=== PATIENT | male | born 1965 | race Caucasian/White ===

== ENCOUNTER 2018-02-02 17:13 | Inpatient (IN) ==
[2018-02-02] MEDS ORDERED: Morphine Inj 4 MG/ML Vial IV.PUSH ONE (18:28)
--- NOTE | 2018-02-02 18:30 | ED ---
HPI General Chief complaint: Recheck/Abnormal Lab/Rx Stated complaint: dr ayala Time Seen by Provider: 02/02/18 18:17 Source: patient Mode of arrival: ambulatory Limitations: no limitations History of Present Illness HPI narrative: 52-year-old male with history of hypertension and a chronic wound on the left plantar foot, presents emergency department today at the instruction of Dr. Nash, it compliance manager. Patient was hospitalized at [facility] January 10 - January 20 for a wound on his left foot. He tells me that he was discharged home on IV antibiotics with a PICC line. He does not recall what antibiotic this is. He tells me he does get it every day at 9 AM and he did get his dose today. He tells me that he was told somebody was going to come to his house and set up a wound VAC and monitor his wound, however nobody showed up and he did not hear anything. He decided on his own to contact the it compliance manager who saw him yesterday removed his sutures and then again today and advised to come to the emergency department. Patient reports pain in the left foot, moderate in severity, exacerbated with ambulation. He states he has had no fever but has felt chilled occasionally. He denies any weakness, nausea, vomiting. He has no other symptoms to report. Patient does tell me he was told that he was borderline diabetic, however he currently does not take any medication for diabetes. Related Data Home Medications Medication Instructions Recorded Confirmed No Known Home Medications 02/02/18 02/02/18 Allergies Allergy/AdvReac Type Severity Reaction Status Date / Time No Known Allergies Allergy Verified 02/02/18 17:27 Review of Systems ROS: all other systems reviewed are negative [facility] Medical History Medical History Asthma (Acute) Hypertension (Acute) Social History Social History Substance History: No History of Abuse Second Hand Smoke Exposure: Yes Smoking Status: Former smoker Tobacco Type: Cigarettes How Often Do You Have a Drink Containing Alcohol: 2 to 4 times a month Recent Travel in [facility] within the Last 8 Weeks: No Recent Out of Country Travel within the Last 8 Weeks: No Immunization History Tetanus Immunization: Unsure Hx Influenza Vaccine This Season: No Exam Narrative Exam Narrative: GENERAL: Well-nourished male patient, sitting up in bed, no acute distress. SKIN: Focused skin assessment warm/dry. 3 cm in diameter ulcerative lesions on the plantar surface of the left foot just proximal to the great toe. You can visualize the bone. There is erythema encompassing the foot extending to the midfoot with mild edema. Patient can slowly wiggle the toes. Cap refill within normal limits. HEAD: Atraumatic. Normocephalic. EYES: Pupils equal and round. No scleral icterus. No injection or drainage. ENT: No nasal bleeding or discharge. Mucous membranes pink and moist. NECK: Trachea midline. No JVD. CARDIOVASCULAR: Regular rate and rhythm. No murmur appreciated. RESPIRATORY: No accessory muscle use. Clear to auscultation. Breath sounds equal bilaterally. GASTROINTESTINAL: Abdomen soft, non-tender, nondistended. Hepatic and splenic margins not palpable. MUSCULOSKELETAL: No obvious deformities. No clubbing. No cyanosis. NEUROLOGICAL: Awake and alert. No obvious cranial nerve deficits. Motor grossly within normal limits. Normal speech. PSYCHIATRIC: Appropriate mood and affect; insight and judgment normal. Course Initial Documented Vital Signs Temperature 98.0 F 02/02/18 17:19 Pulse Rate 77 02/02/18 17:19 Respiratory Rate 18 02/02/18 17:19 Blood Pressure 180/81 H 02/02/18 17:19 Pulse Oximetry 98 02/02/18 17:19 Last Documented Vital Signs Temperature 98.3 F 02/03/18 04:00 Pulse Rate 58 L 02/03/18 04:00 Respiratory Rate 20 02/03/18 04:00 Blood Pressure 146/68 H 02/03/18 04:00 Pulse Oximetry 99 02/03/18 04:00 Medical Decision Making DALTON Attestation DALTON supervised visit: Yes Attestation: I, [-], have reviewed the advance practice practitioner's documentation and am in agreement, met with the patient face to face, made the diagnosis, and the medical decision making was done by me. *My assessment and Findings: Ulceration of the plantar aspect of the left foot with exposed bone. No purulent discharge. No tenderness to palpation. Patient does not appear septic. MDM Narrative Medical decision making narrative: 52-year-old male presents emergency department for evaluation of a wound on his left foot. Patient does have an ulcerative wound and bone is visible. Patient has been on outpatient antibiotics with no improvement of this. Wound culture and blood cultures are obtained as well as basic lab work. This is without acute concern. I have had the feeder worker power unit operator contact [facility] for [facility]'s [facility]. MRI of the left foot is pending. I have contacted the resident team for admission. A consult has been placed to podiatry. Medical Screen Exam Complete: Yes Emergency Medical Condition: Yes Differential Diagnosis Differential Diagnosis: Cellulitis versus wound infection versus medication noncompliance versus failed outpatient therapy versus septic versus osteomyelitis Medical Records Medical records reviewed: Yes I reviewed the patient's medical records. Lab Data Lab results reviewed: Yes I reviewed the patient's lab results. Result diagrams: 02/02/18 18:40 02/02/18 18:40 Lab Results 02/02/18 02/02/18 02/02/18 Range/Units 18:40 18:40 18:40 WBC 7.0 (4.0-11.0) th/mm3 RBC 4.79 (4.50-5.90) mil/mm3 Hgb 14.0 (13.0-17.0) gm/dL Hct 42.1 (39.0-51.0) % MCV 88.0 (80.0-100.0) fL MCH 29.2 (27.0-34.0) pg MCHC 33.2 (32.0-36.0) % RDW 13.4 (11.6-17.2) % Plt Count 201 (150-450) th/mm3 MPV 8.8 (7.0-11.0) fL Neut % (Auto) 72.9 H (16.0-70.0) % Lymph % (Auto) 17.1 (9.0-44.0) % [place] % (Auto) 7.5 (0.0-8.0) % Eos % (Auto) 1.7 (0.0-4.0) % Baso % (Auto) 0.8 (0.0-2.0) % Neut # (Auto) 5.1 (1.8-7.7) th/mm3 Lymph # (Auto) 1.2 (1.0-4.8) th/mm3 [place] # (Auto) 0.5 (0.0-0.9) th/mm3 Eos # (Auto) 0.1 (0.0-0.4) th/mm3 Baso # (Auto) 0.1 (0.0-0.2) th/mm3 WBC Differential . Differential Comment Auto diff final ESR (0-20) mm/hr PT (9.8-11.6) sec INR Ratio APTT (24.3-30.1) sec Sodium 140 (136-145) meq/L Potassium 4.1 (3.5-5.1) meq/L Chloride 104 (98-107) meq/L Carbon Dioxide 27.9 (21.0-32.0) meq/L Anion Gap 8 (5-15) meq/L BUN 12 (7-18) mg/dL Creatinine 0.91 (0.60-1.30) mg/dL Estimated GFR 88 L (>89) mL/min Random Glucose 96 (74-106) mg/dL Lactic Acid 1.5 (0.4-2.0) mmol/L Calcium 8.8 (8.5-10.1) mg/dL Total Bilirubin 0.3 (0.2-1.0) mg/dL AST 22 (15-37) U/L ALT 37 (12-78) U/L Alkaline Phosphatase 94 (45-117) U/L C-Reactive Protein 2.11 H (0.00-0.30) mg/dL Total Protein 7.9 (6.4-8.2) g/dL Albumin 3.1 L (3.4-5.0) g/dL 02/02/18 02/02/18 02/02/18 Range/Units 18:40 18:40 19:15 WBC (4.0-11.0) th/mm3 RBC (4.50-5.90) mil/mm3 Hgb (13.0-17.0) gm/dL Hct (39.0-51.0) % MCV (80.0-100.0) fL MCH (27.0-34.0) pg MCHC (32.0-36.0) % RDW (11.6-17.2) % Plt Count (150-450) th/mm3 MPV (7.0-11.0) fL Neut % (Auto) (16.0-70.0) % Lymph % (Auto) (9.0-44.0) % [place] % (Auto) (0.0-8.0) % Eos % (Auto) (0.0-4.0) % Baso % (Auto) (0.0-2.0) % Neut # (Auto) (1.8-7.7) th/mm3 Lymph # (Auto) (1.0-4.8) th/mm3 [place] # (Auto) (0.0-0.9) th/mm3 Eos # (Auto) (0.0-0.4) th/mm3 Baso # (Auto) (0.0-0.2) th/mm3 WBC Differential Differential Comment ESR 22 H (0-20) mm/hr PT 10.4 (9.8-11.6) sec INR 1.0 Ratio APTT 26.4 (24.3-30.1) sec Sodium (136-145) meq/L Potassium (3.5-5.1) meq/L Chloride (98-107) meq/L Carbon Dioxide (21.0-32.0) meq/L Anion Gap (5-15) meq/L BUN (7-18) mg/dL Creatinine (0.60-1.30) mg/dL Estimated GFR (>89) mL/min Random Glucose (74-106) mg/dL Lactic Acid (0.4-2.0) mmol/L Calcium (8.5-10.1) mg/dL Total Bilirubin (0.2-1.0) mg/dL AST (15-37) U/L ALT (12-78) U/L Alkaline Phosphatase (45-117) U/L C-Reactive Protein Cancelled (0.00-0.30) mg/dL Total Protein (6.4-8.2) g/dL Albumin (3.4-5.0) g/dL Imaging Data Radiologist's impression: Foot MRI 02/02/18 18:25 CONCLUSION: Deep plantar ulcer of the medial forefoot as described with associated osteomyelitis of the neck and head of the first metatarsal and osteomyelitis throughout most of the great toe proximal phalanx. The first metatarsophalangeal joint is dorsally dislocated due to plantar and flexor mechanism rupture. I don't clearly see either sesamoid. Discharge Plan Discharge Disposition Patient Disposition: 30 Still Patient Discharge Condition Condition: Stable Discharge Details Diagnosis: Open wnd foot-complicated, Failure of outpatient treatment Physicians Team ED Provider: Zoran Kee ED Midlevel Provider: Lita Ivy Primary Care Provider: Bharat Tejada Attending Provider: Nicole Garza Other Providers: Vicki Chavarria ED Status: Left Department Discharge Information Discharge Date/Time: 02/03/18 00:03
[2018-02-02 18:55] LABS: Baso # (Auto) 0.1 th/mm3 (0.0-0.2); Baso % (Auto) 0.8 % (0.0-2.0); Eos # (Auto) 0.1 th/mm3 (0.0-0.4); Eos % (Auto) 1.7 % (0.0-4.0); Hematocrit 42.1 % (39.0-51.0); Lymph # (Auto) 1.2 th/mm3 (1.0-4.8); Lymph % (Auto) 17.1 % (9.0-44.0); Mean Corpuscular HGB Conc 33.2 % (32.0-36.0); Mean Corpuscular Hemoglobin 29.2 pg (27.0-34.0); Mean Platelet Volume 8.8 fL (7.0-11.0); Mono # (Auto) 0.5 th/mm3 (0.0-0.9); Mono % (Auto) 7.5 % (0.0-8.0); Neut # (Auto) 5.1 th/mm3 (1.8-7.7); Neut % (Auto) 72.9 % (16.0-70.0); Platelet Count 201 th/mm3 (150-450); Red Blood Count 4.79 mil/mm3 (4.50-5.90); Red Cell Distribution Width 13.4 % (11.6-17.2)
[2018-02-02 19:14] LABS: Albumin 3.1 g/dL (3.4-5.0); Anion Gap 8 meq/L (5-15); Aspartate Aminotransferase 22 U/L (15-37); Blood Urea Nitrogen 12 mg/dL (7-18); Calcium 8.8 mg/dL (8.5-10.1); Carbon Dioxide 27.9 meq/L (21.0-32.0); Chloride 104 meq/L (98-107); Glomerular Filtration Rate 88 mL/min (>89); Glucose,Random 96 mg/dL (74-106); Potassium 4.1 meq/L (3.5-5.1); Sodium 140 meq/L (136-145)
[2018-02-02 19:18] LABS: Alanine Aminotransferase 37 U/L (12-78); Alkaline Phosphatase 94 U/L (45-117); Total Protein 7.9 g/dL (6.4-8.2)
[2018-02-02] MEDS ORDERED: Gadobutrol PF 10 MMOL/10 ML Vial (for RAD) IV.SIG ONE (20:09)
[2018-02-02 20:15] LABS: Activated Partial Thrombo Time 26.4 sec (24.3-30.1); Prothrombin Time 10.4 sec (9.8-11.6)
--- NOTE | 2018-02-02 20:39 | MR ---
EXAM DATE: 02/02/2018 7:33 PM EDT AGE/SEX: 52 years / Male INDICATIONS: Abscess. Proximal ball of foot under great toe ulcer and distal ball of foot by the fourth tarsal ulcer. CLINICAL DATA: This is the patient's initial encounter. Patient reports that signs and symptoms have been present for 1 day and indicates a pain score of 0/10. MEDICAL/SURGICAL HISTORY: Hypertension. Diabetes mellitus type II. . Fatty tumor removal. COMPARISON: No prior exams available for comparison. TECHNIQUE: Multiplanar, multisequence MRI examination was performed without contrast and after th e intravenous administration of 11.9 ml Gadavist (gadobutrol) single exam dose. FINDINGS: There is a plantar ulcer extending down to the bone at the first metatarsophalangeal joint. The joint is dorsally dislocated. The metatarsal head appears exposed. There is marrow edema of the entire fir st metatarsal and proximal phalanx. There is associated T1 signal abnormality typical of osteomyeliti s involving the head and neck of the first metatarsal and the base of the proximal phalanx. Some patc hy intramedullary signal abnormality is seen all the way to the head of the proximal phalanx as well and of concern for some distal migration of infection. Both lungs and hands. Other tendons are within normal limits. There is no drainable fluid collection. CONCLUSION: Deep plantar ulcer of the medial forefoot as described with associated osteomyelitis of the neck and head of the first metatarsal and osteomyelitis throughout most of the great toe proximal phalanx. The first metatarsophalangeal joint is dorsally dislocated due to plantar and flexor mechan ism rupture. I don't clearly see either sesamoid. Electronically signed by: Calin Bui MD 02/02/2018 8:38 PM EDT
[2018-02-02] MEDS ORDERED: Bisacodyl 10 MG Supp RECTAL PRN (21:20)
[2018-02-02] MEDS ORDERED: Acetaminophen 325 MG Tablet PO PRN (21:20)
[2018-02-02] MEDS ORDERED: Morphine Sulfate Inj 2 MG/ML Vial IV.PUSH PRN (21:28)
[2018-02-02] MEDS ORDERED: Vancomycin Consult Pharmacy OTHER PRN (21:30)
--- NOTE | 2018-02-02 21:39 | P.HPFP ---
History of Present Illness Primary Care Physician: Bharat Tejada <Nicole Garza R - 02/03/18 10:41> Bharat Tejada <Eric Hernandez - 02/02/18 21:39> History of Present Illness: The patient is a 52 year old man sent to the ED by his sales representative graphic art Dr. Chavarria due to a chronic wound on the plantar aspect of his left foot. Patient reports he has two wounds on the left foot and he first noticed these wounds in August of this year. Reports prior to this he had been having soreness in this area since the beginning of the year. He states he is unsure as to what may have caused this chronic wound. Denies any trauma. He states to me he is healthy apart from having mild asthma, although he does not follow with a PCP. The patient is somewhat of a difficult historian. He does report he has seen a few providers most recently in the [facility]. He was recently hospitalized at [facility] per report from 01/10- for this same wound on his left foot; the patient was reportedly discharged home with a PICC line and instructed to continue IV antibiotics. He states he has been driving himself to the hospital to receive an antibiotic daily at 09: 00. He is unsure which antibiotic this is. Per report, he was also to be set up to have a wound vac placed although this was not done at his house. The patient is currently living in a mobile home with his cousin. The patient endorses pain that is mild, and further improved with IV morphine earlier here in the ED. Denies recent fevers or chills. Denies chest pains, palpitations, dyspnea, wheezing. Denies headaches, changes in vision, abdominal pain, n/v/d. PMH: chronic left foot wounds noted above mild intermittent asthma hypertension per chart review patient does not report any other medical issues PSxH: denies FH: father: COPD, smoker mother: healthy SH: Lives in a mobile home with a cousin Tobacco: states he smokes a few cigarettes daily since his 20s Etoh: few beers per week Substance use: admits to using marijuana occasionally, otherwise denies substance use <Eric Hernandez - 02/02/18 23:28> - Diagnosis (1) Foot ulcer, left (2) Hypertension (3) Asthma (4) Nutrition, metabolism, and development symptoms <DerrickalessandroNicole - 02/03/18 10:41> (1) Foot ulcer, left (2) Hypertension (3) Asthma (4) Nutrition, metabolism, and development symptoms <KoryhillaryEric 02/02/18 22:48> Inpatient Certification: I certify that the inpatient services were ordered in accordance with Medicare regulations governing the order. This includes certification that hospital inpatient services are reasonable and necessary and in the case of services not specified as inpatient-only under 42 CFR 419.22(n), that they are appropriately provided as inpatient services in accordance to with the 2-midnight benchmark under 43 CFR 412.3(e) <GregNicole R 02/03/18 10:41> I certify that the inpatient services were ordered in accordance with Medicare regulations governing the order. This includes certification that hospital inpatient services are reasonable and necessary and in the case of services not specified as inpatient-only under 42 CFR 419.22(n), that they are appropriately provided as inpatient services in accordance to with the 2-midnight benchmark under 43 CFR 412.3(e) <KoryhillaryEric 02/02/18 21:39> Estimated Total Length of Stay (Days): 3 <RomulojacquelinEric 02/02/18 21:39> Plans for Post Hospital Care: Not yet determined <KoryhillaryEric 21:39> [facility] History History Provided By: Patient <MaryEric 02/02/18 21:39> - Medical History Medical History: Medical History (Last Reviewed 02/02/18 @ 20:11 by GISELLE Hansno) Asthma Hypertension <GregNicole R 02/03/18 10:41> Medical History (Last Reviewed 02/02/18 @ 20:11 by GISELLE Hanson) Asthma Hypertension <RomulojacquelinEric 02/02/18 21:39> - Tobacco History Second Hand Smoke Exposure: Yes <MaryReic 02/02/18 21:39> Tobacco Use In Past 30 Days: Yes <Eric Hernandez 02/02/18 21:39> Smoking Status: Current some day smoker <KoryfatoumatatatianaEric - 02/02/18 21:39> Tobacco Type: Cigarettes <KoryhillaryEric - 02/02/18 21:39> - Alcohol History How Often Do You Have a Drink Containing Alcohol: 2 to 3 times a week < RomuloEric roper 02/02/18 21:39> - Substance Use History Substance History: No History of Abuse <RomuloEric roper 02/02/18 21:39> - Travel History Recent Travel in the [facility] Within the Last 8 Weeks: No <RomuloEric roper 08/17 21:39> Recent Travel Out of the Country Within the Last 8 Weeks: No <Eric Hernandez 02/02/18 21:39> - Immunization History Tetanus Immunization: Unsure <RomulojacquelinEric - 02/02/18 21:39> Hx Influenza Vaccine This Season: No <Eric Hernandez 02/02/18 21:39> Medications and Allergies Allergies Allergy/AdvReac Type Severity Reaction Status Date / Time No Known Allergies Allergy Verified 02/02/18 17:27 <Nicole Garza 02/03/18 10:41> Home Medications Medication Instructions Recorded Confirmed Type No Known Home Medications 02/02/18 02/02/18 History <Nicole Garza 02/03/18 10:41> Active Medications: Active Medications Acetaminophen (Tylenol) 650 mg PO Q4H PRN PRN Reason: Pain 1-5 And/Or Fever >101f Hydrocodone Bitart/Acetaminophen ([place] 5/325) 1 tab PO Q4H PRN PRN Reason: PAIN SCALE 6 TO 10 Al Hydroxide/Mg Hydroxide (Milk Of Magnesia Liq) 30 ml PO Q12H PRN PRN Reason: Mild Constipation Albuterol (Duoneb Neb (Prn)) 1 ampul NEB Q4HR NEB PRN PRN Reason: SHORTNESS OF BREATH/WHEEZING Bisacodyl (Dulcolax Supp) 10 mg RECTAL DAILY PRN PRN Reason: SEVERE CONSITIPATION Clonidine HCl (Catapres) 0.1 mg PO Q6H PRN PRN Reason: SEE LABEL COMMENTS Sodium Chloride (Ns Inj) 1,000 mls @ 100 mls/hr IV.CONT .Q10H RAUL Last Admin: 02/02/18 22:13 Dose: 100 mls/hr Piperacillin/Tazobactam/Dextrose (Zosyn 4.5 Gm Premix) 4.5 gm in 100 mls @ 200 mls/hr IV.SIG Q6H RAUL Last Infusion: 02/03/18 05:40 Dose: Infused Vancomycin HCl 1,500 mg/ (Sodium Chloride) 515 mls @ 250 mls/hr IV.SIG Q12H RAUL Lactulose (Lactulose Liq) 30 ml PO DAILY PRN PRN Reason: SEVERE CONSITIPATION Miscellaneous Information ([facility] Ordered Lab Info) 0 each OTHER ONCE ONE Stop: 02/04/18 11:46 Morphine Sulfate (Morphine Inj) 2 mg IV.PUSH Q3H PRN PRN Reason: BREAKTHROUGH PAIN Ondansetron HCl (Zofran Inj) 4 mg IV.PUSH Q6H PRN PRN Reason: NAUSEA OR VOMITING Pharmacy Profile Note (Vancomycin Consult Pharmacy) 1 each OTHER UNSCH PRN PRN Reason: Pharmacy to dose Senna/Docusate Sodium (Celi-Colace) 1 tab PO BID [facility] Last Admin: 02/02/18 22:05 Dose: Not Given <Nicole Garza R - 02/03/18 10:41> Active Medications Acetaminophen (Tylenol) 650 mg PO Q4H PRN PRN Reason: Pain 1-5 And/Or Fever >101f Hydrocodone Bitart/Acetaminophen ([place] 5/325) 1 tab PO Q4H PRN PRN Reason: PAIN SCALE 6 TO 10 Al Hydroxide/Mg Hydroxide (Milk Of Magnesia Liq) 30 ml PO Q12H PRN PRN Reason: Mild Constipation Albuterol (Duoneb Neb (Prn)) 1 ampul NEB Q4HR NEB PRN PRN Reason: SHORTNESS OF BREATH/WHEEZING Bisacodyl (Dulcolax Supp) 10 mg RECTAL DAILY PRN PRN Reason: SEVERE CONSITIPATION Sodium Chloride (Ns Inj) 1,000 mls @ 100 mls/hr IV.CONT .Q10H RAUL Vancomycin HCl 1,750 mg/ (Sodium Chloride) 517.5 mls @ 250 mls/hr IV.SIG Q24H RAUL Piperacillin/Tazobactam/Dextrose (Zosyn 4.5 Gm Premix) 4.5 gm in 100 mls @ 200 mls/hr IV.SIG Q6H RAUL Lactulose (Lactulose Liq) 30 ml PO DAILY PRN PRN Reason: SEVERE CONSITIPATION Morphine Sulfate (Morphine Inj) 2 mg IV.PUSH Q3H PRN PRN Reason: BREAKTHROUGH PAIN Ondansetron HCl (Zofran Inj) 4 mg IV.PUSH Q6H PRN PRN Reason: NAUSEA OR VOMITING Pharmacy Profile Note (Vancomycin Consult Pharmacy) 1 each OTHER UNSCH PRN PRN Reason: Pharmacy to dose Senna/Docusate Sodium (Celi-Colace) 1 tab PO BID RAUL <Kevin Hernandezsh - 02/02/18 21:39> Exam Vital signs: Vital Signs 02/02/18 17:19 02/02/18 17:26 02/02/18 19:20 Temperature 98.0 F Pulse Rate 77 77 70 Respiratory Rate 18 18 17 Blood Pressure 180/81 H 119/74 136/70 Pulse Oximetry 98 99 98 02/02/18 20:24 02/03/18 00:35 02/03/18 03:35 Temperature 97.3 F L Pulse Rate 58 L Respiratory Rate 20 20 Blood Pressure 118/72 Pulse Oximetry 98 98 02/03/18 04:00 02/03/18 08:00 Temperature 98.3 F 97 F L Pulse Rate 58 L 59 L Respiratory Rate 20 17 Blood Pressure 146/68 H 175/90 H Pulse Oximetry 99 99 Intake & Output 02/02/18 02/03/18 02/03/18 18:59 06:59 18:59 Intake Total 740 / 740 Balance 740 / 740 Weight 119.295 kg 121.9 kg Intake: IV 740 / 740 Zosyn 4.5 GM Premix 4.5 gm In 200 / 200 100 ml @ 200 mls/hr IV.SIG Q6H RAUL Rx#:[id number] Vancomycin Inj 2,000 MG In NS 540 / 540 Inj 500 ML @ 270 mls/hr IV.SIG ONCE ONE Rx#:[id number] Oral 0 / 0 Other: Weight On Admission 121.9 kg <Nicole Garza - 02/03/18 10:41> Vital Signs 02/02/18 17:19 02/02/18 17:26 02/02/18 19:20 Temperature 98.0 F Pulse Rate 77 77 70 Respiratory Rate 18 18 17 Blood Pressure 180/81 H 119/74 136/70 Pulse Oximetry 98 99 98 02/02/18 20:24 Temperature Pulse Rate Respiratory Rate 20 Blood Pressure Pulse Oximetry Intake & Output 02/02/18 02/02/18 02/03/18 06:59 18:59 06:59 Weight 119.295 kg <Eric Hernandez - 02/02/18 21:39> Narrative: GENERAL: NAD, lying comfortably in bed NEURO: AOx3. Normal speech. administration physician grossly intact. SKIN: measured 2.5cm in diameter ulcerative lesion on plantar surface of the left foot proximal to the great toe, bone is able to be visualized, very poor sensation of this area and without pain to palpation unless probed in a specific area. + probe to bone. Surrounding erythema extending to the great toe and towards the midfoot. Another lesion measured 1.5cm x 2cm lesion without skin breakdown just lateral to this wound. DP and PT pulses are palpable and 2+ in both feet. Loss of sensation to light touch of both feet and up to the level of his ankles bilaterally. HEAD: Normocephalic. Atraumatic. EYES: PERRL. EOMI. No scleral icterus. No injection or drainage. ENT: No nasal drainage. Moist mucous membranes. No oral ulcers or lesions. NECK: Supple, trachea midline. No JVD. CARDIOVASCULAR: Regular rate and rhythm without murmurs, gallops, or rubs. Peripheral pulses 2+. Capillary refill < 2 seconds. RESPIRATORY: Breath sounds clear to auscultation and equal bilaterally, without wheezes, rales, or rhonchi. No accessory muscle use. GASTROINTESTINAL: Abdomen soft, non-tender, protuberant, normal BS BACK: Nontender without obvious deformity. <KoryfatoumataEric simpson - 02/02/18 23:28> Results - Labs Result diagrams: 02/03/18 07:13 02/03/18 07:13 <Nicole Garza - 02/03/18 10:41> Abnormal lab results 02/02/18 02/02/18 02/02/18 Range/Units 18:40 18:40 18:40 RBC (4.50-5.90) mil/mm3 Hct (39.0-51.0) % Neut % (Auto) 72.9 H (16.0-70.0) % Williams % (Auto) (0.0-8.0) % Lymph # (Auto) (1.0-4.8) th/mm3 ESR 22 H (0-20) mm/hr Estimated GFR 88 L (>89) mL/min C-Reactive Protein 2.11 H (0.00-0.30) mg/dL Albumin 3.1 L (3.4-5.0) g/dL 02/03/18 02/03/18 Range/Units 07:13 07:13 RBC 4.45 L (4.50-5.90) mil/mm3 Hct 38.7 L (39.0-51.0) % Neut % (Auto) (16.0-70.0) % Williams % (Auto) 9.0 H (0.0-8.0) % Lymph # (Auto) 0.9 L (1.0-4.8) th/mm3 ESR (0-20) mm/hr Estimated GFR 76 L (>89) mL/min C-Reactive Protein (0.00-0.30) mg/dL Albumin (3.4-5.0) g/dL Short CBC 02/02/18 02/03/18 Range/Units 18:40 07:13 WBC 7.0 5.0 (4.0-11.0) th/mm3 Hgb 14.0 13.1 (13.0-17.0) gm/dL Hct 42.1 38.7 L (39.0-51.0) % Plt Count 201 159 (150-450) th/mm3 BMP 02/02/18 02/03/18 18:40 07:13 Sodium 140 142 Potassium 4.1 4.3 Chloride 104 106 Carbon Dioxide 27.9 31.0 BUN 12 11 Creatinine 0.91 1.03 Calcium 8.8 8.5 Liver Function 02/02/18 Range/Units 18:40 Total Bilirubin 0.3 (0.2-1.0) mg/dL AST 22 (15-37) U/L ALT 37 (12-78) U/L Alkaline Phosphatase 94 (45-117) U/L Albumin 3.1 L (3.4-5.0) g/dL <Nicole Garza R - 02/03/18 10:41> Abnormal lab results 02/02/18 02/02/18 Range/Units 18:40 18:40 Neut % (Auto) 72.9 H (16.0-70.0) % Estimated GFR 88 L (>89) mL/min Albumin 3.1 L (3.4-5.0) g/dL Short CBC 02/02/18 Range/Units 18:40 WBC 7.0 (4.0-11.0) th/mm3 Hgb 14.0 (13.0-17.0) gm/dL Hct 42.1 (39.0-51.0) % Plt Count 201 (150-450) th/mm3 BMP 02/02/18 18:40 Sodium 140 Potassium 4.1 Chloride 104 Carbon Dioxide 27.9 BUN 12 Creatinine 0.91 Calcium 8.8 Liver Function 02/02/18 Range/Units 18:40 Total Bilirubin 0.3 (0.2-1.0) mg/dL AST 22 (15-37) U/L ALT 37 (12-78) U/L Alkaline Phosphatase 94 (45-117) U/L Albumin 3.1 L (3.4-5.0) g/dL <Eric Hernandez - 02/02/18 21:39> - Imaging Impressions Foot MRI 02/02/18 18:25 CONCLUSION: Deep plantar ulcer of the medial forefoot as described with associated osteomyelitis of the neck and head of the first metatarsal and osteomyelitis throughout most of the great toe proximal phalanx. The first metatarsophalangeal joint is dorsally dislocated due to plantar and flexor mechanism rupture. I don't clearly see either sesamoid. <Nicole Garza R - 02/03/18 10:41> Impressions Foot MRI 02/02/18 18:25 CONCLUSION: Deep plantar ulcer of the medial forefoot as described with associated osteomyelitis of the neck and head of the first metatarsal and osteomyelitis throughout most of the great toe proximal phalanx. The first metatarsophalangeal joint is dorsally dislocated due to plantar and flexor mechanism rupture. I don't clearly see either sesamoid. <Eric Hernandez - 02/02/18 23:28> Caprini VTE Risk Assessment Caprini VTE Risk Assessment: Moderate/High Risk (score >= 2) <Eric Hernandez 02/02/18 23:28> Justinei Risk Assessment Model: Point Value = 1 Point Value = 2 Point Value = 3 Point Value = 5 Age 41-60 Minor surgery BMI > 25 kg/m2 Swollen legs Varicose veins or History of unexplained or recurrent spontaneous Oral contraceptives or hormone replacement Sepsis (< 1 month) Serious lung disease, including pneumonia (< 1 month) Abnormal pulmonary function Acute myocardial infarction Congestive heart failure (< 1 month) History of inflammatory bowel disease Medical patient at bed rest Age 61-74 Arthroscopic surgery Major open surgery (> 45 min) Laparoscopic surgery (> 45 min) Malignancy Confined to bed (> 72 hours) Immobilizing plaster cast Central venous access Age >= 75 History of VTE Family history of VTE Factor V Leiden Prothrombin [id number] Lupus anticoagulant Anticardiolipin antibodies Elevated serum homocysteine Heparin-induced thrombocytopenia Other congenital or acquired thrombophilia Stroke (< 1 month) Elective arthroplasty Hip, pelvis, or leg fracture Acute spinal cord injury (< 1 month) <Nicole Garza - 02/03/18 10:41> Point Value = 1 Point Value = 2 Point Value = 3 Point Value = 5 Age 41-60 Minor surgery BMI > 25 kg/m2 Swollen legs Varicose veins or History of unexplained or recurrent spontaneous Oral contraceptives or hormone replacement Sepsis (< 1 month) Serious lung disease, including pneumonia (< 1 month) Abnormal pulmonary function Acute myocardial infarction Congestive heart failure (< 1 month) History of inflammatory bowel disease Medical patient at bed rest Age 61-74 Arthroscopic surgery Major open surgery (> 45 min) Laparoscopic surgery (> 45 min) Malignancy Confined to bed (> 72 hours) Immobilizing plaster cast Central venous access Age >= 75 History of VTE Family history of VTE Factor V Leiden Prothrombin [id number] Lupus anticoagulant Anticardiolipin antibodies Elevated serum homocysteine Heparin-induced thrombocytopenia Other congenital or acquired thrombophilia Stroke (< 1 month) Elective arthroplasty Hip, pelvis, or leg fracture Acute spinal cord injury (< 1 month) <Eric Hernandez 02/02/18 23:28> Prophylaxis Regimen: Total Risk Factor Score Risk Level Prophylaxis Regimen 0-1 Low Early ambulation 2 Moderate Order ONE of the following: *Sequential Compression Device (SCD) *Heparin 5000 units SQ BID 3-4 Higher Order ONE of the following medications: *Heparin 5000 units SQ TID *Enoxaparin/Lovenox 40 mg SQ daily (WT < 150 kg, CrCl > 30 mL/min) *Enoxaparin/Lovenox 30 mg SQ daily (WT < 150 kg, CrCl > 10-29 mL/min) *Enoxaparin/Lovenox 30 mg SQ BID (WT < 150 kg, CrCl > 30 mL/min) AND/OR *Sequential Compression Device (SCD) 5 or more Highest Order ONE of the following medications: *Heparin 5000 units SQ TID (Preferred with Epidurals) *Enoxaparin/Lovenox 40 mg SQ daily (WT < 150 kg, CrCl > 30 mL/min) *Enoxaparin/Lovenox 30 mg SQ daily (WT < 150 kg, CrCl > 10-29 mL/min) *Enoxaparin/Lovenox 30 mg SQ BID (WT < 150 kg, CrCl > 30 mL/min) AND *Sequential Compression Device (SCD) <Nicole Garza - 02/03/18 10:41> Total Risk Factor Score Risk Level Prophylaxis Regimen 0-1 Low Early ambulation 2 Moderate Order ONE of the following: *Sequential Compression Device (SCD) *Heparin 5000 units SQ BID 3-4 Higher Order ONE of the following medications: *Heparin 5000 units SQ TID *Enoxaparin/Lovenox 40 mg SQ daily (WT < 150 kg, CrCl > 30 mL/min) *Enoxaparin/Lovenox 30 mg SQ daily (WT < 150 kg, CrCl > 10-29 mL/min) *Enoxaparin/Lovenox 30 mg SQ BID (WT < 150 kg, CrCl > 30 mL/min) AND/OR *Sequential Compression Device (SCD) 5 or more Highest Order ONE of the following medications: *Heparin 5000 units SQ TID (Preferred with Epidurals) *Enoxaparin/Lovenox 40 mg SQ daily (WT < 150 kg, CrCl > 30 mL/min) *Enoxaparin/Lovenox 30 mg SQ daily (WT < 150 kg, CrCl > 10-29 mL/min) *Enoxaparin/Lovenox 30 mg SQ BID (WT < 150 kg, CrCl > 30 mL/min) AND *Sequential Compression Device (SCD) <Eric Hernandez - 02/02/18 21:39> Assessment and Plan - Assessment (1) Foot ulcer, left Code(s): L97.529 - Non-pressure chronic ulcer of other part of left foot with unspecified severity Status: Acute (2) Hypertension Code(s): I10 - Essential (primary) hypertension Status: Acute (3) Asthma Code(s): J45.909 - Unspecified asthma, uncomplicated Status: Acute (4) Nutrition, metabolism, and development symptoms Code(s): R63.8 - Other symptoms and signs concerning food and fluid intake Status: Acute <Nicole Garza - 02/03/18 10:41> (1) Foot ulcer, left Code(s): L97.529 - Non-pressure chronic ulcer of other part of left foot with unspecified severity Status: Acute (2) Hypertension Code(s): I10 - Essential (primary) hypertension Status: Acute (3) Asthma Code(s): J45.909 - Unspecified asthma, uncomplicated Status: Acute (4) Nutrition, metabolism, and development symptoms Code(s): R63.8 - Other symptoms and signs concerning food and fluid intake Status: Acute <Eric Hernandez - 02/02/18 22:48> - Assessment and Plan 52 year old male sent to the ED by his sales representative graphic art due to a non-healing ulcer on the plantar surface of his left foot. Left foot wound causing osteomyelitis - Unclear etiology, records pending from [facility] - Will check an A1c as patient denies history of DM although he has poor follow up with a PCP or other providers other than his sales representative graphic art recently. No known history of peripheral vascular disease or venous insufficiency - Patient appears well, vitals are stable, no leukocytosis - Foot MRI showing osteomyelitis as noted above - Consult placed to Dr. Chavarria, appreciate recommendations - Start Vancomycin with pharmacy consult for dosing, and Zosyn 4.5 gm IV q6h - [place] 5/325 prn pain 6-10, morphine for breakthrough - Consult wound care - Blood and wound cultures pending Hypertension - Monitor vitals q4h - Clonidine 0.1 mg po q6h prn BP > 180/100 FEN - NS at 100 cc/hr - Electrolytes: continue to monitor - Nutrition: regular diet, NPO after MN - GI ppx: not indicated - DVT ppx: bilateral SCDs, holding chemical anticoagulation pending podiatry evaluation <Eric Hernandez - 02/02/18 23:28> - Attending Attestation Patient discussed with resident team. Agree with assessment and plan as above and inpatient admission. Place call to consult ID as well for this patients care. <Nicole Garza - 02/03/18 10:41>
[2018-02-02] MEDS: Senna/Docusate Sodium 8.6/50 MG Tablet PO SCH (22:05)
[2018-02-02] MEDS: Piperacil/Tazo 4.5 GM Premix 4.5 GM/100 ML BAG IV.SIG SCH (22:13)
[2018-02-02] MEDS: Sod Chloride 0.9% Inj 1,000 ML IV.CONT SCH (22:13)
[2018-02-02] MEDS ORDERED: Vancomycin Inj 2,000 MG in Sodium Chlor 0.9% Inj 500 ML IV.SIG ONE (22:30)
[2018-02-02 23:00] LABS: C-Reactive Protein 2.11 mg/dL (0.00-0.30)
[2018-02-03] MEDS: Piperacil/Tazo 4.5 GM Premix 4.5 GM/100 ML BAG IV.SIG SCH ×4 (04:58→21:20)
[2018-02-03 08:08] LABS: Calcium 8.5 mg/dL (8.5-10.1); Potassium 4.3 meq/L (3.5-5.1)
[2018-02-03 08:24] LABS: Baso % (Auto) 0.6 % (0.0-2.0); Eos # (Auto) 0.2 th/mm3 (0.0-0.4); Eos % (Auto) 3.5 % (0.0-4.0); Hematocrit 38.7 % (39.0-51.0); Hemoglobin 13.1 gm/dL (13.0-17.0); Lymph # (Auto) 0.9 th/mm3 (1.0-4.8); Lymph % (Auto) 17.1 % (9.0-44.0); Mean Corpuscular HGB Conc 33.8 % (32.0-36.0); Mean Corpuscular Hemoglobin 29.4 pg (27.0-34.0); Mean Platelet Volume 9.1 fL (7.0-11.0); Mono # (Auto) 0.4 th/mm3 (0.0-0.9); Neut # (Auto) 3.5 th/mm3 (1.8-7.7); Neut % (Auto) 69.8 % (16.0-70.0); Platelet Count 159 th/mm3 (150-450); Red Blood Count 4.45 mil/mm3 (4.50-5.90); Red Cell Distribution Width 13.3 % (11.6-17.2)
--- NOTE | 2018-02-03 09:19 | P.PNWCN ---
Wound Care Nurse Consult Description: Consult for Wound Management of left foot per Dr Hernandez Recommendation: Please defer to Dr Chavarria/Network Support Specialist for left foot wound. Additional information: Patient not seen for left foot wound. Podiatry has been consulted. Please refer to podiatry for wound care.
[2018-02-03] MEDS: Senna/Docusate Sodium 8.6/50 MG Tablet PO SCH ×2 (09:30→21:16)
[2018-02-03] MEDS: Sod Chloride 0.9% Inj 1,000 ML IV.CONT SCH (11:00)
--- NOTE | 2018-02-03 11:43 | P.PNFP ---
Subjective Interval history: Patient was seen and evaluated this morning. Patient reports feeling well; he denies pain in his left foot. Patient denies chest pain, heart palpitations, shortness of breath, nausea/ vomiting, diarrhea and constipation. All questions were answered. <JennaAustinVeronica - 02/03/18 11:43> Results - Labs Result diagrams: 02/03/18 07:13 02/03/18 07:13 <Nicole Garza - 02/03/18 13:45> Abnormal lab results 02/02/18 02/02/18 02/02/18 Range/Units 18:40 18:40 18:40 RBC (4.50-5.90) mil/mm3 Hct (39.0-51.0) % Neut % (Auto) 72.9 H (16.0-70.0) % [place] % (Auto) (0.0-8.0) % Lymph # (Auto) (1.0-4.8) th/mm3 ESR 22 H (0-20) mm/hr Estimated GFR 88 L (>89) mL/min C-Reactive Protein 2.11 H (0.00-0.30) mg/dL Albumin 3.1 L (3.4-5.0) g/dL 02/03/18 02/03/18 Range/Units 07:13 07:13 RBC 4.45 L (4.50-5.90) mil/mm3 Hct 38.7 L (39.0-51.0) % Neut % (Auto) (16.0-70.0) % [place] % (Auto) 9.0 H (0.0-8.0) % Lymph # (Auto) 0.9 L (1.0-4.8) th/mm3 ESR (0-20) mm/hr Estimated GFR 76 L (>89) mL/min C-Reactive Protein (0.00-0.30) mg/dL Albumin (3.4-5.0) g/dL Short CBC 02/02/18 02/03/18 Range/Units 18:40 07:13 WBC 7.0 5.0 (4.0-11.0) th/mm3 Hgb 14.0 13.1 (13.0-17.0) gm/dL Hct 42.1 38.7 L (39.0-51.0) % Plt Count 201 159 (150-450) th/mm3 BMP 02/02/18 02/03/18 18:40 07:13 Sodium 140 142 Potassium 4.1 4.3 Chloride 104 106 Carbon Dioxide 27.9 31.0 BUN 12 11 Creatinine 0.91 1.03 Calcium 8.8 8.5 Liver Function 02/02/18 Range/Units 18:40 Total Bilirubin 0.3 (0.2-1.0) mg/dL AST 22 (15-37) U/L ALT 37 (12-78) U/L Alkaline Phosphatase 94 (45-117) U/L Albumin 3.1 L (3.4-5.0) g/dL <Nicole Garza - 02/03/18 13:45> Abnormal lab results 02/02/18 02/02/18 02/02/18 Range/Units 18:40 18:40 18:40 RBC (4.50-5.90) mil/mm3 Hct (39.0-51.0) % Neut % (Auto) 72.9 H (16.0-70.0) % [place] % (Auto) (0.0-8.0) % Lymph # (Auto) (1.0-4.8) th/mm3 ESR 22 H (0-20) mm/hr Estimated GFR 88 L (>89) mL/min C-Reactive Protein 2.11 H (0.00-0.30) mg/dL Albumin 3.1 L (3.4-5.0) g/dL 02/03/18 02/03/18 Range/Units 07:13 07:13 RBC 4.45 L (4.50-5.90) mil/mm3 Hct 38.7 L (39.0-51.0) % Neut % (Auto) (16.0-70.0) % [place] % (Auto) 9.0 H (0.0-8.0) % Lymph # (Auto) 0.9 L (1.0-4.8) th/mm3 ESR (0-20) mm/hr Estimated GFR 76 L (>89) mL/min C-Reactive Protein (0.00-0.30) mg/dL Albumin (3.4-5.0) g/dL Short CBC 02/02/18 02/03/18 Range/Units 18:40 07:13 WBC 7.0 5.0 (4.0-11.0) th/mm3 Hgb 14.0 13.1 (13.0-17.0) gm/dL Hct 42.1 38.7 L (39.0-51.0) % Plt Count 201 159 (150-450) th/mm3 BMP 02/02/18 02/03/18 18:40 07:13 Sodium 140 142 Potassium 4.1 4.3 Chloride 104 106 Carbon Dioxide 27.9 31.0 BUN 12 11 Creatinine 0.91 1.03 Calcium 8.8 8.5 Liver Function 02/02/18 Range/Units 18:40 Total Bilirubin 0.3 (0.2-1.0) mg/dL AST 22 (15-37) U/L ALT 37 (12-78) U/L Alkaline Phosphatase 94 (45-117) U/L Albumin 3.1 L (3.4-5.0) g/dL <Veronica West - 02/03/18 11:43> - Imaging Impressions Foot MRI 02/02/18 18:25 CONCLUSION: Deep plantar ulcer of the medial forefoot as described with associated osteomyelitis of the neck and head of the first metatarsal and osteomyelitis throughout most of the great toe proximal phalanx. The first metatarsophalangeal joint is dorsally dislocated due to plantar and flexor mechanism rupture. I don't clearly see either sesamoid. <Nicole Garza - 02/03/18 13:45> Impressions Foot MRI 02/02/18 18:25 CONCLUSION: Deep plantar ulcer of the medial forefoot as described with associated osteomyelitis of the neck and head of the first metatarsal and osteomyelitis throughout most of the great toe proximal phalanx. The first metatarsophalangeal joint is dorsally dislocated due to plantar and flexor mechanism rupture. I don't clearly see either sesamoid. <Veronica West - 02/03/18 11:43> Physical Exam Vital signs: Vital Signs 02/02/18 17:19 02/02/18 17:26 02/02/18 19:20 Temperature 98.0 F Pulse Rate 77 77 70 Respiratory Rate 18 18 17 Blood Pressure 180/81 H 119/74 136/70 Pulse Oximetry 98 99 98 02/02/18 20:24 02/03/18 00:35 02/03/18 03:35 Temperature 97.3 F L Pulse Rate 58 L Respiratory Rate 20 20 Blood Pressure 118/72 Pulse Oximetry 98 98 02/03/18 04:00 02/03/18 08:00 02/03/18 12:00 Temperature 98.3 F 97 F L 97.5 F L Pulse Rate 58 L 59 L 50 L Respiratory Rate 20 17 17 Blood Pressure 146/68 H 175/90 H 140/73 Pulse Oximetry 99 99 97 Intake & Output 02/02/18 02/03/18 02/03/18 18:59 06:59 18:59 Intake Total 740 / 740 1100 / 1100 Balance 740 / 740 1100 / 1100 Weight 119.295 kg 121.9 kg Intake: IV 740 / 740 1100 / 1100 NS Inj 1,000 ML @ 100 mls/hr IV 1000 / 1000 .CONT .Q10H [facility] Rx#:[id number] Zosyn 4.5 GM Premix 4.5 gm In 200 / 200 100 / 100 100 ml @ 200 mls/hr IV.SIG Q6H [facility] Rx#:[id number] Vancomycin Inj 2,000 MG In NS 540 / 540 Inj 500 ML @ 270 mls/hr IV.SIG ONCE ONE Rx#:[id number] Oral 0 / 0 Other: Date of Last Bowel Movement 02/03/18 Weight On Admission 121.9 kg <Nicole Garza - 02/03/18 13:45> Vital Signs 02/02/18 17:19 02/02/18 17:26 02/02/18 19:20 Temperature 98.0 F Pulse Rate 77 77 70 Respiratory Rate 18 18 17 Blood Pressure 180/81 H 119/74 136/70 Pulse Oximetry 98 99 98 02/02/18 20:24 02/03/18 00:35 02/03/18 03:35 Temperature 97.3 F L Pulse Rate 58 L Respiratory Rate 20 20 Blood Pressure 118/72 Pulse Oximetry 98 98 02/03/18 04:00 02/03/18 08:00 Temperature 98.3 F 97 F L Pulse Rate 58 L 59 L Respiratory Rate 20 17 Blood Pressure 146/68 H 175/90 H Pulse Oximetry 99 99 <Veronica West - 02/03/18 11:43> Narrative: GENERAL: Patient lying in bed comfortably. NEURO: AOx3. Normal speech. muskrat trapper grossly intact. SKIN: Ulcerative lesion, measuring 2.5cm in diameter, on plantar surface of the left foot proximal to the great toe, bone can be visualized, very poor sensation of this area and without pain to palpation. Surrounding erythema extending to the great toe and towards the midfoot. A second lesion, measuring 1.5cm x 2cm lesion, without skin breakdown just lateral to the first wound. DP and PT pulses are palpable and 2+ in both feet. Loss of sensation to light touch of both feet and up to the level of his ankles bilaterally. HEAD: Normocephalic. Atraumatic. EYES: EOMI. No scleral icterus. No injection or drainage. ENT: No nasal drainage. Moist mucous membranes. No oral ulcers or lesions. NECK: Supple, trachea midline. No JVD. CARDIOVASCULAR: Regular rate and rhythm without murmurs, gallops, or rubs. Peripheral pulses 2+. Capillary refill < 2 seconds. RESPIRATORY: Breath sounds clear to auscultation and equal bilaterally, without wheezes, rales, or rhonchi. No accessory muscle use. GASTROINTESTINAL: Abdomen soft, non-tender, protuberant, normal BS. BACK: Nontender without obvious deformity. <Veronica West - 02/03/18 11:43> Assessment and Plan - Assessment (1) Foot ulcer, left Code(s): L97.529 - Non-pressure chronic ulcer of other part of left foot with unspecified severity Status: Acute (2) Hypertension Code(s): I10 - Essential (primary) hypertension Status: Acute (3) Asthma Code(s): J45.909 - Unspecified asthma, uncomplicated Status: Acute (4) Nutrition, metabolism, and development symptoms Code(s): R63.8 - Other symptoms and signs concerning food and fluid intake Status: Acute <Nicole Garza - 02/03/18 13:45> (1) Foot ulcer, left Code(s): L97.529 - Non-pressure chronic ulcer of other part of left foot with unspecified severity Status: Acute (2) Hypertension Code(s): I10 - Essential (primary) hypertension Status: Acute (3) Asthma Code(s): J45.909 - Unspecified asthma, uncomplicated Status: Acute (4) Nutrition, metabolism, and development symptoms Code(s): R63.8 - Other symptoms and signs concerning food and fluid intake Status: Acute <Veronica West - 02/03/18 11:46> - Assessment and Plan Patient is a 52 year old male, sent to the ED by 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 Left foot wound complicated by osteomyelitis per MRI: * Unclear etiology, records pending from [facility]. * Patient denies history of DM; he has poor follow up with providers other than his rigging worker. HgbA1c pending. Also no known history of peripheral vascular disease or venous insufficiency. * Patient is overall well-appearing, vitals are stable, no leukocytosis. * Foot MRI with evidence of osteomyelitis. * Consult placed to Dr. Chavarria, appreciate recommendations. * Consult placed to ID, appreciate recommendations. * Patient has been on vancomycin for weeks; disease progression despite IV antibiotics. * Consult placed to Wound Care; deferred management to podiatry. * Vancomycin with pharmacy consult for dosing, and Zosyn 4.5 gm IV q6h. * [place] 5/325 prn pain 6-10, morphine for breakthrough. * Blood and wound cultures with no growth to date. Elevated BP: * Monitor vitals q4h. * Clonidine 0.1 mg po q6h prn BP > 180/100. FEN: Fluid: * NS at 100 ml/hr. Electrolytes: * Monitor and replete as necessary. Nutrition: * NPO until podiatry evaluation. DVT ppx: * Bilateral SCDs, holding chemical anticoagulation pending podiatry evaluation. <Veronica West - 02/03/18 11:58> - Attending Attestation Patient seen and examined with the resident team -- Please see the H&P from 02/02 for full details regarding the patients history and admission information. Patient overall had no events overnight and appears to be stable. He states he has never had a diagnosis of DM and has no idea why he has these ulcers on his feet. He seems to have very poor insight into his overall health. He denies pain, fevers, chills, cp, sob GENERAL: SKIN: Warm and dry. HEAD: Atraumatic. Normocephalic. EYES: Pupils equal and round. No scleral icterus. No injection or drainage. ENT: No nasal bleeding or discharge. Mucous membranes pink and moist. NECK: Trachea midline. No JVD. CARDIOVASCULAR: Regular rate and rhythm. RESPIRATORY: No accessory muscle use. Clear to auscultation. Breath sounds equal bilaterally. GASTROINTESTINAL: Abdomen soft, non-tender, nondistended. Hepatic and splenic margins not palpable. MUSCULOSKELETAL: Extremities without clubbing, cyanosis, or edema. Ulcerative lesion, measuring 2.5cm in diameter, on plantar surface of the left foot proximal to the great toe with visualization of bone and poor sensation of this area and without pain to palpation. Surrounding erythema extending to the great toe and towards the midfoot. A second lesion, measuring 1.5cm x 2cm lesion. DP and PT pulses are palpable and 2+ in both feet. Loss of sensation to light touch of both feet and up to the level of his ankles bilaterally. NEUROLOGICAL: Awake and alert. No obvious cranial nerve deficits. Motor grossly within normal limits. Five out of 5 muscle strength in the arms and legs. Normal speech. PSYCHIATRIC: Appropriate mood and affect; poor insight, slightly tangential AP 1. Ulcerated foot lesion with evidence for osteomyelitis appears clinically infected. Continue vanc and zosyn. Podiatry and ID consult pending. HgBA1c pending. If it ends up patient does not have DM will need to determine cause for this ulcer and his neuropathy. <Nicole Garza - 02/03/18 13:45>
--- NOTE | 2018-02-03 13:44 | P.CONID ---
History of Present Illness Service: Infectious Disease Consult date: 02/03/18 Requesting Physician: Vicki Chavarria Reason for Consult: Evaluation and mment of Osteomyelitis of left foot. Primary Care Provider: Bharat Tejada History of Present Illness: Mr. Du is a 52-year-old man who was sent to the emergency department by his wheel borer Dr. Chavarria. Patient reports that he was recently seen at [facility] by a few providers including Dr. Krause. He reports that he had a chronic wound on the plantar aspect of his left foot and the started in August of this year. He reports he has had soreness in that area since the beginning of the year but only got worse in August. He denies any trauma. Patient does report history of sleep apnea and being on CPAP at home. Patient is not a very reliable historian and does not follow through on his thoughts very well. Patient was admitted at [facility] from 01/10/2018 to for the left foot wounds suspected osteomyelitis. Patient was discharged home with PICC line and was instructed to continue IV antibiotics. He reports that he has been driving himself to the hospital to receive an antibiotic daily at 9:00 at the [facility]. He is unsure about what antibiotic this is surely does not appear to be vancomycin as that would be multiple times a day especially given his size. Another concern I have is a post surgery this patient has been weightbearing reportedly if he has been driving himself to the hospital. Patient was also set up to have a wound VAC placed but this was not done at his house. He also has concerns that the sutures were not removed on time. Patient currently lives in a mobile home with his cousin. Patient denies any fevers chills or night sweats. He denies any other systemic symptoms. Past medical history significant for sleep apnea Possible asthma He also is a smoker since age of 16 years possible COPD No other infections in the past Infectious diseases consulted for evaluation and management of left foot osteomyelitis. At the time of my evaluation I do not have any medical records available for my perusal. I discussed the case with family advocate who informs me that patient possibly was on vancomycin IV although this appears to be doubtful as given his size he would have been on multiple infusions a day and not once a day through the infusion center. Review of Systems All other systems reviewed negative except as stated in HPI PMFSH - History History Provided By: Patient - Medical History Medical History: Medical History (Last Reviewed 02/03/18 @ 18:41 by Vicki Chavarria DPM) Asthma Hypertension - Social History I have reviewed the patient's Social History: Yes - Tobacco History Second Hand Smoke Exposure: Yes Tobacco Use In Past 30 Days: Yes Smoking Status: Former smoker Tobacco Type: Cigarettes - Alcohol History How Often Do You Have a Drink Containing Alcohol: 2 to 4 times a month - Substance Use History Substance History: No History of Abuse - Travel History Recent Travel in the [facility] Within the Last 8 Weeks: No Recent Travel Out of the Country Within the Last 8 Weeks: No - Immunization History Tetanus Immunization: Unsure Hx Influenza Vaccine This Season: No Medications and Allergies Active Medications: Active Medications Acetaminophen (Tylenol) 650 mg PO Q4H PRN PRN Reason: Pain 1-5 And/Or Fever >101f Hydrocodone Bitart/Acetaminophen (Gabbs 5/325) 1 tab PO Q4H PRN PRN Reason: PAIN SCALE 6 TO 10 Al Hydroxide/Mg Hydroxide (Milk Of Magnesia Liq) 30 ml PO Q12H PRN PRN Reason: Mild Constipation Albuterol (Duoneb Neb (Prn)) 1 ampul NEB Q4HR NEB PRN PRN Reason: SHORTNESS OF BREATH/WHEEZING Bisacodyl (Dulcolax Supp) 10 mg RECTAL DAILY PRN PRN Reason: SEVERE CONSITIPATION Clonidine HCl (Catapres) 0.1 mg PO Q6H PRN PRN Reason: SEE LABEL COMMENTS Sodium Chloride (Ns Inj) 1,000 mls @ 100 mls/hr IV.CONT .Q10H RAUL Last Admin: 02/03/18 11:00 Dose: 100 mls/hr Piperacillin/Tazobactam/Dextrose (Zosyn 4.5 Gm Premix) 4.5 gm in 100 mls @ 200 mls/hr IV.SIG Q6H RAUL Last Infusion: 02/03/18 12:27 Dose: Infused Vancomycin HCl 1,500 mg/ (Sodium Chloride) 515 mls @ 250 mls/hr IV.SIG Q12H RAUL Lactulose (Lactulose Liq) 30 ml PO DAILY PRN PRN Reason: SEVERE CONSITIPATION Miscellaneous Information ([facility] Ordered Lab Info) 0 each OTHER ONCE ONE Stop: 02/04/18 11:46 Morphine Sulfate (Morphine Inj) 2 mg IV.PUSH Q3H PRN PRN Reason: BREAKTHROUGH PAIN Ondansetron HCl (Zofran Inj) 4 mg IV.PUSH Q6H PRN PRN Reason: NAUSEA OR VOMITING Pharmacy Profile Note (Vancomycin Consult Pharmacy) 1 each OTHER UNSCH PRN PRN Reason: Pharmacy to dose Senna/Docusate Sodium (Celi-Colace) 1 tab PO BID RAUL Last Admin: 02/03/18 09:30 Dose: 1 tab Allergies Allergy/AdvReac Type Severity Reaction Status Date / Time No Known Allergies Allergy Verified 02/02/18 17:27 Home Medications Medication Instructions Recorded Confirmed Type No Known Home Medications 02/02/18 02/02/18 History Exam Vital signs: Vital Signs 02/02/18 17:19 02/02/18 17:26 02/02/18 19:20 Temperature 98.0 F Pulse Rate 77 77 70 Respiratory Rate 18 18 17 Blood Pressure 180/81 H 119/74 136/70 Pulse Oximetry 98 99 98 02/02/18 20:24 02/03/18 00:35 02/03/18 03:35 Temperature 97.3 F L Pulse Rate 58 L Respiratory Rate 20 20 Blood Pressure 118/72 Pulse Oximetry 98 98 02/03/18 04:00 02/03/18 08:00 02/03/18 12:00 Temperature 98.3 F 97 F L 97.5 F L Pulse Rate 58 L 59 L 50 L Respiratory Rate 20 17 17 Blood Pressure 146/68 H 175/90 H 140/73 Pulse Oximetry 99 99 97 Intake & Output 02/02/18 02/03/18 02/03/18 18:59 06:59 18:59 Intake Total 740 / 740 1100 / 1100 Balance 740 / 740 1100 / 1100 Weight 119.295 kg 121.9 kg Intake: IV 740 / 740 1100 / 1100 NS Inj 1,000 ML @ 100 mls/hr IV 1000 / 1000 .CONT .Q10H [facility] Rx#:[id number] Zosyn 4.5 GM Premix 4.5 gm In 200 / 200 100 / 100 100 ml @ 200 mls/hr IV.SIG Q6H [facility] Rx#:[id number] Vancomycin Inj 2,000 MG In NS 540 / 540 Inj 500 ML @ 270 mls/hr IV.SIG ONCE ONE Rx#:[id number] Oral 0 / 0 Other: Date of Last Bowel Movement 02/03/18 Weight On Admission 121.9 kg Narrative: GENERAL: Morbidly obese, not in acute distress SKIN: Cool and dry, no generalized rash HEAD: Atraumatic. Normocephalic. No temporal or scalp tenderness. EYES: Pupils equal round and reactive. Scleral icterus. No injection or drainage. No petechia ENT: Nothing abnormal detected NECK: Trachea midline. Supple, nontender, no meningeal signs. CARDIOVASCULAR: HS audible. RESPIRATORY: Clear to auscultation bilaterally. GASTROINTESTINAL: Abdomen soft nontender. MUSCULOSKELETAL: Left foot with 2 dime-sized openings noted. 1 of them appears to be probing down to the bone. Particularly the one next to the left great toe. Both of these are up on the plantar aspect of the foot. No tenderness noted. But generalized swelling noted. NEUROLOGICAL: Alert oriented 3. Nonfocal. Psych cooperative IV line sites ok. Results - Labs CBC & Chem 7: 02/03/18 07:13 02/03/18 07:13 Labs: Laboratory Results - last 24 hr 02/02/18 02/02/18 02/02/18 18:40 18:40 18:40 WBC 7.0 RBC 4.79 Hgb 14.0 Hct 42.1 MCV 88.0 MCH 29.2 MCHC 33.2 RDW 13.4 Plt Count 201 MPV 8.8 Neut % (Auto) 72.9 H Lymph % (Auto) 17.1 [place] % (Auto) 7.5 Eos % (Auto) 1.7 Baso % (Auto) 0.8 Neut # (Auto) 5.1 Lymph # (Auto) 1.2 [place] # (Auto) 0.5 Eos # (Auto) 0.1 Baso # (Auto) 0.1 WBC Differential . Differential Comment Auto diff final ESR PT INR APTT Sodium 140 Potassium 4.1 Chloride 104 Carbon Dioxide 27.9 Anion Gap 8 BUN 12 Creatinine 0.91 Estimated GFR 88 L Random Glucose 96 Lactic Acid 1.5 Calcium 8.8 Total Bilirubin 0.3 AST 22 ALT 37 Alkaline Phosphatase 94 C-Reactive Protein 2.11 H Total Protein 7.9 Albumin 3.1 L 02/02/18 02/02/18 02/02/18 18:40 18:40 19:15 WBC RBC Hgb Hct MCV MCH MCHC RDW Plt Count MPV Neut % (Auto) Lymph % (Auto) [place] % (Auto) Eos % (Auto) Baso % (Auto) Neut # (Auto) Lymph # (Auto) [place] # (Auto) Eos # (Auto) Baso # (Auto) WBC Differential Differential Comment ESR 22 H PT 10.4 INR 1.0 APTT 26.4 Sodium Potassium Chloride Carbon Dioxide Anion Gap BUN Creatinine Estimated GFR Random Glucose Lactic Acid Calcium Total Bilirubin AST ALT Alkaline Phosphatase C-Reactive Protein Cancelled Total Protein Albumin 02/03/18 02/03/18 07:13 07:13 WBC 5.0 RBC 4.45 L Hgb 13.1 Hct 38.7 L MCV 87.0 MCH 29.4 MCHC 33.8 RDW 13.3 Plt Count 159 MPV 9.1 Neut % (Auto) 69.8 Lymph % (Auto) 17.1 [place] % (Auto) 9.0 H Eos % (Auto) 3.5 Baso % (Auto) 0.6 Neut # (Auto) 3.5 Lymph # (Auto) 0.9 L [place] # (Auto) 0.4 Eos # (Auto) 0.2 Baso # (Auto) 0.0 WBC Differential . Differential Comment Auto diff final ESR PT INR APTT Sodium 142 Potassium 4.3 Chloride 106 Carbon Dioxide 31.0 Anion Gap 5 BUN 11 Creatinine 1.03 Estimated GFR 76 L Random Glucose 82 Lactic Acid Calcium 8.5 Total Bilirubin AST ALT Alkaline Phosphatase C-Reactive Protein Total Protein Albumin - Imaging Impressions Foot MRI 02/02/18 18:25 CONCLUSION: Deep plantar ulcer of the medial forefoot as described with associated osteomyelitis of the neck and head of the first metatarsal and osteomyelitis throughout most of the great toe proximal phalanx. The first metatarsophalangeal joint is dorsally dislocated due to plantar and flexor mechanism rupture. I don't clearly see either sesamoid. Assessment and Plan - Plan Left foot chronic wounds possible underlying osteomyelitis On antibiotics prior to admission. Gram-negative wound infection. Patient is a PICC line in place that was placed at [facility] Morbid obesity Sleep apnea on CPAP Recommendations Continue Zosyn IV Continue vancomycin IV target trough 15-20 for osteomyelitis follow cultures Follow clinical course Please obtain medical records from [facility]. Patient was n.p.o. at the time of my visit and was requesting food this was discussed with the patient's nurse and she informs me that patient now is not scheduled for any surgery for the day and will shortly before that. Will discuss case with Dr. Deon Titus to cover for me this weekend and available as needed.
[2018-02-03] MEDS: Vancomycin Inj 1,500 MG in Sodium Chlor 0.9% Inj 500 ML IV.SIG SCH ×2 (15:00→23:51)
[2018-02-03 15:26] LABS: Hemoglobin A1c 5.7 % (4.3-6.0)
[2018-02-03 17:12] LABS: Thyroid Stimulating Hormone 3.09 uIU/mL (0.358-3.740)
--- NOTE | 2018-02-03 18:44 | P.CON ---
History of Present Illness Service: Podiatry/foot and ankle surgery Consult date: 02/03/18 Reason for Consult: Left foot osteomyelitis Primary Care Provider: Bharat Tejada Chief Complaint: osteomyelitis History of Present Illness: Podiatry consulted for this 52-year-old man who was sent secondary to to the emergency department by myself wound submetatarsal 1 left foot with exposed bone and continued sign of infection. Patient was seen at [facility] where he underwent sesamoidectomy. Wound VAC was placed and patient was supposed to be discharged to rehab however patient states he was sent home with dressings and was not place in rehab. States he has been doing dressing changes at home he has been weightbearing in surgical shoe. He has been receiving IV antibiotics through a PICC line at [facility]. Patient denies any nausea vomiting fevers or chills. Review of Systems All other systems reviewed negative except as stated in HPI Constitutional: Denies fatigue, Denies fever(s), Denies night sweats, Denies weakness Cardiovascular: Denies chest pain, Denies shortness of breath Gastrointestinal: Denies abdominal pain, Denies nausea, Denies vomiting PMFSH - History History Provided By: Patient - Medical History Medical History: Medical History (Last Reviewed 02/03/18 @ 18:41 by Vicki Chavarria DPM) Asthma Hypertension - Tobacco History Second Hand Smoke Exposure: Yes Tobacco Use In Past 30 Days: Yes Smoking Status: Former smoker Tobacco Type: Cigarettes - Alcohol History How Often Do You Have a Drink Containing Alcohol: 2 to 4 times a month - Substance Use History Substance History: No History of Abuse - Travel History Recent Travel in the [place] Within the Last 8 Weeks: No Recent Travel Out of the Country Within the Last 8 Weeks: No - Immunization History Tetanus Immunization: Unsure Hx Influenza Vaccine This Season: No Medications and Allergies Active Medications: Active Medications Acetaminophen (Tylenol) 650 mg PO Q4H PRN PRN Reason: Pain 1-5 And/Or Fever >101f Hydrocodone Bitart/Acetaminophen ([place] 5/325) 1 tab PO Q4H PRN PRN Reason: PAIN SCALE 6 TO 10 Al Hydroxide/Mg Hydroxide (Milk Of Magnesia Liq) 30 ml PO Q12H PRN PRN Reason: Mild Constipation Albuterol (Duoneb Neb (Prn)) 1 ampul NEB Q4HR NEB PRN PRN Reason: SHORTNESS OF BREATH/WHEEZING Bisacodyl (Dulcolax Supp) 10 mg RECTAL DAILY PRN PRN Reason: SEVERE CONSITIPATION Clonidine HCl (Catapres) 0.1 mg PO Q6H PRN PRN Reason: SEE LABEL COMMENTS Sodium Chloride (Ns Inj) 1,000 mls @ 100 mls/hr IV.CONT .[facility]10H [facility] Last Admin: 02/03/18 11:00 Dose: 100 mls/hr Piperacillin/Tazobactam/Dextrose (Zosyn 4.5 Gm Premix) 4.5 gm in 100 mls @ 200 mls/hr IV.SIG Q6H [facility] Last Infusion: 02/03/18 18:39 Dose: Infused Vancomycin HCl 1,500 mg/ (Sodium Chloride) 515 mls @ 250 mls/hr IV.SIG Q12H [facility] Last Infusion: 02/03/18 17:22 Dose: Infused Lactulose (Lactulose Liq) 30 ml PO DAILY PRN PRN Reason: SEVERE CONSITIPATION Miscellaneous Information ([facility] Ordered Lab Info) 0 each OTHER ONCE ONE Stop: 02/04/18 11:46 Morphine Sulfate (Morphine Inj) 2 mg IV.PUSH Q3H PRN PRN Reason: BREAKTHROUGH PAIN Ondansetron HCl (Zofran Inj) 4 mg IV.PUSH Q6H PRN PRN Reason: NAUSEA OR VOMITING Pharmacy Profile Note (Vancomycin Consult Pharmacy) 1 each OTHER UNSCH PRN PRN Reason: Pharmacy to dose Senna/Docusate Sodium (Celi-Colace) 1 tab PO BID [facility] Last Admin: 02/03/18 09:30 Dose: 1 tab Allergies Allergy/AdvReac Type Severity Reaction Status Date / Time No Known Allergies Allergy Verified 02/02/18 17:27 Home Medications Medication Instructions Recorded Confirmed Type No Known Home Medications 02/02/18 02/02/18 History Physical Exam Vital signs: Vital Signs 02/02/18 19:20 02/02/18 20:24 02/03/18 00:35 Temperature 97.3 F L Pulse Rate 70 58 L Respiratory Rate 17 20 20 Blood Pressure 136/70 118/72 Pulse Oximetry 98 98 02/03/18 03:35 02/03/18 04:00 02/03/18 08:00 Temperature 98.3 F 97 F L Pulse Rate 58 L 59 L Respiratory Rate 20 17 Blood Pressure 146/68 H 175/90 H Pulse Oximetry 98 99 99 02/03/18 12:00 02/03/18 16:00 Temperature 97.5 F L 97.8 F Pulse Rate 50 L 58 L Respiratory Rate 17 17 Blood Pressure 140/73 151/70 H Pulse Oximetry 97 96 Intake & Output 02/02/18 02/03/18 02/03/18 18:59 06:59 18:59 Intake Total 740 / 740 3195 / 3195 Balance 740 / 740 3195 / 3195 Weight 119.295 kg 121.9 kg Intake: IV 740 / 740 1715 / 1715 NS Inj 1,000 ML @ 100 mls/hr IV 1000 / 1000 .CONT .Q10H [facility] Rx#:[id number] Zosyn 4.5 GM Premix 4.5 gm In 200 / 200 200 / 200 100 ml @ 200 mls/hr IV.SIG Q6H [facility] Rx#:[id number] Vancomycin Inj 1,500 MG In NS 515 / 515 Inj 500 ML @ 250 mls/hr IV.SIG Q12H [facility] Rx#:[id number] Vancomycin Inj 2,000 MG In NS 540 / 540 Inj 500 ML @ 270 mls/hr IV.SIG ONCE ONE Rx#:[id number] Oral 0 / 0 480 / 480 Other 1000 / 1000 Other: Other Intake Source Saline Solution # Voids 3 Date of Last Bowel Movement 02/03/18 Weight On Admission 121.9 kg Narrative: GENERAL: This is a well-nourished, well-developed patient, in no apparent distress. SKIN: Left submetatarsal 1 ulceration with exposed bone HEAD: Atraumatic. EYES: Pupils equal round and reactive. ENT: Airway patent. NECK: Trachea midline. RESPIRATORY: Nonlabored breathing. MUSCULOSKELETAL:. Negative Homans sign bilaterally. NEUROLOGICAL: Awake and alert. Normal speech. Lower extremity physical exam: Vascular: Dorsalis pedis palpable, posterior tibial palpable. Capillary refill time within normal limits to digits x5 bilateral foot. Edema present to left foot and ankle Neuro: Gross sensation intact to bilateral lower extremity. Pinpoint sensation decrease. No hyperalgesia noted to bilateral lower extremity Dermatology: Full-thickness ulceration noted to submetatarsal 1 with exposed first metatarsal. Fragmentation noted to cortical bone of first metatarsal which is exposed. Serous drainage, no purulent drainage. No fluctuance or crepitus. Increased erythema and edema noted to left foot. Musculoskeletal: Tender to palpation to left foot sub-met one at site of ulceration. Assessment and Plan - Plan 52-year-old male with left first metatarsal osteomyelitis as well as proximal phalanx of hallux Patient examined and evaluated with all questions answered To OR tomorrow for first ray resection Patient understands all risks benefits alternatives and complications associated with surgical intervention Please obtain consent Consent to read left first ray resection N.p.o. after midnight IV antibiotics per infectious disease, appreciate ID consult
[2018-02-03] MEDS ORDERED: Vancomycin Inj 1,750 MG in Sodium Chlor 0.9% Inj 500 ML IV.SIG SCH (22:00)
[2018-02-04] MEDS ORDERED: Chlorhexidine Gluconate 2% 1 Pack (2 Cloths) TOPICAL ONE (03:21)
[2018-02-04] MEDS: Piperacil/Tazo 4.5 GM Premix 4.5 GM/100 ML BAG IV.SIG SCH ×4 (03:57→21:04)
[2018-02-04] MEDS ORDERED: Sodium Chlor 0.9% Inj 500 ML IV.SIG SCH (04:00)
[2018-02-04] MEDS: Sod Chloride 0.9% Inj 1,000 ML IV.CONT SCH ×3 (04:43→17:11)
[2018-02-04 06:10] LABS: Hematocrit 38.6 % (39.0-51.0); Hemoglobin 12.9 gm/dL (13.0-17.0); Mean Corpuscular HGB Conc 33.5 % (32.0-36.0); Mean Corpuscular Hemoglobin 29.3 pg (27.0-34.0); Mean Corpuscular Volume 87.5 fL (80.0-100.0); Mean Platelet Volume 8.9 fL (7.0-11.0); Platelet Count 143 th/mm3 (150-450); Red Blood Count 4.41 mil/mm3 (4.50-5.90); Red Cell Distribution Width 13.3 % (11.6-17.2); White Blood Count 4.3 th/mm3 (4.0-11.0)
[2018-02-04 06:25] LABS: Calcium 8.1 mg/dL (8.5-10.1); Potassium 4.1 meq/L (3.5-5.1)
--- NOTE | 2018-02-04 09:44 | P.PNPOD ---
Subjective Interval history: Patient seen bedside preoperatively. No concerns or complaints. Physical Exam Vital signs: Vital Signs 02/03/18 12:00 02/03/18 16:00 02/03/18 20:00 Temperature 97.5 F L 97.8 F 97.9 F Pulse Rate 50 L 58 L 62 Respiratory Rate 17 17 18 Blood Pressure 140/73 151/70 H 141/72 H Pulse Oximetry 97 96 100 02/04/18 00:00 02/04/18 04:00 Temperature 98.0 F 97.7 F Pulse Rate 69 58 L Respiratory Rate 18 18 Blood Pressure 117/56 L 124/63 Pulse Oximetry 97 96 Intake & Output 02/03/18 02/04/18 02/04/18 18:59 06:59 18:59 Intake Total 3195 / 3195 1715 / 1715 Output Total 1750 / 1750 Balance 3195 / 3195 -35 / -35 Weight 121 kg Intake: IV 1715 / 1715 1715 / 1715 NS Inj 1,000 ML @ 100 mls/hr IV 1000 / 1000 1000 / 1000 .CONT .Q10H [facility] Rx#:[id number] Zosyn 4.5 GM Premix 4.5 gm In 200 / 200 200 / 200 100 ml @ 200 mls/hr IV.SIG Q6H [facility] Rx#:[id number] Vancomycin Inj 1,500 MG In NS 515 / 515 515 / 515 Inj 500 ML @ 250 mls/hr IV.SIG Q12H [facility] Rx#:[id number] Oral 480 / 480 Other 1000 / 1000 Output: Urine 1750 / 1750 Other: Other Intake Source Saline Solution # Voids 3 Date of Last Bowel Movement 02/03/18 02/03/18 02/04/18 Narrative: Dressing to left LE intact. Medications and Allergies Active Medications: Active Medications Acetaminophen (Tylenol) 650 mg PO Q4H PRN PRN Reason: Pain 1-5 And/Or Fever >101f Hydrocodone Bitart/Acetaminophen ([place] 5/325) 1 tab PO Q4H PRN PRN Reason: PAIN SCALE 6 TO 10 Al Hydroxide/Mg Hydroxide (Milk Of Magnesia Liq) 30 ml PO Q12H PRN PRN Reason: Mild Constipation Albuterol (Duoneb Neb (Prn)) 1 ampul NEB Q4HR NEB PRN PRN Reason: SHORTNESS OF BREATH/WHEEZING Bisacodyl (Dulcolax Supp) 10 mg RECTAL DAILY PRN PRN Reason: SEVERE CONSITIPATION Clonidine HCl (Catapres) 0.1 mg PO Q6H PRN PRN Reason: SEE LABEL COMMENTS Sodium Chloride (Ns Inj) 1,000 mls @ 100 mls/hr IV.CONT .Q10H [facility] Last Admin: 02/04/18 05:31 Dose: Not Given Piperacillin/Tazobactam/Dextrose (Zosyn 4.5 Gm Premix) 4.5 gm in 100 mls @ 200 mls/hr IV.SIG Q6H [facility] Last Infusion: 02/04/18 04:55 Dose: Infused Vancomycin HCl 1,500 mg/ (Sodium Chloride) 515 mls @ 250 mls/hr IV.SIG Q12H [facility] Last Infusion: 02/04/18 04:55 Dose: Infused Lactated Ringer's (Lr 1000 Ml Inj) 1,000 mls @ 30 mls/hr IV.SIG .Q24H [facility] Stop: 02/05/18 03:29 Sodium Chloride (Ns Inj) 500 mls @ 30 mls/hr IV.SIG .Q10H [facility] Last Admin: 02/04/18 05:32 Dose: Not Given Lactulose (Lactulose Liq) 30 ml PO DAILY PRN PRN Reason: SEVERE CONSITIPATION Miscellaneous Information ([facility] Ordered Lab Info) 0 each OTHER ONCE ONE Stop: 02/04/18 11:46 Morphine Sulfate (Morphine Inj) 2 mg IV.PUSH Q3H PRN PRN Reason: BREAKTHROUGH PAIN Ondansetron HCl (Zofran Inj) 4 mg IV.PUSH Q6H PRN PRN Reason: NAUSEA OR VOMITING Pharmacy Profile Note (Vancomycin Consult Pharmacy) 1 each OTHER UNSCH PRN PRN Reason: Pharmacy to dose Senna/Docusate Sodium (Celi-Colace) 1 tab PO BID [facility] Last Admin: 02/03/18 21:16 Dose: Not Given Allergies Allergy/AdvReac Type Severity Reaction Status Date / Time No Known Allergies Allergy Verified 02/02/18 17:27 Home Medications Medication Instructions Recorded Confirmed Type No Known Home Medications 02/02/18 02/02/18 History Results - Labs CBC & Chem 7: 02/04/18 05:55 02/04/18 05:55 Laboratory Results - last 24 hr 02/03/18 02/03/1802/03/18 07:13 15:11 15:30 WBC RBC Hgb Hct MCV MCH MCHC RDW Plt Count MPV Sodium Potassium Chloride Carbon Dioxide Anion Gap BUN Creatinine Estimated GFR POC Glucose 124 H Random Glucose Hemoglobin A1c 5.7 Calcium Vitamin B12 543 TSH 3.090 02/04/18 02/04/18 02/04/18 05:55 05:55 08:51 WBC 4.3 RBC 4.41 L Hgb 12.9 L Hct 38.6 L MCV 87.5 MCH 29.3 MCHC 33.5 RDW 13.3 Plt Count 143 L MPV 8.9 Sodium 143 Potassium 4.1 Chloride 107 Carbon Dioxide 29.0 Anion Gap 7 BUN 10 Creatinine 0.94 Estimated GFR 85 L POC Glucose 80 Random Glucose 73 L Hemoglobin A1c Calcium 8.1 L Vitamin B12 TSH Microbiology 02/02/18 18:40 Wound - Foot Gram Stain - Final 02/02/18 18:40 Wound - Foot Wound Culture - Preliminary gram negative rods 02/02/18 18:40 Blood - Peripheral Aerobic Blood Culture - Preliminary No growth in 1 day 02/02/18 18:40 Blood - Peripheral Anaerobic Blood Culture - Preliminary No growth in 1 day 02/02/18 18:30 Blood - Peripheral Aerobic Blood Culture - Preliminary No growth in 1 day 02/02/18 18:30 Blood - Peripheral Anaerobic Blood Culture - Preliminary No growth in 1 day Assessment and Plan - Plan 52 year old male with left foot proximal phalanx of hallux and first metatarsal osteomyelitis To OR today for left first ray resection NPO Consent obtained and signed Patient understands all risks, complications, and benefits associated with procedure, he understands that his hallux will be amputated and first metatarsal resected IV abx per ID Will obtain OR cultures Non weight bearing to left LE
[2018-02-04] MEDS ORDERED: Bupivacaine PF 0.25% Inj 30 ML Vial ONE (09:53)
--- NOTE | 2018-02-04 10:08 | P.PNFP ---
Subjective Interval history: Patient was seen and evaluated this morning. Patient reports feeling well; he denies pain in his left foot. Patient denies chest pain, heart palpitations, shortness of breath, nausea/ vomiting, diarrhea and constipation. Patient to undergo left first ray resection; Dr. Chavarria to perform procedure. All questions were answered. <Veronica West - 02/04/18 10:08> Results - Labs Result diagrams: 02/04/18 05:55 02/04/18 05:55 <Nicole Garza - 02/04/18 11:31> Abnormal lab results 02/03/18 02/04/18 02/04/18 Range/Units 15:11 05:55 05:55 RBC 4.41 L (4.50-5.90) mil/mm3 Hgb 12.9 L (13.0-17.0) gm/dL Hct 38.6 L (39.0-51.0) % Plt Count 143 L (150-450) th/mm3 Estimated GFR 85 L (>89) mL/min POC Glucose 124 H (68-110) mg/dl Random Glucose 73 L (74-106) mg/dL Calcium 8.1 L (8.5-10.1) mg/dL Vancomycin Trough (5.0-10.0) mcg/mL 02/04/18 Range/Units 09:05 RBC (4.50-5.90) mil/mm3 Hgb (13.0-17.0) gm/dL Hct (39.0-51.0) % Plt Count (150-450) th/mm3 Estimated GFR (>89) mL/min POC Glucose (68-110) mg/dl Random Glucose (74-106) mg/dL Calcium (8.5-10.1) mg/dL Vancomycin Trough 21.8 H (5.0-10.0) mcg/mL Short CBC 02/04/18 Range/Units 05:55 WBC 4.3 (4.0-11.0) th/mm3 Hgb 12.9 L (13.0-17.0) gm/dL Hct 38.6 L (39.0-51.0) % Plt Count 143 L (150-450) th/mm3 BMP 02/04/18 05:55 Sodium 143 Potassium 4.1 Chloride 107 Carbon Dioxide 29.0 BUN 10 Creatinine 0.94 Calcium 8.1 L <Nicole Garza Fauzia - 02/04/18 11:31> Abnormal lab results 02/03/18 02/04/18 02/04/18 Range/Units 15:11 05:55 05:55 RBC 4.41 L (4.50-5.90) mil/mm3 Hgb 12.9 L (13.0-17.0) gm/dL Hct 38.6 L (39.0-51.0) % Plt Count 143 L (150-450) th/mm3 Estimated GFR 85 L (>89) mL/min POC Glucose 124 H (68-110) mg/dl Random Glucose 73 L (74-106) mg/dL Calcium 8.1 L (8.5-10.1) mg/dL Short CBC 02/04/18 Range/Units 05:55 WBC 4.3 (4.0-11.0) th/mm3 Hgb 12.9 L (13.0-17.0) gm/dL Hct 38.6 L (39.0-51.0) % Plt Count 143 L (150-450) th/mm3 BMP 02/04/18 05:55 Sodium 143 Potassium 4.1 Chloride 107 Carbon Dioxide 29.0 BUN 10 Creatinine 0.94 Calcium 8.1 L <JennaVeronica - 02/04/18 10:08> Physical Exam Vital signs: Vital Signs 02/03/18 12:00 02/03/18 16:00 02/03/18 20:00 Temperature 97.5 F L 97.8 F 97.9 F Pulse Rate 50 L 58 L 62 Respiratory Rate 17 17 18 Blood Pressure 140/73 151/70 H 141/72 H Pulse Oximetry 97 96 100 02/04/18 00:00 02/04/18 04:00 02/04/18 08:00 Temperature 98.0 F 97.7 F 97.2 F L Pulse Rate 69 58 L 50 L Respiratory Rate 18 18 20 Blood Pressure 117/56 L 124/63 130/62 Pulse Oximetry 97 96 98 Intake & Output 02/03/18 02/04/18 02/04/18 18:59 06:59 18:59 Intake Total 3195 / 3195 1715 / 1715 Output Total 1750 / 1750 Balance 3195 / 3195 -35 / -35 Weight 121 kg Intake: IV 1715 / 1715 1715 / 1715 NS Inj 1,000 ML @ 100 mls/hr IV 1000 / 1000 1000 / 1000 .CONT .Q10H [facility] Rx#:[id number] Zosyn 4.5 GM Premix 4.5 gm In 200 / 200 200 / 200 100 ml @ 200 mls/hr IV.SIG Q6H [facility] Rx#:[id number] Vancomycin Inj 1,500 MG In NS 515 / 515 515 / 515 Inj 500 ML @ 250 mls/hr IV.SIG Q12H [facility] Rx#:[id number] Oral 480 / 480 Other 1000 / 1000 Output: Urine 1750 / 1750 Other: Other Intake Source Saline Solution # Voids 3 Date of Last Bowel Movement 02/03/18 02/03/18 02/04/18 <Nicole Garza - 02/04/18 11:31> Vital Signs 02/03/18 12:00 02/03/18 16:00 02/03/18 20:00 Temperature 97.5 F L 97.8 F 97.9 F Pulse Rate 50 L 58 L 62 Respiratory Rate 17 17 18 Blood Pressure 140/73 151/70 H 141/72 H Pulse Oximetry 97 96 100 02/04/18 00:00 02/04/18 04:00 Temperature 98.0 F 97.7 F Pulse Rate 69 58 L Respiratory Rate 18 18 Blood Pressure 117/56 L 124/63 Pulse Oximetry 97 96 <Veronica West - 02/04/18 10:08> Narrative: GENERAL: Patient lying in bed comfortably. SKIN: Ulcerative lesion, measuring 2.5cm in diameter, on plantar surface of the left foot proximal to the great toe, bone can be visualized, very poor sensation of this area and without pain to palpation. Surrounding erythema extending to the great toe and towards the midfoot. A second lesion, measuring 1.5cm x 2cm lesion, without skin breakdown just lateral to the first wound. DP and PT pulses are palpable and 2+ in both feet. Loss of sensation to light touch of both feet and up to the level of his ankles bilaterally. HEAD: Normocephalic. Atraumatic. EYES: EOMI. No scleral icterus. No injection or drainage. ENT: No nasal drainage. Moist mucous membranes. No oral ulcers or lesions. NECK: Supple, trachea midline. No JVD. CARDIOVASCULAR: Regular rate and rhythm without murmurs, gallops, or rubs. RESPIRATORY: Breath sounds clear to auscultation and equal bilaterally, without wheezes, rales, or rhonchi. No accessory muscle use. GASTROINTESTINAL: Positive bowel sounds. Abdomen soft, non-tender. <Veronica West - 02/04/18 10:08> Assessment and Plan - Assessment (1) Foot ulcer, left Code(s): L97.529 - Non-pressure chronic ulcer of other part of left foot with unspecified severity Status: Chronic (2) Hypertension Code(s): I10 - Essential (primary) hypertension Status: Chronic (3) Asthma Code(s): J45.909 - Unspecified asthma, uncomplicated Status: Chronic (4) Nutrition, metabolism, and development symptoms Code(s): R63.8 - Other symptoms and signs concerning food and fluid intake Status: Acute <Nicole Garza - 02/04/18 11:31> (1) Foot ulcer, left Code(s): L97.529 - Non-pressure chronic ulcer of other part of left foot with unspecified severity Status: Chronic (2) Hypertension Code(s): I10 - Essential (primary) hypertension Status: Chronic (3) Asthma Code(s): J45.909 - Unspecified asthma, uncomplicated Status: Chronic (4) Nutrition, metabolism, and development symptoms Code(s): R63.8 - Other symptoms and signs concerning food and fluid intake Status: Acute <Veronica West - 02/04/18 09:50> - Assessment and Plan Patient is a 52 year old male, 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 Patient was recently hospitalized at [facility] for evaluation and treatment of the same non-healing ulcer. He underwent I&D with wound vac placement during that hospitalization in early December. Patient was placed on ertapenem at that time ; IV antibiotic was continued as outpatient. Patient reports to [place] due to disease progression despite IV antibiotic treatment. Patient scheduled for left first ray resection on 02/04. Left foot wound complicated by osteomyelitis: * Unclear etiology. * Patient denies history of DM. Per records from [facility], HgbA1c 6.2. At this admission, HgbA1c 5.7 and bedside glucose wnl. * TSH and B12 wnl. * Also no known history of peripheral vascular disease or venous insufficiency. * Will consider EMG during this admission due to poor outpatient follow-up. * Patient is overall well-appearing, vitals are stable, no leukocytosis. * Wound cultures growing gram negative rods. * Blood cultures with no growth to date. * Foot MRI with evidence of osteomyelitis. * Consult placed to Dr. Chavarria; plan for left first ray resection. * Consult placed to ID; currently on Vanc and Zosyn. * Per records from [facility], cultures grew Morganella, rare bacteroides pyogenes, strep agalactiae and acinetobacter. Patient underwent I&D with wound vac placement. Patient treated with ertapenem. Patient discharged without wound vac but IV antibiotics continued. * Vancomycin with pharmacy consult for dosing, and Zosyn 4.5 gm IV q6h. * [place] 5/325 prn pain 6-10, morphine for breakthrough. Elevated BP: * Monitor vitals q4h. * Clonidine 0.1 mg po q6h prn BP > 180/100. FEN: Fluid: * NS at 100 ml/hr. Electrolytes: * Monitor and replete as necessary. Nutrition: * NPO after midnight. DVT ppx: * Bilateral SCDs, holding chemical anticoagulation pending surgical intervention. <Veronica West - 02/04/18 10:08> - Attending Attestation Patient seen and examined and dw the resident. Agree with assessment and plan as above <Nicole Garza - 02/04/18 11:31>
[2018-02-04] MEDS: Senna/Docusate Sodium 8.6/50 MG Tablet PO SCH ×2 (10:20→21:04)
[2018-02-04] MEDS ORDERED: fentaNYL Citrate Inj 100 MCG/2 ML Ampul ONE (11:30)
[2018-02-04] MEDS ORDERED: Misc Info for Pharmacy OTHER STA (11:38)
--- NOTE | 2018-02-04 11:43 | P.PCN ---
Date of procedure: 02/04/18 Pre-op diagnosis: Left foot osteomyelitis Post-op diagnosis: same Procedure: Left foot first ray resection Anesthesia: GETA Surgeon: Vicki Chavarria Estimated blood loss (mL): 20 Pathology: other (First metatarsal/Halux for path. Clearing margin first metatarsal for path and micro. Soft tissue for micro.) Condition: stable Disposition: PACU
[2018-02-04] MEDS ORDERED: Pharmacy Ordered Lab Info OTHER ONE ×2 (11:45→13:00)
--- NOTE | 2018-02-04 12:12 | XR ---
EXAM DATE: 02/04/2018 12:00 AM EDT AGE/SEX: 52 years / Male INDICATIONS: Post operative left foot. First digit amputation. CLINICAL DATA: This is the patient's initial encounter. Patient reports that signs and symptoms have been present for 1 day and indicates a pain score of 0/10. MEDICAL/SURGICAL HISTORY: . Hypertension. Diabetes mellitus type II. . Fatty tumor removal. COMPARISON: . FINDINGS: The patient is status post amputation of the first digit at the level of the proximal to mid first me tatarsal. There appears to be a drainage tube seen over the medial aspect of the forefoot. There is s oft tissue swelling at the forefoot. There is hypertrophic change at the dorsal mid foot at the Lisfr anc region. There is some hypertrophic change at the posterior calcaneus at the Achilles attachment s ite. CONCLUSION: Postoperative first digit amputation. Electronically signed by: Calin Keyes MD 02/04/2018 12:10 PM EDT
--- NOTE | 2018-02-04 12:47 | MR ---
cc: Vicki Chavarria DPM DATE: 02/04/2018 SURGEON: Vicki Chavarria DPM. DOG SITTER: None. PREOPERATIVE DIAGNOSIS: Left proximal phalanx, first metatarsal osteomyelitis. POSTOPERATIVE DIAGNOSIS: Left proximal phalanx, first metatarsal osteomyelitis. PROCEDURE: Left first ray resection. ANESTHESIA: General. HEMOSTASIS: None. ESTIMATED BLOOD LOSS: 20 mL. MATERIALS: 2-0 and 3-0 Prolene, 3-0 Monocryl. INJECTABLES: 0.25% Marcaine plain infiltrated about the left foot. COMPLICATIONS: None. INDICATIONS: The patient is a 52-year-old male who underwent previous sesamoidectomy and was discharged from outside facility following sesamoidectomy without wound VAC and to home instead of rehabilitation. The patient has been walking on the left foot in surgical shoe, presented to the office with increased erythema and edema and exposed first metatarsal head with noted cortical changes to bone. The patient understands all risks, benefits, alternatives, complications associated with the procedure and would like to move forward with surgical intervention of left first ray resection. DESCRIPTION OF PROCEDURE: The patient was brought to the operating room, placed on the operative table in supine position. General anesthesia was then induced. Left foot was prepped and draped in usual sterile manner. Prior to prep, a pneumatic ankle tourniquet was placed to the left ankle, left foot was then exsanguinated, tourniquet was inflated to 250 mmHg. A racquet incision was made about the left hallux. This incision was deepened through skin and subcutaneous tissue with care to retract all vital neurovascular structures. This continued down medially to expose the first metatarsal. The incision was deepened through skin and subcutaneous tissue. The hallux was disarticulated, passed off the field. Sagittal saw was utilized to resect the first metatarsal which was passed off the field. Proximal clean margin was taken and passed off the field for pathology and micro. Site was copiously irrigated. Submetatarsal 1 ulceration was excised and 3-0 Monocryl was used to reapproximate subcutaneous tissue, 2-0 and 3-0 Prolene were used to reapproximate the skin. Prior to closure, vancomycin powder was applied. ATUL wound VAC was applied to site, noted to be functioning well. Cast padding and an Harsh applied to foot. The patient tolerated the procedure and anesthesia well and was transferred from the OR to PACU with vital signs stable and neurovascular status intact. We will await cultures. The patient is to remain nonweightbearing to left foot. ANGEL Cortez , 11:56 AM , 12:04 PM MARCO ANTONIO
[2018-02-04] MEDS: Vancomycin Inj 1,500 MG in Sodium Chlor 0.9% Inj 500 ML IV.SIG SCH (12:56)
--- NOTE | 2018-02-04 13:07 | ECG ---
Date Performed: 02/04/2018 Time Performed: 05:14:02 PTAGE: 52 years EKG: Sinus bradycardia with sinus arrhythmia. Possible inferior infarct - age undetermined Low Q RS voltages in precordial leads Abnormal ECG NO PREVIOUS TRACING DOCTOR: Liz Lange Interpretating Date/Time 02/04/2018 13:04:05
[2018-02-05] MEDS: Sod Chloride 0.9% Inj 1,000 ML IV.CONT SCH ×3 (00:30→20:58)
[2018-02-05] MEDS: Piperacil/Tazo 4.5 GM Premix 4.5 GM/100 ML BAG IV.SIG SCH ×4 (04:31→22:51)
[2018-02-05 05:34] LABS: Hematocrit 36.8 % (39.0-51.0); Hemoglobin 12.4 gm/dL (13.0-17.0); Mean Corpuscular HGB Conc 33.6 % (32.0-36.0); Mean Corpuscular Hemoglobin 29.1 pg (27.0-34.0); Mean Corpuscular Volume 86.7 fL (80.0-100.0); Mean Platelet Volume 8.8 fL (7.0-11.0); Platelet Count 139 th/mm3 (150-450); Red Blood Count 4.24 mil/mm3 (4.50-5.90); Red Cell Distribution Width 13.3 % (11.6-17.2); White Blood Count 5.7 th/mm3 (4.0-11.0)
[2018-02-05 05:55] LABS: Calcium 8.7 mg/dL (8.5-10.1); Potassium 4.1 meq/L (3.5-5.1)
[2018-02-05 05:57] LABS: Vancomycin,Random 14.5 Comment
[2018-02-05] MEDS: Senna/Docusate Sodium 8.6/50 MG Tablet PO SCH ×2 (09:57→20:55)
--- NOTE | 2018-02-05 11:57 | P.PNPOD ---
Subjective Interval history: Patient seen bedside resting comfortably. Denies any nausea vomiting fevers or chills. States he has been trying to stay off his left foot as much as possible. Physical Exam Vital signs: Vital Signs 02/04/18 12:00 02/04/18 16:00 02/04/18 20:00 Temperature 97.2 F L 97.7 F 98.1 F Pulse Rate 56 L 56 L 59 L Respiratory Rate 20 20 18 Blood Pressure 126/61 131/62 125/66 Pulse Oximetry 96 98 97 02/04/18 22:25 02/05/18 00:00 02/05/18 04:00 Temperature 98.3 F 98 F Pulse Rate 52 L 68 Respiratory Rate 18 18 Blood Pressure 127/68 124/64 Pulse Oximetry 98 97 97 02/05/18 08:00 Temperature 98.1 F Pulse Rate 53 L Respiratory Rate 21 Blood Pressure 136/65 Pulse Oximetry 98 Intake & Output 02/04/18 02/05/18 02/05/18 18:59 06:59 18:59 Intake Total 2385 / 2385 700 / 700 1340 / 1340 Output Total 810 / 810 1552 / 1552 400 / 400 Balance 1575 / 1575 -852 / -852 940 / 940 Weight 121 kg Intake: IV 1215 / 1215 700 / 700 1100 / 1100 NS Inj 1,000 ML @ 100 mls/hr IV 500 / 500 500 / 500 1000 / 1000 .CONT .Q10H [facility] Rx#:[id number] Zosyn 4.5 GM Premix 4.5 gm In 200 / 200 200 / 200 100 / 100 100 ml @ 200 mls/hr IV.SIG Q6H [facility]UL Rx#:[id number] Oral 1070 / 1070 240 / 240 Anesthesia Amount 100 / 100 Output: Urine 800 / 800 1550 / 1550 400 / 400 Urine/Stool Mix 2 / 2 Estimated Blood Loss Other: # Voids 1 1 Date of Last Bowel Movement 02/04/18 # Bowel Movements 1 Narrative: Sutures intact with skin well coapted to left medial foot. Hallux amputation noted. DP PT palpable. Capillary refill time intact to digits x4 left foot. Negative pain on calf compression. Medications and Allergies Active Medications: Active Medications Acetaminophen (Tylenol) 650 mg PO Q4H PRN PRN Reason: Pain 1-5 And/Or Fever >101f Hydrocodone Bitart/Acetaminophen ([place] 5/325) 1 tab PO Q4H PRN PRN Reason: PAIN SCALE 6 TO 10 Last Admin: 02/04/18 21:03 Dose: 1 tab Al Hydroxide/Mg Hydroxide (Milk Of Magnesia Liq) 30 ml PO Q12H PRN PRN Reason: Mild Constipation Albuterol (Duoneb Neb (Prn)) 1 ampul NEB Q4HR NEB PRN PRN Reason: SHORTNESS OF BREATH/WHEEZING Bisacodyl (Dulcolax Supp) 10 mg RECTAL DAILY PRN PRN Reason: SEVERE CONSITIPATION Clonidine HCl (Catapres) 0.1 mg PO Q6H PRN PRN Reason: SEE LABEL COMMENTS Sodium Chloride (Ns Inj) 1,000 mls @ 100 mls/hr IV.CONT .Q10H [facility] Last Admin: 02/05/18 09:59 Dose: 100 mls/hr Piperacillin/Tazobactam/Dextrose (Zosyn 4.5 Gm Premix) 4.5 gm in 100 mls @ 200 mls/hr IV.SIG Q6H [facility] Last Infusion: 02/05/18 10:42 Dose: Infused Vancomycin HCl 1,500 mg/ (Sodium Chloride) 515 mls @ 250 mls/hr IV.SIG Q12H [facility] Last Infusion: 02/04/18 16:30 Dose: Infused Sodium Chloride (Ns Inj) 500 mls @ 30 mls/hr IV.SIG .Q10H [facility] Last Admin: 02/04/18 05:32 Dose: Not Given Levofloxacin/Dextrose (Levaquin 750 Mg Premix Inj) 150 mls @ 100 mls/hr IV.SIG Q24H [facility] Last Admin: 02/05/18 10:59 Dose: 100 mls/hr Lactulose (Lactulose Liq) 30 ml PO DAILY PRN PRN Reason: SEVERE CONSITIPATION Miscellaneous Information ([facility] Nursing Information) 1 each OTHER UNSCH PRN PRN Reason: SEE LABEL COMMENTS Stop: 02/05/18 14:05 Miscellaneous Information ([facility] Pharm[facility] Ordered Lab Info) 0 each OTHER ONCE ONE Stop: 02/06/18 23:46 Morphine Sulfate (Morphine Inj) 2 mg IV.PUSH Q3H PRN PRN Reason: BREAKTHROUGH PAIN Ondansetron HCl (Zofran Inj) 4 mg IV.PUSH Q6H PRN PRN Reason: NAUSEA OR VOMITING Pharmacy Profile Note (Vancomycin Consult Pharmacy) 1 each OTHER UNSCH PRN PRN Reason: Pharmacy to dose Senna/Docusate Sodium (Celi-Colace) 1 tab PO BID [facility]UL Last Admin: 02/05/18 09:57 Dose: Not Given Allergies Allergy/AdvReac Type Severity Reaction Status Date / Time No Known Allergies Allergy Verified 02/02/18 17:27 Home Medications Medication Instructions Recorded Confirmed Type No Known Home Medications 02/02/18 02/02/18 History Results - Labs CBC & Chem 7: 02/05/18 05:30 02/05/18 05:30 Laboratory Results - last 24 hr 02/05/18 02/05/18 05:30 05:30 WBC 5.7 RBC 4.24 L Hgb 12.4 L Hct 36.8 L MCV 86.7 MCH 29.1 MCHC 33.6 RDW 13.3 Plt Count 139 L MPV 8.8 Sodium 141 Potassium 4.1 Chloride 107 Carbon Dioxide 27.0 Anion Gap 7 BUN 9 Creatinine 1.04 Estimated GFR 75 L Random Glucose 74 Calcium 8.7 Random Vancomycin 14.5 Microbiology 02/02/18 18:40 Blood - Peripheral Aerobic Blood Culture - Preliminary No growth in 3 days 02/02/18 18:40 Blood - Peripheral Anaerobic Blood Culture - Preliminary No growth in 3 days 02/02/18 18:30 Blood - Peripheral Aerobic Blood Culture - Preliminary No growth in 3 days 02/02/18 18:30 Blood - Peripheral Anaerobic Blood Culture - Preliminary No growth in 3 days 02/04/18 10:39 Tissue - Toe Fungal Smear - Final No fungal elements seen 02/04/18 10:39 Tissue - Toe Fungal Smear - Final No fungal elements seen 02/04/18 10:39 Tissue - Toe Gram Stain - Final 02/04/18 10:39 Tissue - Toe Gram Stain - Final 02/02/18 18:40 Wound - Foot Gram Stain - Final 02/02/18 18:40 Wound - Foot Wound Culture - Final Stenotrophomonas maltophilia Pseudomonas aeruginosa - Imaging Impressions Foot X-Ray 02/04/18 00:00 CONCLUSION: Postoperative first digit amputation. 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
--- NOTE | 2018-02-05 12:29 | P.PNFP ---
Subjective Interval history: Pt doing well this morning, eating breakfast. Has no complaints, denies N/V/D, no fevers/chills, no chest pain, no SOB. States his foot hurt last night but was ok after receiving pain medication. <Giovany BocanegraFlores - 02/05/18 12:28> Results - Labs Result diagrams: 02/05/18 05:30 02/05/18 05:30 <Nicole Garza R - 02/05/18 19:10> Abnormal lab results 02/05/18 02/05/18 Range/Units 05:30 05:30 RBC 4.24 L (4.50-5.90) mil/mm3 Hgb 12.4 L (13.0-17.0) gm/dL Hct 36.8 L (39.0-51.0) % Plt Count 139 L (150-450) th/mm3 Estimated GFR 75 L (>89) mL/min Short CBC 02/05/18 Range/Units 05:30 WBC 5.7 (4.0-11.0) th/mm3 Hgb 12.4 L (13.0-17.0) gm/dL Hct 36.8 L (39.0-51.0) % Plt Count 139 L (150-450) th/mm3 [facility] 02/05/18 05:30 Sodium 141 Potassium 4.1 Chloride 107 Carbon Dioxide 27.0 BUN 9 Creatinine 1.04 Calcium 8.7 <Nicole Garza R - 02/05/18 19:10> Abnormal lab results 02/05/18 02/05/18 Range/Units 05:30 05:30 RBC 4.24 L (4.50-5.90) mil/mm3 Hgb 12.4 L (13.0-17.0) gm/dL Hct 36.8 L (39.0-51.0) % Plt Count 139 L (150-450) th/mm3 Estimated GFR 75 L (>89) mL/min Short CBC 02/05/18 Range/Units 05:30 WBC 5.7 (4.0-11.0) th/mm3 Hgb 12.4 L (13.0-17.0) gm/dL Hct 36.8 L (39.0-51.0) % Plt Count 139 L (150-450) th/mm3 [facility] 02/05/18 05:30 Sodium 141 Potassium 4.1 Chloride 107 Carbon Dioxide 27.0 BUN 9 Creatinine 1.04 Calcium 8.7 <Tracy Green V - 02/05/18 12:28> - Imaging Impressions Foot X-Ray 02/04/18 00:00 CONCLUSION: Postoperative first digit amputation. <Tracy Green V - 02/05/18 12:28> Physical Exam Vital signs: Vital Signs 02/04/18 20:00 02/04/18 22:25 02/05/18 00:00 Temperature 98.1 F 98.3 F Pulse Rate 59 L 52 L Respiratory Rate 18 18 Blood Pressure 125/66 127/68 Pulse Oximetry 97 98 97 02/05/18 04:00 02/05/18 08:00 02/05/18 12:00 Temperature 98 F 98.1 F 98.7 F Pulse Rate 68 53 L 56 L Respiratory Rate 18 21 21 Blood Pressure 124/64 136/65 137/69 Pulse Oximetry 97 98 96 02/05/18 16:00 Temperature 97.7 F Pulse Rate 67 Respiratory Rate 20 Blood Pressure 144/66 H Pulse Oximetry 96 Intake & Output 02/05/18 02/05/18 02/06/18 06:59 18:59 06:59 Intake Total 700 / 700 2485 / 2485 Output Total 1552 / 1552 2825 / 2825 Balance -852 / -852 -340 / -340 Weight 121 kg Intake: IV 700 / 700 1765 / 1765 NS Inj 1,000 ML @ 100 mls/hr IV 500 / 500 1000 / 1000 .CONT .Q10H [facility] Rx#:[id number] Levaquin 750 mg Premix Inj 150 150 / 150 ML @ 100 mls/hr IV.SIG Q24H [facility] Rx#:[id number] Zosyn 4.5 GM Premix 4.5 gm In 200 / 200 100 / 100 100 ml @ 200 mls/hr IV.SIG Q6H [facility] Rx#:[id number] Vancomycin Inj 1,500 MG In NS 515 / 515 Inj 500 ML @ 250 mls/hr IV.SIG Q12H [facility] Rx#:[id number] Oral 720 / 720 Output: Urine 1550 / 1550 2825 / 2825 Urine/Stool Mix 2 / 2 Other: # Voids 1 # Bowel Movements 1 <Nicole Garza R - 02/05/18 19:10> Vital Signs 02/04/18 16:00 02/04/18 20:00 02/04/18 22:25 Temperature 97.7 F 98.1 F Pulse Rate 56 L 59 L Respiratory Rate 20 18 Blood Pressure 131/62 125/66 Pulse Oximetry 98 97 98 02/05/18 00:00 02/05/18 04:00 02/05/18 08:00 Temperature 98.3 F 98 F 98.1 F Pulse Rate 52 L 68 53 L Respiratory Rate 18 18 21 Blood Pressure 127/68 124/64 136/65 Pulse Oximetry 97 97 98 Intake & Output 02/04/18 02/05/18 02/05/18 18:59 06:59 18:59 Intake Total 2385 / 2385 700 / 700 1340 / 1340 Output Total 810 / 810 1552 / 1552 400 / 400 Balance 1575 / 1575 -852 / -852 940 / 940 Weight 121 kg Intake: IV 1215 / 1215 700 / 700 1100 / 1100 NS Inj 1,000 ML @ 100 mls/hr IV 500 / 500 500 / 500 1000 / 1000 .CONT .Q10H [facility] Rx#:[id number] Zosyn 4.5 GM Premix 4.5 gm In 200 / 200 200 / 200 100 / 100 100 ml @ 200 mls/hr IV.SIG Q6H [facility] Rx#:[id number] Oral 1070 / 1070 240 / 240 Anesthesia Amount 100 / 100 Output: Urine 800 / 800 1550 / 1550 400 / 400 Urine/Stool Mix 2 / 2 Estimated Blood Loss Other: # Voids 1 1 Date of Last Bowel Movement 02/04/18 # Bowel Movements 1 <Tracy Green V - 02/05/18 12:28> Narrative: GENERAL: Patient eating breakfast. In NAD SKIN: L foot w/ dressing in place and erin wrap. No visible drainage from bandages. HEAD: Normocephalic. Atraumatic. CARDIOVASCULAR: Regular rate and rhythm without murmurs, gallops, or rubs. RESPIRATORY: Breath sounds clear to auscultation and equal bilaterally, without wheezes, rales, or rhonchi. No accessory muscle use. GASTROINTESTINAL: Positive bowel sounds. Abdomen soft, non-tender. <Tracy Green V - 02/05/18 12:28> Assessment and Plan - Assessment (1) Foot ulcer, left Code(s): L97.529 - Non-pressure chronic ulcer of other part of left foot with unspecified severity Status: Chronic (2) Hypertension Code(s): I10 - Essential (primary) hypertension Status: Chronic (3) Asthma Code(s): J45.909 - Unspecified asthma, uncomplicated Status: Chronic (4) Nutrition, metabolism, and development symptoms Code(s): R63.8 - Other symptoms and signs concerning food and fluid intake Status: Acute <Nicole Garza R - 02/05/18 19:10> (1) Foot ulcer, left Code(s): L97.529 - Non-pressure chronic ulcer of other part of left foot with unspecified severity Status: Chronic (2) Hypertension Code(s): I10 - Essential (primary) hypertension Status: Chronic (3) Asthma Code(s): J45.909 - Unspecified asthma, uncomplicated Status: Chronic (4) Nutrition, metabolism, and development symptoms Code(s): R63.8 - Other symptoms and signs concerning food and fluid intake Status: Acute <Tracy Green V - 02/05/18 12:02> - Assessment and Plan Patient is a 52 year old male, 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 Patient was recently hospitalized at [facility] for evaluation and treatment of the same non-healing ulcer. He underwent I&D without wound vac placement during that hospitalization in early December. Patient was placed on ertapenem at that time; IV antibiotic was continued as outpatient. Patient reports to [facility] due to disease progression despite IV antibiotic treatment. POD#1 from left first ray resection on 02/04. Anticipate discharge when pathology returns to have appropriate antibiotic coverage. Pt will either be DC home vs rehab facility depending on PT evaluation. Left foot wound complicated by osteomyelitis: * Unclear etiology. * HgbA1c 5.7 and bedside glucose wnl. * TSH and B12 wnl. * Also no known history of peripheral vascular disease or venous insufficiency. * Consulted Dr. Camilo for EMG studies during this admission due to poor outpatient follow-up. * Patient is overall well-appearing, vitals are stable, no leukocytosis. * Wound cultures growing Stenotrophomonas maltophilia and Pseudomonas. * Blood cultures with no growth to date. * Foot MRI with evidence of osteomyelitis. * Left first ray resection performed 02/04 * Consult placed to ID; currently on Vanc and Zosyn. * Per records from [facility], cultures grew Morganella, rare bacteroides pyogenes, strep agalactiae and acinetobacter. Patient underwent I&D. Patient treated with ertapenem. Patient discharged without wound vac but IV antibiotics continued. * Vancomycin with pharmacy consult for dosing, and Zosyn 4.5 gm IV q6h. Added Levaquin 750mg IV q25 hr for Stenotrophomonas maltophilia coverage. * [place] 5/325 prn pain 6-10, morphine for breakthrough. Elevated BP: * Monitor vitals q4h. * Clonidine 0.1 mg po q6h prn BP > 180/100. FEN: Fluid: * NS at 100 ml/hr. Electrolytes: * Monitor and replete as necessary. Nutrition: * Regular diet DVT ppx: * Bilateral SCDs, holding chemical anticoagulation pending surgical intervention. <Tracy Green V - 02/05/18 12:28> - Attending Attestation The exam, history, and the medical decision-making described in the above note were completed with the assistance of the resident physician. I reviewed and agree with the findings presented. I attest that I had a [id number] encounter with the patient on the same day, and personally performed and documented my assessment and findings in the medical record. <Nicole Garza R - 02/05/18 19:10>
[2018-02-05] MEDS: Vancomycin Inj 1,500 MG in Sodium Chlor 0.9% Inj 500 ML IV.SIG SCH (12:43)
[2018-02-06] MEDS: Vancomycin Inj 1,500 MG in Sodium Chlor 0.9% Inj 500 ML IV.SIG SCH (00:08)
[2018-02-06] MEDS: Piperacil/Tazo 4.5 GM Premix 4.5 GM/100 ML BAG IV.SIG SCH ×2 (04:09→10:18)
[2018-02-06] MEDS: Sod Chloride 0.9% Inj 1,000 ML IV.CONT SCH (06:42)
[2018-02-06 06:56] LABS: Hematocrit 36.2 % (39.0-51.0); Hemoglobin 12.4 gm/dL (13.0-17.0); Mean Corpuscular HGB Conc 34.1 % (32.0-36.0); Mean Corpuscular Hemoglobin 29.9 pg (27.0-34.0); Mean Corpuscular Volume 87.6 fL (80.0-100.0); Mean Platelet Volume 9.2 fL (7.0-11.0); Platelet Count 131 th/mm3 (150-450); Red Blood Count 4.14 mil/mm3 (4.50-5.90); Red Cell Distribution Width 12.8 % (11.6-17.2); White Blood Count 4.5 th/mm3 (4.0-11.0)
[2018-02-06 07:25] LABS: Calcium 8.3 mg/dL (8.5-10.1); Carbon Dioxide 27.6 meq/L (21.0-32.0); Potassium 3.7 meq/L (3.5-5.1)
--- NOTE | 2018-02-06 07:50 | P.DCO ---
- Physical Therapy Order: Evaluate and treat - Occupational Therapy Order: Evaluate and treat - Home Health Nursing Order: Medical education, Signs/symptoms of disease process, Nursing assessment with vital signs, IV medication administration (likely ) - Case Management Consult Yes - Certification I have seen patient Ed Du on 02/06/18. My clinical findings support the need for the requested home health care services because: Limited mobility due to disease progression, Deconditioned with increased weakness I certify that my clinical findings support that this patient is homebound because: Post-op weakness, Unsteady gait/balance
--- NOTE | 2018-02-06 09:11 | P.PNFP ---
Subjective Interval history: Patient was seen and evaluated this morning. He reports feeling well. He reports some phantom pain following left first ray resection on 02/04. Patient denies chest pain, heart palpitations, shortness of breath, nausea/ vomiting, diarrhea and constipation. All questions were answered. <JennaDionteVeronica - 02/06/18 09:11> Results - Labs Result diagrams: 02/06/18 06:00 02/06/18 06:00 <Nicole Garza - 02/06/18 13:36> Abnormal lab results 02/06/18 02/06/18 Range/Units 06:00 06:00 RBC 4.14 L (4.50-5.90) mil/mm3 Hgb 12.4 L (13.0-17.0) gm/dL Hct 36.2 L (39.0-51.0) % Plt Count 131 L (150-450) th/mm3 Estimated GFR 82 L (>89) mL/min Calcium 8.3 L (8.5-10.1) mg/dL Short CBC 02/06/18 Range/Units 06:00 WBC 4.5 (4.0-11.0) th/mm3 Hgb 12.4 L (13.0-17.0) gm/dL Hct 36.2 L (39.0-51.0) % Plt Count 131 L (150-450) th/mm3 BMP 02/06/18 06:00 Sodium 141 Potassium 3.7 Chloride 105 Carbon Dioxide 27.6 BUN 8 Creatinine 0.97 Calcium 8.3 L <Nicole Garza - 02/06/18 13:36> Abnormal lab results 02/06/18 02/06/18 Range/Units 06:00 06:00 RBC 4.14 L (4.50-5.90) mil/mm3 Hgb 12.4 L (13.0-17.0) gm/dL Hct 36.2 L (39.0-51.0) % Plt Count 131 L (150-450) th/mm3 Estimated GFR 82 L (>89) mL/min Calcium 8.3 L (8.5-10.1) mg/dL Short CBC 02/06/18 Range/Units 06:00 WBC 4.5 (4.0-11.0) th/mm3 Hgb 12.4 L (13.0-17.0) gm/dL Hct 36.2 L (39.0-51.0) % Plt Count 131 L (150-450) th/mm3 BMP 02/06/18 06:00 Sodium 141 Potassium 3.7 Chloride 105 Carbon Dioxide 27.6 BUN 8 Creatinine 0.97 Calcium 8.3 L <Veronica West - 02/06/18 09:11> Physical Exam Vital signs: Vital Signs 02/05/18 16:00 02/05/18 20:00 02/06/18 00:00 Temperature 97.7 F 97.9 F 98.1 F Pulse Rate 67 61 60 Respiratory Rate 20 20 20 Blood Pressure 144/66 H 156/68 H 138/69 Pulse Oximetry 96 97 98 02/06/18 04:00 02/06/18 08:00 02/06/18 12:00 Temperature 97.5 F L 97.6 F 98.2 F Pulse Rate 51 L 52 L 55 L Respiratory Rate 20 22 22 Blood Pressure 117/72 133/81 128/69 Pulse Oximetry 94 L 95 97 Intake & Output 02/05/18 02/06/18 02/06/18 18:59 06:59 18:59 Intake Total 2485 / 2485 815 / 815 Output Total 2825 / 2825 Balance -340 / -340 815 / 815 Intake: IV 1765 / 1765 815 / 815 NS Inj 1,000 ML @ 100 mls/hr IV 1000 / 1000 .CONT .Q10H [facility] Rx#:[id number] Levaquin 750 mg Premix Inj 150 150 / 150 ML @ 100 mls/hr IV.SIG Q24H [facility] Rx#:[id number] Zosyn 4.5 GM Premix 4.5 gm In 100 / 100 300 / 300 100 ml @ 200 mls/hr IV.SIG Q6H [facility] Rx#:[id number] Vancomycin Inj 1,500 MG In NS 515 / 515 515 / 515 Inj 500 ML @ 250 mls/hr IV.SIG Q12H [facility] Rx#:[id number] Oral 720 / 720 Output: Urine 2825 / 2825 Other: Date of Last Bowel Movement 02/05/18 02/06/18 # Bowel Movements 1 <Nicole Garza - 02/06/18 13:36> Vital Signs 02/05/18 12:00 02/05/18 16:00 02/05/18 20:00 Temperature 98.7 F 97.7 F 97.9 F Pulse Rate 56 L 67 61 Respiratory Rate 21 20 20 Blood Pressure 137/69 144/66 H 156/68 H Pulse Oximetry 96 96 97 02/06/18 00:00 02/06/18 04:00 02/06/18 08:00 Temperature 98.1 F 97.5 F L 97.6 F Pulse Rate 60 51 L 52 L Respiratory Rate 20 20 22 Blood Pressure 138/69 117/72 133/81 Pulse Oximetry 98 94 L 95 <Veronica West - 02/06/18 09:11> Narrative: GENERAL: Patient lying in bed comfortably. SKIN: Left foot - dressing and erin wrap in place. No visible drainage from bandage. HEAD: Normocephalic. Atraumatic. EYES: EOMI. No scleral icterus. No injection or drainage. ENT: No nasal drainage. Moist mucous membranes. No oral ulcers or lesions. NECK: Supple, trachea midline. No JVD. CARDIOVASCULAR: Regular rate and rhythm without murmurs, gallops, or rubs. RESPIRATORY: Breath sounds clear to auscultation and equal bilaterally, without wheezes, rales, or rhonchi. No accessory muscle use. GASTROINTESTINAL: Positive bowel sounds. Abdomen soft, non-tender. <Veronica West - 02/06/18 09:11> Assessment and Plan - Assessment (1) Foot ulcer, left Code(s): L97.529 - Non-pressure chronic ulcer of other part of left foot with unspecified severity Status: Chronic (2) Hypertension Code(s): I10 - Essential (primary) hypertension Status: Chronic (3) Asthma Code(s): J45.909 - Unspecified asthma, uncomplicated Status: Chronic (4) Nutrition, metabolism, and development symptoms Code(s): R63.8 - Other symptoms and signs concerning food and fluid intake Status: Acute <Nicole Garza - 02/06/18 13:36> (1) Foot ulcer, left Code(s): L97.529 - Non-pressure chronic ulcer of other part of left foot with unspecified severity Status: Chronic (2) Hypertension Code(s): I10 - Essential (primary) hypertension Status: Chronic (3) Asthma Code(s): J45.909 - Unspecified asthma, uncomplicated Status: Chronic (4) Nutrition, metabolism, and development symptoms Code(s): R63.8 - Other symptoms and signs concerning food and fluid intake Status: Acute <Veronica West - 02/06/18 09:24> - Assessment and Plan Patient is a 52 year old male, 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 Patient was recently hospitalized at [facility] for evaluation and treatment of the same non-healing ulcer. He underwent I&D with wound vac placement during that hospitalization in early December; he was however discharged without wound vac. Patient was placed on ertapenem; IV antibiotic was continued as outpatient. Patient reports to [place] due to disease progression despite IV antibiotic treatment. Left first ray resection on 02/04. Discharge pending sensitivities of surgical cultures for appropriate antibiotic coverage. PT recommends discharge home with home health. Left foot wound complicated by osteomyelitis: * Unclear etiology. * HgbA1c 5.7 and bedside glucose wnl. * TSH and B12 wnl. * Also no known history of peripheral vascular disease or venous insufficiency. * Consulted Dr. Camilo for EMG studies during this admission due to poor outpatient follow-up. * Patient is overall well-appearing, vitals are stable, no leukocytosis. * Wound cultures growing Stenotrophomonas maltophilia and Pseudomonas aeruginosa. * Surgical cultures with no growth to date. * Blood cultures with no growth to date. * Foot MRI with evidence of osteomyelitis. * Left first ray resection performed 02/04. * Consult placed to ID; currently on Vanc, Zosyn and Levaquin. * Per records from [facility], cultures grew Morganella, rare bacteroides pyogenes, strep agalactiae and acinetobacter. Patient underwent I&D. Patient treated with ertapenem. Patient discharged without wound vac but IV antibiotics continued. * [place] 5/325 prn pain 6-10, morphine for breakthrough. Elevated BP: * Monitor vitals q4h. * Clonidine 0.1 mg po q6h prn BP > 180/100. FEN: Fluid: * Tolerating PO. Electrolytes: * Monitor and replete as necessary. Nutrition: * Regular diet. DVT ppx: * Bilateral SCDs. * Heparin 5,000 units q8hr. <Veronica West - 02/06/18 09:26> - Attending Attestation The exam, history, and the medical decision-making described in the above note were completed with the assistance of the resident physician. I reviewed and agree with the findings presented. I attest that I had a [id number] encounter with the patient on the same day. Patient was discharged previously with and outpatient follow up and he failed this miserably which is in part why he needed this hospitalization. Will dw PT and case management as patient may be more appropriate for rehab. <Nicole Garza - 02/06/18 13:36>
[2018-02-06] MEDS: Senna/Docusate Sodium 8.6/50 MG Tablet PO SCH ×2 (10:17→21:42)
[2018-02-06] MEDS ORDERED: ASP: Path resistant to other antimicrobials, culture proven OTHER PRN (10:23)
[2018-02-06] MEDS: Heparin - SQ 10,000 UNITS/ML Vial SQ SCH ×3 (10:53→21:42)
[2018-02-06 16:07] LABS: Anti-Nuclear Antibody Screen Pos (Neg)
--- NOTE | 2018-02-06 16:08 | P.PNPOD ---
Subjective Interval history: s/p left partial first ray amputation with . Pt denies any pain or concerns at this time. Physical Exam Vital signs: Vital Signs 02/05/18 20:00 02/06/18 00:00 02/06/18 04:00 Temperature 97.9 F 98.1 F 97.5 F L Pulse Rate 61 60 51 L Respiratory Rate 20 20 20 Blood Pressure 156/68 H 138/69 117/72 Pulse Oximetry 97 98 94 L 02/06/18 08:00 02/06/18 12:00 Temperature 97.6 F 98.2 F Pulse Rate 52 L 55 L Respiratory Rate 22 22 Blood Pressure 133/81 128/69 Pulse Oximetry 95 97 Intake & Output 02/05/18 02/06/18 02/06/18 18:59 06:59 18:59 Intake Total 2485 / 2485 815 / 815 250 / 250 Output Total 2825 / 2825 Balance -340 / -340 815 / 815 250 / 250 Intake: IV 1765 / 1765 815 / 815 250 / 250 NS Inj 1,000 ML @ 100 mls/hr IV 1000 / 1000 .CONT .Q10H [facility] Rx#:[id number] Levaquin 750 mg Premix Inj 150 150 / 150 150 / 150 ML @ 100 mls/hr IV.SIG Q24H [facility] Rx#:[id number] Zosyn 4.5 GM Premix 4.5 gm In 100 / 100 300 / 300 100 / 100 100 ml @ 200 mls/hr IV.SIG Q6H [facility]UL Rx#:[id number] Vancomycin Inj 1,500 MG In NS 515 / 515 515 / 515 Inj 500 ML @ 250 mls/hr IV.SIG Q12H [facility]UL Rx#:[id number] Oral 720 / 720 Output: Urine 2825 / 2825 Other: Date of Last Bowel Movement 02/05/18 02/06/18 # Bowel Movements 1 Narrative: Left foot partial first ray amputation with all sutures intact, slight sanginous drainage, minimal erythema, mild edema. Submet 4 ulceration 0.5cc x 0.5cm x0, granular wound bed no signs of infection. Medications and Allergies Active Medications: Active Medications Acetaminophen (Tylenol) 650 mg PO Q4H PRN PRN Reason: Pain 1-5 And/Or Fever >101f Hydrocodone Bitart/Acetaminophen (Brisbin 5/325) 1 tab PO Q4H PRN PRN Reason: PAIN SCALE 6 TO 10 Last Admin: 02/05/18 22:50 Dose: 1 tab Al Hydroxide/Mg Hydroxide (Milk Of Magnesia Liq) 30 ml PO Q12H PRN PRN Reason: Mild Constipation Albuterol (Duoneb Neb (Prn)) 1 ampul NEB Q4HR NEB PRN PRN Reason: SHORTNESS OF BREATH/WHEEZING Bisacodyl (Dulcolax Supp) 10 mg RECTAL DAILY PRN PRN Reason: SEVERE CONSITIPATION Clonidine HCl (Catapres) 0.1 mg PO Q6H PRN PRN Reason: SEE LABEL COMMENTS Heparin Sodium (Porcine) (Heparin Inj) 5,000 units SQ Q8HR [facility] Last Admin: 02/06/18 14:17 Dose: Not Given Sodium Chloride (Ns Inj) 500 mls @ 30 mls/hr IV.SIG .Q10H [facility] Last Admin: 02/04/18 05:32 Dose: Not Given Levofloxacin/Dextrose (Levaquin 750 Mg Premix Inj) 150 mls @ 100 mls/hr IV.SIG Q24H [facility] Last Infusion: 02/06/18 14:18 Dose: Infused Lactulose (Lactulose Liq) 30 ml PO DAILY PRN PRN Reason: SEVERE CONSITIPATION Miscellaneous Medication (Asp Crit: Path Resist To Other, Cult Proven) 1 each OTHER UNSCH PRN PRN Reason: PHARMACY DOCUMENTATION Stop: 02/07/18 10:22 Morphine Sulfate (Morphine Inj) 2 mg IV.PUSH Q3H PRN PRN Reason: BREAKTHROUGH PAIN Ondansetron HCl (Zofran Inj) 4 mg IV.PUSH Q6H PRN PRN Reason: NAUSEA OR VOMITING Senna/Docusate Sodium (Celi-Colace) 1 tab PO BID [facility] Last Admin: 02/06/18 10:17 Dose: Not Given Allergies Allergy/AdvReac Type Severity Reaction Status Date / Time No Known Allergies Allergy Verified 02/02/18 17:27 Home Medications Medication Instructions Recorded Confirmed Type No Known Home Medications 02/02/18 02/02/18 History Results - Labs CBC & Chem 7: 02/06/18 06:00 02/06/18 06:00 Laboratory Results - last 24 hr 02/06/18 02/06/18 06:00 06:00 WBC 4.5 RBC 4.14 L Hgb 12.4 L Hct 36.2 L MCV 87.6 MCH 29.9 MCHC 34.1 RDW 12.8 Plt Count 131 L MPV 9.2 Sodium 141 Potassium 3.7 Chloride 105 Carbon Dioxide 27.6 Anion Gap 8 BUN 8 Creatinine 0.97 Estimated GFR 82 L Random Glucose 81 Calcium 8.3 L Microbiology 02/04/18 10:39 Tissue - Toe Acid Fast Bacilli Smear - Final No acid fast bacilli seen 02/04/18 10:39 Tissue - Toe Acid Fast Bacilli Smear - Final No acid fast bacilli seen 02/04/18 10:39 Tissue - Toe Gram Stain - Final 02/04/18 10:39 Tissue - Toe Wound Culture - Preliminary gram negative rods 02/04/18 10:39 Tissue - Toe Gram Stain - Final 02/04/18 10:39 Tissue - Toe Wound Culture - Preliminary No growth in 48 hours 02/02/18 18:40 Blood - Peripheral Aerobic Blood Culture - Preliminary No growth in 4 days 02/02/18 18:40 Blood - Peripheral Anaerobic Blood Culture - Preliminary No growth in 4 days 02/02/18 18:30 Blood - Peripheral Aerobic Blood Culture - Preliminary No growth in 4 days 02/02/18 18:30 Blood - Peripheral Anaerobic Blood Culture - Preliminary No growth in 4 days Assessment and Plan - Assessment (1) Open wnd foot-complicated Code(s): S91.309A - Unspecified open wound, unspecified foot, initial encounter Status: Acute (2) Foot ulcer, left Code(s): L97.529 - Non-pressure chronic ulcer of other part of left foot with unspecified severity Status: Chronic - Plan 1) s/p partial left first ray amp -NWBing LLE -cont iv abx until surgical cx are finalized and proper abx can be selected -ok for d/c to SNF pending abx selection, likely 2-3 days, strongly recommend d/ c to SNF opposed to home given patients history -f/u with in office 5-7 days after discharge (1) Open wnd foot-complicated Qualifiers: Encounter type: initial encounter Laterality: left Qualified Code(s): S91.302A - Unspecified open wound, left foot, initial encounter
--- NOTE | 2018-02-06 17:08 | P.PNID ---
Subjective Remarks: Mr. Du is a 52-year-old man who was sent to the emergency department by his case investigator Dr. Chavarria. Patient reports that he was recently seen at [facility] by a few providers including Dr. Krause. He reports that he had a chronic wound on the plantar aspect of his left foot and the started in August of this year. He reports he has had soreness in that area since the beginning of the year but only got worse in August. He denies any trauma. Patient does report history of sleep apnea and being on CPAP at home. Patient is not a very reliable historian and does not follow through on his thoughts very well. Patient was admitted at [facility] from 01/10/2018 to for the left foot wounds suspected osteomyelitis. Patient was discharged home with PICC line and was instructed to continue IV antibiotics. He reports that he has been driving himself to the hospital to receive an antibiotic daily at 9:00 at the [facility]. He is unsure about what antibiotic this is surely does not appear to be vancomycin as that would be multiple times a day especially given his size. Another concern I have is a post surgery this patient has been weightbearing reportedly if he has been driving himself to the hospital. Patient was also set up to have a wound VAC placed but this was not done at his house. He also has concerns that the sutures were not removed on time. Patient currently lives in a mobile home with his cousin. Patient denies any fevers chills or night sweats. He denies any other systemic symptoms. Overnight events No fever No rash No diarrhea Antibiotics: Zosyn IV Vanco IV Levaquin Lines: Lines ok Past Medical History: reviewed Allergies/Adverse Reactions: Allergies No Known Allergies Allergy (Verified 02/02/18 17:27) Objective Vital Signs 02/05/18 20:00 02/06/18 00:00 02/06/18 04:00 Temperature 97.9 F 98.1 F 97.5 F L Pulse Rate 61 60 51 L Respiratory Rate 20 20 20 Blood Pressure 156/68 H 138/69 117/72 Pulse Oximetry 97 98 94 L 02/06/18 08:00 02/06/18 12:00 Temperature 97.6 F 98.2 F Pulse Rate 52 L 55 L Respiratory Rate 22 22 Blood Pressure 133/81 128/69 Pulse Oximetry 95 97 Intake & Output 02/05/18 02/06/18 02/06/18 18:59 06:59 18:59 Intake Total 2485 / 2485 815 / 815 250 / 250 Output Total 2825 / 2825 Balance -340 / -340 815 / 815 250 / 250 Intake: IV 1765 / 1765 815 / 815 250 / 250 NS Inj 1,000 ML @ 100 mls/hr IV 1000 / 1000 .CONT .Q10H [facility]UL Rx#:[id number] Levaquin 750 mg Premix Inj 150 150 / 150 150 / 150 ML @ 100 mls/hr IV.SIG Q24H [facility] Rx#:[id number] Zosyn 4.5 GM Premix 4.5 gm In 100 / 100 300 / 300 100 / 100 100 ml @ 200 mls/hr IV.SIG Q6H [facility]UL Rx#:[id number] Vancomycin Inj 1,500 MG In NS 515 / 515 515 / 515 Inj 500 ML @ 250 mls/hr IV.SIG Q12H [facility]UL Rx#:[id number] Oral 720 / 720 Output: Urine 2825 / 2825 Other: Date of Last Bowel Movement 02/05/18 02/06/18 # Bowel Movements 1 02/04/18 10:39 Tissue - Toe Acid Fast Bacilli Smear - Final No acid fast bacilli seen 02/04/18 10:39 Tissue - Toe Mycobacterial Culture - Pending 02/04/18 10:39 Tissue - Toe Acid Fast Bacilli Smear - Final No acid fast bacilli seen 02/04/18 10:39 Tissue - Toe Mycobacterial Culture - Pending 02/04/18 10:39 Tissue - Toe Gram Stain - Final 02/04/18 10:39 Tissue - Toe Wound Culture - Preliminary gram negative rods 02/04/18 10:39 Tissue - Toe Gram Stain - Final 02/04/18 10:39 Tissue - Toe Wound Culture - Preliminary No growth in 48 hours 02/02/18 18:40 Blood - Peripheral Aerobic Blood Culture - Preliminary No growth in 4 days 02/02/18 18:40 Blood - Peripheral Anaerobic Blood Culture - Preliminary No growth in 4 days 02/02/18 18:30 Blood - Peripheral Aerobic Blood Culture - Preliminary No growth in 4 days 02/02/18 18:30 Blood - Peripheral Anaerobic Blood Culture - Preliminary No growth in 4 days 02/04/18 10:39 Tissue - Toe Fungal Smear - Final No fungal elements seen 02/04/18 10:39 Tissue - Toe Fungal Culture - Pending 02/04/18 10:39 Tissue - Toe Fungal Smear - Final No fungal elements seen 02/04/18 10:39 Tissue - Toe Fungal Culture - Pending 02/02/18 18:40 Wound - Foot Gram Stain - Final 02/02/18 18:40 Wound - Foot Wound Culture - Final Stenotrophomonas maltophilia Pseudomonas aeruginosa Lab - Hematology Results 02/05/18 02/06/18 05:30 06:00 WBC 5.7 4.5 RBC 4.24 L 4.14 L Hgb 12.4 L 12.4 L Hct 36.8 L 36.2 L MCV 86.7 87.6 MCH 29.1 29.9 MCHC 33.6 34.1 RDW 13.3 12.8 Plt Count 139 L 131 L MPV 8.8 9.2 Lab - Chemistry Results 02/05/18 02/06/18 05:30 06:00 Sodium 141 141 Potassium 4.1 3.7 Chloride 107 105 Carbon Dioxide 27.0 27.6 Anion Gap 7 8 BUN 9 8 Creatinine 1.04 0.97 Estimated GFR 75 L 82 L Random Glucose 74 81 Calcium 8.7 8.3 L Imaging: ITS Impressions Foot MRI 02/02/18 18:25 CONCLUSION: Deep plantar ulcer of the medial forefoot as described with associated osteomyelitis of the neck and head of the first metatarsal and osteomyelitis throughout most of the great toe proximal phalanx. The first metatarsophalangeal joint is dorsally dislocated due to plantar and flexor mechanism rupture. I don't clearly see either sesamoid. Foot X-Ray 02/04/18 00:00 CONCLUSION: Postoperative first digit amputation. Physical Exam: GENERAL: Morbidly obese, not in acute distress SKIN: Cool and dry, no generalized rash HEAD: Atraumatic. Normocephalic. No temporal or scalp tenderness. EYES: Pupils equal round and reactive. Scleral icterus. No injection or drainage. No petechia ENT: Nothing abnormal detected NECK: Trachea midline. Supple, nontender, no meningeal signs. CARDIOVASCULAR: HS audible. RESPIRATORY: Clear to auscultation bilaterally. GASTROINTESTINAL: Abdomen soft nontender. MUSCULOSKELETAL: Left foot with 2 dime-sized openings noted. 1 of them appears to be probing down to the bone. Particularly the one next to the left great toe. Both of these are up on the plantar aspect of the foot. No tenderness noted. But generalized swelling noted. NEUROLOGICAL: Alert oriented 3. Nonfocal. Psych cooperative IV line sites ok. Assessment and Plan - Plan Left foot chronic wounds possible underlying osteomyelitis On antibiotics prior to admission. Gram-negative wound infection. Patient is a PICC line in place that was placed at [facility] Morbid obesity Sleep apnea on CPAP Recommendations DC Zosyn IV DC Vacno IV Start meropenem IV (Neri Snyder from outside hospital, etc) Start Levaquin (steno malto) Await path intra op Dw : recommends not weight bearing. Anticipate need for IV antibiotics for 6 weeks. follow cultures
[2018-02-06] MEDS ORDERED: Pharmacy Ordered Lab Info OTHER ONE (23:45)
[2018-02-07] MEDS: Heparin - SQ 10,000 UNITS/ML Vial SQ SCH ×3 (06:02→21:35)
[2018-02-07] MEDS: Senna/Docusate Sodium 8.6/50 MG Tablet PO SCH ×2 (09:50→21:36)
--- NOTE | 2018-02-07 11:01 | P.PNFP ---
Subjective Interval history: Patient was seen and evaluated this morning. He reports feeling well. He reports some phantom pain following left first ray resection on 02/04. Patient denies chest pain, heart palpitations, shortness of breath, nausea/ vomiting, diarrhea and constipation. All questions were answered. <Dionte Westin - 02/07/18 12:11> Results - Labs Result diagrams: 02/08/18 05:21 02/08/18 05:21 <Nicole Garza - 02/08/18 08:43> Abnormal lab results 02/08/18 02/08/18 Range/Units 05:21 05:21 WBC 3.8 L (4.0-11.0) th/mm3 RBC 4.44 L (4.50-5.90) mil/mm3 Plt Count 135 L (150-450) th/mm3 Estimated GFR 88 L (>89) mL/min Short CBC 02/08/18 Range/Units 05:21 WBC 3.8 L (4.0-11.0) th/mm3 Hgb 13.2 (13.0-17.0) gm/dL Hct 39.1 (39.0-51.0) % Plt Count 135 L (150-450) th/mm3 BMP 02/08/18 05:21 Sodium 143 Potassium 4.0 Chloride 106 Carbon Dioxide 28.2 BUN 11 Creatinine 0.91 Calcium 8.6 <Nicole Garza R - 02/08/18 08:43> Abnormal lab results 02/03/18 Range/Units 15:30 SURY Screen Pos H (Neg) <Dionte Westin - 02/07/18 11:01> Physical Exam Vital signs: Vital Signs 02/07/18 12:00 02/07/18 16:00 02/07/18 18:59 Temperature 97.4 F L 97.6 F Pulse Rate 57 L 52 L Respiratory Rate 15 20 Blood Pressure 145/69 H 168/71 H 110/75 Pulse Oximetry 92 L 95 02/07/18 20:00 02/07/18 22:30 02/08/18 00:00 Temperature 97.8 F 97.6 F Pulse Rate 61 66 Respiratory Rate 18 18 Blood Pressure 143/85 H 140/80 Pulse Oximetry 97 97 96 02/08/18 04:00 Temperature 97.7 F Pulse Rate 56 L Respiratory Rate 18 Blood Pressure 128/59 L Pulse Oximetry 98 Intake & Output 02/07/18 02/08/18 02/08/18 18:59 06:59 18:59 Intake Total 1690 / 1690 100 / 100 Output Total 1999 1150 / 1150 Balance -310 / -310 -1050 / -1050 Weight 118.8 kg Intake: IV 250 / 250 100 / 100 Levaquin 750 mg Premix Inj 150 150 / 150 ML @ 100 mls/hr IV.SIG Q24H RAUL Rx#:[id number] Merrem Inj 500 MG In NS Inj 100 100 / 100 100 / 100 ML @ 200 mls/hr IV.SIG Q8H RAUL Rx#:[id number] Oral 1440 / 1440 Output: Urine 1999 1150 / 1150 Other: # Voids 1 Date of Last Bowel Movement 02/07/18 # Bowel Movements 0 <Nicole Garza - 02/08/18 08:43> Vital Signs 02/06/18 12:00 02/06/18 16:00 02/06/18 20:00 Temperature 98.2 F 98.0 F 97.6 F Pulse Rate 55 L 57 L 59 L Respiratory Rate 22 22 18 Blood Pressure 128/69 137/79 149/71 H Pulse Oximetry 97 97 96 02/07/18 00:00 02/07/18 00:18 02/07/18 04:00 Temperature 98.1 F 98.5 F Pulse Rate 58 L 58 L Respiratory Rate 18 18 Blood Pressure 122/65 149/96 H Pulse Oximetry 97 97 96 02/07/18 04:03 02/07/18 08:00 Temperature 97.6 F Pulse Rate 70 Respiratory Rate 15 Blood Pressure 163/78 H Pulse Oximetry 95 97 <Veronica West - 02/07/18 12:11> Narrative: GENERAL: Patient sitting up in chair with feet elevated. SKIN: Left foot - dressing and erin wrap in place. No visible drainage from bandage. HEAD: Normocephalic. Atraumatic. EYES: EOMI. No scleral icterus. No injection or drainage. ENT: No nasal drainage. Moist mucous membranes. No oral ulcers or lesions. NECK: Supple, trachea midline. No JVD. CARDIOVASCULAR: Regular rate and rhythm without murmurs, gallops, or rubs. RESPIRATORY: Breath sounds clear to auscultation and equal bilaterally, without wheezes, rales, or rhonchi. No accessory muscle use. GASTROINTESTINAL: Positive bowel sounds. Abdomen soft, non-tender. <Veronica West - 02/07/18 12:11> Assessment and Plan - Assessment (1) Foot ulcer, left Code(s): L97.529 - Non-pressure chronic ulcer of other part of left foot with unspecified severity Status: Chronic (2) Hypertension Code(s): I10 - Essential (primary) hypertension Status: Chronic (3) Asthma Code(s): J45.909 - Unspecified asthma, uncomplicated Status: Chronic (4) Nutrition, metabolism, and development symptoms Code(s): R63.8 - Other symptoms and signs concerning food and fluid intake Status: Acute <Nicole Garza Fauzia - 02/08/18 08:43> (1) Foot ulcer, left Code(s): L97.529 - Non-pressure chronic ulcer of other part of left foot with unspecified severity Status: Chronic (2) Hypertension Code(s): I10 - Essential (primary) hypertension Status: Chronic (3) Asthma Code(s): J45.909 - Unspecified asthma, uncomplicated Status: Chronic (4) Nutrition, metabolism, and development symptoms Code(s): R63.8 - Other symptoms and signs concerning food and fluid intake Status: Acute <Veronica West - 02/07/18 11:58> - Assessment and Plan Patient is a 52 year old male, sent to the ED by his academic intern due to a non- healing ulcer on the plantar surface of his left foot. Patient was recently hospitalized at [facility] for evaluation and treatment of the same non-healing ulcer. He underwent I&D with wound vac placement during that hospitalization in early December; he was however discharged without wound vac. Patient was placed on ertapenem; IV antibiotic was continued as outpatient. Patient reports to [place] due to disease progression despite IV antibiotic treatment. Left first ray resection on 02/04. Discharge pending sensitivities of surgical cultures for appropriate antibiotic coverage. PT recommends discharge home with home health. Podiatry recommends SNF placement. Case management working on chastity bed for patient. Discharge pending placement. Left foot wound complicated by osteomyelitis: * Unclear etiology. * HgbA1c 5.7 and bedside glucose wnl. * TSH and B12 wnl. * Also no known history of peripheral vascular disease or venous insufficiency. * Consulted Dr. Sanches for EMG studies during this admission due to poor outpatient follow-up. * Patient is overall well-appearing, vitals are stable, no leukocytosis. * Wound cultures growing Stenotrophomonas maltophilia and Pseudomonas aeruginosa. * Tissue cultures growing Stenotrophomonas maltophilia. * Blood cultures with no growth to date. * Foot MRI with evidence of osteomyelitis. * Left first ray resection performed 02/04. * Consult placed to ID; patient on Levaquin. * Per records from [facility], cultures grew Morganella, rare bacteroides pyogenes, strep agalactiae and acinetobacter. Patient underwent I&D. Patient treated with ertapenem. Patient discharged without wound vac but IV antibiotics continued. * Talmage 5/325 prn pain 6-10, morphine for breakthrough. Elevated BP: * Monitor vitals q4h. * Clonidine 0.1 mg po q6h prn BP > 180/100. FEN: Fluid: * Tolerating PO. Electrolytes: * Monitor and replete as necessary. Nutrition: * Regular diet. DVT ppx: * Bilateral SCDs. * Heparin 5,000 units q8hr. <Veronica West - 02/07/18 12:11> - Attending Attestation The exam, history, and the medical decision-making described in the above note were completed with the assistance of the resident physician. I reviewed and agree with the findings presented. I attest that I had a [id number] encounter with the patient on the same day, and personally performed and documented my assessment and findings in the medical record. <Nicole Garza - 02/08/18 08:43>
--- NOTE | 2018-02-07 14:01 | P.PNID ---
Subjective Remarks: Mr. Du is a 52-year-old man who was sent to the emergency department by his sales and service consultant Dr. Chavarria. Patient reports that he was recently seen at [facility] by a few providers including Dr. Krause. He reports that he had a chronic wound on the plantar aspect of his left foot and the started in August of this year. He reports he has had soreness in that area since the beginning of the year but only got worse in August. He denies any trauma. Patient does report history of sleep apnea and being on CPAP at home. Patient is not a very reliable historian and does not follow through on his thoughts very well. Patient was admitted at [facility] from 01/10/2018 to for the left foot wounds suspected osteomyelitis. Patient was discharged home with PICC line and was instructed to continue IV antibiotics. He reports that he has been driving himself to the hospital to receive an antibiotic daily at 9:00 at the [facility]. He is unsure about what antibiotic this is surely does not appear to be vancomycin as that would be multiple times a day especially given his size. Another concern I have is a post surgery this patient has been weightbearing reportedly if he has been driving himself to the hospital. Patient was also set up to have a wound VAC placed but this was not done at his house. He also has concerns that the sutures were not removed on time. Patient currently lives in a mobile home with his cousin. Patient denies any fevers chills or night sweats. He denies any other systemic symptoms. Overnight events No fever No rash No diarrhea Antibiotics: Meropenem IV Levaquin Lines: Lines ok Past Medical History: reviewed Allergies/Adverse Reactions: Allergies No Known Allergies Allergy (Verified 02/02/18 17:27) Objective Vital Signs 02/06/18 16:00 02/06/18 20:00 02/07/18 00:00 Temperature 98.0 F 97.6 F 98.1 F Pulse Rate 57 L 59 L 58 L Respiratory Rate 22 18 18 Blood Pressure 137/79 149/71 H 122/65 Pulse Oximetry 97 96 97 02/07/18 00:18 02/07/18 04:00 02/07/18 04:03 Temperature 98.5 F Pulse Rate 58 L Respiratory Rate 18 Blood Pressure 149/96 H Pulse Oximetry 97 96 95 02/07/18 08:00 02/07/18 12:00 Temperature 97.6 F 97.4 F L Pulse Rate 70 57 L Respiratory Rate 15 15 Blood Pressure 163/78 H 145/69 H Pulse Oximetry 97 92 L Intake & Output 02/06/18 02/07/18 02/07/18 18:59 06:59 18:59 Intake Total 250 / 250 150 / 150 Output Total 1200 / 1200 700 / 700 Balance -950 / -950 -700 / -700 150 / 150 Weight 120 kg Intake: IV 250 / 250 150 / 150 Levaquin 750 mg Premix Inj 150 150 / 150 150 / 150 ML @ 100 mls/hr IV.SIG Q24H RAUL Rx#:[id number] Zosyn 4.5 GM Premix 4.5 gm In 100 / 100 100 ml @ 200 mls/hr IV.SIG Q6H RAUL Rx#:[id number] Output: Urine 1200 / 1200 700 / 700 Other: Date of Last Bowel Movement 02/06/18 02/06/18 02/07/18 02/02/18 18:40 Blood - Peripheral Aerobic Blood Culture - Final No growth in 5 days 02/02/18 18:40 Blood - Peripheral Anaerobic Blood Culture - Final No growth in 5 days 02/02/18 18:30 Blood - Peripheral Aerobic Blood Culture - Final No growth in 5 days 02/02/18 18:30 Blood - Peripheral Anaerobic Blood Culture - Final No growth in 5 days 02/04/18 10:39 Tissue - Toe Gram Stain - Final 02/04/18 10:39 Tissue - Toe Wound Culture - Final No growth in 72 hours (aerobically and anaerobically ) 02/04/18 10:39 Tissue - Toe Gram Stain - Final 02/04/18 10:39 Tissue - Toe Wound Culture - Final Stenotrophomonas maltophilia 02/04/18 10:39 Tissue - Toe Acid Fast Bacilli Smear - Final No acid fast bacilli seen 02/04/18 10:39 Tissue - Toe Mycobacterial Culture - Pending 02/04/18 10:39 Tissue - Toe Acid Fast Bacilli Smear - Final No acid fast bacilli seen 02/04/18 10:39 Tissue - Toe Mycobacterial Culture - Pending 02/04/18 10:39 Tissue - Toe Fungal Smear - Final No fungal elements seen 02/04/18 10:39 Tissue - Toe Fungal Culture - Pending 02/04/18 10:39 Tissue - Toe Fungal Smear - Final No fungal elements seen 02/04/18 10:39 Tissue - Toe Fungal Culture - Pending 02/02/18 18:40 Wound - Foot Gram Stain - Final 02/02/18 18:40 Wound - Foot Wound Culture - Final Stenotrophomonas maltophilia Pseudomonas aeruginosa Lab - Hematology Results 02/06/18 06:00 WBC 4.5 RBC 4.14 L Hgb 12.4 L Hct 36.2 L MCV 87.6 MCH 29.9 MCHC 34.1 RDW 12.8 Plt Count 131 L MPV 9.2 Lab - Chemistry Results 02/06/18 06:00 Sodium 141 Potassium 3.7 Chloride 105 Carbon Dioxide 27.6 Anion Gap 8 BUN 8 Creatinine 0.97 Estimated GFR 82 L Random Glucose 81 Calcium 8.3 L Imaging: ITS Impressions Foot MRI 02/02/18 18:25 CONCLUSION: Deep plantar ulcer of the medial forefoot as described with associated osteomyelitis of the neck and head of the first metatarsal and osteomyelitis throughout most of the great toe proximal phalanx. The first metatarsophalangeal joint is dorsally dislocated due to plantar and flexor mechanism rupture. I don't clearly see either sesamoid. Foot X-Ray 02/04/18 00:00 CONCLUSION: Postoperative first digit amputation. Physical Exam: GENERAL: Morbidly obese, not in acute distress SKIN: Cool and dry, no generalized rash HEAD: Atraumatic. Normocephalic. No temporal or scalp tenderness. EYES: Pupils equal round and reactive. Scleral icterus. No injection or drainage. No petechia ENT: Nothing abnormal detected NECK: Trachea midline. Supple, nontender, no meningeal signs. CARDIOVASCULAR: HS audible. RESPIRATORY: Clear to auscultation bilaterally. GASTROINTESTINAL: Abdomen soft nontender. MUSCULOSKELETAL: Left foot post op dressing NEUROLOGICAL: Alert oriented 3. Nonfocal. Psych cooperative IV line sites ok. Assessment and Plan - Plan Left foot chronic wounds possible underlying osteomyelitis On antibiotics prior to admission. Gram-negative wound infection. Patient is a PICC line in place that was placed at [facility] Morbid obesity Sleep apnea on CPAP Recommendations Continue meropenem IV (Chase springer, Neri from outside hospital, etc) Continue Levaquin (steno malto) Await path intra op and final cultures to decide DC regimen. Pam Iglesias: recommends not weight bearing will likely need rehab. Anticipate need for IV antibiotics for 6 weeks. Pls call me with results of path when available. pam GREEN yday
[2018-02-07] MEDS ORDERED: ASP: Other exception documentation: ( ) OTHER PRN (15:00)
[2018-02-07] MEDS ORDERED: Meropenem Inj 500 MG in Sodium Chlor 0.9% Inj 100 ML IV.SIG SCH (16:00)
[2018-02-08 05:45] LABS: Hematocrit 39.1 % (39.0-51.0); Hemoglobin 13.2 gm/dL (13.0-17.0); Mean Corpuscular HGB Conc 33.7 % (32.0-36.0); Mean Corpuscular Hemoglobin 29.7 pg (27.0-34.0); Mean Corpuscular Volume 88.1 fL (80.0-100.0); Mean Platelet Volume 8.8 fL (7.0-11.0); Platelet Count 135 th/mm3 (150-450); Red Blood Count 4.44 mil/mm3 (4.50-5.90); Red Cell Distribution Width 13.4 % (11.6-17.2); White Blood Count 3.8 th/mm3 (4.0-11.0)
[2018-02-08 06:07] LABS: Calcium 8.6 mg/dL (8.5-10.1); Carbon Dioxide 28.2 meq/L (21.0-32.0)
[2018-02-08] MEDS: Heparin - SQ 10,000 UNITS/ML Vial SQ SCH ×3 (06:11→22:56)
[2018-02-08] MEDS: Senna/Docusate Sodium 8.6/50 MG Tablet PO SCH ×2 (08:06→22:57)
--- NOTE | 2018-02-08 10:42 | P.PNFP ---
Subjective Interval history: Patient was seen and evaluated this morning. He reports feeling well. He denies pain in his foot. Patient denies chest pain, heart palpitations, shortness of breath, nausea/ vomiting, diarrhea and constipation. Podiatry, ID and primary team strongly recommend patient to be discharged to SNF. Due to patient's self-pay status, SNF placement is only possible if chastity bed can be secured by CM. Patient has been denied for chastity bed at [facility]. CM to work with patient on alternative options. Discussed situation with patient. All questions were answered. <Veronica West - 02/08/18 10:41> Results - Labs Result diagrams: 02/08/18 05:21 02/08/18 05:21 <Nicole Garza - 02/08/18 15:30> Abnormal lab results 02/08/18 02/08/18 Range/Units 05:21 05:21 WBC 3.8 L (4.0-11.0) th/mm3 RBC 4.44 L (4.50-5.90) mil/mm3 Plt Count 135 L (150-450) th/mm3 Estimated GFR 88 L (>89) mL/min Short CBC 02/08/18 Range/Units 05:21 WBC 3.8 L (4.0-11.0) th/mm3 Hgb 13.2 (13.0-17.0) gm/dL Hct 39.1 (39.0-51.0) % Plt Count 135 L (150-450) th/mm3 BMP 02/08/18 05:21 Sodium 143 Potassium 4.0 Chloride 106 Carbon Dioxide 28.2 BUN 11 Creatinine 0.91 Calcium 8.6 <Nicole Garza R - 02/08/18 15:30> Abnormal lab results 02/08/18 02/08/18 Range/Units 05:21 05:21 WBC 3.8 L (4.0-11.0) th/mm3 RBC 4.44 L (4.50-5.90) mil/mm3 Plt Count 135 L (150-450) th/mm3 Estimated GFR 88 L (>89) mL/min Short CBC 02/08/18 Range/Units 05:21 WBC 3.8 L (4.0-11.0) th/mm3 Hgb 13.2 (13.0-17.0) gm/dL Hct 39.1 (39.0-51.0) % Plt Count 135 L (150-450) th/mm3 BMP 02/08/18 05:21 Sodium 143 Potassium 4.0 Chloride 106 Carbon Dioxide 28.2 BUN 11 Creatinine 0.91 Calcium 8.6 <Veronica West - 02/08/18 10:41> Physical Exam Vital signs: Vital Signs 02/07/18 16:00 02/07/18 18:59 02/07/18 20:00 Temperature 97.6 F 97.8 F Pulse Rate 52 L 61 Respiratory Rate 20 18 Blood Pressure 168/71 H 110/75 143/85 H Pulse Oximetry 95 97 02/07/18 22:30 02/08/18 00:00 02/08/18 04:00 Temperature 97.6 F 97.7 F Pulse Rate 66 56 L Respiratory Rate 18 18 Blood Pressure 140/80 128/59 L Pulse Oximetry 97 96 98 02/08/18 08:00 Temperature 97.5 F L Pulse Rate 56 L Respiratory Rate 18 Blood Pressure 151/84 H Pulse Oximetry 95 Intake & Output 02/07/18 02/08/18 02/08/18 18:59 06:59 18:59 Intake Total 1690 / 1690 100 / 100 250 / 250 Output Total 1999 1150 / 1150 425 / 425 Balance -310 / -310 -1050 / -1050 -175 / -175 Weight 118.8 kg Intake: IV 250 / 250 100 / 100 250 / 250 Levaquin 750 mg Premix Inj 150 150 / 150 150 / 150 ML @ 100 mls/hr IV.SIG Q24H RAUL Rx#:[id number] Merrem Inj 500 MG In NS Inj 100 100 / 100 100 / 100 100 / 100 ML @ 200 mls/hr IV.SIG Q8H RAUL Rx#:[id number] Oral 1440 / 1440 Output: Urine 1999 1150 / 1150 425 / 425 Other: # Voids 1 Date of Last Bowel Movement 02/07/18 # Bowel Movements 0 <Nicole Garza - 02/08/18 15:30> Vital Signs 02/07/18 12:00 02/07/18 16:00 02/07/18 18:59 Temperature 97.4 F L 97.6 F Pulse Rate 57 L 52 L Respiratory Rate 15 20 Blood Pressure 145/69 H 168/71 H 110/75 Pulse Oximetry 92 L 95 02/07/18 20:00 02/07/18 22:30 02/08/18 00:00 Temperature 97.8 F 97.6 F Pulse Rate 61 66 Respiratory Rate 18 18 Blood Pressure 143/85 H 140/80 Pulse Oximetry 97 97 96 02/08/18 04:00 02/08/18 08:00 Temperature 97.7 F 97.5 F L Pulse Rate 56 L 56 L Respiratory Rate 18 18 Blood Pressure 128/59 L 151/84 H Pulse Oximetry 98 95 <Veronica West - 02/08/18 10:41> Narrative: GENERAL: Patient laying in bed, resting comfortably. SKIN: Left foot - dressing and erin wrap in place. Quarter-sized area of red blood visible on erin bandage, covering surgical site (medial/distal). HEAD: Normocephalic. Atraumatic. EYES: EOMI. No scleral icterus. No injection or drainage. ENT: No nasal drainage. Moist mucous membranes. No oral ulcers or lesions. NECK: Supple, trachea midline. No JVD. CARDIOVASCULAR: Regular rate and rhythm without murmurs, gallops, or rubs. RESPIRATORY: Breath sounds clear to auscultation and equal bilaterally, without wheezes, rales, or rhonchi. No accessory muscle use. GASTROINTESTINAL: Positive bowel sounds. Abdomen soft, non-tender. <Veronica West - 02/08/18 10:41> Assessment and Plan - Assessment (1) Foot ulcer, left Code(s): L97.529 - Non-pressure chronic ulcer of other part of left foot with unspecified severity Status: Chronic (2) Hypertension Code(s): I10 - Essential (primary) hypertension Status: Chronic (3) Asthma Code(s): J45.909 - Unspecified asthma, uncomplicated Status: Chronic (4) Nutrition, metabolism, and development symptoms Code(s): R63.8 - Other symptoms and signs concerning food and fluid intake Status: Acute <Nicole Garza - 02/08/18 15:30> (1) Foot ulcer, left Code(s): L97.529 - Non-pressure chronic ulcer of other part of left foot with unspecified severity Status: Chronic (2) Hypertension Code(s): I10 - Essential (primary) hypertension Status: Chronic (3) Asthma Code(s): J45.909 - Unspecified asthma, uncomplicated Status: Chronic (4) Nutrition, metabolism, and development symptoms Code(s): R63.8 - Other symptoms and signs concerning food and fluid intake Status: Acute <Veronica West - 02/08/18 10:12> - Assessment and Plan Patient is a 52 year old male, sent to the ED by his library media technician due to a non- healing ulcer on the plantar surface of his left foot. Patient was recently hospitalized at [facility] for evaluation and treatment of the same non-healing ulcer. He underwent I&D with wound vac placement during that hospitalization in early December; he was however discharged without wound vac. Patient was placed on ertapenem; IV antibiotic was continued as outpatient. Patient reports to [place] due to disease progression despite IV antibiotic treatment. Left first ray resection on 02/04. Discharge pending sensitivities of surgical cultures for appropriate antibiotic coverage. PT recommends discharge home with home health. Podiatry recommends SNF placement. Case management involved. Discharge pending placement. Left foot wound complicated by osteomyelitis: * Unclear etiology. * HgbA1c 5.7 and bedside glucose wnl. * TSH and B12 wnl. * Also no known history of peripheral vascular disease or venous insufficiency. * Consulted Dr. Sanches for EMG studies during this admission due to poor outpatient follow-up. * Patient is overall well-appearing, vitals are stable, no leukocytosis. * Wound cultures growing Stenotrophomonas maltophilia and Pseudomonas aeruginosa. * Tissue cultures growing Stenotrophomonas maltophilia. * Blood cultures with no growth to date. * Foot MRI with evidence of osteomyelitis. * Left first ray resection performed 02/04. * Consult placed to ID; patient on meropenem and Levaquin. * Per records from [facility], cultures grew Morganella, rare bacteroides pyogenes, strep agalactiae and acinetobacter. Patient underwent I&D. Patient treated with ertapenem. Patient discharged without wound vac but IV antibiotics continued. * [place] 5/325 prn pain 6-10, morphine for breakthrough. Elevated BP: * Monitor vitals q4h. * Clonidine 0.1 mg po q6h prn BP > 180/100. FEN: Fluid: * Tolerating PO. Electrolytes: * Monitor and replete as necessary. Nutrition: * Regular diet. DVT ppx: * Bilateral SCDs. * Heparin 5,000 units q8hr. <Veronica West - 02/08/18 10:41> - Attending Attestation The exam, history, and the medical decision-making described in the above note were completed with the assistance of the resident physician. I reviewed and agree with the findings presented. I attest that I had a [id number] encounter with the patient on the same day, and personally performed and documented my assessment and findings in the medical record. <Nicole Garza - 02/08/18 15:30>
[2018-02-09] MEDS: Heparin - SQ 10,000 UNITS/ML Vial SQ SCH ×3 (05:50→22:08)
[2018-02-09 08:31] LABS: Hematocrit 41.2 % (39.0-51.0); Hemoglobin 14.3 gm/dL (13.0-17.0); Mean Corpuscular HGB Conc 34.9 % (32.0-36.0); Mean Corpuscular Hemoglobin 30.1 pg (27.0-34.0); Mean Corpuscular Volume 86.5 fL (80.0-100.0); Mean Platelet Volume 8.6 fL (7.0-11.0); Platelet Count 170 th/mm3 (150-450); Red Blood Count 4.76 mil/mm3 (4.50-5.90); Red Cell Distribution Width 13.6 % (11.6-17.2); White Blood Count 4.5 th/mm3 (4.0-11.0)
[2018-02-09] MEDS: Senna/Docusate Sodium 8.6/50 MG Tablet PO SCH ×2 (08:37→22:08)
--- NOTE | 2018-02-09 12:13 | P.PNFP ---
Subjective Interval history: pt seen and examined this morning. No new complaints. Eating well, having regular BM. Denies fevers, chills, N/V, chest pain or shortness of breath. Has minimal generalized aches "everywhere" at night. <Tracy Grene V - 02/09/18 12:24> Results - Labs Result diagrams: 02/09/18 08:11 02/08/18 05:21 <Nicole Garza R - 02/09/18 15:33> Abnormal lab results 02/03/18 Range/Units 15:30 SURY Titer 1:80 H (Neg) SURY Pattern Diffuse H (None) Short CBC 02/09/18 Range/Units 08:11 WBC 4.5 (4.0-11.0) th/mm3 Hgb 14.3 (13.0-17.0) gm/dL Hct 41.2 (39.0-51.0) % Plt Count 170 (150-450) th/mm3 <OliviamistyNicole R - 02/09/18 15:33> Abnormal lab results 02/03/18 Range/Units 15:30 SURY Titer 1:80 H (Neg) SURY Pattern Diffuse H (None) Short CBC 02/09/18 Range/Units 08:11 WBC 4.5 (4.0-11.0) th/mm3 Hgb 14.3 (13.0-17.0) gm/dL Hct 41.2 (39.0-51.0) % Plt Count 170 (150-450) th/mm3 <Tracy Green V - 02/09/18 12:13> Physical Exam Vital signs: Vital Signs 02/08/18 16:00 02/08/18 20:00 02/09/18 00:00 Temperature 97.8 F 97.8 F 97.6 F Pulse Rate 55 L 63 57 L Respiratory Rate 18 21 20 Blood Pressure 132/60 128/66 129/60 Pulse Oximetry 99 98 98 02/09/18 00:56 02/09/18 03:42 02/09/18 08:00 Temperature 97.6 F Pulse Rate 53 L Respiratory Rate 23 Blood Pressure 123/58 L Pulse Oximetry 100 98 98 02/09/18 12:00 Temperature 97.8 F Pulse Rate 67 Respiratory Rate 22 Blood Pressure 145/80 H Pulse Oximetry 96 Intake & Output 02/08/18 02/09/18 02/09/18 18:59 06:59 18:59 Intake Total 350 / 350 1300 / 1300 100 / 100 Output Total 425 / 425 1050 / 1050 600 / 600 Balance -75 / -75 250 / 250 -500 / -500 Weight 118.9 kg Intake: IV 350 / 350 100 / 100 100 / 100 Levaquin 750 mg Premix Inj 150 150 / 150 ML @ 100 mls/hr IV.SIG Q24H RAUL Rx#:[id number] Merrem Inj 500 MG In NS Inj 100 200 / 200 100 / 100 100 / 100 ML @ 200 mls/hr IV.SIG Q8H RAUL Rx#:[id number] Oral 1200 / 1200 Output: Urine 425 / 425 1050 / 1050 600 / 600 Other: Date of Last Bowel Movement 02/09/18 # Bowel Movements 1 <Nicole Garza R - 02/09/18 15:33> Vital Signs 02/08/18 16:00 02/08/18 20:00 02/09/18 00:00 Temperature 97.8 F 97.8 F 97.6 F Pulse Rate 55 L 63 57 L Respiratory Rate 18 21 20 Blood Pressure 132/60 128/66 129/60 Pulse Oximetry 99 98 98 02/09/18 00:56 02/09/18 03:42 02/09/18 08:00 Temperature 97.6 F Pulse Rate 53 L Respiratory Rate 23 Blood Pressure 123/58 L Pulse Oximetry 100 98 98 Intake & Output 02/08/18 02/09/18 02/09/18 18:59 06:59 18:59 Intake Total 350 / 350 1300 / 1300 Output Total 425 / 425 1050 / 1050 100 / 100 Balance -75 / -75 250 / 250 -100 / -100 Weight 118.9 kg Intake: IV 350 / 350 100 / 100 Levaquin 750 mg Premix Inj 150 150 / 150 ML @ 100 mls/hr IV.SIG Q24H RAUL Rx#:[id number] Merrem Inj 500 MG In NS Inj 100 200 / 200 100 / 100 ML @ 200 mls/hr IV.SIG Q8H RAUL Rx#:[id number] Oral 1200 / 1200 Output: Urine 425 / 425 1050 / 1050 100 / 100 Other: Date of Last Bowel Movement 02/09/18 # Bowel Movements 1 <Tracy Green 02/09/18 12:13> Narrative: GENERAL: Patient laying in bed, resting comfortably. SKIN: Left foot - dressing and erin wrap in place. Quarter-sized area of red blood visible on erin bandage, covering surgical site (medial/distal). HEAD: Normocephalic. Atraumatic. CARDIOVASCULAR: Regular rate and rhythm without murmurs, gallops, or rubs. RESPIRATORY: Breath sounds clear to auscultation and equal bilaterally, without wheezes, rales, or rhonchi. No accessory muscle use. GASTROINTESTINAL: Positive bowel sounds. Abdomen soft, non-tender. <Tracy Green V - 02/09/18 12:24> Assessment and Plan - Assessment (1) Foot ulcer, left Code(s): L97.529 - Non-pressure chronic ulcer of other part of left foot with unspecified severity Status: Chronic (2) Hypertension Code(s): I10 - Essential (primary) hypertension Status: Chronic (3) Asthma Code(s): J45.909 - Unspecified asthma, uncomplicated Status: Chronic (4) Nutrition, metabolism, and development symptoms Code(s): R63.8 - Other symptoms and signs concerning food and fluid intake Status: Acute <DerrickmaggiediontedawsonNicole R - 02/09/18 15:33> (1) Foot ulcer, left Code(s): L97.529 - Non-pressure chronic ulcer of other part of left foot with unspecified severity Status: Chronic (2) Hypertension Code(s): I10 - Essential (primary) hypertension Status: Chronic (3) Asthma Code(s): J45.909 - Unspecified asthma, uncomplicated Status: Chronic (4) Nutrition, metabolism, and development symptoms Code(s): R63.8 - Other symptoms and signs concerning food and fluid intake Status: Acute <Tracy Green V - 02/09/18 14:12> - Assessment and Plan Patient is a 52 year old male, sent to the ED by his forestry hunter due to a non- healing ulcer on the plantar surface of his left foot. Patient was recently hospitalized at [facility] for evaluation and treatment of the same non-healing ulcer. He underwent I&D with wound vac placement during that hospitalization in early December; he was however discharged without wound vac. Patient was placed on ertapenem; IV antibiotic was continued as outpatient. Patient reports to [place] due to disease progression despite IV antibiotic treatment. Left first ray resection on 02/04. Discharge pending sensitivities of surgical cultures for appropriate antibiotic coverage. PT recommends discharge home with home health. Podiatry recommends SNF placement. Case management involved. Discharge pending difficult placement. Left foot wound complicated by osteomyelitis: * Unclear etiology. * HgbA1c 5.7 and bedside glucose wnl. * TSH and B12 wnl. * Also no known history of peripheral vascular disease or venous insufficiency. * Consulted Dr. Sanches for EMG studies during this admission due to poor outpatient follow-up. * Patient is overall well-appearing, vitals are stable, no leukocytosis. * Wound cultures growing Stenotrophomonas maltophilia and Pseudomonas aeruginosa. * Tissue cultures growing Stenotrophomonas maltophilia. * Blood cultures with no growth to date. * Foot MRI with evidence of osteomyelitis. * Left first ray resection performed 02/04. * Consult placed to ID; patient on meropenem and Levaquin. * Per records from [place], cultures grew Morganella, rare bacteroides pyogenes, strep agalactiae and acinetobacter. Patient underwent I&D. Patient treated with ertapenem. Patient discharged without wound vac but IV antibiotics continued. * [place] 5/325 prn pain 6-10, morphine for breakthrough. * Pathology with acute and chronic osteomyelitis and negative margins Elevated BP: * Monitor vitals q4h. * Clonidine 0.1 mg po q6h prn BP > 180/100. FEN: Fluid: * Tolerating PO. Electrolytes: * Monitor and replete as necessary. Nutrition: * Regular diet. DVT ppx: * Bilateral SCDs. * Heparin 5,000 units q8hr. Discharge pending medicare/ insurance status and SNIF placement. Discussed with CM who is working on his case. PT recommends discharge home with home health but Podiatry recommends SNF placement. Attempted to contact Dr. Cortez today but she is in surgery. Advised to call me back at [phone], will discuss non weight bearing status. <Tracy Green V - 02/09/18 14:18> - Attending Attestation The exam, history, and the medical decision-making described in the above note were completed with the assistance of the resident physician. I reviewed and agree with the findings presented. I attest that I had a [id number] encounter with the patient on the same day, and personally performed and documented my assessment and findings in the medical record. <Nicole Garza - 02/09/18 15:33>
--- NOTE | 2018-02-09 12:26 | P.PNADD ---
Addendum to Inpatient Note Reason for Addendum: Additional Documentation Additional information: Pathology report reviewed with she would like patient to be treated with 6 weeks of IV antibiotics in house as he is non weight bearing and failed outpatient IV antibiotic therapy. Also current regimen complicated(based on cultures from outside hospital and at [place]) and expensive regimen not feasible as outpatient. Dr. West yjared about [facility] bed which is not available. Difficult discharge due to above circumstances. Continue Meropenem IV and Levaquin. Weekly CBC with diff, CMP, CRP every week to be followed by primary team. Will follow prn. I will follow atleast every 10 days and prn. I will follow additionally in the last week of treatment to assess if ok to discontinue antibiotics.
[2018-02-10] MEDS: Heparin - SQ 10,000 UNITS/ML Vial SQ SCH ×3 (05:33→22:04)
[2018-02-10] MEDS: Senna/Docusate Sodium 8.6/50 MG Tablet PO SCH ×2 (10:38→22:04)
--- NOTE | 2018-02-10 10:53 | P.PNFP ---
Subjective Interval history: Patient was seen and evaluated this morning. He reports feeling well. He denies pain in his foot. Patient denies chest pain, heart palpitations, shortness of breath, nausea/ vomiting, diarrhea and constipation. All questions were answered. <JennaDionteVeronica - 02/10/18 10:52> Results - Labs Result diagrams: 02/09/18 08:11 02/08/18 05:21 <Rudy Curiel - 02/10/18 11:21> Physical Exam Vital signs: Vital Signs 02/09/18 12:00 02/09/18 20:00 02/09/18 23:30 Temperature 97.8 F 99.1 F Pulse Rate 67 63 Respiratory Rate 22 20 Blood Pressure 145/80 H Pulse Oximetry 96 97 95 02/10/18 00:00 02/10/18 04:00 02/10/18 04:18 Temperature 98.2 F 98 F Pulse Rate 60 49 L Respiratory Rate 20 20 Blood Pressure 141/74 H 102/54 L Pulse Oximetry 95 98 96 02/10/18 08:00 Temperature 97.7 F Pulse Rate 62 Respiratory Rate 18 Blood Pressure 135/81 Pulse Oximetry 94 L Intake & Output 02/09/18 02/10/18 02/10/18 18:59 06:59 18:59 Intake Total 1310 / 1310 100 / 100 Output Total 1800 / 1800 1700 / 1700 Balance -490 / -490 -1600 / -1600 Weight 119.6 kg Intake: IV 350 / 350 100 / 100 Levaquin 750 mg Premix Inj 150 150 / 150 ML @ 100 mls/hr IV.SIG Q24H [facility] Rx#:[id number] Merrem Inj 500 MG In NS Inj 100 200 / 200 100 / 100 ML @ 200 mls/hr IV.SIG Q8H [facility] Rx#:[id number] Oral 960 / 960 Output: Urine 1800 / 1800 1700 / 1700 Other: Date of Last Bowel Movement 02/09/18 # Bowel Movements 1 <Rudy Curiel - 02/10/18 11:21> Vital Signs 02/09/18 12:00 02/09/18 20:00 02/09/18 23:30 Temperature 97.8 F 99.1 F Pulse Rate 67 63 Respiratory Rate 22 20 Blood Pressure 145/80 H Pulse Oximetry 96 97 95 02/10/18 00:00 02/10/18 04:00 02/10/18 04:18 Temperature 98.2 F 98 F Pulse Rate 60 49 L Respiratory Rate 20 20 Blood Pressure 141/74 H 102/54 L Pulse Oximetry 95 98 96 02/10/18 08:00 Temperature 97.7 F Pulse Rate 62 Respiratory Rate 18 Blood Pressure 135/81 Pulse Oximetry 94 L <Veronica West - 02/10/18 10:52> Narrative: GENERAL: Patient laying in bed, resting comfortably. SKIN: Left foot - dressing and erin wrap in place. Quarter-sized area of dried blood visible on erin bandage, covering surgical site (medial/distal). CARDIOVASCULAR: Regular rate and rhythm without murmurs, gallops, or rubs. RESPIRATORY: Breath sounds clear to auscultation and equal bilaterally, without wheezes, rales, or rhonchi. No accessory muscle use. GASTROINTESTINAL: Positive bowel sounds. Abdomen soft, non-tender. 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 ID to follow patient q10 days. Vital signs qshift. CBC with differential, CMP, and CRP weekly unless patient exhibits status change warranting lab work-up. Primary team to follow daily. 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 Patient was recently hospitalized at [facility] for evaluation and treatment of the same non-healing ulcer. He underwent I&D with wound vac placement during that hospitalization in early December; he was however discharged without wound vac. Patient was placed on ertapenem; IV antibiotic was continued as outpatient. Patient reports to [place] due to disease progression despite IV antibiotic treatment. Left first ray resection on 02/04. Left foot wound complicated by osteomyelitis: * Unclear etiology. * HgbA1c 5.7 and bedside glucose wnl. * TSH and B12 wnl. * Also no known history of peripheral vascular disease or venous insufficiency. * Wound cultures grew Stenotrophomonas maltophilia and Pseudomonas aeruginosa. * Tissue cultures grew Stenotrophomonas maltophilia. * Pathology with evidence of acute and chronic osteomyelitis and negative margins. * Blood cultures with no growth. * Foot MRI with evidence of osteomyelitis. * Left first ray resection performed 02/04. * Consult placed to ID; patient on meropenem and Levaquin. * Per records from [facility], cultures grew Morganella, rare bacteroides pyogenes, strep agalactiae and acinetobacter. Patient underwent I&D. Patient treated with ertapenem. Patient discharged without wound vac but IV antibiotics continued. * Tylenol and [place] 5/325 for pain, morphine for breakthrough pain. FEN: Fluid: * Tolerating PO. Electrolytes: * Monitor and replete as necessary. Nutrition: * Regular diet. DVT ppx: * Bilateral SCDs. * Heparin 5,000 units q8hr. <Veronica West - 02/10/18 10:52> - Attending Attestation Patient examined independently from resident physicians and medical student I have read the above documentation and agree with the assessment/plan as discussed with me I was involved in all medical decision making for this patient Rudy Curiel MD <Rudy Curiel - 02/10/18 11:21>
--- NOTE | 2018-02-11 03:08 | P.PNADD ---
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 Patient was recently hospitalized at [facility] for evaluation and treatment of the same non-healing ulcer. He underwent I&D with wound vac placement during that hospitalization in early December; he was however discharged without wound vac. Per records from [facility], cultures grew Morganella, rare bacteroides pyogenes, strep agalactiae and acinetobacter. Patient was placed on ertapenem; IV antibiotic was continued as outpatient. Patient reported to [place] due to disease progression despite IV antibiotic treatment. Dr. Dexter performed a left first ray resection on 02/04. Wound cultures growing Stenotrophomonas maltophilia and Pseudomonas aeruginosa. Tissue cultures growing Stenotrophomonas maltophilia. Blood cultures with no growth to date. Bone biopsy returned with acute on chronic osteomyelitis and negative margins. Infectious disease is involved and recommend to continue IV antibiotics for 6 weeks including ertapenen and levaquin IV. Pts neuropathy etiology is unknown, HbA1C, TSH, and B12 are within normal limits. Discharge pending medicare/ insurance status and SNIF placement. Discussed with CM who is working on his case. PT recommends discharge home with home health but Podiatry recommends SNF placement.
[2018-02-11] MEDS: Heparin - SQ 10,000 UNITS/ML Vial SQ SCH ×3 (05:18→22:27)
[2018-02-11] MEDS: Senna/Docusate Sodium 8.6/50 MG Tablet PO SCH ×2 (10:19→22:26)
--- NOTE | 2018-02-11 11:44 | P.PNFP ---
Subjective Interval history: No acute events overnight. Remains afebrile, vitals within normal limits. Patient seen and examined this AM. Patient denies pain of left foot. Denies bleeding. Specifically denies fevers, CP, dyspnea, cough. Tolerating diet. Moving bowels without issues, denies diarrhea. Continuing to work with physical therapy. <KoryEric thornton - 02/11/18 11:49> Results - Labs Result diagrams: 02/09/18 08:11 02/08/18 05:21 <Rudy Curiel - 02/11/18 13:20> Physical Exam Vital signs: Vital Signs 02/10/18 17:13 02/10/18 20:00 02/10/18 22:26 Temperature 98.6 F 98.0 F Pulse Rate 64 59 L Respiratory Rate 20 18 Blood Pressure 133/83 118/72 Pulse Oximetry 98 95 95 02/10/18 22:54 02/11/18 00:00 02/11/18 00:15 Temperature 98.3 F Pulse Rate 63 Respiratory Rate 18 Blood Pressure 119/71 Pulse Oximetry 95 96 97 02/11/18 03:17 02/11/18 04:00 02/11/18 08:00 Temperature 98.4 F 98.7 F Pulse Rate 60 64 Respiratory Rate 18 20 Blood Pressure 118/74 130/62 Pulse Oximetry 97 96 98 02/11/18 12:00 Temperature 97.4 F L Pulse Rate 62 Respiratory Rate 22 Blood Pressure 119/69 Pulse Oximetry 97 Intake & Output 02/10/18 02/11/18 02/11/18 18:59 06:59 18:59 Intake Total 950 / 950 321 / 321 100 / 100 Output Total 800 / 800 600 / 600 Balance 150 / 150 -279 / -279 100 / 100 Weight 119.8 kg Intake: IV 350 / 350 100 / 100 100 / 100 Levaquin 750 mg Premix Inj 150 150 / 150 ML @ 100 mls/hr IV.SIG Q24H [facility] Rx#:[id number] Merrem Inj 500 MG In NS Inj 100 200 / 200 100 / 100 100 / 100 ML @ 200 mls/hr IV.SIG Q8H [facility] Rx#:[id number] Oral 600 / 600 221 / 221 Output: Urine 800 / 800 600 / 600 Other: Date of Last Bowel Movement 02/09/18 <Rudy Curiel - 02/11/18 13:20> Vital Signs 02/10/18 12:38 02/10/18 17:13 02/10/18 20:00 Temperature 98.2 F 98.6 F 98.0 F Pulse Rate 73 64 59 L Respiratory Rate 18 20 18 Blood Pressure 132/79 133/83 118/72 Pulse Oximetry 96 98 95 02/10/18 22:26 02/10/18 22:54 02/11/18 00:00 Temperature 98.3 F Pulse Rate 63 Respiratory Rate 18 Blood Pressure 119/71 Pulse Oximetry 95 95 96 02/11/18 00:15 02/11/18 03:17 02/11/18 04:00 Temperature 98.4 F Pulse Rate 60 Respiratory Rate 18 Blood Pressure 118/74 Pulse Oximetry 97 97 96 02/11/18 08:00 Temperature 98.7 F Pulse Rate 64 Respiratory Rate 20 Blood Pressure 130/62 Pulse Oximetry 98 Intake & Output 02/10/18 02/11/18 02/11/18 18:59 06:59 18:59 Intake Total 950 / 950 321 / 321 100 / 100 Output Total 800 / 800 600 / 600 Balance 150 / 150 -279 / -279 100 / 100 Weight 119.8 kg Intake: IV 350 / 350 100 / 100 100 / 100 Levaquin 750 mg Premix Inj 150 150 / 150 ML @ 100 mls/hr IV.SIG Q24H [facility] Rx#:[id number] Merrem Inj 500 MG In NS Inj 100 200 / 200 100 / 100 100 / 100 ML @ 200 mls/hr IV.SIG Q8H [facility] Rx#:[id number] Oral 600 / 600 221 / 221 Output: Urine 800 / 800 600 / 600 Other: Date of Last Bowel Movement 02/09/18 <Eric Hernandez - 02/11/18 11:44> Narrative: GENERAL: Patient sitting comfortably in chair SKIN: Left foot - dressing and erin wrap in place. Appears dry. CARDIOVASCULAR: Regular rate and rhythm without murmurs, gallops, or rubs. RESPIRATORY: Breath sounds clear to auscultation and equal bilaterally, without wheezes, rales, or rhonchi. No accessory muscle use. GASTROINTESTINAL: Positive bowel sounds. Abdomen soft, non-tender. 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 Code(s): Z89.412 - Acquired absence of left great toe Status: Acute (2) Hypertension Code(s): I10 - Essential (primary) hypertension Status: Chronic (3) Asthma Code(s): J45.909 - Unspecified asthma, uncomplicated Status: Chronic (4) Nutrition, metabolism, and development symptoms Code(s): R63.8 - Other symptoms and signs concerning food and fluid intake Status: Acute (5) Osteomyelitis of foot Code(s): M86.9 - Osteomyelitis, unspecified Status: Acute <Rudy Curiel - 02/11/18 13:20> (1) 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 ID to follow patient q10 days. Vital signs qshift. CBC with differential, CMP, and CRP weekly unless patient exhibits status change warranting lab work-up. Primary team to follow daily. 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 Patient was recently hospitalized at [facility] for evaluation and treatment of the same non-healing ulcer. He underwent I&D with wound vac placement during that hospitalization in early December; he was however discharged without wound vac. Patient was placed on ertapenem; IV antibiotic was continued as outpatient. Patient reported to [place] due to disease progression despite IV antibiotic treatment. Left first ray resection on 02/04. Left foot wound complicated by osteomyelitis: * Unclear etiology. * HgbA1c 5.7 and bedside glucose wnl. * TSH and B12 wnl. * Also no known history of peripheral vascular disease or venous insufficiency. * Wound cultures grew Stenotrophomonas maltophilia and Pseudomonas aeruginosa. * Tissue cultures grew Stenotrophomonas maltophilia. * Pathology with evidence of acute and chronic osteomyelitis and negative margins. * Blood cultures with no growth. * Foot MRI with evidence of osteomyelitis. * Left first ray resection performed 02/04. * Consult placed to ID; patient on meropenem and Levaquin. * Per records from [facility], cultures grew Morganella, rare bacteroides pyogenes, strep agalactiae and acinetobacter. Patient underwent I&D. Patient treated with ertapenem. Patient discharged without wound vac but IV antibiotics continued. * Tylenol and [place] 5/325 for pain, morphine for breakthrough pain. FEN: Fluid: * Tolerating PO. Electrolytes: * Monitor and replete as necessary. Nutrition: * Regular diet. DVT ppx: * Bilateral SCDs. * Heparin 5,000 units q8hr. <Eric Hernandez - 02/11/18 12:38> - Attending Attestation Patient case discussed with resident physicians and patient seen independently from resident team I have read the above note and agree with the assessment/plan as discussed with me I was involved in all medical decision making for this patient Rudy Curiel MD <Rudy Curiel - 02/11/18 13:20>
--- NOTE | 2018-02-11 13:07 | P.PNPOD ---
Subjective Interval history: Patient seen bedside resting comfortably no concerns or complaints at this time. Physical Exam Vital signs: Vital Signs 02/10/18 17:13 02/10/18 20:00 02/10/18 22:26 Temperature 98.6 F 98.0 F Pulse Rate 64 59 L Respiratory Rate 20 18 Blood Pressure 133/83 118/72 Pulse Oximetry 98 95 95 02/10/18 22:54 02/11/18 00:00 02/11/18 00:15 Temperature 98.3 F Pulse Rate 63 Respiratory Rate 18 Blood Pressure 119/71 Pulse Oximetry 95 96 97 02/11/18 03:17 02/11/18 04:00 02/11/18 08:00 Temperature 98.4 F 98.7 F Pulse Rate 60 64 Respiratory Rate 18 20 Blood Pressure 118/74 130/62 Pulse Oximetry 97 96 98 02/11/18 12:00 Temperature 97.4 F L Pulse Rate 62 Respiratory Rate 22 Blood Pressure 119/69 Pulse Oximetry 97 Intake & Output 02/10/18 02/11/18 02/11/18 18:59 06:59 18:59 Intake Total 950 / 950 321 / 321 100 / 100 Output Total 800 / 800 600 / 600 Balance 150 / 150 -279 / -279 100 / 100 Weight 119.8 kg Intake: IV 350 / 350 100 / 100 100 / 100 Levaquin 750 mg Premix Inj 150 150 / 150 ML @ 100 mls/hr IV.SIG Q24H [facility] Rx#:[id number] Merrem Inj 500 MG In NS Inj 100 200 / 200 100 / 100 100 / 100 ML @ 200 mls/hr IV.SIG Q8H [facility] Rx#:[id number] Oral 600 / 600 221 / 221 Output: Urine 800 / 800 600 / 600 Other: Date of Last Bowel Movement 02/09/18 Narrative: Sutures intact with skin well coapted to left medial foot. Decreased erythema and edema noted. Sub-met 4 wound noted with granular base no hyperkeratotic skin edges noted no drainage noted to incision or sub-met 4 ulceration. Palpable pulses noted to left foot. Capillary refill time under 3 seconds to digits x4 of left foot. Medications and Allergies Active Medications: Active Medications Acetaminophen (Tylenol) 650 mg PO Q4H PRN PRN Reason: Pain 1-5 And/Or Fever >101f Last Admin: 02/07/18 12:08 Dose: 650 mg Hydrocodone Bitart/Acetaminophen ([place] 5/325) 1 tab PO Q4H PRN PRN Reason: PAIN SCALE 6 TO 10 Last Admin: 02/10/18 22:04 Dose: 1 tab Al Hydroxide/Mg Hydroxide (Milk Of Magnesia Liq) 30 ml PO Q12H PRN PRN Reason: Mild Constipation Albuterol (Duoneb Neb (Prn)) 1 ampul NEB Q4HR NEB PRN PRN Reason: SHORTNESS OF BREATH/WHEEZING Bisacodyl (Dulcolax Supp) 10 mg RECTAL DAILY PRN PRN Reason: SEVERE CONSITIPATION Clonidine HCl (Catapres) 0.1 mg PO Q6H PRN PRN Reason: SEE LABEL COMMENTS Heparin Sodium (Porcine) (Heparin Inj) 5,000 units SQ Q8HR [facility] Last Admin: 02/11/18 05:18 Dose: 5,000 units Sodium Chloride (Ns Inj) 500 mls @ 30 mls/hr IV.SIG .Q10H [facility] Last Admin: 02/04/18 05:32 Dose: Not Given Levofloxacin/Dextrose (Levaquin 750 Mg Premix Inj) 150 mls @ 100 mls/hr IV.SIG Q24H [facility] Last Infusion: 02/10/18 13:18 Dose: Infused Meropenem 500 mg/ Sodium (Chloride) 100 mls @ 200 mls/hr IV.SIG Q8H [facility] Last Infusion: 02/11/18 10:19 Dose: Infused Lactulose (Lactulose Liq) 30 ml PO DAILY PRN PRN Reason: SEVERE CONSITIPATION Miscellaneous Medication (Asp Crit: Other Exception Documentation) 1 each OTHER UNSCH PRN PRN Reason: PHARMACY DOCUMENTATION Stop: 02/14/18 14:59 Morphine Sulfate (Morphine Inj) 2 mg IV.PUSH Q3H PRN PRN Reason: BREAKTHROUGH PAIN Ondansetron HCl (Zofran Inj) 4 mg IV.PUSH Q6H PRN PRN Reason: NAUSEA OR VOMITING Senna/Docusate Sodium (Celi-Colace) 1 tab PO BID [facility] Last Admin: 02/11/18 10:19 Dose: Not Given Allergies Allergy/AdvReac Type Severity Reaction Status Date / Time No Known Allergies Allergy Verified 02/02/18 17:27 Home Medications Medication Instructions Recorded Confirmed Type No Known Home Medications 02/02/18 02/02/18 History Results - Labs CBC & Chem 7: 02/09/18 08:11 02/08/18 05:21 Assessment and Plan - Assessment (1) Open wnd foot-complicated Code(s): S91.309A - Unspecified open wound, unspecified foot, initial encounter Status: Acute (2) Foot ulcer, left Code(s): L97.529 - Non-pressure chronic ulcer of other part of left foot with unspecified severity Status: Resolved - Plan 52 year old male with left foot proximal phalanx of hallux and first metatarsal osteomyelitis IV abx per ID, discussed with ID Non weight bearing to left LE Dressing to left lower extremity changed Continued improvement noted to erythema and edema Will reevaluate wound in 1 week for suture removal Patient to stay in house or receiving IV antibiotics for further improvement of left foot (1) Open wnd foot-complicated Qualifiers: Encounter type: initial encounter Laterality: left Qualified Code(s): S91.302A - Unspecified open wound, left foot, initial encounter
[2018-02-12] MEDS: Heparin - SQ 10,000 UNITS/ML Vial SQ SCH ×3 (06:02→21:35)
[2018-02-12] MEDS: Senna/Docusate Sodium 8.6/50 MG Tablet PO SCH ×2 (08:02→21:34)
--- NOTE | 2018-02-12 13:04 | P.PNFP ---
Subjective Interval history: Patient was seen and evaluated this morning. He reports feeling well. He denies pain in his foot. Patient denies chest pain, heart palpitations, shortness of breath, nausea/ vomiting, diarrhea and constipation. All questions were answered. <Veronica West - 02/12/18 13:03> Results - Labs Result diagrams: 02/09/18 08:11 02/08/18 05:21 <Rudy Curiel - 02/12/18 14:28> Physical Exam Vital signs: Vital Signs 02/11/18 16:03 02/11/18 20:00 02/11/18 22:45 Temperature 98.0 F 98.4 F Pulse Rate 64 65 Respiratory Rate 18 17 Blood Pressure 135/82 126/74 Pulse Oximetry 97 98 99 02/12/18 02:51 02/12/18 08:00 Temperature 97.7 F Pulse Rate 51 L Respiratory Rate 20 Blood Pressure 117/64 Pulse Oximetry 98 95 Intake & Output 02/11/18 02/12/18 02/12/18 18:59 06:59 18:59 Intake Total 350 / 350 100 / 100 250 / 250 Output Total 1080 / 1080 950 / 950 Balance -730 / -730 -850 / -850 250 / 250 Weight 119.9 kg Intake: IV 350 / 350 100 / 100 250 / 250 Levaquin 750 mg Premix Inj 150 150 / 150 150 / 150 ML @ 100 mls/hr IV.SIG Q24H [facility] Rx#:[id number] Merrem Inj 500 MG In NS Inj 100 200 / 200 100 / 100 100 / 100 ML @ 200 mls/hr IV.SIG Q8H [facility] Rx#:[id number] Output: Urine 1080 / 1080 950 / 950 Other: Date of Last Bowel Movement 02/10/18 02/12/18 <Rudy Curiel - 02/12/18 14:28> Vital Signs 02/11/18 16:03 02/11/18 20:00 02/11/18 22:45 Temperature 98.0 F 98.4 F Pulse Rate 64 65 Respiratory Rate 18 17 Blood Pressure 135/82 126/74 Pulse Oximetry 97 98 99 02/12/18 02:51 02/12/18 08:00 Temperature 97.7 F Pulse Rate 51 L Respiratory Rate 20 Blood Pressure 117/64 Pulse Oximetry 98 95 <Veronica West - 02/12/18 13:03> Narrative: GENERAL: Patient laying in bed, resting comfortably. SKIN: Left foot - clean dressing and erin wrap in place. CARDIOVASCULAR: Regular rate and rhythm without murmurs, gallops, or rubs. RESPIRATORY: Breath sounds clear to auscultation and equal bilaterally, without wheezes, rales, or rhonchi. No accessory muscle use. GASTROINTESTINAL: Positive bowel sounds. Abdomen soft, non-tender. 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 On meropenem and Levaquin. Tylenol and [place] 5/325 for pain, morphine for breakthrough pain. Podiatry recommending 6-week inpatient course of IV antibiotics since patient cannot be discharged to SNF. ID to follow patient q10 days. Vital signs qshift. CBC with diff, CMP and CRP weekly. (2) Osteomyelitis of foot Code(s): M86.9 - Osteomyelitis, unspecified Status: Acute Plan: See plan above. (3) Asthma Code(s): J45.909 - Unspecified asthma, uncomplicated Status: Chronic Plan: Patient with history of asthma. No acute concerns. (4) Nutrition, metabolism, and development symptoms Code(s): R63.8 - Other symptoms and signs concerning food and fluid intake Status: Acute Plan: FEN: Fluid: * Tolerating PO. Electrolytes: * Monitor and replete as necessary. Nutrition: * Regular diet. (5) DVT prophylaxis Status: Acute Plan: Bilateral SCDs. Heparin 5,000 units q8hr. 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 Patient was recently hospitalized at [facility] for evaluation and treatment of the same non-healing ulcer. He underwent I&D with wound vac placement during that hospitalization in early December; he was however discharged without wound vac. Patient was placed on ertapenem; IV antibiotic was continued as outpatient. Patient reported to [place] due to disease progression despite IV antibiotic treatment. Left first ray resection on 02/04. Left foot wound complicated by osteomyelitis: * Unclear etiology. * HgbA1c 5.7 and bedside glucose wnl. * TSH and B12 wnl. * Also no known history of peripheral vascular disease or venous insufficiency. * Wound cultures grew Stenotrophomonas maltophilia and Pseudomonas aeruginosa. * Tissue cultures grew Stenotrophomonas maltophilia. * Pathology with evidence of acute and chronic osteomyelitis and negative margins. * Blood cultures with no growth. * Foot MRI with evidence of osteomyelitis. * Left first ray resection performed 02/04. * Consult placed to ID; patient on meropenem and Levaquin. * Per records from [facility], cultures grew Morganella, rare bacteroides pyogenes, strep agalactiae and acinetobacter. Patient underwent I&D. Patient treated with ertapenem. Patient discharged without wound vac but IV antibiotics continued. * Tylenol and [place] 5/325 for pain, morphine for breakthrough pain. <Veronica West - 02/12/18 13:03> - Attending Attestation Pt. examined and case discussed with resident physicians. I have read the above note and agree with the assessment and plan as discussed with me. I was involved in all medical decision making for this patient. Rudy Curiel MD <Rudy Curiel - 02/12/18 14:28>
[2018-02-13] MEDS: Heparin - SQ 10,000 UNITS/ML Vial SQ SCH ×3 (05:51→21:54)
[2018-02-13] MEDS: Senna/Docusate Sodium 8.6/50 MG Tablet PO SCH ×2 (08:12→21:54)
--- NOTE | 2018-02-13 09:11 | P.PNFP ---
Subjective Interval history: Patient doing well today. Has not complaints. Denies chest pain, SOB, or problems w/appetite/nausea. No fevers or chills. Pain controlled. <Parul Young N - 02/13/18 10:55> Results - Labs Result diagrams: 02/09/18 08:11 02/08/18 05:21 <Rudy Curiel - 02/13/18 20:59> Physical Exam Vital signs: Vital Signs 02/12/18 22:00 02/13/18 03:13 02/13/18 08:10 Temperature 97.4 F L Pulse Rate 52 L Respiratory Rate 18 Blood Pressure 111/60 Pulse Oximetry 99 96 98 Intake & Output 02/13/18 02/13/18 02/14/18 06:59 18:59 06:59 Intake Total 100 / 100 350 / 350 Output Total 400 / 400 1600 / 1600 Balance -300 / -300 -1250 / -1250 Weight 120 kg Intake: IV 100 / 100 350 / 350 Levaquin 750 mg Premix Inj 150 150 / 150 ML @ 100 mls/hr IV.SIG Q24H [facility] Rx#:[id number] Merrem Inj 500 MG In NS Inj 100 100 / 100 200 / 200 ML @ 200 mls/hr IV.SIG Q8H [facility] Rx#:[id number] Output: Urine 400 / 400 1600 / 1600 Other: Date of Last Bowel Movement 02/13/18 # Bowel Movements 1 <Rudy Curiel - 02/13/18 20:59> Vital Signs 02/12/18 20:00 02/12/18 22:00 02/13/18 03:13 Temperature 98 F Pulse Rate 59 L Respiratory Rate 17 Blood Pressure 118/71 Pulse Oximetry 97 99 96 02/13/18 08:10 Temperature 97.4 F L Pulse Rate 52 L Respiratory Rate 18 Blood Pressure 111/60 Pulse Oximetry 98 Intake & Output 02/12/18 02/13/18 02/13/18 18:59 06:59 18:59 Intake Total 350 / 350 100 / 100 Output Total 400 / 400 250 / 250 Balance 350 / 350 -300 / -300 -250 / -250 Weight 120 kg Intake: IV 350 / 350 100 / 100 Levaquin 750 mg Premix Inj 150 150 / 150 ML @ 100 mls/hr IV.SIG Q24H [facility] Rx#:[id number] Merrem Inj 500 MG In NS Inj 100 200 / 200 100 / 100 ML @ 200 mls/hr IV.SIG Q8H [facility] Rx#:[id number] Output: Urine 400 / 400 250 / 250 Other: Date of Last Bowel Movement 02/12/18 02/13/18 # Bowel Movements 1 <Parul Young - 02/13/18 10:55> Narrative: GENERAL: This is a well-nourished, well-developed patient, in no apparent distress. CARDIOVASCULAR: Regular rate and rhythm without murmurs, gallops, or rubs. RESPIRATORY: Clear to auscultation. Breath sounds equal bilaterally. No wheezes , rales, or rhonchi. GASTROINTESTINAL: Abdomen soft, non-tender, nondistended. Normal active bowel sounds MUSCULOSKELETAL: Extremities without clubbing, cyanosis, or edema. Right foot bandaged and wrapped in MARYA. No drainage or bleeding. Bandage dry. Able to move toes bilaterally and dorsalis pedis pulses intact. Sensation wnl bilaterally. NEURO: Alert & Oriented x4 to person, place, time, situation. 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 On IV meropenem Day #7 and Levaquin Day #9 Tylenol and [place] 5/325 for pain, morphine for breakthrough pain. Podiatry recommending total 6-week inpatient course of IV antibiotics since patient cannot be discharged to SNF. ID to follow patient q10 days. Vital signs qshift. CBC with diff, CMP and CRP weekly. (2) Osteomyelitis of foot Code(s): M86.9 - Osteomyelitis, unspecified Status: Acute Plan: See plan above. (3) Asthma Code(s): J45.909 - Unspecified asthma, uncomplicated Status: Chronic Plan: Patient with history of asthma. Stable, no treatment at this time. (4) Nutrition, metabolism, and development symptoms Code(s): R63.8 - Other symptoms and signs concerning food and fluid intake Status: Acute Plan: FEN: Fluid: * Tolerating PO. Electrolytes: * Monitor and replete as necessary. Nutrition: * Regular diet. (5) DVT prophylaxis Status: Acute Plan: Bilateral SCDs. Heparin 5,000 units q8hr. 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 Patient was recently hospitalized at [facility] for evaluation and treatment of the same non-healing ulcer. He underwent I&D with wound vac placement during that hospitalization in early December; he was however discharged without wound vac. Patient was placed on ertapenem; IV antibiotic was continued as outpatient. Patient reported to [place] due to disease progression despite IV antibiotic treatment. Left first ray resection on 02/04. Left foot wound complicated by osteomyelitis: * Unclear etiology. * HgbA1c 5.7 and bedside glucose wnl. * TSH and B12 wnl. * Also no known history of peripheral vascular disease or venous insufficiency. * Wound cultures grew Stenotrophomonas maltophilia and Pseudomonas aeruginosa. * Tissue cultures grew Stenotrophomonas maltophilia. * Pathology with evidence of acute and chronic osteomyelitis and negative margins. * Blood cultures with no growth. * Foot MRI with evidence of osteomyelitis. * Left first ray resection performed 02/04. * Consult placed to ID; patient on meropenem and Levaquin. * Per records from [facility], cultures grew Morganella, rare bacteroides pyogenes, strep agalactiae and acinetobacter. Patient underwent I&D. Patient treated with ertapenem. Patient discharged without wound vac but IV antibiotics continued. * Tylenol and [place] 5/325 for pain, morphine for breakthrough pain. * Coordinating w/CM to decide best possible options for continued treatment. <Parul Young - 02/13/18 10:55> - Attending Attestation Pt. examined and case discussed with resident physicians. I have read the above note and agree with the assessment and plan as discussed with me. I was involved in all medical decision making for this patient. Rudy Curiel MD <Rudy Curiel - 02/13/18 20:59>
--- NOTE | 2018-02-13 12:51 | P.CONREH ---
History of Present Illness Service: Physical medicine and rehabilitation Consult date: 02/13/18 Reason for Consult: Comprehensive rehabilitation evaluation Primary Care Provider: Bharat Tejada Chief Complaint: osteomyelitis History of Present Illness: Ed Du is a 52-year-old [id number] male admitted to [facility] 02/02/18 with history of chronic left foot wound. He was seen by podiatry and had been receiving outpatient IV antibiotics. MRI of the left foot showed deep plantar ulcer of the forefoot medial forefoot with osteomyelitis. He is currently nonweightbearing through the left lower extremity. Podiatry is following for suture removal. Is currently receiving a 6-week course of meropenem and Levaquin IV per ID recommendations. He has been participating with physical therapy and is now standby assist for transfers and ambulate with crutches 35 feet. Review of Systems Constitutional: Denies headache(s) Eyes: Denies double vision Ears, Nose, Mouth, and Throat: Denies abnormal hearing, Denies difficulty swallowing, Denies dizziness Cardiovascular: Denies chest pain Respiratory: Denies cough Gastrointestinal: Denies constipation Genitourinary: Denies urinary incontinence Musculoskeletal: Reports abnormal walking, Denies muscle weakness, Denies tingling Skin/Breast: Denies rash Neurologic: Denies memory loss Psychiatric: Denies abnormal sleep pattern Hematologic/Lymphatic: Denies easy bruising PMFSH - History History Provided By: Patient - Medical History Medical History: Medical History (Last Reviewed 02/13/18 @ 09:14 by Chris Main) Asthma Hypertension - Family History Family History: Family History (Last Updated 02/15/18 @ 10:19 by Bisi Camilo MD) Other COPD (chronic obstructive pulmonary disease) - Social History I have reviewed the patient's Social History: Yes - Tobacco History Second Hand Smoke Exposure: Yes Tobacco Use In Past 30 Days: Yes Smoking Status: Former smoker Tobacco Type: Cigarettes - Alcohol History How Often Do You Have a Drink Containing Alcohol: 2 to 4 times a month - Substance Use History Substance History: No History of Abuse - Travel History Recent Travel in the [facility] Within the Last 8 Weeks: No Recent Travel Out of the Country Within the Last 8 Weeks: No - Immunization History Tetanus Immunization: Unsure Hx Influenza Vaccine This Season: No Medications and Allergies Active Medications: Active Medications Acetaminophen (Tylenol) 650 mg PO Q4H PRN PRN Reason: Pain 1-5 And/Or Fever >101f Last Admin: 02/07/18 12:08 Dose: 650 mg Hydrocodone Bitart/Acetaminophen ([place] 5/325) 1 tab PO Q4H PRN PRN Reason: PAIN SCALE 6 TO 10 Last Admin: 02/12/18 21:34 Dose: 1 tab Al Hydroxide/Mg Hydroxide (Milk Of Magnesia Liq) 30 ml PO Q12H PRN PRN Reason: Mild Constipation Albuterol (Duoneb Neb (Prn)) 1 ampul NEB Q4HR NEB PRN PRN Reason: SHORTNESS OF BREATH/WHEEZING Bisacodyl (Dulcolax Supp) 10 mg RECTAL DAILY PRN PRN Reason: SEVERE CONSITIPATION Clonidine HCl (Catapres) 0.1 mg PO Q6H PRN PRN Reason: SEE LABEL COMMENTS Heparin Sodium (Porcine) (Heparin Inj) 5,000 units SQ Q8HR [facility] Last Admin: 02/13/18 05:51 Dose: 5,000 units Sodium Chloride (Ns Inj) 500 mls @ 30 mls/hr IV.SIG .Q10H [facility] Last Admin: 02/04/18 05:32 Dose: Not Given Levofloxacin/Dextrose (Levaquin 750 Mg Premix Inj) 150 mls @ 100 mls/hr IV.SIG Q24H [facility] Last Admin: 02/13/18 12:10 Dose: 100 mls/hr Meropenem 500 mg/ Sodium (Chloride) 100 mls @ 200 mls/hr IV.SIG Q8H [facility] Last Infusion: 02/13/18 09:30 Dose: Infused Lactulose (Lactulose Liq) 30 ml PO DAILY PRN PRN Reason: SEVERE CONSITIPATION Miscellaneous Medication (Asp Crit: Other Exception Documentation) 1 each OTHER UNSCH PRN PRN Reason: PHARMACY DOCUMENTATION Stop: 02/14/18 14:59 Morphine Sulfate (Morphine Inj) 2 mg IV.PUSH Q3H PRN PRN Reason: BREAKTHROUGH PAIN Ondansetron HCl (Zofran Inj) 4 mg IV.PUSH Q6H PRN PRN Reason: NAUSEA OR VOMITING Senna/Docusate Sodium (Celi-Colace) 1 tab PO BID [facility] Last Admin: 02/13/18 08:12 Dose: Not Given Allergies Allergy/AdvReac Type Severity Reaction Status Date / Time No Known Allergies Allergy Verified 02/02/18 17:27 Home Medications Medication Instructions Recorded Confirmed Type No Known Home Medications 02/02/18 02/02/18 History Exam - Physical Examination Vital Signs / I&O: Vital Signs 02/12/18 20:00 02/12/18 22:00 02/13/18 03:13 Temperature 98 F Pulse Rate 59 L Respiratory Rate 17 Blood Pressure 118/71 Pulse Oximetry 97 99 96 02/13/18 08:10 Temperature 97.4 F L Pulse Rate 52 L Respiratory Rate 18 Blood Pressure 111/60 Pulse Oximetry 98 Intake & Output 02/12/18 02/13/18 02/13/18 18:59 06:59 18:59 Intake Total 350 / 350 100 / 100 100 / 100 Output Total 400 / 400 825 / 825 Balance 350 / 350 -300 / -300 -725 / -725 Weight 120 kg Intake: IV 350 / 350 100 / 100 100 / 100 Levaquin 750 mg Premix Inj 150 150 / 150 ML @ 100 mls/hr IV.SIG Q24H [facility] Rx#:[id number] Merrem Inj 500 MG In NS Inj 100 200 / 200 100 / 100 100 / 100 ML @ 200 mls/hr IV.SIG Q8H [facility] Rx#:[id number] Output: Urine 400 / 400 825 / 825 Other: Date of Last Bowel Movement 02/12/18 02/13/18 # Bowel Movements 1 Intake & Output 02/11/18 02/12/18 02/13/18 02/14/18 06:59 06:59 06:59 06:59 Intake Total 1271 / 1271 450 / 450 450 / 450 100 / 100 Output Total 1400 / 1400 2029 / 2030 400 / 400 825 / 825 Balance -129 / -129 -1580 / -1580 50 / 50 -725 / -725 Weight 119.8 kg 119.9 kg 120 kg General: No acute distress, Other (Awake and alert. Sitting up in bedside chair not in any apparent distress) Respiratory: Lungs CTA, Non-labored respirations, BS equal Gastrointestinal: Positive bowel sounds, Non-distended, Non-tender Date of Last Bowel Movement: 02/13/18 Cardiovascular: Normal rate, Regular rhythm Skin: Wound(s) (Left foot bandages in place with no drainage noted) Psychiatric: Cooperative, Appropriate mood & affect - Neurologic Orientation: oriented to: Self, Place, Time, Situation Neurologic: Cranial nerves (Grossly intact 2 through 12) Motor: Right Upper Extremity (5/5), Left Upper Extremity (5/5), Right Lower Extremity (5/5), Left Lower Extremity (5/5; limited testing distally at the ankle) Sensory: Intact to light touch Balance: Sitting (Sitting balance is good) Results - Labs CBC & Chem 7: 02/09/18 08:11 02/08/18 05:21 Assessment and Plan (1) Osteomyelitis of foot Status: Acute Code(s): M86.9 - Osteomyelitis, unspecified - Plan Assessment: 1. Osteomyelitis left foot chronic ulcer proximal hallux/first metatarsal 2. Impaired mobility 3. History of hypertension 4. History of mild asthma Recommendations: 1. Continue to mobilize with physical therapy. Patient now contact guard with walker for 25 feet. 2. Continue supervision for fall prevention 3. Upper extremity function appears to be intact and no occupational therapy needs are identified at this time 4. Case management is addressing ongoing care at discharge including payor source for ongoing care. Patient reports that he is obtaining supporting documents for application to [employer]. Patient will require 6 weeks of IV antibiotics per ID recommendations 5. Will follow while hospitalized and at discharge is appropriate
[2018-02-14] MEDS: Heparin - SQ 10,000 UNITS/ML Vial SQ SCH ×3 (06:35→22:25)
--- NOTE | 2018-02-14 09:07 | P.PNFP ---
Subjective Interval history: Patient seen and examined this morning. Patient has no complaints today. No changes in sensation of leg. Denies fevers, chills, nausea, vomiting, abdominal pain, diarrhea, chest pain, shortness of breath, or calf tenderness. Results - Labs Result diagrams: 02/09/18 08:11 02/08/18 05:21 Physical Exam Vital signs: Vital Signs 02/13/18 20:00 02/13/18 22:10 Temperature 97.7 F Pulse Rate 59 L Respiratory Rate 18 Blood Pressure 132/64 Pulse Oximetry 96 94 L Intake & Output 02/13/18 02/14/18 02/14/18 18:59 06:59 18:59 Intake Total 350 / 350 460 / 460 Output Total 1600 / 1600 550 / 550 Balance -1250 / -1250 -90 / -90 Weight 120 kg Intake: IV 350 / 350 100 / 100 Levaquin 750 mg Premix Inj 150 150 / 150 ML @ 100 mls/hr IV.SIG Q24H [facility] Rx#:[id number] Merrem Inj 500 MG In NS Inj 100 200 / 200 100 / 100 ML @ 200 mls/hr IV.SIG Q8H [facility] Rx#:[id number] Oral 360 / 360 Output: Urine 1600 / 1600 550 / 550 Other: Date of Last Bowel Movement 02/13/18 02/13/18 # Bowel Movements 1 Narrative: GENERAL: 52 year old well-nourished, well-developed patient, in no acute distress. CARDIOVASCULAR: Regular rate and rhythm, no murmurs. RESPIRATORY: Clear to auscultation. Breath sounds equal bilaterally. No wheezes , rales, or rhonchi. GASTROINTESTINAL: Abdomen soft, non-tender, nondistended. Normal active bowel sounds MUSCULOSKELETAL: Extremities without clubbing, cyanosis, or edema. Right foot bandaged and wrapped in MARYA. No drainage or bleeding. Bandage dry. Able to move toes bilaterally and posterior tibialis pulses intact. Capillary refill less than 2 seconds. Sensation wnl bilaterally. NEURO: Alert & Oriented x4 to person, place, time, situation. 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 On IV meropenem Day #8 and Levaquin Day #10 Tylenol and [place] 5/325 for pain, morphine for breakthrough pain. Podiatry recommending total 6-week inpatient course of IV antibiotics since patient cannot be discharged to SNF. ID to follow patient q10 days. Vital signs qshift. CBC with diff, CMP and CRP weekly. Last taken on 02/09. (2) Osteomyelitis of foot Code(s): M86.9 - Osteomyelitis, unspecified Status: Acute Plan: See plan above. (3) Asthma Code(s): J45.909 - Unspecified asthma, uncomplicated Status: Chronic Plan: Patient with history of asthma. Stable, no treatment at this time. (4) Nutrition, metabolism, and development symptoms Code(s): R63.8 - Other symptoms and signs concerning food and fluid intake Status: Acute Plan: FEN: Fluid: * Tolerating PO. Electrolytes: * Monitor and replete as necessary. Nutrition: * Regular diet. (5) DVT prophylaxis Status: Acute Plan: Bilateral SCDs. Heparin 5,000 units q8hr. - Assessment and Plan Hospital Course: Patient is a 52 year old male, sent to the ED by his personalized living manager nurse due to a non- healing ulcer on the plantar surface of his left foot. Patient was recently hospitalized at [facility] for evaluation and treatment of the same non-healing ulcer. He underwent I&D with wound vac placement during that hospitalization in early December; he was however discharged without wound vac. Patient was placed on ertapenem; IV antibiotic was continued as outpatient. Patient reported to [place] due to disease progression despite IV antibiotic treatment. Left first ray resection on 02/04. Left foot wound complicated by osteomyelitis: * Unclear etiology. * HgbA1c 5.7 and bedside glucose wnl. * TSH and B12 wnl. * Also no known history of peripheral vascular disease or venous insufficiency. * Wound cultures grew Stenotrophomonas maltophilia and Pseudomonas aeruginosa. * Tissue cultures grew Stenotrophomonas maltophilia. * Pathology with evidence of acute and chronic osteomyelitis and negative margins. * Blood cultures with no growth. * Foot MRI with evidence of osteomyelitis. * Left first ray resection performed 02/04. * Consult placed to ID; patient on meropenem and Levaquin. * Per records from [facility], cultures grew Morganella, rare bacteroides pyogenes, strep agalactiae and acinetobacter. Patient underwent I&D. Patient treated with ertapenem. Patient discharged without wound vac but IV antibiotics continued. * Tylenol and [place] 5/325 for pain, morphine for breakthrough pain. * Coordinating w/CM to decide best possible options for continued treatment.
[2018-02-14] MEDS: Senna/Docusate Sodium 8.6/50 MG Tablet PO SCH ×2 (09:52→22:25)
[2018-02-15] MEDS: Heparin - SQ 10,000 UNITS/ML Vial SQ SCH ×3 (06:34→21:12)
[2018-02-15] MEDS: Senna/Docusate Sodium 8.6/50 MG Tablet PO SCH ×3 (08:05→20:21)
--- NOTE | 2018-02-15 16:17 | P.PNFP ---
Subjective Interval history: No complaints. <Parul Young N - 02/15/18 16:17> Results - Labs Result diagrams: 02/09/18 08:11 02/08/18 05:21 <Rudy Curiel - 02/15/18 21:27> Physical Exam Vital signs: Vital Signs 02/14/18 23:05 02/15/18 08:00 02/15/18 20:00 Temperature 97.9 F 97.6 F Pulse Rate 57 L 57 L Respiratory Rate 18 18 Blood Pressure 136/67 134/76 Pulse Oximetry 95 97 Intake & Output 02/15/18 02/15/18 02/16/18 06:59 18:59 06:59 Intake Total 460 / 460 1350 / 1350 100 / 100 Output Total 500 / 500 500 / 500 Balance -40 / -40 850 / 850 100 / 100 Weight 120 kg Intake: IV 100 / 100 350 / 350 100 / 100 Levaquin 750 mg Premix Inj 150 150 / 150 ML @ 100 mls/hr IV.SIG Q24H RAUL Rx#:[id number] Merrem Inj 1,000 MG In NS Inj 100 / 100 100 / 100 100 ML @ 200 mls/hr IV.SIG Q8H RAUL Rx#:[id number] Merrem Inj 500 MG In NS Inj 100 100 / 100 100 / 100 ML @ 200 mls/hr IV.SIG Q8H RAUL Rx#:[id number] Oral 360 / 360 1000 / 1000 Output: Urine 500 / 500 500 / 500 Other: # Voids 2 Date of Last Bowel Movement 02/13/18 02/15/18 <Rudy Curiel - 02/15/18 21:27> Vital Signs 02/14/18 20:00 02/14/18 23:05 02/15/18 08:00 Temperature 97.8 F 97.9 F Pulse Rate 55 L 57 L Respiratory Rate 16 18 Blood Pressure 119/59 L 136/67 Pulse Oximetry 97 95 Intake & Output 02/14/18 02/15/18 02/15/18 18:59 06:59 18:59 Intake Total 350 / 350 460 / 460 350 / 350 Output Total 1025 / 1025 500 / 500 Balance -675 / -675 -40 / -40 350 / 350 Weight 120 kg Intake: IV 350 / 350 100 / 100 350 / 350 Levaquin 750 mg Premix Inj 150 150 / 150 150 / 150 ML @ 100 mls/hr IV.SIG Q24H RAUL Rx#:[id number] Merrem Inj 1,000 MG In NS Inj 100 / 100 100 ML @ 200 mls/hr IV.SIG Q8H RAUL Rx#:[id number] Merrem Inj 500 MG In NS Inj 100 200 / 200 100 / 100 100 / 100 ML @ 200 mls/hr IV.SIG Q8H RAUL Rx#:[id number] Oral 360 / 360 Output: Urine 1025 / 1025 500 / 500 Other: # Voids 2 Date of Last Bowel Movement 02/13/18 <HectorParul N - 02/15/18 16:17> Narrative: GENERAL: 52 year old obese M in no acute distress. CARDIOVASCULAR: Regular rate and rhythm, no murmurs. RESPIRATORY: Clear to auscultation. Breath sounds equal bilaterally. No wheezes , rales, or rhonchi. GASTROINTESTINAL: Abdomen soft, non-tender, nondistended. Normal active bowel sounds MUSCULOSKELETAL: Extremities without clubbing, cyanosis, or edema. Right foot bandaged and wrapped in MARYA. No drainage or bleeding. Bandage dry. Able to move toes bilaterally. 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 Code(s): Z89.412 - Acquired absence of left great toe Status: Acute (2) Osteomyelitis of foot Code(s): M86.9 - Osteomyelitis, unspecified Status: Acute (3) Asthma Code(s): J45.909 - Unspecified asthma, uncomplicated Status: Chronic (4) Nutrition, metabolism, and development symptoms Code(s): R63.8 - Other symptoms and signs concerning food and fluid intake Status: Acute (5) DVT prophylaxis Status: Acute <Rudy Curiel - 02/15/18 21:27> (1) 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 On IV meropenem Day #9 and Levaquin Day #11. Meropenem dose adjusted per pharmacy Tylenol and [place] 5/325 for pain, morphine for breakthrough pain. Podiatry recommending total 6-week inpatient course of IV antibiotics since patient cannot be discharged to SNF. ID to follow patient q10 days. Vital signs qshift. CBC with diff, CMP and CRP weekly. Last taken on 02/09. (2) Osteomyelitis of foot Code(s): M86.9 - Osteomyelitis, unspecified Status: Acute Plan: See plan above. (3) Asthma Code(s): J45.909 - Unspecified asthma, uncomplicated Status: Chronic Plan: Patient with history of asthma. Stable, no treatment at this time. (4) Nutrition, metabolism, and development symptoms Code(s): R63.8 - Other symptoms and signs concerning food and fluid intake Status: Acute Plan: FEN: Fluid: * Tolerating PO. Electrolytes: * Monitor and replete as necessary. Nutrition: * Regular diet. (5) DVT prophylaxis Status: Acute Plan: Bilateral SCDs. Heparin 5,000 units q8hr. 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 Patient was recently hospitalized at [facility] for evaluation and treatment of the same non-healing ulcer. He underwent I&D with wound vac placement during that hospitalization in early December; he was however discharged without wound vac. Patient was placed on ertapenem; IV antibiotic was continued as outpatient. Patient reported to [place] due to disease progression despite IV antibiotic treatment. Left first ray resection on 02/04. Left foot wound complicated by osteomyelitis: * Unclear etiology. * HgbA1c 5.7 and bedside glucose wnl. * TSH and B12 wnl. * Also no known history of peripheral vascular disease or venous insufficiency. * Wound cultures grew Stenotrophomonas maltophilia and Pseudomonas aeruginosa. * Tissue cultures grew Stenotrophomonas maltophilia. * Pathology with evidence of acute and chronic osteomyelitis and negative margins. * Blood cultures with no growth. * Foot MRI with evidence of osteomyelitis. * Left first ray resection performed 02/04. * Consult placed to ID; patient on meropenem and Levaquin. * Per records from [facility], cultures grew Morganella, rare bacteroides pyogenes, strep agalactiae and acinetobacter. Patient underwent I&D. Patient treated with ertapenem. Patient discharged without wound vac but IV antibiotics continued. * Tylenol and [place] 5/325 for pain, morphine for breakthrough pain. * Coordinating w/CM to decide best possible options for continued treatment. <Parul Young - 02/15/18 16:17> - Attending Attestation Pt. examined and case discussed with resident physicians. I have read the above note and agree with the assessment and plan as discussed with me. I was involved in all medical decision making for this patient. Rudy Curiel MD <Rudy Cuirel - 02/15/18 21:27>
[2018-02-15] MEDS: Sodium Chloride 0.9% 2 ML Flush BID IV.FLUSH SCH (20:19)
[2018-02-16] MEDS: Heparin - SQ 10,000 UNITS/ML Vial SQ SCH ×3 (05:50→21:13)
[2018-02-16 07:39] LABS: Baso % (Auto) 0.7 % (0.0-2.0); Eos # (Auto) 0.2 th/mm3 (0.0-0.4); Eos % (Auto) 3.1 % (0.0-4.0); Hematocrit 43.4 % (39.0-51.0); Hemoglobin 14.8 gm/dL (13.0-17.0); Lymph # (Auto) 1.6 th/mm3 (1.0-4.8); Lymph % (Auto) 33.7 % (9.0-44.0); Mean Corpuscular HGB Conc 34.1 % (32.0-36.0); Mean Corpuscular Hemoglobin 29.6 pg (27.0-34.0); Mean Corpuscular Volume 86.7 fL (80.0-100.0); Mono # (Auto) 0.5 th/mm3 (0.0-0.9); Mono % (Auto) 9.6 % (0.0-8.0); Neut # (Auto) 2.6 th/mm3 (1.8-7.7); Neut % (Auto) 52.9 % (16.0-70.0); Platelet Count 136 th/mm3 (150-450); Red Blood Count 5.01 mil/mm3 (4.50-5.90); Red Cell Distribution Width 13.5 % (11.6-17.2); White Blood Count 4.8 th/mm3 (4.0-11.0)
[2018-02-16 08:04] LABS: Alkaline Phosphatase 73 U/L (45-117)
[2018-02-16] MEDS: Sodium Chloride 0.9% 2 ML Flush BID IV.FLUSH SCH ×2 (08:07→21:12)
[2018-02-16] MEDS: Senna/Docusate Sodium 8.6/50 MG Tablet PO SCH ×2 (08:07→21:13)
[2018-02-16 08:17] LABS: Alanine Aminotransferase 50 U/L (12-78); Albumin 3.4 g/dL (3.4-5.0); Anion Gap 7 meq/L (5-15); Aspartate Aminotransferase 30 U/L (15-37); Blood Urea Nitrogen 15 mg/dL (7-18); Calcium 9.5 mg/dL (8.5-10.1); Carbon Dioxide 28.9 meq/L (21.0-32.0); Chloride 102 meq/L (98-107); Glomerular Filtration Rate Greater Than 89 mL/min (>89); Glucose,Random 86 mg/dL (74-106); Sodium 138 meq/L (136-145)
[2018-02-16 08:21] LABS: Potassium 4.3 meq/L (3.5-5.1)
--- NOTE | 2018-02-16 12:04 | P.PNFP ---
Subjective Interval history: No new complaints. <HilariakendraParul N - 02/16/18 12:04> Results - Labs Result diagrams: 02/16/18 07:07 02/16/18 07:07 <Rudy Curiel - 02/16/18 21:49> Abnormal lab results 02/16/18 Range/Units 07:07 Plt Count 136 L (150-450) th/mm3 [place] % (Auto) 9.6 H (0.0-8.0) % Short CBC 02/16/18 Range/Units 07:07 WBC 4.8 (4.0-11.0) th/mm3 Hgb 14.8 (13.0-17.0) gm/dL Hct 43.4 (39.0-51.0) % Plt Count 136 L (150-450) th/mm3 [facility] 02/16/18 07:07 Sodium 138 Potassium 4.3 Chloride 102 Carbon Dioxide 28.9 BUN 15 Creatinine 0.86 Calcium 9.5 Liver Function 02/16/18 Range/Units 07:07 Total Bilirubin 0.5 (0.2-1.0) mg/dL AST 30 (15-37) U/L ALT 50 (12-78) U/L Alkaline Phosphatase 73 (45-117) U/L Albumin 3.4 (3.4-5.0) g/dL <Rudy Curiel - 02/16/18 21:49> Abnormal lab results 02/16/18 Range/Units 07:07 Plt Count 136 L (150-450) th/mm3 [place] % (Auto) 9.6 H (0.0-8.0) % Short CBC 02/16/18 Range/Units 07:07 WBC 4.8 (4.0-11.0) th/mm3 Hgb 14.8 (13.0-17.0) gm/dL Hct 43.4 (39.0-51.0) % Plt Count 136 L (150-450) th/mm3 BMP 02/16/18 07:07 Sodium 138 Potassium 4.3 Chloride 102 Carbon Dioxide 28.9 BUN 15 Creatinine 0.86 Calcium 9.5 Liver Function 02/16/18 Range/Units 07:07 Total Bilirubin 0.5 (0.2-1.0) mg/dL AST 30 (15-37) U/L ALT 50 (12-78) U/L Alkaline Phosphatase 73 (45-117) U/L Albumin 3.4 (3.4-5.0) g/dL <Parul Young N - 02/16/18 12:04> Physical Exam Vital signs: Vital Signs 02/15/18 22:30 02/16/18 08:00 02/16/18 20:00 Temperature 98.1 F 98.6 F Pulse Rate 50 L 66 Respiratory Rate 20 18 Blood Pressure 105/69 138/64 Pulse Oximetry 97 99 98 Intake & Output 02/16/18 02/16/18 02/17/18 06:59 18:59 06:59 Intake Total 200 / 200 250 / 250 Output Total 1100 / 1100 550 / 550 Balance -900 / -900 -300 / -300 Weight 119.7 kg Intake: IV 200 / 200 250 / 250 Levaquin 750 mg Premix Inj 150 150 / 150 ML @ 100 mls/hr IV.SIG Q24H RAUL Rx#:[id number] Merrem Inj 1,000 MG In NS Inj 200 / 200 100 / 100 100 ML @ 200 mls/hr IV.SIG Q8H RAUL Rx#:[id number] Output: Urine 1100 / 1100 550 / 550 Other: Date of Last Bowel Movement 02/15/18 02/16/18 02/15/18 <Rudy Curiel - 02/16/18 21:49> Vital Signs 02/15/18 20:00 02/15/18 22:30 02/16/18 08:00 Temperature 97.6 F 98.1 F Pulse Rate 57 L 50 L Respiratory Rate 18 20 Blood Pressure 134/76 105/69 Pulse Oximetry 97 97 99 Intake & Output 02/15/18 02/16/18 02/16/18 18:59 06:59 18:59 Intake Total 1350 / 1350 200 / 200 100 / 100 Output Total 500 / 500 1100 / 1100 Balance 850 / 850 -900 / -900 100 / 100 Weight 119.7 kg Intake: IV 350 / 350 200 / 200 100 / 100 Levaquin 750 mg Premix Inj 150 150 / 150 ML @ 100 mls/hr IV.SIG Q24H RAUL Rx#:[id number] Merrem Inj 1,000 MG In NS Inj 100 / 100 200 / 200 100 / 100 100 ML @ 200 mls/hr IV.SIG Q8H RAUL Rx#:[id number] Merrem Inj 500 MG In NS Inj 100 100 / 100 ML @ 200 mls/hr IV.SIG Q8H RAUL Rx#:[id number] Oral 1000 / 1000 Output: Urine 500 / 500 1100 / 1100 Other: Date of Last Bowel Movement 02/13/18 02/15/18 02/15/18 <Parul Young N - 02/16/18 12:04> Narrative: GENERAL: 52 year old obese M in no acute distress. CARDIOVASCULAR: Regular rate and rhythm, no murmurs. RESPIRATORY: Clear to auscultation. Breath sounds equal bilaterally. No wheezes , rales, or rhonchi. GASTROINTESTINAL: Abdomen soft, non-tender, nondistended. Normal active bowel sounds MUSCULOSKELETAL: Extremities without clubbing, cyanosis, or edema. Right foot bandaged and wrapped in MARYA. No drainage or bleeding. Bandage dry. Able to move toes bilaterally. 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 Code(s): Z89.412 - Acquired absence of left great toe Status: Acute (2) Osteomyelitis of foot Code(s): M86.9 - Osteomyelitis, unspecified Status: Acute (3) Asthma Code(s): J45.909 - Unspecified asthma, uncomplicated Status: Chronic (4) Nutrition, metabolism, and development symptoms Code(s): R63.8 - Other symptoms and signs concerning food and fluid intake Status: Acute (5) DVT prophylaxis Status: Acute <Rudy Curiel - 02/16/18 21:49> (1) 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 On IV meropenem Day #10 and Levaquin Day #12. Tylenol and [place] 5/325 for pain, morphine for breakthrough pain. Podiatry recommending total 6-week inpatient course of IV antibiotics since patient cannot be discharged to SNF. ID to follow patient q10 days. Vital signs qshift. CBC with diff, CMP and CRP weekly. Last taken on 02/16. (2) Osteomyelitis of foot Code(s): M86.9 - Osteomyelitis, unspecified Status: Acute Plan: See plan above. (3) Asthma Code(s): J45.909 - Unspecified asthma, uncomplicated Status: Chronic Plan: Patient with history of asthma. Stable, no treatment at this time. (4) Nutrition, metabolism, and development symptoms Code(s): R63.8 - Other symptoms and signs concerning food and fluid intake Status: Acute Plan: FEN: Fluid: * Tolerating PO. Electrolytes: * Monitor and replete as necessary. Nutrition: * Regular diet. (5) DVT prophylaxis Status: Acute Plan: Bilateral SCDs. Heparin 5,000 units q8hr. 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 Patient was recently hospitalized at [facility] for evaluation and treatment of the same non-healing ulcer. He underwent I&D with wound vac placement during that hospitalization in early December; he was however discharged without wound vac. Patient was placed on ertapenem; IV antibiotic was continued as outpatient. Patient reported to [place] due to disease progression despite IV antibiotic treatment. Left first ray resection on 02/04. Left foot wound complicated by osteomyelitis: * Unclear etiology. * HgbA1c 5.7 and bedside glucose wnl. * TSH and B12 wnl. * Also no known history of peripheral vascular disease or venous insufficiency. * Wound cultures grew Stenotrophomonas maltophilia and Pseudomonas aeruginosa. * Tissue cultures grew Stenotrophomonas maltophilia. * Pathology with evidence of acute and chronic osteomyelitis and negative margins. * Blood cultures with no growth. * Foot MRI with evidence of osteomyelitis. * Left first ray resection performed 02/04. * Consult placed to ID; patient on meropenem and Levaquin. * Per records from [facility], cultures grew Morganella, rare bacteroides pyogenes, strep agalactiae and acinetobacter. Patient underwent I&D. Patient treated with ertapenem. Patient discharged without wound vac but IV antibiotics continued. * Tylenol and [place] 5/325 for pain, morphine for breakthrough pain. * Coordinating w/CM to decide best possible options for continued treatment. <Parul Young - 02/16/18 12:04> - Attending Attestation Pt. examined independently by me and case discussed with resident physicians. I have read the above note and agree with the assessment and plan as discussed with me. I was involved in all medical decision making for this patient. Rudy Curiel MD <Rudy Curiel - 02/16/18 21:49>
[2018-02-16] MEDS ORDERED: Naphazoline 0.012% Opth Drops 15 ML Bottle EACH EYE PRN (14:00)
[2018-02-16] MEDS ORDERED: Cathflo Activase Inj 2 MG Vial IV.PUSH ONE (14:15)
[2018-02-17] MEDS: Heparin - SQ 10,000 UNITS/ML Vial SQ SCH ×3 (05:07→21:07)
[2018-02-17] MEDS: Senna/Docusate Sodium 8.6/50 MG Tablet PO SCH ×2 (08:20→21:07)
[2018-02-17] MEDS: Sodium Chloride 0.9% 2 ML Flush BID IV.FLUSH SCH ×2 (08:23→21:06)
--- NOTE | 2018-02-17 10:21 | P.PNFP ---
Subjective Interval history: Patient seen and examined this morning. Feeling well. No complaints at present. Results - Labs Result diagrams: 02/16/18 07:07 02/16/18 07:07 Physical Exam Vital signs: Vital Signs 02/16/18 20:00 02/16/18 21:55 02/17/18 00:15 Temperature 98.6 F Pulse Rate 66 Respiratory Rate 18 Blood Pressure 138/64 Pulse Oximetry 98 98 97 02/17/18 05:11 02/17/18 08:00 Temperature 97.4 F L Pulse Rate 55 L Respiratory Rate 18 Blood Pressure 132/93 H Pulse Oximetry 97 99 Intake & Output 02/16/18 02/17/18 02/17/18 18:59 06:59 18:59 Intake Total 250 / 250 200 / 200 240 / 240 Output Total 550 / 550 1000 / 1000 300 / 300 Balance -300 / -300 -800 / -800 -60 / -60 Weight 119.4 kg Intake: IV 250 / 250 200 / 200 Levaquin 750 mg Premix Inj 150 150 / 150 ML @ 100 mls/hr IV.SIG Q24H RAUL Rx#:[id number] Merrem Inj 1,000 MG In NS Inj 100 / 100 200 / 200 100 ML @ 200 mls/hr IV.SIG Q8H RAUL Rx#:[id number] Oral 240 / 240 Output: Urine 550 / 550 1000 / 1000 300 / 300 Other: Date of Last Bowel Movement 02/16/18 02/15/18 Narrative: GENERAL: 52 year old obese M in no acute distress. CARDIOVASCULAR: Regular rate and rhythm, no murmurs. RESPIRATORY: Clear to auscultation. Breath sounds equal bilaterally. No wheezes , rales, or rhonchi. GASTROINTESTINAL: Abdomen soft, non-tender, nondistended. Normal active bowel sounds MUSCULOSKELETAL: Extremities without clubbing, cyanosis, or edema. Right foot bandaged and wrapped in MARYA. No drainage or bleeding. Bandage dry. Able to move toes bilaterally. 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 On IV meropenem Day #11 and Levaquin Day #13. Tylenol and [place] 5/325 for pain, morphine for breakthrough pain. Podiatry recommending total 6-week inpatient course of IV antibiotics since patient cannot be discharged to SNF. ID to follow patient q10 days. Vital signs qshift. CBC with diff, CMP and CRP weekly. Last taken on 02/16 which were WNL. (2) Osteomyelitis of foot Code(s): M86.9 - Osteomyelitis, unspecified Status: Acute Plan: See plan above. (3) Asthma Code(s): J45.909 - Unspecified asthma, uncomplicated Status: Chronic Plan: Patient with history of asthma. Stable, no treatment at this time. (4) Nutrition, metabolism, and development symptoms Code(s): R63.8 - Other symptoms and signs concerning food and fluid intake Status: Acute Plan: FEN: Fluid: * Tolerating PO. Electrolytes: * Monitor and replete as necessary. Nutrition: * Regular diet. (5) DVT prophylaxis Status: Acute Plan: Bilateral SCDs. Heparin 5,000 units q8hr. 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 Patient was recently hospitalized at [facility] for evaluation and treatment of the same non-healing ulcer. He underwent I&D with wound vac placement during that hospitalization in early December; he was however discharged without wound vac. Patient was placed on ertapenem; IV antibiotic was continued as outpatient. Patient reported to [place] due to disease progression despite IV antibiotic treatment. Left first ray resection on 02/04. Left foot wound complicated by osteomyelitis: * Unclear etiology. * HgbA1c 5.7 and bedside glucose wnl. * TSH and B12 wnl. * Also no known history of peripheral vascular disease or venous insufficiency. * Wound cultures grew Stenotrophomonas maltophilia and Pseudomonas aeruginosa. * Tissue cultures grew Stenotrophomonas maltophilia. * Pathology with evidence of acute and chronic osteomyelitis and negative margins. * Blood cultures with no growth. * Foot MRI with evidence of osteomyelitis. * Left first ray resection performed 02/04. * Consult placed to ID; patient on meropenem and Levaquin. * Per records from [facility], cultures grew Morganella, rare bacteroides pyogenes, strep agalactiae and acinetobacter. Patient underwent I&D. Patient treated with ertapenem. Patient discharged without wound vac but IV antibiotics continued. * Tylenol and [place] 5/325 for pain, morphine for breakthrough pain. * Coordinating w/CM to decide best possible options for continued treatment.
[2018-02-18] MEDS: Heparin - SQ 10,000 UNITS/ML Vial SQ SCH (05:20)
[2018-02-18] MEDS: Senna/Docusate Sodium 8.6/50 MG Tablet PO SCH ×2 (09:44→20:22)
--- NOTE | 2018-02-18 09:58 | P.PNFP ---
Subjective Interval history: No new symptoms or changes. <Parul Young N - 02/18/18 09:58> Results - Labs Result diagrams: 02/16/18 07:07 02/16/18 07:07 <Rudy Curiel - 02/18/18 13:53> Physical Exam Vital signs: Vital Signs 02/17/18 20:00 02/17/18 22:40 02/18/18 07:35 Temperature 98.0 F Pulse Rate 69 Respiratory Rate 15 18 Blood Pressure 117/69 Pulse Oximetry 98 98 02/18/18 08:00 Temperature 97.8 F Pulse Rate 60 Respiratory Rate 18 Blood Pressure 107/67 Pulse Oximetry 96 Intake & Output 02/17/18 02/18/18 02/18/18 18:59 06:59 18:59 Intake Total 1230 / 1230 200 / 200 250 / 250 Output Total 900 / 900 1200 / 1200 200 / 200 Balance 330 / 330 -1000 / -1000 50 / 50 Weight 119.4 kg Intake: IV 250 / 250 200 / 200 250 / 250 Levaquin 750 mg Premix Inj 150 150 / 150 150 / 150 ML @ 100 mls/hr IV.SIG Q24H RAUL Rx#:[id number] Merrem Inj 1,000 MG In NS Inj 100 / 100 200 / 200 100 / 100 100 ML @ 200 mls/hr IV.SIG Q8H RAUL Rx#:[id number] Oral 980 / 980 Output: Urine 900 / 900 1200 / 1200 200 / 200 Other: # Voids 3 Date of Last Bowel Movement 02/17/18 02/18/18 # Bowel Movements 0 1 <Rudy Curiel - 02/18/18 13:53> Vital Signs 02/17/18 12:06 02/17/18 20:00 02/17/18 22:40 Temperature 97.8 F 98.0 F Pulse Rate 63 69 Respiratory Rate 20 15 Blood Pressure 136/76 117/69 Pulse Oximetry 98 98 98 02/18/18 07:35 02/18/18 08:00 Temperature 97.8 F Pulse Rate 60 Respiratory Rate 18 18 Blood Pressure 107/67 Pulse Oximetry 96 Intake & Output 02/17/18 02/18/18 02/18/18 18:59 06:59 18:59 Intake Total 1230 / 1230 200 / 200 Output Total 900 / 900 1200 / 1200 Balance 330 / 330 -1000 / -1000 Weight 119.4 kg Intake: IV 250 / 250 200 / 200 Levaquin 750 mg Premix Inj 150 150 / 150 ML @ 100 mls/hr IV.SIG Q24H RAUL Rx#:[id number] Merrem Inj 1,000 MG In NS Inj 100 / 100 200 / 200 100 ML @ 200 mls/hr IV.SIG Q8H RAUL Rx#:[id number] Oral 980 / 980 Output: Urine 900 / 900 1200 / 1200 Other: # Voids 3 Date of Last Bowel Movement 02/17/18 02/18/18 # Bowel Movements 0 1 <Parul Young N - 02/18/18 09:58> Narrative: GENERAL: 52 year old obese M in no acute distress. CARDIOVASCULAR: Regular rate and rhythm, no murmurs. RESPIRATORY: Clear to auscultation. Breath sounds equal bilaterally. No wheezes , rales, or rhonchi. GASTROINTESTINAL: Abdomen soft, non-tender, nondistended. Normal active bowel sounds MUSCULOSKELETAL: Extremities without clubbing, cyanosis, or edema. Right foot bandaged and wrapped in MARYA. No drainage or bleeding. Bandage dry. Able to move toes bilaterally. 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 Code(s): Z89.412 - Acquired absence of left great toe Status: Acute (2) Osteomyelitis of foot Code(s): M86.9 - Osteomyelitis, unspecified Status: Acute (3) Asthma Code(s): J45.909 - Unspecified asthma, uncomplicated Status: Chronic (4) Nutrition, metabolism, and development symptoms Code(s): R63.8 - Other symptoms and signs concerning food and fluid intake Status: Acute (5) DVT prophylaxis Status: Acute <Rudy Curiel - 02/18/18 13:53> (1) 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 On IV meropenem and Levaquin.. Tylenol and [place] 5/325 for pain, morphine for breakthrough pain. Podiatry recommending total 6-week inpatient course of IV antibiotics since patient cannot be discharged to SNF. ID to follow patient q10 days. Vital signs qshift. CBC with diff, CMP and CRP weekly. Last taken on 02/16 which were WNL. (2) Osteomyelitis of foot Code(s): M86.9 - Osteomyelitis, unspecified Status: Acute Plan: See plan above. (3) Asthma Code(s): J45.909 - Unspecified asthma, uncomplicated Status: Chronic Plan: Patient with history of asthma. Stable, no treatment at this time. (4) Nutrition, metabolism, and development symptoms Code(s): R63.8 - Other symptoms and signs concerning food and fluid intake Status: Acute Plan: FEN: Fluid: * Tolerating PO. Electrolytes: * Monitor and replete as necessary. Nutrition: * Regular diet. (5) DVT prophylaxis Status: Acute Plan: Encourage ambulation and mobility as tolerated. 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 Patient was recently hospitalized at [facility] for evaluation and treatment of the same non-healing ulcer. He underwent I&D with wound vac placement during that hospitalization in early December; he was however discharged without wound vac. Patient was placed on ertapenem; IV antibiotic was continued as outpatient. Patient reported to [place] due to disease progression despite IV antibiotic treatment. Left first ray resection on 02/04. Left foot wound complicated by osteomyelitis: * Unclear etiology. * HgbA1c 5.7 and bedside glucose wnl. * TSH and B12 wnl. * Also no known history of peripheral vascular disease or venous insufficiency. * Wound cultures grew Stenotrophomonas maltophilia and Pseudomonas aeruginosa. * Tissue cultures grew Stenotrophomonas maltophilia. * Pathology with evidence of acute and chronic osteomyelitis and negative margins. * Blood cultures with no growth. * Foot MRI with evidence of osteomyelitis. * Left first ray resection performed 02/04. * Consult placed to ID; patient on meropenem and Levaquin. * Per records from [facility], cultures grew Morganella, rare bacteroides pyogenes, strep agalactiae and acinetobacter. Patient underwent I&D. Patient treated with ertapenem. Patient discharged without wound vac but IV antibiotics continued. * Tylenol and [place] 5/325 for pain, morphine for breakthrough pain. * Coordinating w/CM to decide best possible options for continued treatment. <Parul Young - 02/18/18 09:58>
[2018-02-18] MEDS: Sodium Chloride 0.9% 2 ML Flush BID IV.FLUSH SCH ×2 (10:18→20:21)
--- NOTE | 2018-02-18 22:32 | P.PNPOD ---
Physical Exam Vital signs: Vital Signs 02/17/18 22:40 02/18/18 07:35 02/18/18 08:00 Temperature 97.8 F Pulse Rate 60 Respiratory Rate 18 18 Blood Pressure 107/67 Pulse Oximetry 98 96 02/18/18 16:19 02/18/18 20:00 Temperature 98 F 97.7 F Pulse Rate 59 L 65 Respiratory Rate 20 20 Blood Pressure 105/72 136/63 Pulse Oximetry 97 98 Intake & Output 02/18/18 02/18/18 02/19/18 06:59 18:59 06:59 Intake Total 200 / 200 650 / 650 Output Total 1200 / 1200 1080 / 1080 Balance -1000 / -1000 -430 / -430 Weight 119.4 kg Intake: IV 200 / 200 250 / 250 Levaquin 750 mg Premix Inj 150 150 / 150 ML @ 100 mls/hr IV.SIG Q24H [facility] Rx#:[id number] Merrem Inj 1,000 MG In NS Inj 200 / 200 100 / 100 100 ML @ 200 mls/hr IV.SIG Q8H [facility] Rx#:[id number] Oral 400 / 400 Output: Urine 1200 / 1200 1080 / 1080 Other: # Voids 3 Date of Last Bowel Movement 02/17/18 02/18/18 # Bowel Movements 0 1 Narrative: Left foot with sutures intact to medial foot. Reduced edema and no erythema. No pain. Medications and Allergies Active Medications: Active Medications Acetaminophen (Tylenol) 650 mg PO Q4H PRN PRN Reason: Pain 1-5 And/Or Fever >101f Last Admin: 02/07/18 12:08 Dose: 650 mg Hydrocodone Bitart/Acetaminophen ([place] 5/325) 1 tab PO Q4H PRN PRN Reason: PAIN SCALE 6 TO 10 Last Admin: 02/18/18 22:04 Dose: 1 tab Al Hydroxide/Mg Hydroxide (Milk Of Magnesia Liq) 30 ml PO Q12H PRN PRN Reason: Mild Constipation Albuterol (Duoneb Neb (Prn)) 1 ampul NEB Q4HR NEB PRN PRN Reason: SHORTNESS OF BREATH/WHEEZING Bisacodyl (Dulcolax Supp) 10 mg RECTAL DAILY PRN PRN Reason: SEVERE CONSITIPATION Clonidine HCl (Catapres) 0.1 mg PO Q6H PRN PRN Reason: SEE LABEL COMMENTS Sodium Chloride (Ns Inj) 500 mls @ 30 mls/hr IV.SIG .Q10H [facility] Last Admin: 02/04/18 05:32 Dose: Not Given Levofloxacin/Dextrose (Levaquin 750 Mg Premix Inj) 150 mls @ 100 mls/hr IV.SIG Q24H [facility] Last Infusion: 02/18/18 12:48 Dose: Infused Meropenem 1,000 mg/ Sodium (Chloride) 100 mls @ 200 mls/hr IV.SIG Q8H [facility] Last Admin: 02/18/18 20:22 Dose: 200 mls/hr Lactulose (Lactulose Liq) 30 ml PO DAILY PRN PRN Reason: SEVERE CONSITIPATION Morphine Sulfate (Morphine Inj) 2 mg IV.PUSH Q3H PRN PRN Reason: BREAKTHROUGH PAIN Naphazoline HCl (Clear Eyes Redness Relief 0.012% Opth Drops) 1 drop EACH EYE Q4H PRN PRN Reason: DRY EYE(S) Last Admin: 02/16/18 15:31 Dose: 1 drop Ondansetron HCl (Zofran Inj) 4 mg IV.PUSH Q6H PRN PRN Reason: NAUSEA OR VOMITING Senna/Docusate Sodium (Celi-Colace) 1 tab PO BID [facility] Last Admin: 02/18/18 20:22 Dose: 1 tab Sodium Chloride (Ns Flush) 2 ml IV.FLUSH BID [facility] Last Admin: 02/18/18 20:21 Dose: 2 ml Sodium Chloride (Ns Flush) 2 ml IV.FLUSH PRN PRN PRN Reason: FLUSH AFTER USING IV ACCESS Allergies Allergy/AdvReac Type Severity Reaction Status Date / Time No Known Allergies Allergy Verified 02/02/18 17:27 Home Medications Medication Instructions Recorded Confirmed Type No Known Home Medications 02/02/18 02/02/18 History Results - Labs CBC & Chem 7: 02/16/18 07:07 02/16/18 07:07 Microbiology 02/04/18 10:39 Tissue - Toe Fungal Smear - Final No fungal elements seen 02/04/18 10:39 Tissue - Toe Fungal Culture - Preliminary No growth in 2 weeks 02/04/18 10:39 Tissue - Toe Acid Fast Bacilli Smear - Final No acid fast bacilli seen 02/04/18 10:39 Tissue - Toe Mycobacterial Culture - Preliminary No growth in 2 weeks 02/04/18 10:39 Tissue - Toe Acid Fast Bacilli Smear - Final No acid fast bacilli seen 02/04/18 10:39 Tissue - Toe Mycobacterial Culture - Preliminary No growth in 2 weeks 02/04/18 10:39 Tissue - Toe Fungal Smear - Final No fungal elements seen 02/04/18 10:39 Tissue - Toe Fungal Culture - Preliminary No growth in 2 weeks Assessment and Plan - Assessment (1) Open wnd foot-complicated Code(s): S91.309A - Unspecified open wound, unspecified foot, initial encounter Status: Acute (2) Foot ulcer, left Code(s): L97.529 - Non-pressure chronic ulcer of other part of left foot with unspecified severity Status: Resolved - Plan S/p partial first ray amputation left foot 02/04/18 Dr Chavarria Continue IV antibiotics Non weight bearing to left LE Dressing to left lower extremity changed and no further erythema and edema noted at this time. Sutures intact. Due to extent of incision, it is important that flap is healed well and sutures will be likely removed next weekend, 02/24 or 02/25 Will reevaluate wound in 1 week for suture removal Patient to stay in house or receiving IV antibiotics for further improvement of left foot (1) Open wnd foot-complicated Qualifiers: Encounter type: initial encounter Laterality: left Qualified Code(s): S91.302A - Unspecified open wound, left foot, initial encounter
[2018-02-19] MEDS: Senna/Docusate Sodium 8.6/50 MG Tablet PO SCH ×2 (09:51→21:10)
[2018-02-19] MEDS: Sodium Chloride 0.9% 2 ML Flush BID IV.FLUSH SCH ×2 (09:52→21:10)
--- NOTE | 2018-02-19 14:19 | P.PNFP ---
Subjective Interval history: 52 yo admitted with osteomyelitis of left great toe now s/p toe amputation being seen for f/u. Today he feels well. Notes slight numbness of the bilateral feet especially the left, no pain or redness. No fever/chills. No CP/SOB. Good appetite. Results - Labs Result diagrams: 02/16/18 07:07 02/16/18 07:07 Physical Exam Vital signs: Vital Signs 02/18/18 16:19 02/18/18 20:00 02/18/18 23:27 Temperature 98 F 97.7 F Pulse Rate 59 L 65 Respiratory Rate 20 18 Blood Pressure 105/72 136/63 Pulse Oximetry 97 98 97 02/19/18 03:58 02/19/18 08:00 Temperature 97.3 F L Pulse Rate 57 L Respiratory Rate 20 Blood Pressure 101/59 L Pulse Oximetry 97 96 Intake & Output 02/18/18 02/19/18 02/19/18 18:59 06:59 18:59 Intake Total 650 / 650 200 / 200 250 / 250 Output Total 1080 / 1080 1200 / 1200 725 / 725 Balance -430 / -430 -1000 / -1000 -475 / -475 Weight 119.4 kg Intake: IV 250 / 250 200 / 200 250 / 250 Levaquin 750 mg Premix Inj 150 150 / 150 150 / 150 ML @ 100 mls/hr IV.SIG Q24H [facility] Rx#:[id number] Merrem Inj 1,000 MG In NS Inj 100 / 100 200 / 200 100 / 100 100 ML @ 200 mls/hr IV.SIG Q8H [facility] Rx#:[id number] Oral 400 / 400 Output: Urine 1080 / 1080 1200 / 1200 725 / 725 Other: Date of Last Bowel Movement 02/18/18 02/18/18 02/19/18 # Bowel Movements 1 2 - Constitutional no acute distress, obese, cooperative - Routine HEENT Exam Head: Present: normocephalic, atraumatic - Routine Respiratory Exam Present: CTA bilaterally. Absent: wheezes, crackles - Routine Cardiovascular Exam Present: RRR, S1, S2. Absent: murmur - Routine Extremities Exam Absent: cyanosis, clubbing Comments: warm and well perfused BLE. LLE wrapped with MARYA bandaging and dressing. Visible toes without evidence of infection or ulceration. Callus formation noted. Normal movement of toes observed. 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 TSH and B12 wnl. Wound cultures grew Stenotrophomonas maltophilia and Pseudomonas aeruginosa. Tissue cultures grew Stenotrophomonas maltophilia. Pathology with evidence of acute and chronic osteomyelitis and negative margins. Blood cultures with no growth. * Per records from [facility], cultures grew Morganella, rare bacteroides pyogenes, strep agalactiae and acinetobacter. Patient underwent I&D. Patient treated with ertapenem. Patient discharged without wound vac but IV antibiotics continued. Foot MRI with evidence of osteomyelitis. Also no known history of peripheral vascular disease or venous insufficiency. s/p left first ray resection on 02/04. Tylenol and [place] 5/325 for pain, morphine for breakthrough pain. Podiatry consulted, appreciate recs * To remove suture 02/24 or 02/25 if healing well ID consulted, appreciate recs * continue IV meropenem and Levaquin Vital signs qshift CBC with diff, CMP and CRP weekly. Last taken on 02/16 which were WNL. Tylenol and [place] 5/325 for pain, morphine for breakthrough pain. (2) Osteomyelitis of foot Code(s): M86.9 - Osteomyelitis, unspecified Status: Acute Plan: S/p amputation of L great toe See plan above for antibiotic coverage. (3) Asthma Code(s): J45.909 - Unspecified asthma, uncomplicated Status: Chronic Plan: Patient with history of asthma. Stable, no treatment at this time. (4) Nutrition, metabolism, and development symptoms Code(s): R63.8 - Other symptoms and signs concerning food and fluid intake Status: Acute Plan: FEN: Fluid: * Tolerating PO. Electrolytes: * Monitor and replete as necessary. Nutrition: * Regular diet. (5) DVT prophylaxis Status: Acute Plan: Encourage ambulation and mobility as tolerated. - Assessment and Plan Discharge Planning: Disposition: Per podiatry will be in hospital until 02/24 or 02/25. Will need continued IV antibiotics per ID recommendation, final length of course TBD. Failed outpatient IV antibiotic infusion previously, will need continued inpatient treatment to prevent adverse outcome. 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 Patient was recently hospitalized at [facility] for evaluation and treatment of the same non-healing ulcer. He underwent I&D with wound vac placement during that hospitalization in early December; he was however discharged without wound vac. Patient was placed on ertapenem; IV antibiotic was continued as outpatient. Patient reported to [place] due to disease progression despite IV antibiotic treatment. Left first ray resection on 02/04.
[2018-02-20] MEDS: Senna/Docusate Sodium 8.6/50 MG Tablet PO SCH ×2 (08:27→22:11)
[2018-02-20] MEDS: Sodium Chloride 0.9% 2 ML Flush BID IV.FLUSH SCH ×2 (08:27→22:12)
--- NOTE | 2018-02-20 09:29 | P.PNFP ---
Subjective Interval history: 52 yo admitted with osteomyelitis of left great toe now s/p toe amputation being seen for f/u. Patient seen and examined this morning. He has no complaints at this time. He notes continued, minimal numbness of bilateral feet. Denies any pain, redness, or swelling. Denies fever, chills, chest pain, or shortness of breath. <Marely Quintero - 02/20/18 10:10> Results - Labs Result diagrams: 02/16/18 07:07 02/16/18 07:07 <Rudy Curiel - 02/20/18 15:28> Physical Exam Vital signs: Vital Signs 02/19/18 16:00 02/19/18 21:52 02/19/18 22:35 Temperature 97.2 F L 97.6 F Pulse Rate 61 60 Respiratory Rate 20 20 Blood Pressure 125/56 L 122/65 Pulse Oximetry 96 96 97 02/20/18 01:00 02/20/18 03:37 02/20/18 08:00 Temperature 97.4 F L Pulse Rate 63 Respiratory Rate 13 Blood Pressure 106/66 Pulse Oximetry 97 97 96 02/20/18 12:00 Temperature 97.5 F L Pulse Rate 63 Respiratory Rate 18 Blood Pressure 124/72 Pulse Oximetry 96 Intake & Output 02/19/18 02/20/18 02/20/18 18:59 06:59 18:59 Intake Total 730 / 730 200 / 200 250 / 250 Output Total 1425 / 1425 Balance -695 / -695 200 / 200 250 / 250 Intake: IV 250 / 250 200 / 200 250 / 250 Levaquin 750 mg Premix Inj 150 150 / 150 150 / 150 ML @ 100 mls/hr IV.SIG Q24H [facility] Rx#:[id number] Merrem Inj 1,000 MG In NS Inj 100 / 100 200 / 200 100 / 100 100 ML @ 200 mls/hr IV.SIG Q8H [facility] Rx#:[id number] Oral 480 / 480 Output: Urine 1425 / 1425 Other: # Voids 2 Date of Last Bowel Movement 02/19/18 02/19/18 02/19/18 # Bowel Movements 4 <Rudy Curiel - 02/20/18 15:28> Vital Signs 02/19/18 12:00 02/19/18 16:00 02/19/18 21:52 Temperature 97.5 F L 97.2 F L 97.6 F Pulse Rate 60 61 60 Respiratory Rate 20 20 20 Blood Pressure 111/80 125/56 L 122/65 Pulse Oximetry 98 96 96 02/19/18 22:35 02/20/18 01:00 02/20/18 03:37 Temperature Pulse Rate Respiratory Rate Blood Pressure Pulse Oximetry 97 97 97 Intake & Output 02/19/18 02/20/18 02/20/18 18:59 06:59 18:59 Intake Total 730 / 730 200 / 200 Output Total 1425 / 1425 Balance -695 / -695 200 / 200 Intake: IV 250 / 250 200 / 200 Levaquin 750 mg Premix Inj 150 150 / 150 ML @ 100 mls/hr IV.SIG Q24H [facility] Rx#:[id number] Merrem Inj 1,000 MG In NS Inj 100 / 100 200 / 200 100 ML @ 200 mls/hr IV.SIG Q8H [facility] Rx#:[id number] Oral 480 / 480 Output: Urine 1425 / 1425 Other: # Voids 2 Date of Last Bowel Movement 02/19/18 02/19/18 02/19/18 # Bowel Movements 4 <Marely Quintero - 02/20/18 09:29> Narrative: GENERAL: 52 year old obese M in no acute distress. CARDIOVASCULAR: Regular rate and rhythm, no murmurs. RESPIRATORY: Clear to auscultation. Breath sounds equal bilaterally. No wheezes , rales, or rhonchi. GASTROINTESTINAL: Abdomen soft, non-tender, nondistended. Normal active bowel sounds MUSCULOSKELETAL: Extremities without clubbing, cyanosis, or edema. Right foot bandaged and wrapped in MARYA last changed by podiatry on 02/18. No drainage or bleeding. Bandage dry. Able to move toes bilaterally. 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 Code(s): Z89.412 - Acquired absence of left great toe Status: Acute (2) Osteomyelitis of foot Code(s): M86.9 - Osteomyelitis, unspecified Status: Acute (3) Asthma Code(s): J45.909 - Unspecified asthma, uncomplicated Status: Chronic (4) Nutrition, metabolism, and development symptoms Code(s): R63.8 - Other symptoms and signs concerning food and fluid intake Status: Acute (5) DVT prophylaxis Status: Acute <Rudy Curiel - 02/20/18 15:28> (1) History of complete ray amputation of first toe of left foot Code(s): Z89.412 - Acquired absence of left great toe Status: Acute Plan: Unclear etiology for initial osteomyelitis HgbA1c 5.7 and bedside glucose wnl. TSH and B12 wnl. Wound cultures grew Stenotrophomonas maltophilia and Pseudomonas aeruginosa. Tissue cultures grew Stenotrophomonas maltophilia. Pathology with evidence of acute and chronic osteomyelitis and negative margins. Blood cultures with no growth. * Per records from [facility], cultures grew Morganella, rare bacteroides pyogenes, strep agalactiae and acinetobacter. Patient underwent I&D. Patient treated with ertapenem. Patient discharged without wound vac but IV antibiotics continued. Foot MRI with evidence of osteomyelitis. Also no known history of peripheral vascular disease or venous insufficiency. s/p left first ray resection on 02/04. Tylenol and [place] 5/325 for pain, morphine for breakthrough pain. Podiatry consulted, appreciate recs * To remove suture 02/24 or 02/25 if healing well ID consulted, appreciate recs, including planned stop date of antibiotic treatment. * continue IV meropenem and Levaquin Vital signs qshift CBC with diff, CMP and CRP weekly. Last taken on 02/16 which were WNL. Tylenol and [place] 5/325 for pain, morphine for breakthrough pain. (2) Osteomyelitis of foot Code(s): M86.9 - Osteomyelitis, unspecified Status: Acute Plan: S/p amputation of L great toe See plan above for antibiotic coverage. (3) Asthma Code(s): J45.909 - Unspecified asthma, uncomplicated Status: Chronic Plan: Patient with history of asthma. Stable, no treatment at this time. (4) Nutrition, metabolism, and development symptoms Code(s): R63.8 - Other symptoms and signs concerning food and fluid intake Status: Acute Plan: FEN: Fluid: * Tolerating PO. Electrolytes: * Monitor and replete as necessary. Nutrition: * Regular diet. (5) DVT prophylaxis Status: Acute Plan: Encourage ambulation and mobility as tolerated. 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 Patient was recently hospitalized at [facility] for evaluation and treatment of the same non-healing ulcer. He underwent I&D with wound vac placement during that hospitalization in early December; he was however discharged without wound vac. Patient was placed on ertapenem; IV antibiotic was continued as outpatient. Patient reported to [place] due to disease progression despite IV antibiotic treatment. Left first toe resection on 02/04. Left foot wound complicated by osteomyelitis: * Unclear etiology. * HgbA1c 5.7 and bedside glucose wnl. * TSH and B12 wnl. * Also no known history of peripheral vascular disease or venous insufficiency. * Wound cultures grew Stenotrophomonas maltophilia and Pseudomonas aeruginosa. * Tissue cultures grew Stenotrophomonas maltophilia. * Pathology with evidence of acute and chronic osteomyelitis and negative margins. * Blood cultures with no growth. * Foot MRI with evidence of osteomyelitis. * Left first ray resection performed 02/04. * Consult placed to ID; patient on meropenem and Levaquin. * Per records from [facility], cultures grew Morganella, rare bacteroides pyogenes, strep agalactiae and acinetobacter. Patient underwent I&D. Patient treated with ertapenem. Patient discharged without wound vac but IV antibiotics continued. * Tylenol and [place] 5/325 for pain, morphine for breakthrough pain. * Coordinating w/CM to decide best possible options for continued treatment. <Marely Quintero - 02/20/18 10:10> - Attending Attestation Patient case discussed with resident physicians I have independently examined the patient I have read the above note and agree with the assessment and plan as discussed with me I was involved in all medical decision making for this patient Rudy Curiel MD <Rudy Curiel - 02/20/18 15:28>
[2018-02-21] MEDS: Sodium Chloride 0.9% 2 ML Flush BID IV.FLUSH SCH ×2 (08:14→22:04)
[2018-02-21] MEDS: Senna/Docusate Sodium 8.6/50 MG Tablet PO SCH ×2 (08:15→22:04)
--- NOTE | 2018-02-21 08:53 | P.PNFP ---
Subjective Interval history: Patient seen and examined this morning. He is feeling well. Complains of mild neck pain and global headache, which he attributes to sleeping in an odd position. He says this occurs regularly at home and normally takes Ibuprofen for it, which ameliorates the pain. He states that he is starting to get feeling back in his lower legs. Denies fever, chills, chest pain, shortness of breath, nausea, vomiting, or calf pain. <Marely Quintero - 02/21/18 08:53> Results - Labs Result diagrams: 02/16/18 07:07 02/16/18 07:07 <Rudy Curiel - 02/21/18 19:52> Physical Exam Vital signs: Vital Signs 02/20/18 20:00 02/20/18 23:54 02/21/18 08:00 Temperature 97.7 F 97.3 F L Pulse Rate 66 55 L Respiratory Rate 18 20 Blood Pressure 130/76 126/70 Pulse Oximetry 97 94 L 95 02/21/18 12:10 Temperature Pulse Rate Respiratory Rate 16 Blood Pressure Pulse Oximetry Intake & Output 02/21/18 02/21/18 02/22/18 06:59 18:59 06:59 Intake Total 200 / 200 460 / 460 Output Total 900 / 900 450 / 450 Balance -700 / -700 10 Weight 119.3 kg Intake: IV 200 / 200 250 / 250 Levaquin 750 mg Premix Inj 150 150 / 150 ML @ 100 mls/hr IV.SIG Q24H [facility] Rx#:[id number] Merrem Inj 1,000 MG In NS Inj 200 / 200 100 / 100 100 ML @ 200 mls/hr IV.SIG Q8H [facility] Rx#:[id number] Oral 210 / 210 Output: Urine 900 / 900 450 / 450 Other: Date of Last Bowel Movement 02/18/18 02/19/18 <Rudy Curiel - 02/21/18 19:52> Vital Signs 02/20/18 12:00 02/20/18 16:00 02/20/18 20:00 Temperature 97.5 F L 97.7 F 97.7 F Pulse Rate 63 61 66 Respiratory Rate 18 16 18 Blood Pressure 124/72 115/66 130/76 Pulse Oximetry 96 98 97 02/20/18 23:54 Temperature Pulse Rate Respiratory Rate Blood Pressure Pulse Oximetry 94 L Intake & Output 02/20/18 02/21/18 02/21/18 18:59 06:59 18:59 Intake Total 250 / 250 200 / 200 Output Total 900 / 900 Balance 250 / 250 -700 / -700 Weight 119.3 kg Intake: IV 250 / 250 200 / 200 Levaquin 750 mg Premix Inj 150 150 / 150 ML @ 100 mls/hr IV.SIG Q24H [facility] Rx#:[id number] Merrem Inj 1,000 MG In NS Inj 100 / 100 200 / 200 100 ML @ 200 mls/hr IV.SIG Q8H [facility] Rx#:[id number] Output: Urine 900 / 900 Other: Date of Last Bowel Movement 02/20/18 02/18/18 02/19/18 <Marely Quintero - 02/21/18 08:53> Narrative: GENERAL: 52 year old obese M in no acute distress. CARDIOVASCULAR: Regular rate and rhythm, no murmurs. RESPIRATORY: Clear to auscultation. Breath sounds equal bilaterally. No wheezes , rales, or rhonchi. GASTROINTESTINAL: Abdomen soft, non-tender, nondistended. Normal active bowel sounds MUSCULOSKELETAL: Extremities without clubbing, cyanosis, or edema. Right foot bandaged and wrapped in MARYA last changed by podiatry on 02/18. No drainage or bleeding. Bandage dry. Able to move toes bilaterally. 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 Code(s): Z89.412 - Acquired absence of left great toe Status: Acute (2) Osteomyelitis of foot Code(s): M86.9 - Osteomyelitis, unspecified Status: Acute (3) Asthma Code(s): J45.909 - Unspecified asthma, uncomplicated Status: Chronic (4) Neck pain, chronic Code(s): M54.2 - Cervicalgia; G89.29 - Other chronic pain Status: Acute (5) Nutrition, metabolism, and development symptoms Code(s): R63.8 - Other symptoms and signs concerning food and fluid intake Status: Acute (6) DVT prophylaxis Status: Acute <Rudy Curiel - 02/21/18 19:52> (1) History of complete ray amputation of first toe of left foot Code(s): Z89.412 - Acquired absence of left great toe Status: Acute Plan: Unclear etiology for initial osteomyelitis HgbA1c 5.7 and bedside glucose wnl. TSH and B12 wnl. Wound cultures grew Stenotrophomonas maltophilia and Pseudomonas aeruginosa. Tissue cultures grew Stenotrophomonas maltophilia. Pathology with evidence of acute and chronic osteomyelitis and negative margins. Blood cultures with no growth. * Per records from [facility], cultures grew Morganella, rare bacteroides pyogenes, strep agalactiae and acinetobacter. Patient underwent I&D. Patient treated with ertapenem. Patient discharged without wound vac but IV antibiotics continued. Foot MRI with evidence of osteomyelitis. Also no known history of peripheral vascular disease or venous insufficiency. s/p left first ray resection on 02/04. Tylenol and [place] 5/325 for pain, morphine for breakthrough pain. Podiatry consulted, appreciate recs * To remove suture 02/24 or 02/25 if healing well ID consulted, appreciate recs, including planned stop date of antibiotic treatment. * continue IV meropenem and Levaquin Vital signs qshift CBC with diff, CMP and CRP weekly. Last taken on 02/16 which were WNL. Tylenol and [place] 5/325 for pain, morphine for breakthrough pain. (2) Osteomyelitis of foot Code(s): M86.9 - Osteomyelitis, unspecified Status: Acute Plan: S/p amputation of L great toe See plan above for antibiotic coverage. (3) Asthma Code(s): J45.909 - Unspecified asthma, uncomplicated Status: Chronic Plan: Patient with history of asthma. Stable, no treatment at this time. (4) Neck pain, chronic Code(s): M54.2 - Cervicalgia; G89.29 - Other chronic pain Status: Acute Plan: Ibuprofen 400mg q6hr PRN for neck pain. (5) Nutrition, metabolism, and development symptoms Code(s): R63.8 - Other symptoms and signs concerning food and fluid intake Status: Acute Plan: FEN: Fluid: * Tolerating PO. Electrolytes: * Monitor and replete as necessary. Nutrition: * Regular diet. (6) DVT prophylaxis Status: Acute Plan: Encourage ambulation and mobility as tolerated. <Marely Quintero - 02/21/18 15:21> - Assessment and Plan Hospital Course: Patient is a 52 year old male, sent to the ED by his senior policy associate due to a non- healing ulcer on the plantar surface of his left foot. Patient was recently hospitalized at [facility] for evaluation and treatment of the same non-healing ulcer. He underwent I&D with wound vac placement during that hospitalization in early December; he was however discharged without wound vac. Patient was placed on ertapenem; IV antibiotic was continued as outpatient. Patient reported to [place] due to disease progression despite IV antibiotic treatment. Left first toe resection on 02/04. Left foot wound complicated by osteomyelitis: * Unclear etiology. * HgbA1c 5.7 and bedside glucose wnl. * TSH and B12 wnl. * Also no known history of peripheral vascular disease or venous insufficiency. * Wound cultures grew Stenotrophomonas maltophilia and Pseudomonas aeruginosa. * Tissue cultures grew Stenotrophomonas maltophilia. * Pathology with evidence of acute and chronic osteomyelitis and negative margins. * Blood cultures with no growth. * Foot MRI with evidence of osteomyelitis. * Left first ray resection performed 02/04. * Consult placed to ID; patient on meropenem and Levaquin. * Per records from [facility], cultures grew Morganella, rare bacteroides pyogenes, strep agalactiae and acinetobacter. Patient underwent I&D. Patient treated with ertapenem. Patient discharged without wound vac but IV antibiotics continued. * Tylenol and [place] 5/325 for pain, morphine for breakthrough pain. * Coordinating w/CM to decide best possible options for continued treatment. <Marely Quintero - 02/21/18 08:53> - Attending Attestation Pt. examined and case discussed with resident physicians. I have read the above note and agree with the assessment and plan as discussed with me. I was involved in all medical decision making for this patient. Rudy Curiel MD <Rudy Curiel - 02/21/18 19:52>
[2018-02-21] MEDS ORDERED: Ibuprofen 400 MG Tablet PO PRN (09:07)
[2018-02-22] MEDS: Sodium Chloride 0.9% 2 ML Flush BID IV.FLUSH SCH ×2 (09:46→21:42)
[2018-02-22] MEDS: Senna/Docusate Sodium 8.6/50 MG Tablet PO SCH ×2 (09:48→21:42)
--- NOTE | 2018-02-22 11:00 | P.PNFP ---
Subjective Interval history: Patient seen and examined this morning. He has no complaints at this time. He notes mild increase in feeling in his ankle compared to one week ago. Denies fever, chills, nausea, vomiting, chest pain, shortness of breath or leg pain. Results - Labs Result diagrams: 02/16/18 07:07 02/16/18 07:07 Physical Exam Vital signs: Vital Signs 02/21/18 12:10 02/21/18 20:00 02/21/18 23:49 Temperature 98.6 F Pulse Rate 64 Respiratory Rate 16 18 Blood Pressure 137/85 Pulse Oximetry 97 98 02/22/18 08:00 Temperature 97.4 F L Pulse Rate 56 L Respiratory Rate 18 Blood Pressure 120/68 Pulse Oximetry 98 Intake & Output 02/21/18 02/22/18 02/22/18 18:59 06:59 18:59 Intake Total 460 / 460 200 / 200 Output Total 450 / 450 1100 / 1100 Balance -900 / -900 Intake: IV 250 / 250 200 / 200 Levaquin 750 mg Premix Inj 150 150 / 150 ML @ 100 mls/hr IV.SIG Q24H [facility] Rx#:[id number] Merrem Inj 1,000 MG In NS Inj 100 / 100 200 / 200 100 ML @ 200 mls/hr IV.SIG Q8H [facility] Rx#:[id number] Oral 210 / 210 Output: Urine 450 / 450 1100 / 1100 Other: Date of Last Bowel Movement 02/19/18 02/21/18 Narrative: GENERAL: 52 year old obese M in no acute distress. CARDIOVASCULAR: Regular rate and rhythm, no murmurs. RESPIRATORY: Clear to auscultation. Breath sounds equal bilaterally. No wheezes , rales, or rhonchi. GASTROINTESTINAL: Abdomen soft, non-tender, nondistended. Normal active bowel sounds MUSCULOSKELETAL: Extremities without clubbing, cyanosis, or edema. Right foot bandaged and wrapped in MARYA last changed by podiatry on 02/18. No drainage or bleeding. Bandage dry. Able to move toes bilaterally. NEURO: Alert & Oriented x4 to person, place, time, situation Assessment and Plan - Assessment (1) History of complete ray amputation of first toe of left foot Code(s): Z89.412 - Acquired absence of left great toe Status: Acute Plan: Unclear etiology for initial osteomyelitis HgbA1c 5.7 and bedside glucose wnl. TSH and B12 wnl. Wound cultures grew Stenotrophomonas maltophilia and Pseudomonas aeruginosa. Tissue cultures grew Stenotrophomonas maltophilia. Pathology with evidence of acute and chronic osteomyelitis and negative margins. Blood cultures with no growth. * Per records from [facility], cultures grew Morganella, rare bacteroides pyogenes, strep agalactiae and acinetobacter. Patient underwent I&D. Patient treated with ertapenem. Patient discharged without wound vac but IV antibiotics continued. Foot MRI with evidence of osteomyelitis. Also no known history of peripheral vascular disease or venous insufficiency. s/p left first ray resection on 02/04. Tylenol and [place] 5/325 for pain, morphine for breakthrough pain. Podiatry consulted, appreciate recs * To remove suture 02/24 or 02/25 if healing well ID consulted, appreciate recs, including planned stop date of antibiotic treatment. * continue IV meropenem and Levaquin Vital signs qshift CBC with diff, CMP and CRP weekly. Last taken on 02/16 which were WNL. Tylenol and [place] 5/325 for pain, morphine for breakthrough pain. (2) Osteomyelitis of foot Code(s): M86.9 - Osteomyelitis, unspecified Status: Acute Plan: S/p amputation of L great toe See plan above for antibiotic coverage. (3) Asthma Code(s): J45.909 - Unspecified asthma, uncomplicated Status: Chronic Plan: Patient with history of asthma. Stable, no treatment at this time. (4) Neck pain, chronic Code(s): M54.2 - Cervicalgia; G89.29 - Other chronic pain Status: Acute Plan: Ibuprofen 400mg q6hr PRN for neck pain. (5) Nutrition, metabolism, and development symptoms Code(s): R63.8 - Other symptoms and signs concerning food and fluid intake Status: Acute Plan: FEN: Fluid: * Tolerating PO. Electrolytes: * Monitor and replete as necessary. Nutrition: * Regular diet. (6) DVT prophylaxis Status: Acute Plan: Encourage ambulation and mobility as tolerated. - Assessment and Plan Hospital Course: Patient is a 52 year old male, sent to the ED by his microsoft solutions architect due to a non- healing ulcer on the plantar surface of his left foot. Patient was recently hospitalized at [facility] for evaluation and treatment of the same non-healing ulcer. He underwent I&D with wound vac placement during that hospitalization in early December; he was however discharged without wound vac. Patient was placed on ertapenem; IV antibiotic was continued as outpatient. Patient reported to [place] due to disease progression despite IV antibiotic treatment. Left first toe resection on 02/04. Left foot wound complicated by osteomyelitis: * Unclear etiology. * HgbA1c 5.7 and bedside glucose wnl. * TSH and B12 wnl. * Also no known history of peripheral vascular disease or venous insufficiency. * Wound cultures grew Stenotrophomonas maltophilia and Pseudomonas aeruginosa. * Tissue cultures grew Stenotrophomonas maltophilia. * Pathology with evidence of acute and chronic osteomyelitis and negative margins. * Blood cultures with no growth. * Foot MRI with evidence of osteomyelitis. * Left first ray resection performed 02/04. * Consult placed to ID; patient on meropenem and Levaquin. * Per records from [place], cultures grew Morganella, rare bacteroides pyogenes, strep agalactiae and acinetobacter. Patient underwent I&D. Patient treated with ertapenem. Patient discharged without wound vac but IV antibiotics continued. * Tylenol and [place] 5/325 for pain, morphine for breakthrough pain. * Coordinating w/CM to decide best possible options for continued treatment.
[2018-02-23 05:34] LABS: Baso % (Auto) 0.5 % (0.0-2.0); Eos # (Auto) 0.1 th/mm3 (0.0-0.4); Eos % (Auto) 2.4 % (0.0-4.0); Hematocrit 41.1 % (39.0-51.0); Hemoglobin 14.2 gm/dL (13.0-17.0); Lymph # (Auto) 1.7 th/mm3 (1.0-4.8); Mean Corpuscular HGB Conc 34.6 % (32.0-36.0); Mean Corpuscular Hemoglobin 29.5 pg (27.0-34.0); Mean Corpuscular Volume 85.4 fL (80.0-100.0); Mono # (Auto) 0.5 th/mm3 (0.0-0.9); Mono % (Auto) 8.9 % (0.0-8.0); Neut # (Auto) 3.2 th/mm3 (1.8-7.7); Neut % (Auto) 58.2 % (16.0-70.0); Platelet Count 124 th/mm3 (150-450); Red Blood Count 4.81 mil/mm3 (4.50-5.90); Red Cell Distribution Width 13.8 % (11.6-17.2); White Blood Count 5.6 th/mm3 (4.0-11.0)
[2018-02-23 06:01] LABS: Anion Gap 6 meq/L (5-15); Blood Urea Nitrogen 15 mg/dL (7-18); Calcium 8.3 mg/dL (8.5-10.1); Carbon Dioxide 30.5 meq/L (21.0-32.0); Chloride 104 meq/L (98-107); Glomerular Filtration Rate Greater Than 89 mL/min (>89); Glucose,Random 85 mg/dL (74-106); Potassium 4.2 meq/L (3.5-5.1); Sodium 140 meq/L (136-145)
[2018-02-23] MEDS: Senna/Docusate Sodium 8.6/50 MG Tablet PO SCH ×2 (07:59→21:20)
[2018-02-23] MEDS: Sodium Chloride 0.9% 2 ML Flush BID IV.FLUSH SCH ×2 (07:59→20:10)
--- NOTE | 2018-02-23 10:49 | P.PNFP ---
Subjective Interval history: Stable. No new events. Results - Labs Result diagrams: 02/23/18 05:09 02/23/18 05:09 Abnormal lab results 02/23/18 02/23/18 Range/Units 05:09 05:09 Plt Count 124 L (150-450) th/mm3 [place] % (Auto) 8.9 H (0.0-8.0) % Calcium 8.3 L (8.5-10.1) mg/dL Short CBC 02/23/18 Range/Units 05:09 WBC 5.6 (4.0-11.0) th/mm3 Hgb 14.2 (13.0-17.0) gm/dL Hct 41.1 (39.0-51.0) % Plt Count 124 L (150-450) th/mm3 BMP 02/23/18 05:09 Sodium 140 Potassium 4.2 Chloride 104 Carbon Dioxide 30.5 BUN 15 Creatinine 0.71 Calcium 8.3 L Physical Exam Vital signs: Vital Signs 02/22/18 12:00 02/22/18 16:00 02/22/18 20:00 Temperature 97.8 F 97.7 F 97.7 F Pulse Rate 59 L 76 67 Respiratory Rate 18 18 18 Blood Pressure 131/63 139/69 139/73 Pulse Oximetry 96 97 96 02/22/18 22:25 02/23/18 08:00 Temperature 97.7 F Pulse Rate 55 L Respiratory Rate 20 Blood Pressure 124/62 Pulse Oximetry 97 98 Intake & Output 02/22/18 02/23/18 02/23/18 18:59 06:59 18:59 Intake Total 3270 / 3270 200 / 200 Output Total 1712 / 1712 1300 / 1300 Balance 1558 / 1558 -1100 / -1100 Weight 121.9 kg Intake: IV 250 / 250 200 / 200 Levaquin 750 mg Premix Inj 150 150 / 150 ML @ 100 mls/hr IV.SIG Q24H [facility] Rx#:[id number] Merrem Inj 1,000 MG In NS Inj 100 / 100 200 / 200 100 ML @ 200 mls/hr IV.SIG Q8H [facility] Rx#:[id number] Oral 1920 / 1920 Anesthesia Amount 100 / 100 Other 1000 / 1000 Output: Urine 1700 / 1700 1300 / 1300 Urine/Stool Mix 2 / 2 Estimated Blood Loss Other: Other Intake Source Saline Solution # Voids 2 Date of Last Bowel Movement 02/21/18 02/21/18 # Bowel Movements 4 Narrative: GENERAL: 52 year old obese M in no acute distress. CARDIOVASCULAR: Regular rate. RESPIRATORY: No accessory muscle use. GASTROINTESTINAL: Abdomen non-distended. MUSCULOSKELETAL: Extremities without clubbing, cyanosis, or edema. Right foot bandaged and wrapped in MARYA last changed by podiatry on 02/18. No drainage or bleeding. Bandage dry. Able to move toes bilaterally. 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 * continue IV meropenem and Levaquin Vital signs qshift CBC with diff, CMP and CRP weekly. Last taken on 02/23 were WNL. Tylenol and [place] 5/325 for pain, morphine for breakthrough pain. (2) Osteomyelitis of foot Code(s): M86.9 - Osteomyelitis, unspecified Status: Acute Plan: S/p amputation of L great toe See plan above for antibiotic coverage. (3) Asthma Code(s): J45.909 - Unspecified asthma, uncomplicated Status: Chronic Plan: Patient with history of asthma. Stable, no treatment at this time. (4) Neck pain, chronic Code(s): M54.2 - Cervicalgia; G89.29 - Other chronic pain Status: Acute Plan: Ibuprofen 400mg q6hr PRN for neck pain. (5) Nutrition, metabolism, and development symptoms Code(s): R63.8 - Other symptoms and signs concerning food and fluid intake Status: Acute Plan: FEN: Fluid: * Tolerating PO. Electrolytes: * Monitor and replete as necessary. Nutrition: * Regular diet. (6) DVT prophylaxis Status: Acute Plan: Encourage ambulation and mobility as tolerated. - Assessment and Plan Hospital Course: Patient is a 52 year old male, sent to the ED by his graphics production specialist due to a non- healing ulcer on the plantar surface of his left foot. Patient was recently hospitalized at [facility] for evaluation and treatment of the same non-healing ulcer. He underwent I&D with wound vac placement during that hospitalization in early December; he was however discharged without wound vac. Patient was placed on ertapenem; IV antibiotic was continued as outpatient. Patient reported to [place] due to disease progression despite IV antibiotic treatment. Left first toe resection on 02/04. Left foot wound complicated by osteomyelitis: * Unclear etiology. * HgbA1c 5.7 and bedside glucose wnl. * TSH and B12 wnl. * Also no known history of peripheral vascular disease or venous insufficiency. * Wound cultures grew Stenotrophomonas maltophilia and Pseudomonas aeruginosa. * Tissue cultures grew Stenotrophomonas maltophilia. * Pathology with evidence of acute and chronic osteomyelitis and negative margins. * Blood cultures with no growth. * Foot MRI with evidence of osteomyelitis. * Left first ray resection performed 02/04. * Consult placed to ID; patient on meropenem and Levaquin. * Per records from [facility], cultures grew Morganella, rare bacteroides pyogenes, strep agalactiae and acinetobacter. Patient underwent I&D. Patient treated with ertapenem. Patient discharged without wound vac but IV antibiotics continued. * Tylenol and [place] 5/325 for pain, morphine for breakthrough pain. * Coordinating w/CM to decide best possible options for continued treatment.
--- NOTE | 2018-02-24 11:52 | P.PNFP ---
Subjective Interval history: No new events. Results - Labs Result diagrams: 02/23/18 05:09 02/23/18 05:09 Physical Exam Vital signs: Vital Signs 02/23/18 20:00 02/23/18 22:57 02/24/18 08:00 Temperature 97.5 F L 97.7 F Pulse Rate 60 66 Respiratory Rate 18 22 Blood Pressure 121/70 116/69 Pulse Oximetry 98 94 L 96 Intake & Output 02/23/18 02/24/18 02/24/18 18:59 06:59 18:59 Intake Total 250 / 250 200 / 200 Output Total 1999 Balance 250 / 250 -1800 / -1800 Weight 121.9 kg Intake: IV 250 / 250 200 / 200 Levaquin 750 mg Premix Inj 150 150 / 150 ML @ 100 mls/hr IV.SIG Q24H [facility] Rx#:[id number] Merrem Inj 1,000 MG In NS Inj 100 / 100 200 / 200 100 ML @ 200 mls/hr IV.SIG Q8H [facility] Rx#:[id number] Output: Urine 1999 Other: Date of Last Bowel Movement 02/21/18 Narrative: GENERAL: 52 year old obese M in no acute distress. CARDIOVASCULAR: Regular rate. RESPIRATORY: No accessory muscle use. GASTROINTESTINAL: Abdomen non-distended. MUSCULOSKELETAL: Right foot bandaged and wrapped in MARYA last changed by podiatry on 02/18. No drainage or bleeding. Bandage dry. Able to move toes bilaterally. NEURO: No new deficits Assessment and Plan - Assessment (1) History of complete ray amputation of first toe of left foot Code(s): Z89.412 - Acquired absence of left great toe Status: Acute Plan: Podiatry consulted, appreciate recs * To remove suture 02/24 or 02/25 if healing well ID consulted, appreciate recs, including planned stop date of antibiotic treatment. * continue IV meropenem and Levaquin Vital signs qshift CBC with diff, CMP and CRP weekly. Last taken on 02/23 were WNL. Tylenol and [place] 5/325 for pain, morphine for breakthrough pain. (2) Osteomyelitis of foot Code(s): M86.9 - Osteomyelitis, unspecified Status: Acute Plan: S/p amputation of L great toe See plan above for antibiotic coverage. (3) Asthma Code(s): J45.909 - Unspecified asthma, uncomplicated Status: Chronic Plan: Patient with history of asthma. Stable, no treatment at this time. (4) Neck pain, chronic Code(s): M54.2 - Cervicalgia; G89.29 - Other chronic pain Status: Acute Plan: Ibuprofen 400mg q6hr PRN for neck pain. (5) Nutrition, metabolism, and development symptoms Code(s): R63.8 - Other symptoms and signs concerning food and fluid intake Status: Acute Plan: FEN: Fluid: * Tolerating PO. Electrolytes: * Monitor and replete as necessary. Nutrition: * Regular diet. (6) DVT prophylaxis Status: Acute Plan: Encourage ambulation and mobility as tolerated. - Assessment and Plan Dispo: on completion of tx Hospital Course: Patient is a 52 year old male, sent to the ED by his boat joiner due to a non- healing ulcer on the plantar surface of his left foot. Patient was recently hospitalized at [facility] for evaluation and treatment of the same non-healing ulcer. He underwent I&D with wound vac placement during that hospitalization in early December; he was however discharged without wound vac. Patient was placed on ertapenem; IV antibiotic was continued as outpatient. Patient reported to [place] due to disease progression despite IV antibiotic treatment. Left first toe resection on 02/04. Left foot wound complicated by osteomyelitis: * Unclear etiology. * HgbA1c 5.7 and bedside glucose wnl. * TSH and B12 wnl. * Also no known history of peripheral vascular disease or venous insufficiency. * Wound cultures grew Stenotrophomonas maltophilia and Pseudomonas aeruginosa. * Tissue cultures grew Stenotrophomonas maltophilia. * Pathology with evidence of acute and chronic osteomyelitis and negative margins. * Blood cultures with no growth. * Foot MRI with evidence of osteomyelitis. * Left first ray resection performed 02/04. * Consult placed to ID; patient on meropenem and Levaquin. * Per records from [facility], cultures grew Morganella, rare bacteroides pyogenes, strep agalactiae and acinetobacter. Patient underwent I&D. Patient treated with ertapenem. Patient discharged without wound vac but IV antibiotics continued. * Tylenol and [place] 5/325 for pain, morphine for breakthrough pain. * Coordinating w/CM to decide best possible options for continued treatment.
[2018-02-24] MEDS: Sodium Chloride 0.9% 2 ML Flush BID IV.FLUSH SCH ×2 (12:22→21:25)
[2018-02-24] MEDS: Senna/Docusate Sodium 8.6/50 MG Tablet PO SCH ×2 (12:22→21:22)
[2018-02-25] MEDS: Senna/Docusate Sodium 8.6/50 MG Tablet PO SCH ×2 (09:44→22:15)
[2018-02-25] MEDS: Sodium Chloride 0.9% 2 ML Flush PRN IV.FLUSH (09:45)
[2018-02-25] MEDS: Sodium Chloride 0.9% 2 ML Flush BID IV.FLUSH SCH ×2 (09:45→22:15)
--- NOTE | 2018-02-25 10:32 | P.PNFP ---
Subjective Interval history: Patient seen and examined this morning. He complains of mild left shoulder pain , worse with moving. No erythema, induration, swelling, or bruising at the site of his PICC line. No notable trauma to the area, though patient states he may have slept in a position last night. He has never had pain like this before. Denies chest pain, shortness of breath, fever, and chills. He states that he is starting to gain sensation back in his lower leg and left foot. Denies pain, bleeding, discharge, change in temperature of the left foot. He is able to move his toes. He is to be seen by podiatry today or tomorrow, who plan to remove his sutures if the surgery site has remained well-healing. <Marely Quintero - 02/25/18 12:03> Results - Labs Result diagrams: 02/23/18 05:09 02/23/18 05:09 <Rudy Curiel 02/25/18 13:16> Physical Exam Vital signs: Vital Signs 02/24/18 20:00 02/25/18 00:40 02/25/18 08:00 Temperature 97.3 F L 97.5 F L Pulse Rate 56 L 63 Respiratory Rate 18 20 Blood Pressure 132/66 135/82 Pulse Oximetry 98 95 98 02/25/18 12:00 Temperature 97.5 F L Pulse Rate 63 Respiratory Rate 20 Blood Pressure 135/82 Pulse Oximetry 98 Intake & Output 02/24/18 02/25/18 02/25/18 18:59 06:59 18:59 Intake Total 580 / 580 690 / 690 Output Total 600 / 600 1800 / 1800 300 / 300 Balance -20 / -20 -1110 / -1110 -300 / -300 Intake: IV 100 / 100 350 / 350 Levaquin 750 mg Premix Inj 150 150 / 150 ML @ 100 mls/hr IV.SIG Q24H RAUL Rx#:[id number] Merrem Inj 1,000 MG In NS Inj 100 / 100 200 / 200 100 ML @ 200 mls/hr IV.SIG Q8H RAUL Rx#:[id number] Oral 480 / 480 340 / 340 Output: Urine 600 / 600 1800 / 1800 300 / 300 Other: Date of Last Bowel Movement 02/24/18 02/24/18 # Bowel Movements 1 <Rudy Curiel 02/25/18 13:16> Vital Signs 02/24/18 20:00 02/25/18 00:40 02/25/18 08:00 Temperature 97.3 F L 97.5 F L Pulse Rate 56 L 63 Respiratory Rate 18 20 Blood Pressure 132/66 135/82 Pulse Oximetry 98 95 98 Intake & Output 02/24/18 02/25/18 02/25/18 18:59 06:59 18:59 Intake Total 580 / 580 690 / 690 Output Total 600 / 600 1800 / 1800 Balance -20 / -20 -1110 / -1110 Intake: IV 100 / 100 350 / 350 Levaquin 750 mg Premix Inj 150 150 / 150 ML @ 100 mls/hr IV.SIG Q24H [facility]UL Rx#:[id number] Merrem Inj 1,000 MG In NS Inj 100 / 100 200 / 200 100 ML @ 200 mls/hr IV.SIG Q8H RAUL Rx#:[id number] Oral 480 / 480 340 / 340 Output: Urine 600 / 600 1800 / 1800 Other: Date of Last Bowel Movement 02/24/18 02/24/18 # Bowel Movements 1 <Marely Quintero - 02/25/18 10:31> Narrative: GENERAL: 52 year old obese M in no acute distress. CARDIOVASCULAR: Regular rate. RESPIRATORY: No accessory muscle use. GASTROINTESTINAL: Abdomen non-distended. MUSCULOSKELETAL: Right foot bandaged and wrapped in MARYA last changed by podiatry on 02/18. No drainage or bleeding. Bandage dry. Able to move toes bilaterally. Capillary refill less than 2 seconds. 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 Code(s): Z89.412 - Acquired absence of left great toe Status: Acute (2) Osteomyelitis of foot Code(s): M86.9 - Osteomyelitis, unspecified Status: Acute (3) Left shoulder pain Code(s): M25.512 - Pain in left shoulder Status: Acute (4) Asthma Code(s): J45.909 - Unspecified asthma, uncomplicated Status: Chronic (5) Neck pain, chronic Code(s): M54.2 - Cervicalgia; G89.29 - Other chronic pain Status: Acute (6) Nutrition, metabolism, and development symptoms Code(s): R63.8 - Other symptoms and signs concerning food and fluid intake Status: Acute (7) DVT prophylaxis Status: Acute <Veena,Rudy - 02/25/18 13:16> (1) 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 * continue IV meropenem and Levaquin Vital signs qshift CBC with diff, CMP and CRP weekly, next planned for 03/02. Last taken on 02/23 were WNL. Tylenol and [place] 5/325 for pain, morphine for breakthrough pain. (2) Osteomyelitis of foot Code(s): M86.9 - Osteomyelitis, unspecified Status: Acute Plan: S/p amputation of L great toe See plan above for antibiotic coverage. (3) Left shoulder pain Code(s): M25.512 - Pain in left shoulder Status: Acute Plan: Patient complaining of mild, new left shoulder pain that started this morning. Patient is a PICC line located on the left arm. Muscle strain versus thrombus. Ordered ultrasound of left upper extremity. (4) Asthma Code(s): J45.909 - Unspecified asthma, uncomplicated Status: Chronic Plan: Patient with history of asthma. Stable, no treatment at this time. (5) Neck pain, chronic Code(s): M54.2 - Cervicalgia; G89.29 - Other chronic pain Status: Acute Plan: Ibuprofen 400mg q6hr PRN for neck pain. (6) Nutrition, metabolism, and development symptoms Code(s): R63.8 - Other symptoms and signs concerning food and fluid intake Status: Acute Plan: FEN: Fluid: * Tolerating PO. Electrolytes: * Monitor and replete as necessary. Nutrition: * Regular diet. (7) DVT prophylaxis Status: Acute Plan: Encourage ambulation and mobility as tolerated. 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 Patient was recently hospitalized at [facility] for evaluation and treatment of the same non-healing ulcer. He underwent I&D with wound vac placement during that hospitalization in early December; he was however discharged without wound vac. Patient was placed on ertapenem; IV antibiotic was continued as outpatient. Patient reported to [place] due to disease progression despite IV antibiotic treatment. Left first toe resection on 02/04. Left foot wound complicated by osteomyelitis: * Unclear etiology. * HgbA1c 5.7 and bedside glucose wnl. * TSH and B12 wnl. * Also no known history of peripheral vascular disease or venous insufficiency. * Wound cultures grew Stenotrophomonas maltophilia and Pseudomonas aeruginosa. * Tissue cultures grew Stenotrophomonas maltophilia. * Pathology with evidence of acute and chronic osteomyelitis and negative margins. * Blood cultures with no growth. * Foot MRI with evidence of osteomyelitis. * Left first ray resection performed 02/04. * Consult placed to ID; patient on meropenem and Levaquin. * Per records from [facility], cultures grew Morganella, rare bacteroides pyogenes, strep agalactiae and acinetobacter. Patient underwent I&D. Patient treated with ertapenem. Patient discharged without wound vac but IV antibiotics continued. * Tylenol and [place] 5/325 for pain, morphine for breakthrough pain. * Coordinating w/CM to decide best possible options for continued treatment. <Marely Quintero - 02/25/18 12:07> - Attending Attestation Pt. examined and case discussed with resident physicians. I have read the above note and agree with the assessment and plan as discussed with me. I was involved in all medical decision making for this patient. Rudy Curiel MD <Rudy Curiel - 02/25/18 13:16>
--- NOTE | 2018-02-25 10:37 | P.PNPOD ---
Subjective Interval history: s/p left first ray amp on 02/04/18 with . Pt denies any n/v/f/h/c/sob/ pain. Physical Exam Vital signs: Vital Signs 02/24/18 20:00 02/25/18 00:40 02/25/18 08:00 Temperature 97.3 F L 97.5 F L Pulse Rate 56 L 63 Respiratory Rate 18 20 Blood Pressure 132/66 135/82 Pulse Oximetry 98 95 98 Intake & Output 02/24/18 02/25/18 02/25/18 18:59 06:59 18:59 Intake Total 580 / 580 690 / 690 Output Total 600 / 600 1800 / 1800 Balance -20 / -20 -1110 / -1110 Intake: IV 100 / 100 350 / 350 Levaquin 750 mg Premix Inj 150 150 / 150 ML @ 100 mls/hr IV.SIG Q24H RAUL Rx#:[id number] Merrem Inj 1,000 MG In NS Inj 100 / 100 200 / 200 100 ML @ 200 mls/hr IV.SIG Q8H RAUL Rx#:[id number] Oral 480 / 480 340 / 340 Output: Urine 600 / 600 1800 / 1800 Other: Date of Last Bowel Movement 02/24/18 02/24/18 # Bowel Movements 1 Narrative: Incision site is well coapted after suture removal. No erythema, no drainage, minimal edema. Medications and Allergies Active Medications: Active Medications Acetaminophen (Tylenol) 650 mg PO Q4H PRN PRN Reason: Pain 1-5 And/Or Fever >101f Last Admin: 02/07/18 12:08 Dose: 650 mg Hydrocodone Bitart/Acetaminophen ([place] 5/325) 1 tab PO Q4H PRN PRN Reason: PAIN SCALE 6 TO 10 Last Admin: 02/24/18 21:23 Dose: 1 tab Al Hydroxide/Mg Hydroxide (Milk Of Magnesia Liq) 30 ml PO Q12H PRN PRN Reason: Mild Constipation Albuterol (Duoneb Neb (Prn)) 1 ampul NEB Q4HR NEB PRN PRN Reason: SHORTNESS OF BREATH/WHEEZING Bisacodyl (Dulcolax Supp) 10 mg RECTAL DAILY PRN PRN Reason: SEVERE CONSITIPATION Clonidine HCl (Catapres) 0.1 mg PO Q6H PRN PRN Reason: SEE LABEL COMMENTS Sodium Chloride (Ns Inj) 500 mls @ 30 mls/hr IV.SIG .Q10H [facility] Last Admin: 02/04/18 05:32 Dose: Not Given Levofloxacin/Dextrose (Levaquin 750 Mg Premix Inj) 150 mls @ 100 mls/hr IV.SIG Q24H [facility] Last Infusion: 02/24/18 19:46 Dose: Infused Meropenem 1,000 mg/ Sodium (Chloride) 100 mls @ 200 mls/hr IV.SIG Q8H [facility] Last Infusion: 02/25/18 05:44 Dose: Infused Ibuprofen (Motrin) 400 mg PO Q6H PRN PRN Reason: headache, neck pain Last Admin: 02/21/18 11:20 Dose: 400 mg Lactulose (Lactulose Liq) 30 ml PO DAILY PRN PRN Reason: SEVERE CONSITIPATION Morphine Sulfate (Morphine Inj) 2 mg IV.PUSH Q3H PRN PRN Reason: BREAKTHROUGH PAIN Naphazoline HCl (Clear Eyes Redness Relief 0.012% Opth Drops) 1 drop EACH EYE Q4H PRN PRN Reason: DRY EYE(S) Last Admin: 02/16/18 15:31 Dose: 1 drop Ondansetron HCl (Zofran Inj) 4 mg IV.PUSH Q6H PRN PRN Reason: NAUSEA OR VOMITING Senna/Docusate Sodium (Celi-Colace) 1 tab PO BID [facility] Last Admin: 02/25/18 09:44 Dose: 1 tab Sodium Chloride (Ns Flush) 2 ml IV.FLUSH BID [facility] Last Admin: 02/25/18 09:45 Dose: 2 ml Sodium Chloride (Ns Flush) 2 ml IV.FLUSH PRN PRN PRN Reason: FLUSH AFTER USING IV ACCESS Last Admin: 02/25/18 09:45 Dose: 2 ml Allergies Allergy/AdvReac Type Severity Reaction Status Date / Time No Known Allergies Allergy Verified 02/02/18 17:27 Home Medications Medication Instructions Recorded Confirmed Type No Known Home Medications 02/02/18 02/02/18 History Results - Labs CBC & Chem 7: 02/23/18 05:09 02/23/18 05:09 Assessment and Plan - Assessment (1) Open wnd foot-complicated Code(s): S91.309A - Unspecified open wound, unspecified foot, initial encounter Status: Acute (2) Foot ulcer, left Code(s): L97.529 - Non-pressure chronic ulcer of other part of left foot with unspecified severity Status: Resolved - Plan 1) s/p partial left first ray amp -Heel WBing LLE -cont iv abx until 6 weeks completed -Sutures removed at bedside, keep bandage clean/dry/intact -f/u with in office 5-7 days after discharge (1) Open wnd foot-complicated Qualifiers: Encounter type: initial encounter Laterality: left Qualified Code(s): S91.302A - Unspecified open wound, left foot, initial encounter
[2018-02-26] MEDS: Senna/Docusate Sodium 8.6/50 MG Tablet PO SCH ×2 (09:40→21:32)
[2018-02-26] MEDS: Sodium Chloride 0.9% 2 ML Flush BID IV.FLUSH SCH ×2 (09:41→21:32)
--- NOTE | 2018-02-26 10:16 | US ---
EXAM DATE: 02/26/2018 10:13 AM EDT AGE/SEX: 53 years / Male INDICATIONS: Left arm pain. CLINICAL DATA: This is the patient's initial encounter. Patient reports that signs and symptoms have been present for 1 day and indicates a pain score of 6/10. MEDICAL/SURGICAL HISTORY: Hypertension. . Left foot first ray resection COMPARISON: No prior exams available for comparison. FINDINGS: The vessels are compressible and augmentation response is documented. No filling defects a re seen. The flow is phasic with respiration. Other: None. CONCLUSION: No venous thrombosis is identified in the left upper extremity. Electronically signed by: Calin Gomez MD 02/26/2018 10:15 AM EDT
--- NOTE | 2018-02-26 10:27 | P.PNFP ---
Subjective Interval history: No acute problems or issues. Left shoulder is still sore. Undergoing venous US in the room. States pain is localized to upper shoulder region that worsens w/ administration of meds through picc line. Denies drainage, swelling, erythema, or warmth. No other complains. Vitals stable overnight. Sutures were removed by podiatry yesterday. <HectorTashiParul N - 02/26/18 12:01> Results - Labs Result diagrams: 02/23/18 05:09 02/23/18 05:09 <Travis Christiansen - 02/27/18 13:24> - Imaging Impressions Venous Doppler Study 02/26/18 00:00 CONCLUSION: No venous thrombosis is identified in the left upper extremity. <Parul Young - 02/26/18 10:27> Physical Exam Vital signs: Vital Signs 02/26/18 20:00 02/26/18 22:30 02/27/18 08:00 Temperature 98.5 F 97.8 F Pulse Rate 64 68 Respiratory Rate 20 20 Blood Pressure 122/67 127/71 Pulse Oximetry 97 99 95 Intake & Output 02/26/18 02/27/18 02/27/18 18:59 06:59 18:59 Intake Total 650 / 650 200 / 200 150 / 150 Output Total 310 / 310 1400 / 1400 250 / 250 Balance 340 / 340 -1200 / -1200 -100 / -100 Weight 123 kg Intake: IV 250 / 250 200 / 200 150 / 150 Levaquin 750 mg Premix Inj 150 150 / 150 150 / 150 ML @ 100 mls/hr IV.SIG Q24H RAUL Rx#:[id number] Merrem Inj 1,000 MG In NS Inj 100 / 100 200 / 200 100 ML @ 200 mls/hr IV.SIG Q8H RAUL Rx#:[id number] Oral 400 / 400 Output: Urine 300 / 300 1400 / 1400 250 / 250 Estimated Blood Loss Other: # Voids 4 Date of Last Bowel Movement 02/26/18 02/26/18 # Bowel Movements 3 <Travis Christiansen - 02/27/18 13:24> Vital Signs 02/25/18 12:00 02/25/18 20:00 02/25/18 23:15 Temperature 97.5 F L 97.8 F Pulse Rate 63 74 Respiratory Rate 20 20 Blood Pressure 135/82 130/73 Pulse Oximetry 98 98 98 02/26/18 04:04 02/26/18 08:00 Temperature 98.2 F Pulse Rate 61 Respiratory Rate 20 Blood Pressure 121/70 Pulse Oximetry 95 96 Intake & Output 02/25/18 02/26/18 02/26/18 18:59 06:59 18:59 Intake Total 610 / 610 200 / 200 Output Total 1000 / 1000 1000 / 1000 Balance -390 / -390 -800 / -800 Weight 122.5 kg Intake: IV 250 / 250 200 / 200 Levaquin 750 mg Premix Inj 150 150 / 150 ML @ 100 mls/hr IV.SIG Q24H RAUL Rx#:[id number] Merrem Inj 1,000 MG In NS Inj 100 / 100 200 / 200 100 ML @ 200 mls/hr IV.SIG Q8H RAUL Rx#:[id number] Oral 360 / 360 Output: Urine 1000 / 1000 1000 / 1000 Other: Date of Last Bowel Movement 02/25/18 <Parul Young N - 02/26/18 10:27> Narrative: GENERAL: 52 year old obese M in no acute distress. CARDIOVASCULAR: Regular rate. RESPIRATORY: No accessory muscle use. GASTROINTESTINAL: Abdomen non-distended. MUSCULOSKELETAL: Right foot bandaged and wrapped in MARYA last changed by podiatry on 02/18. No drainage or bleeding. Bandage dry. Able to move toes bilaterally. Capillary refill less than 2 seconds. 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 F/u w/Dr. Chavarria planned for 5-7 days after d/c ID consulted, appreciate recs, including planned stop date of antibiotic treatment. * continue IV meropenem and Levaquin Vital signs qshift CBC with diff, CMP and CRP weekly, next planned for 03/02. Last taken on 02/23 were WNL. Tylenol and Ibuprofen for pain DC [place] today (2) Osteomyelitis of foot Code(s): M86.9 - Osteomyelitis, unspecified Status: Acute Plan: S/p amputation of L great toe See plan above for antibiotic coverage. (3) Left shoulder pain Code(s): M25.512 - Pain in left shoulder Status: Acute Plan: Ordered ultrasound of left upper extremity, no abnormalities noted. Shoulder XR shows osteoarthritis of the AC joint. Tylenol and Ibuprofen for pain PRN (4) Asthma Code(s): J45.909 - Unspecified asthma, uncomplicated Status: Chronic Plan: Patient with history of asthma. Stable, no treatment at this time. (5) Neck pain, chronic Code(s): M54.2 - Cervicalgia; G89.29 - Other chronic pain Status: Acute Plan: Ibuprofen 600mg q6hr PRN for neck pain. (6) Nutrition, metabolism, and development symptoms Code(s): R63.8 - Other symptoms and signs concerning food and fluid intake Status: Acute Plan: FEN: Fluid: * Tolerating PO. Electrolytes: * Monitor and replete as necessary. Nutrition: * Regular diet. (7) DVT prophylaxis Status: Acute Plan: Encourage ambulation and mobility as tolerated. <Parul Young - 02/26/18 11:55> - Assessment and Plan See the residents documentation for details. I saw and evaluated the patient regarding the ly portions of this evaluation and agree with the residents findings and plans as written. Parts of this note were created using [employer] voice recognition software program. While efforts were made to correct any mistakes made by this software, some mistakes, errors, and omissions may remain in the final note that were not caught when the note was originally created. Plan of care was discussed and agreed upon with the patient as specifically documented in the above note. An opportunity to ask questions with explanation was provided. Patient voiced understanding on all information reviewed and discussed. 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 Patient was recently hospitalized at [facility] for evaluation and treatment of the same non-healing ulcer. He underwent I&D with wound vac placement during that hospitalization in early December; he was however discharged without wound vac. Patient was placed on ertapenem; IV antibiotic was continued as outpatient. Patient reported to [place] due to disease progression despite IV antibiotic treatment. Left first toe resection on 02/04. Left foot wound complicated by osteomyelitis: * Unclear etiology. * HgbA1c 5.7 and bedside glucose wnl. * TSH and B12 wnl. * Also no known history of peripheral vascular disease or venous insufficiency. * Wound cultures grew Stenotrophomonas maltophilia and Pseudomonas aeruginosa. * Tissue cultures grew Stenotrophomonas maltophilia. * Pathology with evidence of acute and chronic osteomyelitis and negative margins. * Blood cultures with no growth. * Foot MRI with evidence of osteomyelitis. * Left first ray resection performed 02/04. * Consult placed to ID; patient on meropenem and Levaquin. * Per records from [facility], cultures grew Morganella, rare bacteroides pyogenes, strep agalactiae and acinetobacter. Patient underwent I&D. Patient treated with ertapenem. Patient discharged without wound vac but IV antibiotics continued. * Tylenol and [place] 5/325 for pain, morphine for breakthrough pain. * Coordinating w/CM to decide best possible options for continued treatment. <Parul Young N - 02/26/18 10:27>
--- NOTE | 2018-02-26 11:12 | XR ---
EXAM DATE: 02/26/2018 11:05 AM EDT AGE/SEX: 53 years / Male INDICATIONS: Left shoulder pain, denies injury CLINICAL DATA: This is the patient's initial encounter. Patient reports that signs and symptoms have been present for 3 days and indicates a pain score of 9/10. MEDICAL/SURGICAL HISTORY: Hypertension. . COMPARISON: No prior exams available for comparison. FINDINGS: 4 views of the left shoulder demonstrate no fracture or dislocation. Mineralization is within normal limits. The acromioclavicular joint is intact with mild osteoarthritis. No soft tissue abnormality or radiopaque foreign body is identified. There is some type of line overlying the left arm. Visualized left chest demonstrates no acute abnormality. CONCLUSION: No acute left shoulder abnormality is identified. There is osteoarthritis at the acromioclavicular maicol int. Electronically signed by: Calin Gomez MD 02/26/2018 11:10 AM EDT
[2018-02-26] MEDS: Ibuprofen 600 MG Tablet PO PRN ×2 (15:37→21:28)
[2018-02-27] MEDS: Sodium Chloride 0.9% 2 ML Flush BID IV.FLUSH SCH ×2 (08:02→20:16)
[2018-02-27] MEDS: Senna/Docusate Sodium 8.6/50 MG Tablet PO SCH ×2 (08:02→21:52)
--- NOTE | 2018-02-27 11:11 | P.PNFP ---
Subjective Interval history: 52 yo admitted with osteomyelitis of left great toe now s/p toe amputation being seen for f/u. Patient seen and examined today. He states that he is still experiencing mild shoulder pain, which has been well controlled with ibuprofen. He otherwise has no complaints at this time. Denies fever, chills, chest pain, shortness of breath or leg swelling. <Marely Quintero - 02/27/18 11:11> Results - Labs Result diagrams: 02/23/18 05:09 02/23/18 05:09 <Travis Christiansen - 02/27/18 14:26> - Imaging Impressions Shoulder X-Ray 02/26/18 00:00 CONCLUSION: No acute left shoulder abnormality is identified. 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 <Marely Quintero - 02/27/18 11:11> Physical Exam Vital signs: Vital Signs 02/26/18 20:00 02/26/18 22:30 02/27/18 08:00 Temperature 98.5 F 97.8 F Pulse Rate 64 68 Respiratory Rate 20 20 Blood Pressure 122/67 127/71 Pulse Oximetry 97 99 95 Intake & Output 02/26/18 02/27/18 02/27/18 18:59 06:59 18:59 Intake Total 650 / 650 200 / 200 610 / 610 Output Total 310 / 310 1400 / 1400 450 / 450 Balance 340 / 340 -1200 / -1200 160 / 160 Weight 123 kg Intake: IV 250 / 250 200 / 200 250 / 250 Levaquin 750 mg Premix Inj 150 150 / 150 150 / 150 ML @ 100 mls/hr IV.SIG Q24H RAUL Rx#:[id number] Merrem Inj 1,000 MG In NS Inj 100 / 100 200 / 200 100 / 100 100 ML @ 200 mls/hr IV.SIG Q8H RAUL Rx#:[id number] Oral 400 / 400 360 / 360 Output: Urine 300 / 300 1400 / 1400 450 / 450 Estimated Blood Loss Other: # Voids 4 Date of Last Bowel Movement 02/26/18 02/26/18 # Bowel Movements 3 1 <Travis Christiansen - 02/27/18 14:26> Vital Signs 02/26/18 20:00 02/26/18 22:30 02/27/18 08:00 Temperature 98.5 F 97.8 F Pulse Rate 64 68 Respiratory Rate 20 20 Blood Pressure 122/67 127/71 Pulse Oximetry 97 99 95 Intake & Output 02/26/18 02/27/18 02/27/18 18:59 06:59 18:59 Intake Total 650 / 650 200 / 200 Output Total 310 / 310 1400 / 1400 250 / 250 Balance 340 / 340 -1200 / -1200 -250 / -250 Weight 123 kg Intake: IV 250 / 250 200 / 200 Levaquin 750 mg Premix Inj 150 150 / 150 ML @ 100 mls/hr IV.SIG Q24H RAUL Rx#:[id number] Merrem Inj 1,000 MG In NS Inj 100 / 100 200 / 200 100 ML @ 200 mls/hr IV.SIG Q8H RAUL Rx#:[id number] Oral 400 / 400 Output: Urine 300 / 300 1400 / 1400 250 / 250 Estimated Blood Loss Other: # Voids 4 Date of Last Bowel Movement 02/26/18 02/26/18 # Bowel Movements 3 <Marely Quintero - 02/27/18 11:11> Narrative: GENERAL: 52 year old obese M in no acute distress. CARDIOVASCULAR: Regular rate. RESPIRATORY: No accessory muscle use. GASTROINTESTINAL: Abdomen non-distended. MUSCULOSKELETAL: Right foot bandaged and wrapped in MARYA last changed by podiatry on 02/18. No drainage or bleeding. Bandage dry. Able to move toes bilaterally. Capillary refill less than 2 seconds. 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 F/u w/Dr. Chavarria planned for 5-7 days after d/c ID consulted, appreciate recs, including planned stop date of antibiotic treatment. * continue IV meropenem and Levaquin Vital signs qshift CBC with diff, CMP and CRP weekly, next planned for 03/02. Last taken on 02/23 were WNL. Tylenol and Ibuprofen for pain DC [place] today (2) Osteomyelitis of foot Code(s): M86.9 - Osteomyelitis, unspecified Status: Acute Plan: S/p amputation of L great toe See plan above for antibiotic coverage. (3) Left shoulder pain Code(s): M25.512 - Pain in left shoulder Status: Acute Plan: Ordered ultrasound of left upper extremity, no abnormalities noted. Shoulder XR shows osteoarthritis of the AC joint. Tylenol and Ibuprofen for pain PRN (4) Asthma Code(s): J45.909 - Unspecified asthma, uncomplicated Status: Chronic Plan: Patient with history of asthma. Stable, no treatment at this time. (5) Neck pain, chronic Code(s): M54.2 - Cervicalgia; G89.29 - Other chronic pain Status: Acute Plan: Ibuprofen 600mg q6hr PRN for neck pain. (6) Nutrition, metabolism, and development symptoms Code(s): R63.8 - Other symptoms and signs concerning food and fluid intake Status: Acute Plan: FEN: Fluid: * Tolerating PO. Electrolytes: * Monitor and replete as necessary. Nutrition: * Regular diet. (7) DVT prophylaxis Status: Acute Plan: Encourage ambulation and mobility as tolerated. <Marely Quintero - 02/27/18 11:07> - Assessment and Plan See the residents documentation for details. I saw and evaluated the patient regarding the ly portions of this evaluation and agree with the residents findings and plans as written. Parts of this note were created using [employer] voice recognition software program. While efforts were made to correct any mistakes made by this software, some mistakes, errors, and omissions may remain in the final note that were not caught when the note was originally created. Plan of care was discussed and agreed upon with the patient as specifically documented in the above note. An opportunity to ask questions with explanation was provided. Patient voiced understanding on all information reviewed and discussed. 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 Patient was recently hospitalized at [facility] for evaluation and treatment of the same non-healing ulcer. He underwent I&D with wound vac placement during that hospitalization in early December; he was however discharged without wound vac. Patient was placed on ertapenem; IV antibiotic was continued as outpatient. Patient reported to [place] due to disease progression despite IV antibiotic treatment. Left first toe resection on 02/04. Left foot wound complicated by osteomyelitis: * Unclear etiology. * HgbA1c 5.7 and bedside glucose wnl. * TSH and B12 wnl. * Also no known history of peripheral vascular disease or venous insufficiency. * Wound cultures grew Stenotrophomonas maltophilia and Pseudomonas aeruginosa. * Tissue cultures grew Stenotrophomonas maltophilia. * Pathology with evidence of acute and chronic osteomyelitis and negative margins. * Blood cultures with no growth. * Foot MRI with evidence of osteomyelitis. * Left first ray resection performed 02/04. * Consult placed to ID; patient on meropenem and Levaquin. * Per records from [facility], cultures grew Morganella, rare bacteroides pyogenes, strep agalactiae and acinetobacter. Patient underwent I&D. Patient treated with ertapenem. Patient discharged without wound vac but IV antibiotics continued. * Tylenol and [place] 5/325 for pain, morphine for breakthrough pain. * Coordinating w/CM to decide best possible options for continued treatment. <Marely Quintero - 02/27/18 11:11>
[2018-02-27] MEDS: Ibuprofen 600 MG Tablet PO PRN (12:35)
[2018-02-28] MEDS: Senna/Docusate Sodium 8.6/50 MG Tablet PO SCH ×2 (09:10→23:17)
[2018-02-28] MEDS: Sodium Chloride 0.9% 2 ML Flush BID IV.FLUSH SCH ×2 (09:10→23:18)
--- NOTE | 2018-02-28 11:45 | P.PNFP ---
Subjective Interval history: No new problems today. <Parul Young N - 02/28/18 11:45> Results - Labs Result diagrams: 02/23/18 05:09 02/23/18 05:09 <Travis Christiansen - 03/01/18 12:10> Physical Exam Vital signs: Vital Signs 02/28/18 20:00 03/01/18 00:49 03/01/18 04:03 Temperature 97.3 F L Pulse Rate 67 Respiratory Rate 20 Blood Pressure 121/62 Pulse Oximetry 96 99 97 03/01/18 08:00 Temperature 97.7 F Pulse Rate 72 Respiratory Rate 18 Blood Pressure 121/60 Pulse Oximetry 97 Intake & Output 02/28/18 03/01/18 03/01/18 18:59 06:59 18:59 Intake Total 490 / 490 320 / 320 Output Total 650 / 650 1575 / 1575 Balance -160 / -160 -1255 / -1255 Intake: IV 250 / 250 200 / 200 Levaquin 750 mg Premix Inj 150 150 / 150 ML @ 100 mls/hr IV.SIG Q24H RAUL Rx#:[id number] Merrem Inj 1,000 MG In NS Inj 100 / 100 200 / 200 100 ML @ 200 mls/hr IV.SIG Q8H RAUL Rx#:[id number] Oral 240 / 240 120 / 120 Output: Urine 650 / 650 1575 / 1575 <Travis Christiansen - 03/01/18 12:10> Vital Signs 02/27/18 20:00 02/28/18 00:26 02/28/18 08:00 Temperature 97.5 F L 98.0 F Pulse Rate 61 63 Respiratory Rate 21 20 Blood Pressure 119/57 L 125/58 L Pulse Oximetry 97 96 98 Intake & Output 02/27/18 02/28/18 02/28/18 18:59 06:59 18:59 Intake Total 850 / 850 200 / 200 Output Total 950 / 950 800 / 800 Balance -100 / -100 -600 / -600 Weight 125 kg Intake: IV 250 / 250 200 / 200 Levaquin 750 mg Premix Inj 150 150 / 150 ML @ 100 mls/hr IV.SIG Q24H RAUL Rx#:[id number] Merrem Inj 1,000 MG In NS Inj 100 / 100 200 / 200 100 ML @ 200 mls/hr IV.SIG Q8H RAUL Rx#:[id number] Oral 600 / 600 Output: Urine 950 / 950 800 / 800 Other: # Voids 1 Date of Last Bowel Movement 02/27/18 # Bowel Movements 1 <Parul Young N - 02/28/18 11:45> Narrative: GENERAL: 52 year old obese M in no acute distress. CARDIOVASCULAR: Regular rate. RESPIRATORY: No accessory muscle use. GASTROINTESTINAL: Abdomen non-distended. MUSCULOSKELETAL: Right foot bandaged and wrapped in MARYA last changed by podiatry on 02/18. No drainage or bleeding. Bandage dry. Able to move toes bilaterally. Capillary refill less than 2 seconds. 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 F/u w/Dr. Chavarria planned for 5-7 days after d/c ID consulted, appreciate recs, including planned stop date of antibiotic treatment. * continue IV meropenem and Levaquin Vital signs qshift CBC with diff, CMP and CRP weekly, next planned for 03/02. Last taken on 02/23 were WNL. Tylenol and Ibuprofen for pain (2) Osteomyelitis of foot Code(s): M86.9 - Osteomyelitis, unspecified Status: Acute Plan: S/p amputation of L great toe See plan above for antibiotic coverage. (3) Asthma Code(s): J45.909 - Unspecified asthma, uncomplicated Status: Chronic Plan: Patient with history of asthma. Stable, no treatment at this time. (4) Neck pain, chronic Code(s): M54.2 - Cervicalgia; G89.29 - Other chronic pain Status: Acute Plan: Ibuprofen 600mg q6hr PRN for neck pain. (5) Nutrition, metabolism, and development symptoms Code(s): R63.8 - Other symptoms and signs concerning food and fluid intake Status: Acute Plan: FEN: Fluid: * Tolerating PO. Electrolytes: * Monitor and replete as necessary. Nutrition: * Regular diet. (6) DVT prophylaxis Status: Acute Plan: Encourage ambulation and mobility as tolerated. <Parul Young - 02/28/18 11:43> - Attending Attestation See the residents documentation for details. I saw and evaluated the patient regarding the ly portions of this evaluation and agree with the residents findings and plans as written. Parts of this note were created using [employer] voice recognition software program. While efforts were made to correct any mistakes made by this software, some mistakes, errors, and omissions may remain in the final note that were not caught when the note was originally created. Plan of care was discussed and agreed upon with the patient as specifically documented in the above note. An opportunity to ask questions with explanation was provided. Patient voiced understanding on all information reviewed and discussed. <Travis Christiansen - 03/01/18 12:10>
[2018-02-28] MEDS: Ibuprofen 600 MG Tablet PO PRN (12:38)
[2018-03-01] MEDS: Senna/Docusate Sodium 8.6/50 MG Tablet PO SCH ×2 (09:07→21:50)
[2018-03-01] MEDS: Sodium Chloride 0.9% 2 ML Flush BID IV.FLUSH SCH ×2 (09:08→21:51)
--- NOTE | 2018-03-01 11:05 | P.PNFP ---
Subjective Interval history: No changes. <Parul Young N - 03/01/18 11:05> Results - Labs Result diagrams: 02/23/18 05:09 02/23/18 05:09 <Travis Christiansen - 03/01/18 11:59> Physical Exam Vital signs: Vital Signs 02/28/18 20:00 03/01/18 00:49 03/01/18 04:03 Temperature 97.3 F L Pulse Rate 67 Respiratory Rate 20 Blood Pressure 121/62 Pulse Oximetry 96 99 97 03/01/18 08:00 Temperature 97.7 F Pulse Rate 72 Respiratory Rate 18 Blood Pressure 121/60 Pulse Oximetry 97 Intake & Output 02/28/18 03/01/18 03/01/18 18:59 06:59 18:59 Intake Total 490 / 490 320 / 320 Output Total 650 / 650 1575 / 1575 Balance -160 / -160 -1255 / -1255 Intake: IV 250 / 250 200 / 200 Levaquin 750 mg Premix Inj 150 150 / 150 ML @ 100 mls/hr IV.SIG Q24H RAUL Rx#:[id number] Merrem Inj 1,000 MG In NS Inj 100 / 100 200 / 200 100 ML @ 200 mls/hr IV.SIG Q8H RAUL Rx#:[id number] Oral 240 / 240 120 / 120 Output: Urine 650 / 650 1575 / 1575 <Travis Christiansen - 03/01/18 11:59> Vital Signs 02/28/18 20:00 03/01/18 00:49 03/01/18 04:03 Temperature 97.3 F L Pulse Rate 67 Respiratory Rate 20 Blood Pressure 121/62 Pulse Oximetry 96 99 97 03/01/18 08:00 Temperature 97.7 F Pulse Rate 72 Respiratory Rate 18 Blood Pressure 121/60 Pulse Oximetry 97 Intake & Output 02/28/18 03/01/18 03/01/18 18:59 06:59 18:59 Intake Total 490 / 490 320 / 320 Output Total 650 / 650 1575 / 1575 Balance -160 / -160 -1255 / -1255 Intake: IV 250 / 250 200 / 200 Levaquin 750 mg Premix Inj 150 150 / 150 ML @ 100 mls/hr IV.SIG Q24H RAUL Rx#:[id number] Merrem Inj 1,000 MG In NS Inj 100 / 100 200 / 200 100 ML @ 200 mls/hr IV.SIG Q8H RAUL Rx#:[id number] Oral 240 / 240 120 / 120 Output: Urine 650 / 650 1575 / 1575 <Parul Young N - 03/01/18 11:05> Narrative: GENERAL: 52 year old obese M in no acute distress. CARDIOVASCULAR: Regular rate. RESPIRATORY: No accessory muscle use. GASTROINTESTINAL: Abdomen non-distended. MUSCULOSKELETAL: Right foot bandaged and wrapped in MARYA last changed by podiatry on 02/18. No drainage or bleeding. Bandage dry. Able to move toes bilaterally. Capillary refill less than 2 seconds. NEURO: No new deficits <Parul Young N - 03/01/18 11:05> Assessment and Plan - Assessment (1) History of complete ray amputation of first toe of left foot Code(s): Z89.412 - Acquired absence of left great toe Status: Acute Plan: Podiatry consulted, appreciate recs * Sutures removed at bedside. F/u w/Dr. Chavarria planned for 5-7 days after d/c ID consulted, appreciate recs, including planned stop date of antibiotic treatment. * continue IV meropenem and Levaquin. End date is Mar 19. * needed for total of 6 weeks therapy, which started on 02/06 Vital signs qshift CBC with diff, CMP and CRP weekly, next planned for 03/02. Last taken on 02/23 were WNL. Tylenol and Ibuprofen for pain (2) Osteomyelitis of foot Code(s): M86.9 - Osteomyelitis, unspecified Status: Acute Plan: S/p amputation of L great toe See plan above for antibiotic coverage. (3) Asthma Code(s): J45.909 - Unspecified asthma, uncomplicated Status: Chronic Plan: Patient with history of asthma. Stable, no treatment at this time. (4) Neck pain, chronic Code(s): M54.2 - Cervicalgia; G89.29 - Other chronic pain Status: Acute Plan: Ibuprofen 600mg q6hr PRN for neck pain. (5) Nutrition, metabolism, and development symptoms Code(s): R63.8 - Other symptoms and signs concerning food and fluid intake Status: Acute Plan: FEN: Fluid: * Tolerating PO. Electrolytes: * Monitor and replete as necessary. Nutrition: * Regular diet. (6) DVT prophylaxis Status: Acute Plan: Encourage ambulation and mobility as tolerated. <Parul Young - 03/01/18 10:51> - Attending Attestation See the residents documentation for details. I saw and evaluated the patient regarding the ly portions of this evaluation and agree with the residents findings and plans as written. Parts of this note were created using [employer] voice recognition software program. While efforts were made to correct any mistakes made by this software, some mistakes, errors, and omissions may remain in the final note that were not caught when the note was originally created. Plan of care was discussed and agreed upon with the patient as specifically documented in the above note. An opportunity to ask questions with explanation was provided. Patient voiced understanding on all information reviewed and discussed. <Travis Christiansen - 03/01/18 11:59>
--- NOTE | 2018-03-01 17:31 | P.PNREH ---
Subjective Interval history: Patient awake and alert. Sitting up in bedside chair. Denies any chest pain or shortness of breath. Pain is adequately controlled. He reports that he has been ambulating using a walker and axillary crutches. He feels that his balance is at baseline. Review of Systems All other systems reviewed negative except as stated in HPI Exam - Physical Examination Vital Signs / I&O: Vital Signs 02/28/18 20:00 03/01/18 00:49 03/01/18 04:03 Temperature 97.3 F L Pulse Rate 67 Respiratory Rate 20 Blood Pressure 121/62 Pulse Oximetry 96 99 97 03/01/18 08:00 03/01/18 12:00 03/01/18 16:00 Temperature 97.7 F 97.8 F 97.6 F Pulse Rate 72 65 62 Respiratory Rate 18 18 18 Blood Pressure 121/60 118/72 131/63 Pulse Oximetry 97 97 99 Intake & Output 02/28/18 03/01/18 03/01/18 18:59 06:59 18:59 Intake Total 490 / 490 320 / 320 Output Total 650 / 650 1575 / 1575 Balance -160 / -160 -1255 / -1255 Intake: IV 250 / 250 200 / 200 Levaquin 750 mg Premix Inj 150 150 / 150 ML @ 100 mls/hr IV.SIG Q24H RAUL Rx#:[id number] Merrem Inj 1,000 MG In NS Inj 100 / 100 200 / 200 100 ML @ 200 mls/hr IV.SIG Q8H RAUL Rx#:[id number] Oral 240 / 240 120 / 120 Output: Urine 650 / 650 1575 / 1575 Intake & Output 02/27/18 02/28/18 03/01/18 03/02/18 06:59 06:59 06:59 06:59 Intake Total 850 / 850 1050 / 1050 810 / 810 Output Total 1710 / 1710 1750 / 1750 2225 / 2225 Balance -860 / -860 -700 / -700 -1415 / -1415 Weight 123 kg 125 kg General: No acute distress, Other (Awake and alert. Sitting up in bedside chair not in any apparent distress) Date of Last Bowel Movement: 02/27/18 Skin: Wound(s) (Left foot bandages in place ) Psychiatric: Cooperative, Appropriate mood & affect - Neurologic Orientation: oriented to: Self, Situation Neurologic: Speech (Clear) Motor: Right Upper Extremity (5/5), Left Upper Extremity (5/5), Right Lower Extremity (5/5), Left Lower Extremity (Hip and knee 5/5) Assessment and Plan (1) Osteomyelitis of foot Status: Acute Code(s): M86.9 - Osteomyelitis, unspecified (2) History of complete ray amputation of first toe of left foot Status: Acute Code(s): Z89.412 - Acquired absence of left great toe - Plan Assessment: 1. Osteomyelitis left foot chronic ulcer proximal hallux/first metatarsal status post left partial first ray amputation 2. Impaired mobility 3. History of hypertension 4. History of mild asthma Recommendations: 1. Patient is now ambulating with walker/axillary crutches with supervision of nursing. Physical therapy has discharged. 2. Continue supervision for fall prevention 3. Upper extremity function appears to be intact and no occupational therapy needs are identified at this time 4. Case management is addressing ongoing care at discharge including payor source for ongoing care. IV antibiotics to be continued through until 03/19/18 per ID recommendations. 5. Will follow while hospitalized and at discharge as appropriate
[2018-03-01] MEDS: Ibuprofen 600 MG Tablet PO PRN (17:50)
[2018-03-02 06:18] LABS: Baso % (Auto) 0.5 % (0.0-2.0); Eos # (Auto) 0.2 th/mm3 (0.0-0.4); Eos % (Auto) 3.6 % (0.0-4.0); Hematocrit 40.8 % (39.0-51.0); Hemoglobin 14.1 gm/dL (13.0-17.0); Lymph # (Auto) 1.4 th/mm3 (1.0-4.8); Lymph % (Auto) 27.6 % (9.0-44.0); Mean Corpuscular HGB Conc 34.5 % (32.0-36.0); Mean Corpuscular Hemoglobin 29.8 pg (27.0-34.0); Mean Corpuscular Volume 86.3 fL (80.0-100.0); Mean Platelet Volume 9.3 fL (7.0-11.0); Mono # (Auto) 0.5 th/mm3 (0.0-0.9); Mono % (Auto) 9.6 % (0.0-8.0); Neut % (Auto) 58.7 % (16.0-70.0); Platelet Count 114 th/mm3 (150-450); Red Blood Count 4.73 mil/mm3 (4.50-5.90); Red Cell Distribution Width 13.5 % (11.6-17.2); White Blood Count 5.2 th/mm3 (4.0-11.0)
[2018-03-02 06:40] LABS: Anion Gap 8 meq/L (5-15); Blood Urea Nitrogen 16 mg/dL (7-18); Calcium 8.5 mg/dL (8.5-10.1); Carbon Dioxide 29.5 meq/L (21.0-32.0); Chloride 104 meq/L (98-107); Glomerular Filtration Rate Greater Than 89 mL/min (>89); Glucose,Random 92 mg/dL (74-106); Potassium 4.5 meq/L (3.5-5.1); Sodium 141 meq/L (136-145)
[2018-03-02 06:50] LABS: Alanine Aminotransferase 42 U/L (12-78); Alkaline Phosphatase 79 U/L (45-117); Aspartate Aminotransferase 22 U/L (15-37); Total Protein 6.8 g/dL (6.4-8.2)
--- NOTE | 2018-03-02 08:23 | P.PNFP ---
Subjective Interval history: 52 yo admitted with osteomyelitis of left great toe now s/p toe amputation being seen for f/u. Patient states that he has no new complaints today. <Marely Quintero - 03/02/18 09:50> Results - Labs Result diagrams: 03/02/18 05:43 03/02/18 05:43 <Travis Christiansen - 03/02/18 15:11> Abnormal lab results 03/02/18 03/02/18 Range/Units 05:43 05:43 Plt Count 114 L (150-450) th/mm3 [place] % (Auto) 9.6 H (0.0-8.0) % Albumin 3.0 L (3.4-5.0) g/dL Short CBC 03/02/18 Range/Units 05:43 WBC 5.2 (4.0-11.0) th/mm3 Hgb 14.1 (13.0-17.0) gm/dL Hct 40.8 (39.0-51.0) % Plt Count 114 L (150-450) th/mm3 [facility] [place] 03/02/18 05:43 Sodium 141 Potassium 4.5 Chloride 104 Carbon Dioxide 29.5 BUN 16 Creatinine 0.84 Calcium 8.5 Liver Function 03/02/18 Range/Units 05:43 Total Bilirubin 0.4 (0.2-1.0) mg/dL AST 22 (15-37) U/L ALT 42 (12-78) U/L Alkaline Phosphatase 79 (45-117) U/L Albumin 3.0 L (3.4-5.0) g/dL <Travis Christiansen - 03/02/18 15:11> Abnormal lab results 03/02/18 03/02/18 Range/Units 05:43 05:43 Plt Count 114 L (150-450) th/mm3 [place] % (Auto) 9.6 H (0.0-8.0) % Albumin 3.0 L (3.4-5.0) g/dL Short CBC 03/02/18 Range/Units 05:43 WBC 5.2 (4.0-11.0) th/mm3 Hgb 14.1 (13.0-17.0) gm/dL Hct 40.8 (39.0-51.0) % Plt Count 114 L (150-450) th/mm3 [facility] [place] 03/02/18 05:43 Sodium 141 Potassium 4.5 Chloride 104 Carbon Dioxide 29.5 BUN 16 Creatinine 0.84 Calcium 8.5 Liver Function 03/02/18 Range/Units 05:43 Total Bilirubin 0.4 (0.2-1.0) mg/dL AST 22 (15-37) U/L ALT 42 (12-78) U/L Alkaline Phosphatase 79 (45-117) U/L Albumin 3.0 L (3.4-5.0) g/dL <Marely Quintero - 03/02/18 08:22> Physical Exam Vital signs: Vital Signs 03/01/18 16:00 03/01/18 20:00 03/02/18 00:24 Temperature 97.6 F 97.7 F Pulse Rate 62 71 Respiratory Rate 18 20 Blood Pressure 131/63 135/71 Pulse Oximetry 99 96 96 03/02/18 05:11 03/02/18 08:00 Temperature 97.7 F Pulse Rate 65 Respiratory Rate 18 Blood Pressure 125/56 L Pulse Oximetry 96 95 Intake & Output 03/01/18 03/02/18 03/02/18 18:59 06:59 18:59 Intake Total 1470 / 1470 440 / 440 Output Total 1187 / 1187 550 / 550 Balance 283 / 283 -110 / -110 Intake: IV 250 / 250 200 / 200 Levaquin 750 mg Premix Inj 150 150 / 150 ML @ 100 mls/hr IV.SIG Q24H [facility] Rx#:[id number] Merrem Inj 1,000 MG In NS Inj 100 / 100 200 / 200 100 ML @ 200 mls/hr IV.SIG Q8H [facility] Rx#:[id number] Oral 120 / 120 240 / 240 Anesthesia Amount 100 / 100 Other 1000 / 1000 Output: Urine 1175 / 1175 550 / 550 Urine/Stool Mix 2 / 2 Estimated Blood Loss Other: Other Intake Source Saline Solution # Voids 1 Date of Last Bowel Movement 02/27/18 # Bowel Movements 1 <Travis Christiansen - 03/02/18 15:11> Vital Signs 03/01/18 12:00 03/01/18 16:00 03/01/18 20:00 Temperature 97.8 F 97.6 F 97.7 F Pulse Rate 65 62 71 Respiratory Rate 18 18 20 Blood Pressure 118/72 131/63 135/71 Pulse Oximetry 97 99 96 03/02/18 00:24 03/02/18 05:11 Temperature Pulse Rate Respiratory Rate Blood Pressure Pulse Oximetry 96 96 Intake & Output 03/01/18 03/02/18 03/02/18 18:59 06:59 18:59 Intake Total 1470 / 1470 440 / 440 Output Total 1187 / 1187 550 / 550 Balance 283 / 283 -110 / -110 Intake: IV 250 / 250 200 / 200 Levaquin 750 mg Premix Inj 150 150 / 150 ML @ 100 mls/hr IV.SIG Q24H [facility] Rx#:[id number] Merrem Inj 1,000 MG In NS Inj 100 / 100 200 / 200 100 ML @ 200 mls/hr IV.SIG Q8H [facility] Rx#:[id number] Oral 120 / 120 240 / 240 Anesthesia Amount 100 / 100 Other 1000 / 1000 Output: Urine 1175 / 1175 550 / 550 Urine/Stool Mix 2 / 2 Estimated Blood Loss Other: Other Intake Source Saline Solution # Voids 1 Date of Last Bowel Movement 02/27/18 # Bowel Movements 1 <Marely Quintero - 03/02/18 08:22> Narrative: GENERAL: 52 year old obese M in no acute distress. RESPIRATORY: No accessory muscle use or tachypnea. GASTROINTESTINAL: Abdomen non-distended. MUSCULOSKELETAL: Right foot bandaged and wrapped in MARYA last changed by podiatry on 02/18. No drainage or bleeding. Bandage dry. Able to move toes bilaterally. NEURO: No new deficits <Marely Quintero - 03/02/18 09:50> Assessment and Plan - Assessment (1) History of complete ray amputation of first toe of left foot Code(s): Z89.412 - Acquired absence of left great toe Status: Acute Plan: Podiatry consulted, appreciate recs * Sutures removed at bedside. F/u w/Dr. Chavarria planned for 5-7 days after d/c ID consulted, appreciate recs, including planned stop date of antibiotic treatment. * continue IV meropenem and Levaquin. End date is Mar 19. * needed for total of 6 weeks therapy, which started on 02/06 Vital signs qshift CBC with diff, CMP and CRP weekly, performed today are WNL. Next due 03/09. Tylenol and Ibuprofen for pain Seen by rehabilitation therapy who are following patient and recommend continued supervision for fall prevention. PT/OT have signed off on patient, but can be reconsulted as needed. (2) Osteomyelitis of foot Code(s): M86.9 - Osteomyelitis, unspecified Status: Acute Plan: S/p amputation of L great toe See plan above for antibiotic coverage. (3) Asthma Code(s): J45.909 - Unspecified asthma, uncomplicated Status: Chronic Plan: Patient with history of asthma. Stable, no treatment at this time. (4) Neck pain, chronic Code(s): M54.2 - Cervicalgia; G89.29 - Other chronic pain Status: Acute Plan: Ibuprofen 600mg q6hr PRN for neck pain. (5) Nutrition, metabolism, and development symptoms Code(s): R63.8 - Other symptoms and signs concerning food and fluid intake Status: Acute Plan: FEN: Fluid: * Tolerating PO. Electrolytes: * Monitor and replete as necessary. Nutrition: * Regular diet. (6) DVT prophylaxis Status: Acute Plan: Encourage ambulation and mobility as tolerated. <Marely Quintero - 03/02/18 09:46> - Attending Attestation See the residents documentation for details. I saw and evaluated the patient regarding the ly portions of this evaluation and agree with the residents findings and plans as written. Parts of this note were created using [employer] voice recognition software program. While efforts were made to correct any mistakes made by this software, some mistakes, errors, and omissions may remain in the final note that were not caught when the note was originally created. Plan of care was discussed and agreed upon with the patient as specifically documented in the above note. An opportunity to ask questions with explanation was provided. Patient voiced understanding on all information reviewed and discussed. <Travis Christiansen - 03/02/18 15:11>
[2018-03-02] MEDS: Senna/Docusate Sodium 8.6/50 MG Tablet PO SCH ×2 (09:12→21:51)
[2018-03-02] MEDS: Sodium Chloride 0.9% 2 ML Flush BID IV.FLUSH SCH ×2 (12:12→21:49)
[2018-03-02] MEDS: Ibuprofen 600 MG Tablet PO PRN (13:04)
--- NOTE | 2018-03-02 14:18 | P.PNID ---
Subjective Remarks: Mr. 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 Patient reports that he was recently seen at [facility] by a few providers including Dr. Krause. He reports that he had a chronic wound on the plantar aspect of his left foot and the started in August of this year. He reports he has had soreness in that area since the beginning of the year but only got worse in August. He denies any trauma. Patient does report history of sleep apnea and being on CPAP at home. Patient is not a very reliable historian and does not follow through on his thoughts very well. Patient was admitted at [facility] from 01/10/2018 to for the left foot wounds suspected osteomyelitis. Patient was discharged home with PICC line and was instructed to continue IV antibiotics. He reports that he has been driving himself to the hospital to receive an antibiotic daily at 9:00 at the [facility]. He is unsure about what antibiotic this is surely does not appear to be vancomycin as that would be multiple times a day especially given his size. Another concern I have is a post surgery this patient has been weightbearing reportedly if he has been driving himself to the hospital. Patient was also set up to have a wound VAC placed but this was not done at his house. He also has concerns that the sutures were not removed on time. Patient currently lives in a mobile home with his cousin. Patient denies any fevers chills or night sweats. He denies any other systemic symptoms. Overnight events No fever No rash No diarrhea dw Podiatry foot last examined looks good. Podiatry changing dressings on weekends. Antibiotics: Meropenem IV Levaquin Lines: Lines ok Past Medical History: reviewed Allergies/Adverse Reactions: Allergies No Known Allergies Allergy (Verified 02/02/18 17:27) Objective Vital Signs 03/01/18 16:00 03/01/18 20:00 03/02/18 00:24 Temperature 97.6 F 97.7 F Pulse Rate 62 71 Respiratory Rate 18 20 Blood Pressure 131/63 135/71 Pulse Oximetry 99 96 96 03/02/18 05:11 03/02/18 08:00 Temperature 97.7 F Pulse Rate 65 Respiratory Rate 18 Blood Pressure 125/56 L Pulse Oximetry 96 95 Intake & Output 03/01/18 03/02/18 03/02/18 18:59 06:59 18:59 Intake Total 1470 / 1470 440 / 440 Output Total 1187 / 1187 550 / 550 Balance 283 / 283 -110 / -110 Intake: IV 250 / 250 200 / 200 Levaquin 750 mg Premix Inj 150 150 / 150 ML @ 100 mls/hr IV.SIG Q24H [facility] Rx#:[id number] Merrem Inj 1,000 MG In NS Inj 100 / 100 200 / 200 100 ML @ 200 mls/hr IV.SIG Q8H [facility] Rx#:[id number] Oral 120 / 120 240 / 240 Anesthesia Amount 100 / 100 Other 1000 / 1000 Output: Urine 1175 / 1175 550 / 550 Urine/Stool Mix 2 / 2 Estimated Blood Loss Other: Other Intake Source Saline Solution # Voids 1 Date of Last Bowel Movement 02/27/18 # Bowel Movements 1 Lab - Hematology Results 03/02/18 05:43 WBC 5.2 RBC 4.73 Hgb 14.1 Hct 40.8 MCV 86.3 MCH 29.8 MCHC 34.5 RDW 13.5 Plt Count 114 L MPV 9.3 Neut % (Auto) 58.7 Lymph % (Auto) 27.6 [place] % (Auto) 9.6 H Eos % (Auto) 3.6 Baso % (Auto) 0.5 Neut # (Auto) 3.0 Lymph # (Auto) 1.4 [place] # (Auto) 0.5 Eos # (Auto) 0.2 Baso # (Auto) 0.0 WBC Differential . Differential Comment Auto diff final Lab - Chemistry Results 03/02/18 05:43 Sodium 141 Potassium 4.5 Chloride 104 Carbon Dioxide 29.5 Anion Gap 8 BUN 16 Creatinine 0.84 Estimated GFR Greater than 89 Random Glucose 92 Calcium 8.5 Total Bilirubin 0.4 AST 22 ALT 42 Alkaline Phosphatase 79 C-Reactive Protein Less than 0.29 Total Protein 6.8 Albumin 3.0 L Imaging: ITS Impressions Foot MRI 02/02/18 18:25 CONCLUSION: Deep plantar ulcer of the medial forefoot as described with associated osteomyelitis of the neck and head of the first metatarsal and osteomyelitis throughout most of the great toe proximal phalanx. The first metatarsophalangeal joint is dorsally dislocated due to plantar and flexor mechanism rupture. I don't clearly see either sesamoid. Foot X-Ray 02/04/18 00:00 CONCLUSION: Postoperative first digit amputation. Shoulder X-Ray 02/26/18 00:00 CONCLUSION: No acute left shoulder abnormality is identified. 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 Venous Doppler Study 02/26/18 00:00 CONCLUSION: No venous thrombosis is identified in the left upper extremity. Physical Exam: GENERAL: Morbidly obese, not in acute distress SKIN: Cool and dry, no generalized rash HEAD: Atraumatic. Normocephalic. No temporal or scalp tenderness. EYES: Pupils equal round and reactive. Scleral icterus. No injection or drainage. No petechia ENT: Nothing abnormal detected NECK: Trachea midline. Supple, nontender, no meningeal signs. CARDIOVASCULAR: HS audible. RESPIRATORY: Clear to auscultation bilaterally. GASTROINTESTINAL: Abdomen soft nontender. MUSCULOSKELETAL: Left foot post op dressing NEUROLOGICAL: Alert oriented 3. Nonfocal. Psych cooperative IV line sites ok. Assessment and Plan - Plan Left foot chronic wounds possible underlying osteomyelitis On antibiotics prior to admission. Gram-negative wound infection. Patient is a PICC line in place that was placed at [facility] Morbid obesity Sleep apnea on CPAP Recommendations Continue meropenem IV (Neri Snyder from outside hospital, etc) Continue Levaquin (mcihele medeiros) Ricardo Donovan would like to communicate with podiatry after last foot follow up exam in hospital to decide if appropriate to stop antibiotics at 6 weeks.
[2018-03-03] MEDS: levoFLOXacin 750 MG Tablet PO SCH (09:56)
[2018-03-03] MEDS: Senna/Docusate Sodium 8.6/50 MG Tablet PO SCH ×2 (09:57→20:25)
[2018-03-03] MEDS: Ibuprofen 600 MG Tablet PO PRN (09:57)
[2018-03-03] MEDS: Sodium Chloride 0.9% 2 ML Flush BID IV.FLUSH SCH ×2 (12:57→20:31)
--- NOTE | 2018-03-03 13:24 | P.PNFP ---
Subjective Interval history: No new events or changes. Results - Labs Result diagrams: 03/02/18 05:43 03/02/18 05:43 Physical Exam Vital signs: Vital Signs 03/02/18 13:34 03/02/18 20:00 03/02/18 23:50 Temperature 97.7 F Pulse Rate 71 Respiratory Rate 15 20 18 Blood Pressure 125/72 Pulse Oximetry 98 03/03/18 08:00 Temperature 97.8 F Pulse Rate 83 Respiratory Rate 18 Blood Pressure 114/71 Pulse Oximetry 93 L Intake & Output 03/02/18 03/03/18 03/03/18 18:59 06:59 18:59 Intake Total 1340 / 1340 1260 / 1260 Output Total 612 / 612 1200 / 1200 200 / 200 Balance 728 / 728 60 / 60 -200 / -200 Weight 124.2 kg Intake: IV 300 / 300 Merrem Inj 1,000 MG In NS Inj 300 / 300 100 ML @ 200 mls/hr IV.SIG Q8H [facility] Rx#:[id number] Oral 240 / 240 960 / 960 Anesthesia Amount 100 / 100 Other 1000 / 1000 Output: Urine 600 / 600 1200 / 1200 200 / 200 Urine/Stool Mix 2 / 2 Estimated Blood Loss Other: Other Intake Source Saline Solution # Voids 1 3 Date of Last Bowel Movement 02/27/18 01/30/18 03/03/18 # Bowel Movements 1 Assessment and Plan - Assessment (1) History of complete ray amputation of first toe of left foot Code(s): Z89.412 - Acquired absence of left great toe Status: Acute Plan: Podiatry consulted, appreciate recs * Sutures removed at bedside. F/u w/Dr. Chavarria planned for 5-7 days after d/c ID consulted, appreciate recs, including planned stop date of antibiotic treatment. * continue IV meropenem and Levaquin. End date is Mar 19. * needed for total of 6 weeks therapy, which started on 02/06 Vital signs qshift CBC with diff, CMP and CRP weekly, performed today are WNL. Next due 03/09. Tylenol and Ibuprofen for pain Seen by rehabilitation therapy who are following patient and recommend continued supervision for fall prevention. PT/OT have signed off on patient, but can be reconsulted as needed. (2) Osteomyelitis of foot Code(s): M86.9 - Osteomyelitis, unspecified Status: Acute Plan: S/p amputation of L great toe See plan above for antibiotic coverage. (3) Asthma Code(s): J45.909 - Unspecified asthma, uncomplicated Status: Chronic Plan: Patient with history of asthma. Stable, no treatment at this time. (4) Neck pain, chronic Code(s): M54.2 - Cervicalgia; G89.29 - Other chronic pain Status: Acute Plan: Ibuprofen 600mg q6hr PRN for neck pain. (5) Nutrition, metabolism, and development symptoms Code(s): R63.8 - Other symptoms and signs concerning food and fluid intake Status: Acute Plan: FEN: Fluid: * Tolerating PO. Electrolytes: * Monitor and replete as necessary. Nutrition: * Regular diet. (6) DVT prophylaxis Status: Acute Plan: Encourage ambulation and mobility as tolerated. - Assessment and Plan See the residents documentation for details. I saw and evaluated the patient regarding the ly portions of this evaluation and agree with the residents findings and plans as written. Parts of this note were created using [employer] voice recognition software program. While efforts were made to correct any mistakes made by this software, some mistakes, errors, and omissions may remain in the final note that were not caught when the note was originally created. Plan of care was discussed and agreed upon with the patient as specifically documented in the above note. An opportunity to ask questions with explanation was provided. Patient voiced understanding on all information reviewed and discussed.
--- NOTE | 2018-03-04 09:01 | P.PNFP ---
Subjective Interval history: No new problems. Results - Labs Result diagrams: 03/02/18 05:43 03/02/18 05:43 Physical Exam Vital signs: Vital Signs 03/03/18 20:00 03/03/18 22:02 03/03/18 22:31 Temperature 97.7 F Pulse Rate 65 Respiratory Rate 18 18 Blood Pressure 130/60 Pulse Oximetry 97 99 03/04/18 08:00 Temperature 97.6 F Pulse Rate 63 Respiratory Rate 18 Blood Pressure 137/84 Pulse Oximetry 96 Intake & Output 03/03/18 03/04/18 03/04/18 18:59 06:59 18:59 Intake Total 820 / 820 200 / 200 Output Total 600 / 600 1300 / 1300 500 / 500 Balance 220 / 220 -1100 / -1100 -500 / -500 Weight 124.9 kg Intake: IV 100 / 100 200 / 200 Merrem Inj 1,000 MG In NS Inj 100 / 100 200 / 200 100 ML @ 200 mls/hr IV.SIG Q8H [facility] Rx#:[id number] Oral 720 / 720 Output: Urine 600 / 600 1300 / 1300 500 / 500 Other: Date of Last Bowel Movement 03/03/18 03/03/18 Narrative: GENERAL: 52 year old obese M in no acute distress. RESPIRATORY: No accessory muscle use or tachypnea. GASTROINTESTINAL: Abdomen non-distended. MUSCULOSKELETAL: Right foot bandaged and wrapped in MARYA last changed by podiatry on 02/18. No drainage or bleeding. Bandage dry. Able to move toes bilaterally. NEURO: No new deficits Assessment and Plan - Assessment (1) History of complete ray amputation of first toe of left foot Code(s): Z89.412 - Acquired absence of left great toe Status: Acute Plan: Podiatry consulted, appreciate recs * Sutures removed at bedside. F/u w/Dr. Chavarria planned for 5-7 days after d/c ID consulted, appreciate recs, including planned stop date of antibiotic treatment. * continue IV meropenem and Levaquin. End date is Mar 19. * needed for total of 6 weeks therapy, which started on 02/06 Vital signs qshift CBC with diff, CMP and CRP weekly, performed today are WNL. Next due 03/09. Tylenol and Ibuprofen for pain Seen by rehabilitation therapy who are following patient and recommend continued supervision for fall prevention. PT/OT have signed off on patient, but can be reconsulted as needed. (2) Osteomyelitis of foot Code(s): M86.9 - Osteomyelitis, unspecified Status: Acute Plan: S/p amputation of L great toe See plan above for antibiotic coverage. (3) Asthma Code(s): J45.909 - Unspecified asthma, uncomplicated Status: Chronic Plan: Patient with history of asthma. Stable, no treatment at this time. (4) Neck pain, chronic Code(s): M54.2 - Cervicalgia; G89.29 - Other chronic pain Status: Acute Plan: Ibuprofen 600mg q6hr PRN for neck pain. (5) Nutrition, metabolism, and development symptoms Code(s): R63.8 - Other symptoms and signs concerning food and fluid intake Status: Acute Plan: FEN: Fluid: * Tolerating PO. Electrolytes: * Monitor and replete as necessary. Nutrition: * Regular diet. (6) DVT prophylaxis Status: Acute Plan: Encourage ambulation and mobility as tolerated. - Assessment and Plan See the residents documentation for details. I saw and evaluated the patient regarding the ly portions of this evaluation and agree with the residents findings and plans as written. Parts of this note were created using [employer] voice recognition software program. While efforts were made to correct any mistakes made by this software, some mistakes, errors, and omissions may remain in the final note that were not caught when the note was originally created. Plan of care was discussed and agreed upon with the patient as specifically documented in the above note. An opportunity to ask questions with explanation was provided. Patient voiced understanding on all information reviewed and discussed.
[2018-03-04] MEDS: levoFLOXacin 750 MG Tablet PO SCH (09:50)
[2018-03-04] MEDS: Ibuprofen 600 MG Tablet PO PRN ×2 (09:51→16:01)
[2018-03-04] MEDS: Senna/Docusate Sodium 8.6/50 MG Tablet PO SCH ×2 (09:52→21:48)
[2018-03-04] MEDS: Sodium Chloride 0.9% 2 ML Flush BID IV.FLUSH SCH ×2 (09:53→21:48)
--- NOTE | 2018-03-04 16:28 | P.PNPOD ---
Subjective Interval history: Patient seen bedside. Denies any nausea vomiting fevers or chills. No concerns at this time. Review of Systems No: All other systems reviewed negative except as stated in HPI Physical Exam Vital signs: Vital Signs 03/03/18 20:00 03/03/18 22:02 03/03/18 22:31 Temperature 97.7 F Pulse Rate 65 Respiratory Rate 18 18 Blood Pressure 130/60 Pulse Oximetry 97 99 03/04/18 08:00 Temperature 97.6 F Pulse Rate 63 Respiratory Rate 18 Blood Pressure 137/84 Pulse Oximetry 96 Intake & Output 03/03/18 03/04/18 03/04/18 18:59 06:59 18:59 Intake Total 820 / 820 200 / 200 340 / 340 Output Total 600 / 600 1300 / 1300 500 / 500 Balance 220 / 220 -1100 / -1100 -160 / -160 Weight 124.9 kg Intake: IV 100 / 100 200 / 200 100 / 100 Merrem Inj 1,000 MG In NS Inj 100 / 100 200 / 200 100 / 100 100 ML @ 200 mls/hr IV.SIG Q8H [facility] Rx#:[id number] Oral 720 / 720 240 / 240 Output: Urine 600 / 600 1300 / 1300 500 / 500 Other: Date of Last Bowel Movement 03/03/18 03/03/18 03/04/18 Narrative: Incision well coapted superficial abrasion noted to amputation site. Sub-met 4 ulceration superficial in nature with granular base. Hyperkeratotic skin noted to plantar heel globally to left foot. Vascular status intact. Decreased pinpoint sensation. Medications and Allergies Active Medications: Active Medications Acetaminophen (Tylenol) 650 mg PO Q4H PRN PRN Reason: Pain 1-5 And/Or Fever >101f Last Admin: 02/07/18 12:08 Dose: 650 mg Hydrocodone Bitart/Acetaminophen ([place] 5/325) 1 tab PO HS PRN PRN Reason: Pain 3-10 Last Admin: 03/03/18 20:26 Dose: 1 tab Al Hydroxide/Mg Hydroxide (Milk Of Magnesia Liq) 30 ml PO Q12H PRN PRN Reason: Mild Constipation Albuterol (Duoneb Neb (Prn)) 1 ampul NEB Q4HR NEB PRN PRN Reason: SHORTNESS OF BREATH/WHEEZING Bisacodyl (Dulcolax Supp) 10 mg RECTAL DAILY PRN PRN Reason: SEVERE CONSITIPATION Clonidine HCl (Catapres) 0.1 mg PO Q6H PRN PRN Reason: SEE LABEL COMMENTS Sodium Chloride (Ns Inj) 500 mls @ 30 mls/hr IV.SIG .Q10H [facility] Last Admin: 02/04/18 05:32 Dose: Not Given Meropenem 1,000 mg/ Sodium (Chloride) 100 mls @ 200 mls/hr IV.SIG Q8H [facility] Last Infusion: 03/04/18 13:37 Dose: Infused Ibuprofen (Motrin) 600 mg PO Q6H PRN PRN Reason: HEADACHE, NECK PAIN Last Admin: 03/04/18 16:01 Dose: 600 mg Lactulose (Lactulose Liq) 30 ml PO DAILY PRN PRN Reason: SEVERE CONSITIPATION Levofloxacin (Levaquin) 750 mg PO DAILY [facility] Last Admin: 03/04/18 09:50 Dose: 750 mg Naphazoline HCl (Clear Eyes Redness Relief 0.012% Opth Drops) 1 drop EACH EYE Q4H PRN PRN Reason: DRY EYE(S) Last Admin: 02/16/18 15:31 Dose: 1 drop Ondansetron HCl (Zofran Inj) 4 mg IV.PUSH Q6H PRN PRN Reason: NAUSEA OR VOMITING Senna/Docusate Sodium (Celi-Colace) 1 tab PO BID [facility] Last Admin: 03/04/18 09:52 Dose: Not Given Sodium Chloride (Ns Flush) 2 ml IV.FLUSH BID [facility] Last Admin: 03/04/18 09:53 Dose: 2 ml Sodium Chloride (Ns Flush) 2 ml IV.FLUSH PRN PRN PRN Reason: FLUSH AFTER USING IV ACCESS Last Admin: 02/25/18 09:45 Dose: 2 ml Allergies Allergy/AdvReac Type Severity Reaction Status Date / Time No Known Allergies Allergy Verified 02/02/18 17:27 Home Medications Medication Instructions Recorded Confirmed Type No Known Home Medications 02/02/18 02/02/18 History Results - Labs CBC & Chem 7: 03/02/18 05:43 03/02/18 05:43 Microbiology 02/04/18 10:39 Tissue - Toe Fungal Smear - Final No fungal elements seen 02/04/18 10:39 Tissue - Toe Fungal Culture - Final No growth in 4 weeks 02/04/18 10:39 Tissue - Toe Acid Fast Bacilli Smear - Final No acid fast bacilli seen 02/04/18 10:39 Tissue - Toe Mycobacterial Culture - Preliminary No growth in 4 weeks 02/04/18 10:39 Tissue - Toe Acid Fast Bacilli Smear - Final No acid fast bacilli seen 02/04/18 10:39 Tissue - Toe Mycobacterial Culture - Preliminary No growth in 4 weeks 02/04/18 10:39 Tissue - Toe Fungal Smear - Final No fungal elements seen 02/04/18 10:39 Tissue - Toe Fungal Culture - Final No growth in 4 weeks Assessment and Plan - Assessment (1) Open wnd foot-complicated Code(s): S91.309A - Unspecified open wound, unspecified foot, initial encounter Status: Acute (2) Foot ulcer, left Code(s): L97.529 - Non-pressure chronic ulcer of other part of left foot with unspecified severity Status: Resolved - Plan 52 year old male with left foot proximal phalanx of hallux and first metatarsal osteomyelitis IV abx per ID, discussed with ID Non weight bearing to left LE Dressing to left lower extremity changed Left foot dressing changes to perform daily, please see daily dressing change orders Left foot apply triple antibiotic to submetatarsal 4 ulceration as well as to incision line. Apply ammonium lactate to plantar aspect of foot daily. Patient to stay in house or receiving IV antibiotics for further improvement of left foot Anticipate weightbearing in 1 week once submetatarsal 4 ulceration is epithelialized (1) Open wnd foot-complicated Qualifiers: Encounter type: initial encounter Laterality: left Qualified Code(s): S91.302A - Unspecified open wound, left foot, initial encounter
[2018-03-04] MEDS: Lactic Acid (Ammonium Lactate) 12% Lotion 225 GM Bottle TOPICAL SCH (18:33)
[2018-03-05] MEDS: Lactic Acid (Ammonium Lactate) 12% Lotion 225 GM Bottle TOPICAL SCH (08:07)
[2018-03-05] MEDS: levoFLOXacin 750 MG Tablet PO SCH (08:08)
[2018-03-05] MEDS: Ibuprofen 600 MG Tablet PO PRN ×3 (08:08→19:35)
[2018-03-05] MEDS: Senna/Docusate Sodium 8.6/50 MG Tablet PO SCH ×2 (08:10→21:46)
[2018-03-05] MEDS: Sodium Chloride 0.9% 2 ML Flush BID IV.FLUSH SCH ×2 (08:10→20:39)
--- NOTE | 2018-03-05 08:58 | P.PNFP ---
Subjective Interval history: 52 yo admitted with osteomyelitis of left great toe now s/p toe amputation being seen for f/u. Patient states he has no new complaints today. He was seen by Dr. Chavarria yesterday who stated that the surgical site was continuing to heal and recommended daily dressing changes. Patient states that he is still able to move his toes and is continuing to experience increased sensation in his lower leg and foot. Denies fever, chills, chest pain, shortness of breath, or leg swelling. <Marely Quintero - 03/05/18 09:08> Results - Labs Result diagrams: 03/02/18 05:43 03/02/18 05:43 <Travis Christiansen - 03/06/18 10:12> Physical Exam Vital signs: Vital Signs 03/05/18 20:00 03/06/18 08:00 Temperature 97.9 F 97.3 F L Pulse Rate 67 70 Respiratory Rate 18 22 Blood Pressure 128/63 140/78 Pulse Oximetry 100 96 Intake & Output 03/05/18 03/06/18 03/06/18 18:59 06:59 18:59 Intake Total 800 / 800 100 / 100 100 / 100 Output Total 950 / 950 350 / 350 Balance -150 / -150 -250 / -250 100 / 100 Intake: IV 100 / 100 100 / 100 100 / 100 Merrem Inj 1,000 MG In NS Inj 100 / 100 100 / 100 100 / 100 100 ML @ 200 mls/hr IV.SIG Q8H [facility] Rx#:[id number] Oral 700 / 700 Output: Urine 950 / 950 350 / 350 Other: Date of Last Bowel Movement 03/05/18 03/05/18 03/05/18 <Travis Christiansen - 03/06/18 10:12> Vital Signs 03/04/18 20:00 03/05/18 02:15 03/05/18 07:49 Temperature 97.8 F 97.4 F L Pulse Rate 62 57 L Respiratory Rate 18 18 Blood Pressure 125/76 122/78 Pulse Oximetry 96 96 98 Intake & Output 03/04/18 03/05/18 03/05/18 19:59 06:59 18:59 Intake Total Output Total Balance Intake: IV Merrem Inj 1,000 MG In NS Inj 100 ML @ 200 mls/hr IV.SIG Q8H [facility] Rx#:[id number] Oral Output: Urine Other: Date of Last Bowel Movement 03/05/18 <Marely Quintero - 03/05/18 08:58> Narrative: GENERAL: 52 year old obese M in no acute distress. RESPIRATORY: No accessory muscle use or tachypnea. GASTROINTESTINAL: Abdomen non-distended. MUSCULOSKELETAL: Right foot bandaged and wrapped in MARYA last changed by podiatry on 02/18. No drainage or bleeding. Bandage dry. Able to move toes bilaterally. 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 F/u w/Dr. Chavarria planned for 5-7 days after d/c * Recommended daily dressing changes with application of triple antibiotic and ammonium lactate. * Continue IV antibiotics per ID * Non-weightbearing to left lower extremity until ulceration is epithelialized ID consulted, appreciate recs, including planned stop date of antibiotic treatment. * continue IV meropenem and Levaquin. End date is Mar 19. * needed for total of 6 weeks therapy, which started on 02/06 Vital signs qshift CBC with diff, CMP and CRP weekly, performed today are WNL. Next due 03/09. Tylenol and Ibuprofen for pain Seen by rehabilitation therapy who are following patient and recommend continued supervision for fall prevention. PT/OT have signed off on patient, but can be reconsulted as needed. (2) Osteomyelitis of foot Code(s): M86.9 - Osteomyelitis, unspecified Status: Acute Plan: S/p amputation of L great toe See plan above for antibiotic coverage. (3) Asthma Code(s): J45.909 - Unspecified asthma, uncomplicated Status: Chronic Plan: Patient with history of asthma. Stable, no treatment at this time. (4) Neck pain, chronic Code(s): M54.2 - Cervicalgia; G89.29 - Other chronic pain Status: Acute Plan: Ibuprofen 600mg q6hr PRN for neck pain. (5) Nutrition, metabolism, and development symptoms Code(s): R63.8 - Other symptoms and signs concerning food and fluid intake Status: Acute Plan: FEN: Fluid: * Tolerating PO. Electrolytes: * Monitor and replete as necessary. Nutrition: * Regular diet. (6) DVT prophylaxis Status: Acute Plan: Encourage ambulation and mobility as tolerated. 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 Patient was recently hospitalized at [facility] for evaluation and treatment of the same non-healing ulcer. He underwent I&D with wound vac placement during that hospitalization in early December; he was however discharged without wound vac. Patient was placed on ertapenem; IV antibiotic was continued as outpatient. Patient reported to [facility] due to disease progression despite IV antibiotic treatment. Left first ray resection on 02/04 by podiatry. Left foot wound complicated by osteomyelitis: Unclear etiology. HgbA1c 5.7 and bedside glucose wnl. TSH and B12 wnl. Also no known history of peripheral vascular disease or venous insufficiency. Wound cultures grew Stenotrophomonas maltophilia and Pseudomonas aeruginosa. Tissue cultures grew Stenotrophomonas maltophilia. Pathology with evidence of acute and chronic osteomyelitis and negative margins. Blood cultures with no growth. Foot MRI with evidence of osteomyelitis. Left first ray resection performed 02/04. Consult placed to ID; patient on meropenem and Levaquin. Per records from [facility], cultures grew Morganella, rare bacteroides pyogenes, strep agalactiae and acinetobacter. Patient underwent I&D. Patient treated with ertapenem. Patient discharged without wound vac but IV antibiotics continued. Tylenol and [place] 5/325 for pain, morphine for breakthrough pain. Patient placed on IV Meropenem and Levaquin via left sided PICC line. End date is tentatively set for 03/19/18 . ID to follow up with podiatry after last foot follow up in hospital to confirm appropriate IV antibiotic treatment. Patient to follow up in Dr. Hoffman clinic following hospital discharge. Weekly CBC, CMP and CRP WNL for the past 3 weeks. Continuing to monitor vitals and trend weekly labs. Next set of labs due on 03/09/18. pam Christiansen <Marely Quintero - 03/05/18 09:08> - Attending Attestation See the residents documentation for details. I saw and evaluated the patient regarding the ly portions of this evaluation and agree with the residents findings and plans as written. Parts of this note were created using [employer] voice recognition software program. While efforts were made to correct any mistakes made by this software, some mistakes, errors, and omissions may remain in the final note that were not caught when the note was originally created. Plan of care was discussed and agreed upon with the patient as specifically documented in the above note. An opportunity to ask questions with explanation was provided. Patient voiced understanding on all information reviewed and discussed. <Travis Christiansen - 03/06/18 10:12>
[2018-03-06] MEDS: Ibuprofen 600 MG Tablet PO PRN (07:37)
[2018-03-06] MEDS: levoFLOXacin 750 MG Tablet PO SCH (08:01)
[2018-03-06] MEDS: Senna/Docusate Sodium 8.6/50 MG Tablet PO SCH ×2 (08:01→21:06)
[2018-03-06] MEDS: Lactic Acid (Ammonium Lactate) 12% Lotion 225 GM Bottle TOPICAL SCH (08:01)
[2018-03-06] MEDS: Sodium Chloride 0.9% 2 ML Flush BID IV.FLUSH SCH ×2 (08:02→21:06)
[2018-03-06 10:15] LABS: Baso % (Auto) 0.4 % (0.0-2.0); Eos # (Auto) 0.1 th/mm3 (0.0-0.4); Eos % (Auto) 2.5 % (0.0-4.0); Hematocrit 42.9 % (39.0-51.0); Hemoglobin 14.4 gm/dL (13.0-17.0); Lymph # (Auto) 1.3 th/mm3 (1.0-4.8); Lymph % (Auto) 27.2 % (9.0-44.0); Mean Corpuscular HGB Conc 33.5 % (32.0-36.0); Mean Corpuscular Hemoglobin 29.7 pg (27.0-34.0); Mean Corpuscular Volume 88.5 fL (80.0-100.0); Mean Platelet Volume 9.6 fL (7.0-11.0); Mono # (Auto) 0.3 th/mm3 (0.0-0.9); Mono % (Auto) 5.3 % (0.0-8.0); Neut # (Auto) 3.1 th/mm3 (1.8-7.7); Neut % (Auto) 64.6 % (16.0-70.0); Platelet Count 118 th/mm3 (150-450); Red Blood Count 4.85 mil/mm3 (4.50-5.90); Red Cell Distribution Width 13.9 % (11.6-17.2); White Blood Count 4.8 th/mm3 (4.0-11.0)
[2018-03-06 10:38] LABS: Anion Gap 7 meq/L (5-15); Blood Urea Nitrogen 15 mg/dL (7-18); Calcium 8.6 mg/dL (8.5-10.1); Chloride 104 meq/L (98-107); Glomerular Filtration Rate Greater Than 89 mL/min (>89); Glucose,Random 174 mg/dL (74-106); Potassium 4.3 meq/L (3.5-5.1); Sodium 139 meq/L (136-145)
--- NOTE | 2018-03-06 15:40 | P.PNFP ---
Subjective Interval history: Mr. Du had no acute events overnight. Patient is ambulating around the hallways, denies chest pains, shortness of breath, nausea, vomiting, occasional diarrhea from the IV antibiotics and no leg pain. He knows he has 2 more weeks of IV antibiotics to take. AFVSS overnight. All questions were answered. Results - Labs Result diagrams: 03/06/18 09:39 03/06/18 09:39 Abnormal lab results 03/06/18 03/06/18 Range/Units 09:39 09:39 Plt Count 118 L (150-450) th/mm3 Random Glucose 174 H (74-106) mg/dL Short CBC 03/06/18 Range/Units 09:39 WBC 4.8 (4.0-11.0) th/mm3 Hgb 14.4 (13.0-17.0) gm/dL Hct 42.9 (39.0-51.0) % Plt Count 118 L (150-450) th/mm3 BMP 03/06/18 09:39 Sodium 139 Potassium 4.3 Chloride 104 Carbon Dioxide 28.0 BUN 15 Creatinine 0.87 Calcium 8.6 Physical Exam Vital signs: Vital Signs 03/05/18 20:00 03/06/18 08:00 Temperature 97.9 F 97.3 F L Pulse Rate 67 70 Respiratory Rate 18 22 Blood Pressure 128/63 140/78 Pulse Oximetry 100 96 Intake & Output 03/05/18 03/06/18 03/06/18 18:59 06:59 18:59 Intake Total 800 / 800 100 / 100 200 / 200 Output Total 950 / 950 350 / 350 Balance -150 / -150 -250 / -250 200 / 200 Intake: IV 100 / 100 100 / 100 200 / 200 Merrem Inj 1,000 MG In NS Inj 100 / 100 100 / 100 200 / 200 100 ML @ 200 mls/hr IV.SIG Q8H [facility] Rx#:[id number] Oral 700 / 700 Output: Urine 950 / 950 350 / 350 Other: Date of Last Bowel Movement 03/05/18 03/05/18 03/05/18 Narrative: GENERAL: 52 year old obese male in no acute distress, sitting in chair by bedside. HEENT: Normocephalic atraumatic. MMM. CARDIOVASCULAR: RRR with no murmur, rub or gallop. RESPIRATORY: No accessory muscle use or tachypnea. CTAB. GASTROINTESTINAL: Abdomen non-distended. Normal BS. MUSCULOSKELETAL: Right foot wrapped in MARYA bandage by podiatry. No drainage or bleeding. Bandage dry. Able to move toes bilaterally. NEURO: AOx3. CN II-XII grossly intact. Normal speech. 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 F/u w/Dr. Chavarria planned for 5-7 days after d/c * Recommended daily dressing changes with application of triple antibiotic and ammonium lactate. * Continue IV antibiotics per ID * Non-weightbearing to LLE until ulceration is epithelialized ID consulted, appreciate recs, including planned stop date of antibiotic treatment. * continue IV meropenem and Levaquin. End date is Mar 19. * needed for total of 6 weeks therapy, which started on 02/06 Vital signs qshift CBC with diff, CMP and CRP weekly, performed today are WNL. Next due 03/09. Tylenol and Ibuprofen for pain Seen by rehabilitation therapy who are following patient and recommend continued supervision for fall prevention. PT/OT have signed off on patient, but can be reconsulted as needed. Pt SDW Dr Francois (2) Osteomyelitis of foot Code(s): M86.9 - Osteomyelitis, unspecified Status: Acute Plan: S/p amputation of L great toe See plan above for antibiotic coverage. (3) Asthma Code(s): J45.909 - Unspecified asthma, uncomplicated Status: Chronic Plan: Patient with history of asthma. Stable, no treatment at this time. (4) Neck pain, chronic Code(s): M54.2 - Cervicalgia; G89.29 - Other chronic pain Status: Acute Plan: Ibuprofen 600mg q6hr PRN for neck pain. (5) Nutrition, metabolism, and development symptoms Code(s): R63.8 - Other symptoms and signs concerning food and fluid intake Status: Acute Plan: FEN: Fluid: * Tolerating PO. Electrolytes: * Monitor and replete as necessary. Nutrition: * Regular diet. (6) DVT prophylaxis Status: Acute Plan: Encourage ambulation and mobility as tolerated. - Assessment and Plan See the residents documentation for details. I saw and evaluated the patient regarding the ly portions of this evaluation and agree with the residents findings and plans as written. Parts of this note were created using [employer] voice recognition software program. While efforts were made to correct any mistakes made by this software, some mistakes, errors, and omissions may remain in the final note that were not caught when the note was originally created. Plan of care was discussed and agreed upon with the patient as specifically documented in the above note. An opportunity to ask questions with explanation was provided. Patient voiced understanding on all information reviewed and discussed.
[2018-03-07] MEDS: Lactic Acid (Ammonium Lactate) 12% Lotion 225 GM Bottle TOPICAL SCH (08:06)
[2018-03-07] MEDS: Senna/Docusate Sodium 8.6/50 MG Tablet PO SCH ×2 (08:06→22:21)
[2018-03-07] MEDS: Ibuprofen 600 MG Tablet PO PRN (08:06)
[2018-03-07] MEDS: levoFLOXacin 750 MG Tablet PO SCH (08:06)
[2018-03-07] MEDS: Sodium Chloride 0.9% 2 ML Flush BID IV.FLUSH SCH ×2 (08:07→22:21)
--- NOTE | 2018-03-07 12:19 | P.PNFP ---
Subjective Interval history: Mr. Du had no acute events overnight. He appears a little agitated when we walked into the room due to heated conversation with his stepmother. He refused offer of talking to a sr. manager; however, he states that he talks to his little brother to get stress relief with family matters. Patient states he is feeling fine without chest pain, shortness of breath, fever, chills, nausea, vomiting, diarrhea, or leg pain. He can move the toes in his left foot and states that he has some numbness there which is normal. Results - Labs Result diagrams: 03/06/18 09:39 03/06/18 09:39 Physical Exam Vital signs: Vital Signs 03/06/18 20:00 03/06/18 22:42 03/07/18 03:22 Temperature 97.7 F Pulse Rate 69 Respiratory Rate 18 18 18 Blood Pressure 120/58 L Pulse Oximetry 98 03/07/18 08:00 Temperature 97.7 F Pulse Rate 68 Respiratory Rate 20 Blood Pressure 119/66 Pulse Oximetry 99 Intake & Output 03/06/18 03/07/18 03/07/18 18:59 06:59 18:59 Intake Total 200 / 200 2122 / 2122 460 / 460 Output Total 350 / 350 3000 / 3000 850 / 850 Balance -150 / -150 -878 / -878 -390 / -390 Weight 125.7 kg Intake: IV 200 / 200 200 / 200 100 / 100 Merrem Inj 1,000 MG In NS Inj 200 / 200 200 / 200 100 / 100 100 ML @ 200 mls/hr IV.SIG Q8H [facility] Rx#:[id number] Oral 1921 / 1921 360 / 360 Output: Urine 350 / 350 3000 / 3000 850 / 850 Other: Date of Last Bowel Movement 03/05/18 03/06/18 03/06/18 Narrative: GENERAL: 52 year old obese male in no acute distress, sitting in chair by bedside. HEENT: Normocephalic atraumatic. MMM. CARDIOVASCULAR: RRR with no murmur, rub or gallop. RESPIRATORY: No accessory muscle use or tachypnea. CTAB. GASTROINTESTINAL: Abdomen non-distended. Normal BS. MUSCULOSKELETAL: Right foot wrapped in MARYA bandage by podiatry. No drainage or bleeding. Bandage dry. Able to move toes bilaterally. NEURO: AOx3. CN II-XII grossly intact. Normal speech. 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 F/u w/Dr. Chavarria planned for 5-7 days after d/c * Recommended daily dressing changes with application of triple antibiotic and ammonium lactate. * Continue IV antibiotics per ID * Non-weightbearing to LLE until ulceration is epithelialized ID consulted, appreciate recs, including planned stop date of antibiotic treatment. * continue IV meropenem and Levaquin. End date is Mar 19. * needed for total of 6 weeks therapy, which started on 02/06 Vital signs qshift CBC with diff, CMP and CRP weekly, performed today are WNL. Next due 03/09. Tylenol and Ibuprofen for pain Seen by rehabilitation therapy who are following patient and recommend continued supervision for fall prevention. PT/OT have signed off on patient, but can be reconsulted as needed. Pt SDW Dr Christiansen (2) Osteomyelitis of foot Code(s): M86.9 - Osteomyelitis, unspecified Status: Acute Plan: S/p amputation of L great toe See plan above for antibiotic coverage. (3) Asthma Code(s): J45.909 - Unspecified asthma, uncomplicated Status: Chronic Plan: Patient with history of asthma. Stable, no treatment at this time. (4) Neck pain, chronic Code(s): M54.2 - Cervicalgia; G89.29 - Other chronic pain Status: Acute Plan: Ibuprofen 600mg q6hr PRN for neck pain. (5) Nutrition, metabolism, and development symptoms Code(s): R63.8 - Other symptoms and signs concerning food and fluid intake Status: Acute Plan: FEN: Fluid: * Tolerating PO. Electrolytes: * Monitor and replete as necessary. Nutrition: * Regular diet. (6) DVT prophylaxis Status: Acute Plan: Encourage ambulation and mobility as tolerated. - Assessment and Plan See the residents documentation for details. I saw and evaluated the patient regarding the ly portions of this evaluation and agree with the residents findings and plans as written. Parts of this note were created using [employer] voice recognition software program. While efforts were made to correct any mistakes made by this software, some mistakes, errors, and omissions may remain in the final note that were not caught when the note was originally created. Plan of care was discussed and agreed upon with the patient as specifically documented in the above note. An opportunity to ask questions with explanation was provided. Patient voiced understanding on all information reviewed and discussed.
[2018-03-08] MEDS: levoFLOXacin 750 MG Tablet PO SCH (09:28)
[2018-03-08] MEDS: Senna/Docusate Sodium 8.6/50 MG Tablet PO SCH ×2 (09:29→22:21)
[2018-03-08] MEDS: Sodium Chloride 0.9% 2 ML Flush BID IV.FLUSH SCH ×2 (09:32→22:21)
[2018-03-08] MEDS: Lactic Acid (Ammonium Lactate) 12% Lotion 225 GM Bottle TOPICAL SCH (10:27)
[2018-03-08] MEDS: Ibuprofen 600 MG Tablet PO PRN ×2 (10:29→18:28)
--- NOTE | 2018-03-08 11:20 | P.PNFP ---
Subjective Interval history: Patient seen and examined at bedside this morning. He states that he is still stressed about some family issues but otherwise feeling well. He denies any chest pain, abdominal pain, shortness of breath. She reports mild pain in his left foot. He does report anywhere between 2-4 episodes of loose stools per day. He has had loose stools since December when he first started antibiotic treatment. He has a good appetite. Otherwise, he has no concerns today. <Arlene Francois - 03/08/18 11:19> Results - Labs Result diagrams: 03/06/18 09:39 03/06/18 09:39 <Travis Christiansen - 03/08/18 12:04> Physical Exam Vital signs: Vital Signs 03/07/18 20:00 03/07/18 22:42 03/08/18 08:00 Temperature 98.4 F 98.6 F Pulse Rate 70 71 Respiratory Rate 18 20 Blood Pressure 123/75 141/58 H Pulse Oximetry 98 98 96 03/08/18 11:14 Temperature Pulse Rate Respiratory Rate 14 Blood Pressure Pulse Oximetry Intake & Output 03/07/18 03/08/18 03/08/18 18:59 06:59 18:59 Intake Total 940 / 940 200 / 200 240 / 240 Output Total 2049 / 2049 2300 / 2300 600 / 600 Balance -1110 / -1110 -2100 / -2100 -360 / -360 Weight 125.4 kg Intake: IV 100 / 100 200 / 200 Merrem Inj 1,000 MG In NS Inj 100 / 100 200 / 200 100 ML @ 200 mls/hr IV.SIG Q8H [facility] Rx#:[id number] Oral 840 / 840 240 / 240 Output: Urine 2049 / 2049 2300 / 2300 600 / 600 Other: Date of Last Bowel Movement 03/06/18 03/06/18 # Bowel Movements 2 <Travis Christiansen - 03/08/18 12:04> Vital Signs 03/07/18 20:00 03/07/18 22:42 03/08/18 08:00 Temperature 98.4 F 98.6 F Pulse Rate 70 71 Respiratory Rate 18 20 Blood Pressure 123/75 141/58 H Pulse Oximetry 98 98 96 Intake & Output 03/07/18 03/08/18 03/08/18 18:59 06:59 18:59 Intake Total 940 / 940 200 / 200 240 / 240 Output Total 2049 2300 / 2300 600 / 600 Balance -1110 / -1110 -2100 / -2100 -360 / -360 Weight 125.4 kg Intake: IV 100 / 100 200 / 200 Merrem Inj 1,000 MG In NS Inj 100 / 100 200 / 200 100 ML @ 200 mls/hr IV.SIG Q8H [facility] Rx#:[id number] Oral 840 / 840 240 / 240 Output: Urine 2049 2300 / 2300 600 / 600 Other: Date of Last Bowel Movement 03/06/18 03/06/18 # Bowel Movements 2 <Arlene Francois - 03/08/18 11:19> - Constitutional no acute distress <Arlene Francois - 03/08/18 11:19> - Routine HEENT Exam Head: Present: normocephalic, atraumatic <Arlene Francois - 03/08/18 11:19> - Routine Respiratory Exam Present: CTA bilaterally. Absent: accessory muscle use, respiratory distress, rhonchi, wheezes <Arlene Francois - 03/08/18 11:19> - Routine Cardiovascular Exam Present: RRR, S1, S2. Absent: murmur <Arlene Francois - 03/08/18 11:19> - Routine Abdominal Exam Present: normoactive bowel sounds <Arlene Francois - 03/08/18 11:19> - Routine Extremities Exam Comments: Left foot bandaged <Arlene Francois - 03/08/18 11:19> - Routine Neurological Exam Present: alert, oriented X3 <Arlene Francois - 03/08/18 11:19> Assessment and Plan - Assessment (1) History of complete ray amputation of first toe of left foot Code(s): Z89.412 - Acquired absence of left great toe Status: Acute (2) Osteomyelitis of foot Code(s): M86.9 - Osteomyelitis, unspecified Status: Acute (3) Asthma Code(s): J45.909 - Unspecified asthma, uncomplicated Status: Chronic (4) Neck pain, chronic Code(s): M54.2 - Cervicalgia; G89.29 - Other chronic pain Status: Acute (5) Nutrition, metabolism, and development symptoms Code(s): R63.8 - Other symptoms and signs concerning food and fluid intake Status: Acute (6) DVT prophylaxis Status: Acute <Travis Christiansen - 03/08/18 12:04> (1) 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 F/u w/Dr. Chavarria planned for 5-7 days after d/c * Recommended daily dressing changes with application of triple antibiotic and ammonium lactate. * Continue IV antibiotics per ID * Non-weightbearing to LLE until ulceration is epithelialized ID consulted, appreciate recs, including planned stop date of antibiotic treatment. * continue IV meropenem and Levaquin. End date is Mar 19. * needed for total of 6 weeks therapy, which started on 02/06 Vital signs qshift CBC with diff, CMP and CRP weekly--> Next due 03/09. Tylenol and Ibuprofen for pain Seen by rehabilitation therapy who are following patient and recommend continued supervision for fall prevention. PT/OT have signed off on patient, but can be reconsulted as needed. Pt SDW Dr Christiansen (2) Osteomyelitis of foot Code(s): M86.9 - Osteomyelitis, unspecified Status: Acute Plan: S/p amputation of L great toe See plan above for antibiotic coverage. (3) Asthma Code(s): J45.909 - Unspecified asthma, uncomplicated Status: Chronic Plan: Patient with history of asthma. Stable, no treatment at this time. (4) Neck pain, chronic Code(s): M54.2 - Cervicalgia; G89.29 - Other chronic pain Status: Acute Plan: Ibuprofen 600mg q6hr PRN for neck pain. (5) Nutrition, metabolism, and development symptoms Code(s): R63.8 - Other symptoms and signs concerning food and fluid intake Status: Acute Plan: FEN: Fluid: * Tolerating PO. Electrolytes: * Monitor and replete as necessary. Nutrition: * Regular diet. (6) DVT prophylaxis Status: Acute Plan: Encourage ambulation and mobility as tolerated. <Arlene Francois - 03/08/18 11:14> - Assessment and Plan Discussed Condition With: Dr. Christiansen and Dr. Bhatt <Arlene Francois - 03/08/18 11:19> - Attending Attestation See the residents documentation for details. I saw and evaluated the patient regarding the ly portions of this evaluation and agree with the residents findings and plans as written. Parts of this note were created using [email or web address] voice recognition software program. While efforts were made to correct any mistakes made by this software, some mistakes, errors, and omissions may remain in the final note that were not caught when the note was originally created. Plan of care was discussed and agreed upon with the patient as specifically documented in the above note. An opportunity to ask questions with explanation was provided. Patient voiced understanding on all information reviewed and discussed. <Travis Christiansen - 03/08/18 12:04>
[2018-03-09 07:30] LABS: Baso % (Auto) 0.4 % (0.0-2.0); Eos # (Auto) 0.1 th/mm3 (0.0-0.4); Eos % (Auto) 2.3 % (0.0-4.0); Hematocrit 41.1 % (39.0-51.0); Lymph # (Auto) 1.4 th/mm3 (1.0-4.8); Lymph % (Auto) 24.6 % (9.0-44.0); Mean Corpuscular HGB Conc 34.1 % (32.0-36.0); Mean Corpuscular Hemoglobin 29.7 pg (27.0-34.0); Mean Corpuscular Volume 87.1 fL (80.0-100.0); Mean Platelet Volume 9.2 fL (7.0-11.0); Mono # (Auto) 0.5 th/mm3 (0.0-0.9); Mono % (Auto) 9.3 % (0.0-8.0); Neut # (Auto) 3.7 th/mm3 (1.8-7.7); Neut % (Auto) 63.4 % (16.0-70.0); Platelet Count 120 th/mm3 (150-450); Red Blood Count 4.72 mil/mm3 (4.50-5.90); Red Cell Distribution Width 13.6 % (11.6-17.2); White Blood Count 5.9 th/mm3 (4.0-11.0)
[2018-03-09 08:03] LABS: Albumin 3.2 g/dL (3.4-5.0); Anion Gap 10 meq/L (5-15); Aspartate Aminotransferase 21 U/L (15-37); Blood Urea Nitrogen 14 mg/dL (7-18); Calcium 8.8 mg/dL (8.5-10.1); Carbon Dioxide 26.4 meq/L (21.0-32.0); Chloride 105 meq/L (98-107); Glomerular Filtration Rate Greater Than 89 mL/min (>89); Glucose,Random 80 mg/dL (74-106); Potassium 4.2 meq/L (3.5-5.1); Sodium 141 meq/L (136-145)
[2018-03-09 08:04] LABS: C-Reactive Protein 0.38 mg/dL (0.00-0.30)
[2018-03-09] MEDS: levoFLOXacin 750 MG Tablet PO SCH (08:04)
[2018-03-09] MEDS: Senna/Docusate Sodium 8.6/50 MG Tablet PO SCH ×2 (08:04→20:20)
[2018-03-09] MEDS: Sodium Chloride 0.9% 2 ML Flush BID IV.FLUSH SCH ×2 (08:04→20:20)
[2018-03-09] MEDS: Lactic Acid (Ammonium Lactate) 12% Lotion 225 GM Bottle TOPICAL SCH (08:04)
[2018-03-09 08:07] LABS: Alanine Aminotransferase 35 U/L (12-78); Alkaline Phosphatase 66 U/L (45-117); Total Protein 7.1 g/dL (6.4-8.2)
[2018-03-09] MEDS: Ibuprofen 600 MG Tablet PO PRN ×2 (09:48→18:37)
--- NOTE | 2018-03-09 11:31 | P.PNFP ---
Subjective Interval history: Mr. Du had no acute events overnight. He is enjoying his breakfast will me into the room this morning. He reports feeling well but occasionally has a small pain in the left lateral side of his chest that is not present right now. His left foot feels okay he has occasional pain but can move his toes and does not feel numbness at this point. Is tolerating all of his medications well. He requested that we check with case management on his disability paperwork. Denies chest pain, shortness of breath, nausea, vomiting, diarrhea, abdominal and leg pain. Results - Labs Result diagrams: 03/09/18 06:45 03/09/18 06:45 Abnormal lab results 03/09/18 03/09/18 Range/Units 06:45 06:45 Plt Count 120 L (150-450) th/mm3 [place] % (Auto) 9.3 H (0.0-8.0) % C-Reactive Protein 0.38 H (0.00-0.30) mg/dL Albumin 3.2 L (3.4-5.0) g/dL Short CBC 03/09/18 Range/Units 06:45 WBC 5.9 (4.0-11.0) th/mm3 Hgb 14.0 (13.0-17.0) gm/dL Hct 41.1 (39.0-51.0) % Plt Count 120 L (150-450) th/mm3 BMP 03/09/18 06:45 Sodium 141 Potassium 4.2 Chloride 105 Carbon Dioxide 26.4 BUN 14 Creatinine 0.77 Calcium 8.8 Liver Function 03/09/18 Range/Units 06:45 Total Bilirubin 0.5 (0.2-1.0) mg/dL AST 21 (15-37) U/L ALT 35 (12-78) U/L Alkaline Phosphatase 66 (45-117) U/L Albumin 3.2 L (3.4-5.0) g/dL Physical Exam Vital signs: Vital Signs 03/08/18 19:44 03/08/18 20:00 03/08/18 23:04 Temperature 97.8 F Pulse Rate 73 Respiratory Rate 5 L 18 Blood Pressure 127/75 Pulse Oximetry 100 96 03/09/18 00:22 03/09/18 08:00 Temperature 97.9 F Pulse Rate 79 Respiratory Rate 22 Blood Pressure 153/88 H Pulse Oximetry 96 98 Intake & Output 03/08/18 03/09/18 03/09/18 18:59 06:59 18:59 Intake Total 700 / 700 200 / 200 Output Total 2150 / 2150 1000 / 1000 425 / 425 Balance -1450 / -1450 -800 / -800 -425 / -425 Weight 125.2 kg Intake: IV 100 / 100 200 / 200 Merrem Inj 1,000 MG In NS Inj 100 / 100 200 / 200 100 ML @ 200 mls/hr IV.SIG Q8H [facility] Rx#:[id number] Oral 600 / 600 Output: Urine 2150 / 2150 1000 / 1000 425 / 425 Other: Date of Last Bowel Movement 03/06/18 03/06/18 # Bowel Movements 2 Narrative: GENERAL: 52 year old obese male in no acute distress, sitting in chair by bedside. HEENT: Normocephalic atraumatic. MMM. CARDIOVASCULAR: RRR with no murmur, rub or gallop. RESPIRATORY: No accessory muscle use or tachypnea. CTAB. GASTROINTESTINAL: Abdomen non-distended. Normal BS. MUSCULOSKELETAL: Right foot wrapped in MARYA bandage by podiatry. No drainage or bleeding. Bandage dry. Able to move toes bilaterally. NEURO: AOx3. CN II-XII grossly intact. Normal speech. 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 F/u w/Dr. Chavarria planned for 5-7 days after d/c * Recommended daily dressing changes with application of triple antibiotic and ammonium lactate. * Continue IV antibiotics per ID * Non-weightbearing to LLE until ulceration is epithelialized ID consulted, appreciate recs, including planned stop date of antibiotic treatment. * continue IV meropenem and Levaquin. End date is Mar 19. * needed for total of 6 weeks therapy, which started on 02/06 Vital signs qshift CBC with diff, CMP and CRP weekly--> labs wnl on 03/09. Tylenol and Ibuprofen for pain Seen by rehabilitation therapy who are following patient and recommend continued supervision for fall prevention. PT/OT have signed off on patient, but can be reconsulted as needed. Pt SDW Dr Christiansen (2) Osteomyelitis of foot Code(s): M86.9 - Osteomyelitis, unspecified Status: Acute Plan: S/p amputation of L great toe See plan above for antibiotic coverage. (3) Asthma Code(s): J45.909 - Unspecified asthma, uncomplicated Status: Chronic Plan: Patient with history of asthma. Stable, no treatment at this time. (4) Neck pain, chronic Code(s): M54.2 - Cervicalgia; G89.29 - Other chronic pain Status: Acute Plan: Ibuprofen 600mg q6hr PRN for neck pain. (5) Nutrition, metabolism, and development symptoms Code(s): R63.8 - Other symptoms and signs concerning food and fluid intake Status: Acute Plan: FEN: Fluid: * Tolerating PO. Electrolytes: * Monitor and replete as necessary. Nutrition: * Regular diet. (6) DVT prophylaxis Status: Acute Plan: Encourage ambulation (non weight bearing on left foot) and mobility as tolerated. Pt SDW Jean-Claude Christiansen and Priscila - Assessment and Plan See the residents documentation for details. I saw and evaluated the patient regarding the ly portions of this evaluation and agree with the residents findings and plans as written. Parts of this note were created using [employer] voice recognition software program. While efforts were made to correct any mistakes made by this software, some mistakes, errors, and omissions may remain in the final note that were not caught when the note was originally created. Plan of care was discussed and agreed upon with the patient as specifically documented in the above note. An opportunity to ask questions with explanation was provided. Patient voiced understanding on all information reviewed and discussed.
[2018-03-09] MEDS: Sodium Chloride 0.9% 2 ML Flush PRN IV.FLUSH (20:19)
[2018-03-10] MEDS: Senna/Docusate Sodium 8.6/50 MG Tablet PO SCH ×2 (09:32→21:57)
[2018-03-10] MEDS: Ibuprofen 600 MG Tablet PO PRN ×2 (09:32→18:06)
[2018-03-10] MEDS: levoFLOXacin 750 MG Tablet PO SCH (09:32)
[2018-03-10] MEDS: Lactic Acid (Ammonium Lactate) 12% Lotion 225 GM Bottle TOPICAL SCH (09:33)
[2018-03-10] MEDS: Sodium Chloride 0.9% 2 ML Flush BID IV.FLUSH SCH ×2 (09:33→21:57)
--- NOTE | 2018-03-10 10:50 | P.PNFP ---
Subjective Interval history: Mr Du had no acute events overnight. He has no complaint of pain and can move his toes without numbness, but did state he felt a little phantom limb pain. Denies CP, SOB, N/V/D, fever, chills, abdominal or leg pain. <Juan Bhatt III - 03/10/18 10:50> Results - Labs Result diagrams: 03/09/18 06:45 03/09/18 06:45 <ChristiansenTravis - 03/10/18 16:01> Abnormal lab results 03/10/18 Range/Units 05:39 C-Reactive Protein 0.35 H (0.00-0.30) mg/dL <Travis Christiansen - 03/10/18 16:01> Abnormal lab results 03/10/18 Range/Units 05:39 C-Reactive Protein 0.35 H (0.00-0.30) mg/dL <Juan Bhatt III - 03/10/18 10:50> Physical Exam Vital signs: Vital Signs 03/09/18 20:00 03/10/18 08:00 Temperature 97.7 F 98 F Pulse Rate 65 67 Respiratory Rate 18 18 Blood Pressure 135/58 L 124/73 Pulse Oximetry 96 99 Intake & Output 03/09/18 03/10/18 03/10/18 18:59 06:59 18:59 Intake Total 100 / 100 200 / 200 600 / 600 Output Total 1475 / 1475 800 / 800 Balance -1375 / -1375 200 / 200 -200 / -200 Intake: IV 100 / 100 200 / 200 100 / 100 Merrem Inj 1,000 MG In NS Inj 100 / 100 200 / 200 100 / 100 100 ML @ 200 mls/hr IV.SIG Q8H [facility] Rx#:[id number] Oral 500 / 500 Output: Urine 1475 / 1475 800 / 800 Other: Date of Last Bowel Movement 03/09/18 # Bowel Movements 2 <Travis Christiansen - 03/10/18 16:01> Vital Signs 03/09/18 20:00 03/10/18 08:00 Temperature 97.7 F 98 F Pulse Rate 65 67 Respiratory Rate 18 18 Blood Pressure 135/58 L 124/73 Pulse Oximetry 96 99 Intake & Output 03/09/18 03/10/18 03/10/18 18:59 06:59 18:59 Intake Total 100 / 100 200 / 200 Output Total 1475 / 1475 600 / 600 Balance -1375 / -1375 200 / 200 -600 / -600 Intake: IV 100 / 100 200 / 200 Merrem Inj 1,000 MG In NS Inj 100 / 100 200 / 200 100 ML @ 200 mls/hr IV.SIG Q8H [facility] Rx#:[id number] Output: Urine 1475 / 1475 600 / 600 Other: Date of Last Bowel Movement 03/09/18 # Bowel Movements 2 <Juan Bhatt III - 03/10/18 10:50> Narrative: GENERAL: 52 year old obese male in no acute distress, sitting in chair by bedside. HEENT: Normocephalic atraumatic. MMM. CARDIOVASCULAR: RRR with no murmur, rub or gallop. RESPIRATORY: No accessory muscle use or tachypnea. CTAB. GASTROINTESTINAL: Abdomen non-distended. Normal BS. MUSCULOSKELETAL: Right foot wrapped in MARYA bandage by podiatry. No drainage or bleeding. Bandage dry. Able to move toes bilaterally. NEURO: AOx3. CN II-XII grossly intact. Normal speech. 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 Code(s): Z89.412 - Acquired absence of left great toe Status: Acute (2) Osteomyelitis of foot Code(s): M86.9 - Osteomyelitis, unspecified Status: Acute (3) Asthma Code(s): J45.909 - Unspecified asthma, uncomplicated Status: Chronic (4) Neck pain, chronic Code(s): M54.2 - Cervicalgia; G89.29 - Other chronic pain Status: Acute (5) Nutrition, metabolism, and development symptoms Code(s): R63.8 - Other symptoms and signs concerning food and fluid intake Status: Acute (6) DVT prophylaxis Status: Acute <Travis Christiansen - 03/10/18 16:01> (1) 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 F/u w/Dr. Chavarria planned for 5-7 days after d/c * Recommended daily dressing changes with application of triple antibiotic and ammonium lactate. * Continue IV antibiotics per ID * Non-weightbearing to LLE until ulceration is epithelialized ID consulted, appreciate recs, including planned stop date of antibiotic treatment. * continue IV meropenem and Levaquin. End date is Mar 19. * needed for total of 6 weeks therapy, which started on 02/06 Vital signs qshift CBC with diff, CMP and CRP weekly--> labs wnl on 03/09. Tylenol and Ibuprofen for pain Seen by rehabilitation therapy who are following patient and recommend continued supervision for fall prevention. PT/OT have signed off on patient, but can be reconsulted as needed. (2) Osteomyelitis of foot Code(s): M86.9 - Osteomyelitis, unspecified Status: Acute Plan: S/p amputation of L great toe See plan above for antibiotic coverage. (3) Asthma Code(s): J45.909 - Unspecified asthma, uncomplicated Status: Chronic Plan: Patient with history of asthma. Stable, no treatment at this time. (4) Neck pain, chronic Code(s): M54.2 - Cervicalgia; G89.29 - Other chronic pain Status: Acute Plan: Ibuprofen 600mg q6hr PRN for neck pain. (5) Nutrition, metabolism, and development symptoms Code(s): R63.8 - Other symptoms and signs concerning food and fluid intake Status: Acute Plan: FEN: Fluid: * Tolerating PO. Electrolytes: * Monitor and replete as necessary. Nutrition: * Regular diet. (6) DVT prophylaxis Status: Acute Plan: Encourage ambulation (non weight bearing on left foot) and mobility as tolerated. Pt SDW Jean-Claude Christiansen and Priscila <Miller DIASJuan H - 03/10/18 10:46> - Attending Attestation See the residents documentation for details. I saw and evaluated the patient regarding the ly portions of this evaluation and agree with the residents findings and plans as written. Parts of this note were created using [employer] voice recognition software program. While efforts were made to correct any mistakes made by this software, some mistakes, errors, and omissions may remain in the final note that were not caught when the note was originally created. Plan of care was discussed and agreed upon with the patient as specifically documented in the above note. An opportunity to ask questions with explanation was provided. Patient voiced understanding on all information reviewed and discussed. <Travis Christiansen - 03/10/18 16:01>
[2018-03-11] MEDS: Senna/Docusate Sodium 8.6/50 MG Tablet PO SCH ×2 (09:19→20:41)
[2018-03-11] MEDS: levoFLOXacin 750 MG Tablet PO SCH (09:19)
[2018-03-11] MEDS: Lactic Acid (Ammonium Lactate) 12% Lotion 225 GM Bottle TOPICAL SCH (09:19)
[2018-03-11] MEDS: Ibuprofen 600 MG Tablet PO PRN ×2 (09:19→18:21)
[2018-03-11] MEDS: Sodium Chloride 0.9% 2 ML Flush BID IV.FLUSH SCH ×2 (09:20→20:41)
--- NOTE | 2018-03-11 09:21 | P.PNFP ---
Subjective Interval history: No acute events overnight. Patient seen and examined this AM. Remains afebrile, vitals stable. Patient denies fevers, CP, dyspnea, pain. <Kevin Hernandezsh - 03/11/18 09:20> Results - Labs Result diagrams: 03/09/18 06:45 03/09/18 06:45 <Radha Christianseny - 03/13/18 11:40> Physical Exam Vital signs: Vital Signs 03/12/18 20:00 03/12/18 22:24 03/12/18 23:10 Temperature 97.9 F Pulse Rate 67 Respiratory Rate 18 18 Blood Pressure 128/59 L Pulse Oximetry 99 96 03/13/18 01:10 03/13/18 08:00 Temperature 98.1 F Pulse Rate 65 Respiratory Rate 20 Blood Pressure 134/66 Pulse Oximetry 96 98 Intake & Output 03/12/18 03/13/18 03/13/18 18:59 06:59 18:59 Intake Total 1600 / 1600 200 / 200 Output Total 800 / 800 900 / 900 Balance 800 / 800 -700 / -700 Weight 125.4 kg Intake: IV 100 / 100 200 / 200 Merrem Inj 1,000 MG In NS Inj 100 / 100 200 / 200 100 ML @ 200 mls/hr IV.SIG Q8H [facility] Rx#:[id number] Oral 1500 / 1500 Output: Urine 800 / 800 900 / 900 Other: Date of Last Bowel Movement 03/12/18 03/12/18 # Bowel Movements 1 <Agatha Christiansengeny - 03/13/18 11:40> Vital Signs 03/10/18 20:00 03/11/18 00:53 03/11/18 07:32 Temperature 97.3 F L 97.6 F Pulse Rate 73 64 Respiratory Rate 18 20 Blood Pressure 105/67 131/56 L Pulse Oximetry 97 96 99 Intake & Output 03/10/18 03/11/18 03/11/18 18:59 06:59 18:59 Intake Total 1300 / 1300 440 / 440 240 / 240 Output Total 1400 / 1400 800 / 800 400 / 400 Balance -100 / -100 -360 / -360 -160 / -160 Weight 125.2 kg Intake: IV 100 / 100 200 / 200 Merrem Inj 1,000 MG In NS Inj 100 / 100 200 / 200 100 ML @ 200 mls/hr IV.SIG Q8H [facility] Rx#:[id number] Oral 1200 / 1200 240 / 240 240 / 240 Output: Urine 1400 / 1400 800 / 800 400 / 400 <Eric Hernandez - 03/11/18 09:20> Narrative: GENERAL: 52 year old obese male in no acute distress, sitting in chair by bedside. HEENT: Normocephalic atraumatic. MMM. CARDIOVASCULAR: RRR with no murmur, rub or gallop. RESPIRATORY: No accessory muscle use or tachypnea. CTAB. GASTROINTESTINAL: Abdomen non-distended. Normal BS. MUSCULOSKELETAL: Right foot wrapped in MARYA bandage. No drainage or bleeding. Bandage dry. Able to move toes bilaterally. NEURO: AOx3. CN II-XII grossly intact. Normal speech. 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 Code(s): Z89.412 - Acquired absence of left great toe Status: Acute (2) Osteomyelitis of foot Code(s): M86.9 - Osteomyelitis, unspecified Status: Acute (3) Asthma Code(s): J45.909 - Unspecified asthma, uncomplicated Status: Chronic (4) Neck pain, chronic Code(s): M54.2 - Cervicalgia; G89.29 - Other chronic pain Status: Acute (5) Nutrition, metabolism, and development symptoms Code(s): R63.8 - Other symptoms and signs concerning food and fluid intake Status: Acute (6) DVT prophylaxis Status: Acute <Travis Christiansen - 03/13/18 11:40> (1) 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 F/u w/Dr. Chavarria planned for 5-7 days after d/c * Recommended daily dressing changes with application of triple antibiotic and ammonium lactate. * Continue IV antibiotics per ID * Non-weightbearing to LLE until ulceration is epithelialized ID consulted, appreciate recs, including planned stop date of antibiotic treatment. * continue IV meropenem and Levaquin. End date is Mar 19. * needed for total of 6 weeks therapy, which started on 02/06 Vital signs qshift CBC with diff, CMP and CRP weekly--> labs wnl on 03/09. Tylenol and Ibuprofen for pain Seen by rehabilitation therapy who are following patient and recommend continued supervision for fall prevention. PT/OT have signed off on patient, but can be reconsulted as needed. (2) Osteomyelitis of foot Code(s): M86.9 - Osteomyelitis, unspecified Status: Acute Plan: S/p amputation of L great toe See plan above for antibiotic coverage. (3) Asthma Code(s): J45.909 - Unspecified asthma, uncomplicated Status: Chronic Plan: Patient with history of asthma. Stable, no treatment at this time. (4) Neck pain, chronic Code(s): M54.2 - Cervicalgia; G89.29 - Other chronic pain Status: Acute Plan: Ibuprofen 600mg q6hr PRN for neck pain. (5) Nutrition, metabolism, and development symptoms Code(s): R63.8 - Other symptoms and signs concerning food and fluid intake Status: Acute Plan: Fluid: Tolerating PO Electrolytes: Monitor and replete as necessary Nutrition: Regular diet (6) DVT prophylaxis Status: Acute Plan: Encourage ambulation (non weight bearing on left foot) and mobility as tolerated. <Eric Hernandez - 03/11/18 09:17> - Attending Attestation See the residents documentation for details. I saw and evaluated the patient regarding the ly portions of this evaluation and agree with the residents findings and plans as written. Parts of this note were created using [employer] voice recognition software program. While efforts were made to correct any mistakes made by this software, some mistakes, errors, and omissions may remain in the final note that were not caught when the note was originally created. Plan of care was discussed and agreed upon with the patient as specifically documented in the above note. An opportunity to ask questions with explanation was provided. Patient voiced understanding on all information reviewed and discussed. <Travis Christiansen - 03/13/18 11:40>
[2018-03-12] MEDS: Ibuprofen 600 MG Tablet PO PRN ×2 (08:18→19:40)
[2018-03-12] MEDS: Senna/Docusate Sodium 8.6/50 MG Tablet PO SCH ×2 (08:19→20:04)
[2018-03-12] MEDS: levoFLOXacin 750 MG Tablet PO SCH (08:19)
[2018-03-12] MEDS: Lactic Acid (Ammonium Lactate) 12% Lotion 225 GM Bottle TOPICAL SCH (08:19)
[2018-03-12] MEDS: Sodium Chloride 0.9% 2 ML Flush BID IV.FLUSH SCH ×2 (08:19→20:04)
--- NOTE | 2018-03-12 14:09 | P.PNFP ---
Subjective Interval history: Mr. Du had no acute events overnight. He is sitting beside the bed eating his breakfast this morning and complains of no pain, can move his toes freely and has no complaints this morning. Denies chest pain, shortness of breath, fever, chills, nausea, vomiting, diarrhea, abdominal or leg pain. <Miller DIASJuan Carlton - 03/12/18 14:08> Results - Labs Result diagrams: 03/09/18 06:45 03/09/18 06:45 <Travis Christiansen - 03/13/18 12:07> Physical Exam Vital signs: Vital Signs 03/12/18 20:00 03/12/18 22:24 03/12/18 23:10 Temperature 97.9 F Pulse Rate 67 Respiratory Rate 18 18 Blood Pressure 128/59 L Pulse Oximetry 99 96 03/13/18 01:10 03/13/18 08:00 Temperature 98.1 F Pulse Rate 65 Respiratory Rate 20 Blood Pressure 134/66 Pulse Oximetry 96 98 Intake & Output 03/12/18 03/13/18 03/13/18 18:59 06:59 18:59 Intake Total 1600 / 1600 200 / 200 Output Total 800 / 800 900 / 900 Balance 800 / 800 -700 / -700 Weight 125.4 kg Intake: IV 100 / 100 200 / 200 Merrem Inj 1,000 MG In NS Inj 100 / 100 200 / 200 100 ML @ 200 mls/hr IV.SIG Q8H [facility] Rx#:[id number] Oral 1500 / 1500 Output: Urine 800 / 800 900 / 900 Other: Date of Last Bowel Movement 03/12/18 03/12/18 # Bowel Movements 1 <Travis Christiansen - 03/13/18 12:07> Vital Signs 03/11/18 20:00 03/11/18 22:58 03/12/18 02:30 Temperature 98.0 F Pulse Rate 74 Respiratory Rate 18 18 Blood Pressure 115/64 Pulse Oximetry 97 96 03/12/18 03:43 03/12/18 08:00 Temperature 97.7 F Pulse Rate 66 Respiratory Rate 20 Blood Pressure 116/61 Pulse Oximetry 96 99 Intake & Output 03/11/18 03/12/18 03/12/18 18:59 06:59 18:59 Intake Total 1300 / 1300 200 / 200 Output Total 1000 / 1000 600 / 600 Balance 300 / 300 -400 / -400 Weight 125.3 kg Intake: IV 100 / 100 200 / 200 Merrem Inj 1,000 MG In NS Inj 100 / 100 200 / 200 100 ML @ 200 mls/hr IV.SIG Q8H [facility] Rx#:[id number] Oral 1200 / 1200 Output: Urine 1000 / 1000 600 / 600 Other: Date of Last Bowel Movement 03/11/18 03/11/18 03/12/18 <Juan Bhatt III - 03/12/18 14:08> Narrative: GENERAL: 52 year old obese male in no acute distress, sitting in chair by bedside. HEENT: Normocephalic atraumatic. MMM. CARDIOVASCULAR: RRR with no murmur, rub or gallop. RESPIRATORY: No accessory muscle use or tachypnea. CTAB. GASTROINTESTINAL: Abdomen non-distended. Normal BS. MUSCULOSKELETAL: Right foot wrapped in MARYA bandage. No drainage or bleeding. Bandage dry. Able to move toes bilaterally. NEURO: AOx3. CN II-XII grossly intact. Normal speech. 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 Code(s): Z89.412 - Acquired absence of left great toe Status: Acute (2) Osteomyelitis of foot Code(s): M86.9 - Osteomyelitis, unspecified Status: Acute (3) Asthma Code(s): J45.909 - Unspecified asthma, uncomplicated Status: Chronic (4) Neck pain, chronic Code(s): M54.2 - Cervicalgia; G89.29 - Other chronic pain Status: Acute (5) Nutrition, metabolism, and development symptoms Code(s): R63.8 - Other symptoms and signs concerning food and fluid intake Status: Acute (6) DVT prophylaxis Status: Acute <Travis Christiansen - 03/13/18 12:07> (1) 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 F/u w/Dr. Chavarria planned for 5-7 days after d/c * Recommended daily dressing changes with application of triple antibiotic and ammonium lactate. * Continue IV antibiotics per ID * Non-weightbearing to LLE until ulceration is epithelialized ID consulted, appreciate recs, including planned stop date of antibiotic treatment. * continue IV meropenem and Levaquin. End date is Mar 19. * needed for total of 6 weeks therapy, which started on 02/06 Vital signs qshift CBC with diff, CMP and CRP weekly--> labs wnl on 03/09. Tylenol and Ibuprofen for pain Seen by rehabilitation therapy who are following patient and recommend continued supervision for fall prevention. PT/OT have signed off on patient, but can be reconsulted as needed. (2) Osteomyelitis of foot Code(s): M86.9 - Osteomyelitis, unspecified Status: Acute Plan: S/p amputation of L great toe See plan above for antibiotic coverage. (3) Asthma Code(s): J45.909 - Unspecified asthma, uncomplicated Status: Chronic Plan: Patient with history of asthma. Stable, no treatment at this time. (4) Neck pain, chronic Code(s): M54.2 - Cervicalgia; G89.29 - Other chronic pain Status: Acute Plan: Ibuprofen 600mg q6hr PRN for neck pain. (5) Nutrition, metabolism, and development symptoms Code(s): R63.8 - Other symptoms and signs concerning food and fluid intake Status: Acute Plan: Fluid: Tolerating PO Electrolytes: Monitor and replete as necessary Nutrition: Regular diet (6) DVT prophylaxis Status: Acute Plan: Encourage ambulation (non weight bearing on left foot) and mobility as tolerated. Pt SDW DR Christiansen <Juan Bhatt III - 03/12/18 14:06> - Attending Attestation See the residents documentation for details. I saw and evaluated the patient regarding the ly portions of this evaluation and agree with the residents findings and plans as written. Parts of this note were created using [employer] voice recognition software program. While efforts were made to correct any mistakes made by this software, some mistakes, errors, and omissions may remain in the final note that were not caught when the note was originally created. Plan of care was discussed and agreed upon with the patient as specifically documented in the above note. An opportunity to ask questions with explanation was provided. Patient voiced understanding on all information reviewed and discussed. <Travis Christiansen - 03/13/18 12:07>
[2018-03-13] MEDS: Ibuprofen 600 MG Tablet PO PRN (08:18)
[2018-03-13] MEDS: levoFLOXacin 750 MG Tablet PO SCH (08:18)
[2018-03-13] MEDS: Lactic Acid (Ammonium Lactate) 12% Lotion 225 GM Bottle TOPICAL SCH (08:19)
[2018-03-13] MEDS: Senna/Docusate Sodium 8.6/50 MG Tablet PO SCH ×2 (08:19→21:02)
[2018-03-13] MEDS: Sodium Chloride 0.9% 2 ML Flush BID IV.FLUSH SCH ×2 (08:19→21:01)
--- NOTE | 2018-03-13 10:33 | P.PNFP ---
Subjective Interval history: Mr. Du had no acute events overnight. He is sitting beside the bed eating his breakfast and complains of no pain, can move his toes freely and has no complaints this morning. Denies chest pain, shortness of breath, fever, chills , nausea, vomiting, diarrhea, abdominal or leg pain. <Miller DIASJuan - 03/13/18 10:33> Results - Labs Result diagrams: 03/09/18 06:45 03/09/18 06:45 <Travis Christiansen - 03/13/18 12:11> Physical Exam Vital signs: Vital Signs 03/12/18 20:00 03/12/18 22:24 03/12/18 23:10 Temperature 97.9 F Pulse Rate 67 Respiratory Rate 18 18 Blood Pressure 128/59 L Pulse Oximetry 99 96 03/13/18 01:10 03/13/18 08:00 Temperature 98.1 F Pulse Rate 65 Respiratory Rate 20 Blood Pressure 134/66 Pulse Oximetry 96 98 Intake & Output 03/12/18 03/13/18 03/13/18 18:59 06:59 18:59 Intake Total 1600 / 1600 200 / 200 Output Total 800 / 800 900 / 900 Balance 800 / 800 -700 / -700 Weight 125.4 kg Intake: IV 100 / 100 200 / 200 Merrem Inj 1,000 MG In NS Inj 100 / 100 200 / 200 100 ML @ 200 mls/hr IV.SIG Q8H [facility] Rx#:[id number] Oral 1500 / 1500 Output: Urine 800 / 800 900 / 900 Other: Date of Last Bowel Movement 03/12/18 03/12/18 # Bowel Movements 1 <Travis Christiansen - 03/13/18 12:11> Vital Signs 03/12/18 20:00 03/12/18 22:24 03/12/18 23:10 Temperature 97.9 F Pulse Rate 67 Respiratory Rate 18 18 Blood Pressure 128/59 L Pulse Oximetry 99 96 03/13/18 01:10 03/13/18 08:00 Temperature 98.1 F Pulse Rate 65 Respiratory Rate 20 Blood Pressure 134/66 Pulse Oximetry 96 98 Intake & Output 03/12/18 03/13/18 03/13/18 18:59 06:59 18:59 Intake Total 1600 / 1600 200 / 200 Output Total 800 / 800 900 / 900 Balance 800 / 800 -700 / -700 Weight 125.4 kg Intake: IV 100 / 100 200 / 200 Merrem Inj 1,000 MG In NS Inj 100 / 100 200 / 200 100 ML @ 200 mls/hr IV.SIG Q8H [facility] Rx#:[id number] Oral 1500 / 1500 Output: Urine 800 / 800 900 / 900 Other: Date of Last Bowel Movement 03/12/18 03/12/18 # Bowel Movements 1 <Juan Bhatt III - 03/13/18 10:33> Narrative: GENERAL: 52 year old obese male in no acute distress, sitting in chair by bedside. HEENT: Normocephalic atraumatic. MMM. CARDIOVASCULAR: RRR with no murmur, rub or gallop. RESPIRATORY: No accessory muscle use or tachypnea. CTAB. GASTROINTESTINAL: Abdomen non-distended. Normal BS. MUSCULOSKELETAL: Right foot wrapped in MARYA bandage. No drainage or bleeding. Bandage dry. Able to move toes bilaterally. NEURO: AOx3. CN II-XII grossly intact. Normal speech. 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 Code(s): Z89.412 - Acquired absence of left great toe Status: Acute (2) Osteomyelitis of foot Code(s): M86.9 - Osteomyelitis, unspecified Status: Acute (3) Asthma Code(s): J45.909 - Unspecified asthma, uncomplicated Status: Chronic (4) Neck pain, chronic Code(s): M54.2 - Cervicalgia; G89.29 - Other chronic pain Status: Acute (5) Nutrition, metabolism, and development symptoms Code(s): R63.8 - Other symptoms and signs concerning food and fluid intake Status: Acute (6) DVT prophylaxis Status: Acute <Travis Christiansen - 03/13/18 12:11> (1) 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 F/u w/Dr. Chavarria planned for 5-7 days after d/c * Recommended daily dressing changes with application of triple antibiotic and ammonium lactate. * Continue IV antibiotics per ID * Non-weightbearing to LLE until ulceration is epithelialized ID consulted, appreciate recs, including planned stop date of antibiotic treatment. * continue IV meropenem and Levaquin. End date is Mar 19. * needed for total of 6 weeks therapy, which started on 02/06 Vital signs qshift CBC with diff, CMP and CRP weekly--> labs wnl on 03/09; next labs tomorrow. Tylenol and Ibuprofen for pain Seen by rehabilitation therapy who are following patient and recommend continued supervision for fall prevention. PT/OT have signed off on patient, but can be reconsulted as needed. (2) Osteomyelitis of foot Code(s): M86.9 - Osteomyelitis, unspecified Status: Acute Plan: S/p amputation of L great toe See plan above for antibiotic coverage. (3) Asthma Code(s): J45.909 - Unspecified asthma, uncomplicated Status: Chronic Plan: Patient with history of asthma. Stable, no treatment at this time. (4) Neck pain, chronic Code(s): M54.2 - Cervicalgia; G89.29 - Other chronic pain Status: Acute Plan: Ibuprofen 600mg q6hr PRN for neck pain. (5) Nutrition, metabolism, and development symptoms Code(s): R63.8 - Other symptoms and signs concerning food and fluid intake Status: Acute Plan: Fluid: Tolerating PO Electrolytes: Monitor and replete as necessary Nutrition: Regular diet (6) DVT prophylaxis Status: Acute Plan: Encourage ambulation (non weight bearing on left foot) and mobility as tolerated. Pt SDW Jean-Claude Christiansen and Priscila <Juan Bhatt III - 03/13/18 10:30> - Attending Attestation See the residents documentation for details. I saw and evaluated the patient regarding the ly portions of this evaluation and agree with the residents findings and plans as written. Parts of this note were created using [employer] voice recognition software program. While efforts were made to correct any mistakes made by this software, some mistakes, errors, and omissions may remain in the final note that were not caught when the note was originally created. Plan of care was discussed and agreed upon with the patient as specifically documented in the above note. An opportunity to ask questions with explanation was provided. Patient voiced understanding on all information reviewed and discussed. <Travis Christiansen - 03/13/18 12:11>
[2018-03-14 06:13] LABS: Baso % (Auto) 0.4 % (0.0-2.0); Eos # (Auto) 0.1 th/mm3 (0.0-0.4); Eos % (Auto) 2.4 % (0.0-4.0); Hematocrit 40.1 % (39.0-51.0); Hemoglobin 13.7 gm/dL (13.0-17.0); Lymph # (Auto) 1.5 th/mm3 (1.0-4.8); Lymph % (Auto) 27.6 % (9.0-44.0); Mean Corpuscular HGB Conc 34.2 % (32.0-36.0); Mean Corpuscular Hemoglobin 29.4 pg (27.0-34.0); Mean Corpuscular Volume 85.8 fL (80.0-100.0); Mean Platelet Volume 8.9 fL (7.0-11.0); Mono # (Auto) 0.5 th/mm3 (0.0-0.9); Mono % (Auto) 9.3 % (0.0-8.0); Neut # (Auto) 3.2 th/mm3 (1.8-7.7); Neut % (Auto) 60.3 % (16.0-70.0); Platelet Count 125 th/mm3 (150-450); Red Blood Count 4.67 mil/mm3 (4.50-5.90); Red Cell Distribution Width 14.1 % (11.6-17.2); White Blood Count 5.3 th/mm3 (4.0-11.0)
[2018-03-14 06:43] LABS: Alanine Aminotransferase 34 U/L (12-78); Anion Gap 7 meq/L (5-15); Aspartate Aminotransferase 21 U/L (15-37); Blood Urea Nitrogen 16 mg/dL (7-18); C-Reactive Protein 0.31 mg/dL (0.00-0.30); Calcium 8.5 mg/dL (8.5-10.1); Carbon Dioxide 29.4 meq/L (21.0-32.0); Chloride 105 meq/L (98-107); Glomerular Filtration Rate Greater Than 89 mL/min (>89); Glucose,Random 86 mg/dL (74-106); Potassium 4.2 meq/L (3.5-5.1); Sodium 141 meq/L (136-145)
[2018-03-14 06:45] LABS: Alkaline Phosphatase 65 U/L (45-117); Total Protein 6.9 g/dL (6.4-8.2)
[2018-03-14] MEDS: Ibuprofen 600 MG Tablet PO PRN ×2 (09:06→15:34)
[2018-03-14] MEDS: Lactic Acid (Ammonium Lactate) 12% Lotion 225 GM Bottle TOPICAL SCH (09:07)
[2018-03-14] MEDS: Senna/Docusate Sodium 8.6/50 MG Tablet PO SCH ×2 (09:07→21:13)
[2018-03-14] MEDS: levoFLOXacin 750 MG Tablet PO SCH (09:07)
[2018-03-14] MEDS: Sodium Chloride 0.9% 2 ML Flush BID IV.FLUSH SCH ×2 (11:26→20:33)
--- NOTE | 2018-03-14 11:50 | P.PNFP ---
Subjective Interval history: Mr. Du had no acute events overnight. He is sitting beside the bed after eating his breakfast and complains of occasional pain in his right chest wall he attributes to the PICC line, can move his toes freely and has no complaints this morning. He states that he has better feeling in his foot and toes of his left foot this morning. Dr Chavarria may perform debridement of left foot tomorrow. Denies chest pain, shortness of breath, fever, chills, nausea, vomiting, diarrhea, abdominal or leg pain. <Juan Bhatt III H - 03/14/18 15:20> Results - Labs Result diagrams: 03/14/18 06:00 03/14/18 06:00 <Lucas Ruiz - 03/14/18 19:07> Abnormal lab results 03/14/18 03/14/18 Range/Units 06:00 06:00 Plt Count 125 L (150-450) th/mm3 [place] % (Auto) 9.3 H (0.0-8.0) % C-Reactive Protein 0.31 H (0.00-0.30) mg/dL Albumin 3.0 L (3.4-5.0) g/dL Short CBC 03/14/18 Range/Units 06:00 WBC 5.3 (4.0-11.0) th/mm3 Hgb 13.7 (13.0-17.0) gm/dL Hct 40.1 (39.0-51.0) % Plt Count 125 L (150-450) th/mm3 [facility] 03/14/18 06:00 Sodium 141 Potassium 4.2 Chloride 105 Carbon Dioxide 29.4 BUN 16 Creatinine 0.78 Calcium 8.5 Liver Function 03/14/18 Range/Units 06:00 Total Bilirubin 0.4 (0.2-1.0) mg/dL AST 21 (15-37) U/L ALT 34 (12-78) U/L Alkaline Phosphatase 65 (45-117) U/L Albumin 3.0 L (3.4-5.0) g/dL <Lucas Ruiz - 03/14/18 19:07> Abnormal lab results 03/14/18 03/14/18 Range/Units 06:00 06:00 Plt Count 125 L (150-450) th/mm3 [place] % (Auto) 9.3 H (0.0-8.0) % C-Reactive Protein 0.31 H (0.00-0.30) mg/dL Albumin 3.0 L (3.4-5.0) g/dL Short CBC 03/14/18 Range/Units 06:00 WBC 5.3 (4.0-11.0) th/mm3 Hgb 13.7 (13.0-17.0) gm/dL Hct 40.1 (39.0-51.0) % Plt Count 125 L (150-450) th/mm3 BMP 03/14/18 06:00 Sodium 141 Potassium 4.2 Chloride 105 Carbon Dioxide 29.4 BUN 16 Creatinine 0.78 Calcium 8.5 Liver Function 03/14/18 Range/Units 06:00 Total Bilirubin 0.4 (0.2-1.0) mg/dL AST 21 (15-37) U/L ALT 34 (12-78) U/L Alkaline Phosphatase 65 (45-117) U/L Albumin 3.0 L (3.4-5.0) g/dL <Juan Bhatt III H - 03/14/18 11:49> Physical Exam Vital signs: Vital Signs 03/13/18 20:00 03/13/18 22:44 03/14/18 08:00 Temperature 97.9 F 98.3 F Pulse Rate 70 62 Respiratory Rate 18 20 Blood Pressure 127/60 121/61 Pulse Oximetry 97 98 100 Intake & Output 03/14/18 03/14/18 03/15/18 06:59 18:59 06:59 Intake Total 200 / 200 2200 / 2200 Output Total 800 / 800 1750 / 1750 Balance -600 / -600 450 / 450 Weight 125.6 kg Intake: IV 200 / 200 100 / 100 Merrem Inj 1,000 MG In NS Inj 200 / 200 100 / 100 100 ML @ 200 mls/hr IV.SIG Q8H [facility] Rx#:[id number] Oral 2099 / 2099 Output: Urine 800 / 800 1750 / 1750 Other: Date of Last Bowel Movement 03/13/18 03/14/18 # Bowel Movements 1 <Lucas Ruiz - 03/14/18 19:07> Vital Signs 03/13/18 20:00 03/13/18 22:44 03/14/18 08:00 Temperature 97.9 F 98.3 F Pulse Rate 70 62 Respiratory Rate 18 20 Blood Pressure 127/60 121/61 Pulse Oximetry 97 98 100 Intake & Output 03/13/18 03/14/18 03/14/18 18:59 06:59 18:59 Intake Total 1300 / 1300 200 / 200 600 / 600 Output Total 800 / 800 800 / 800 Balance 1300 / 1300 -600 / -600 -200 / -200 Weight 125.6 kg Intake: IV 100 / 100 200 / 200 Merrem Inj 1,000 MG In NS Inj 100 / 100 200 / 200 100 ML @ 200 mls/hr IV.SIG Q8H [facility] Rx#:[id number] Oral 1200 / 1200 600 / 600 Output: Urine 800 / 800 800 / 800 Other: # Voids 3 Date of Last Bowel Movement 03/13/18 03/13/18 # Bowel Movements 1 <Juan Bhatt III - 03/14/18 11:49> Narrative: GENERAL: 52 year old obese male in no acute distress, sitting in chair by bedside. HEENT: Normocephalic atraumatic. MMM. CARDIOVASCULAR: RRR with no murmur, rub or gallop. RESPIRATORY: No accessory muscle use or tachypnea. CTAB. GASTROINTESTINAL: Abdomen non-distended. Normal BS. MUSCULOSKELETAL: Right foot wrapped in MARYA bandage. No drainage or bleeding. Bandage dry. Able to move toes bilaterally. Pedal pulses normal. NEURO: AOx3. CN II-XII grossly intact. Normal speech. 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 Code(s): Z89.412 - Acquired absence of left great toe Status: Acute (2) Osteomyelitis of foot Code(s): M86.9 - Osteomyelitis, unspecified Status: Acute (3) Asthma Code(s): J45.909 - Unspecified asthma, uncomplicated Status: Chronic (4) Neck pain, chronic Code(s): M54.2 - Cervicalgia; G89.29 - Other chronic pain Status: Acute (5) Nutrition, metabolism, and development symptoms Code(s): R63.8 - Other symptoms and signs concerning food and fluid intake Status: Acute (6) DVT prophylaxis Status: Acute <Lucas Ruiz - 03/14/18 19:07> (1) 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 F/u w/Dr. Chavarria planned for 5-7 days after d/c * Recommended daily dressing changes with application of triple antibiotic and ammonium lactate. * Continue IV antibiotics per ID * Non-weightbearing to LLE until ulceration is epithelialized * Dr Chavarria may perform debridement tomorrow ID consulted, appreciate recs, including planned stop date of antibiotic treatment. * continue IV meropenem and Levaquin. End date is Mar 19. * needed for total of 6 weeks therapy, which started on 02/06 Vital signs qshift CBC with diff, CMP and CRP weekly--> labs on 03/14 with plts 125 and CRP 0.31, reduced from 0.38 Tylenol and Ibuprofen for pain Seen by rehabilitation therapy who are following patient and recommend continued supervision for fall prevention. PT/OT have signed off on patient, but can be reconsulted as needed. (2) Osteomyelitis of foot Code(s): M86.9 - Osteomyelitis, unspecified Status: Acute Plan: -S/p amputation of L great toe -See plan above for antibiotic coverage. (3) Asthma Code(s): J45.909 - Unspecified asthma, uncomplicated Status: Chronic Plan: -Patient with history of asthma. -Stable, no treatment at this time. (4) Neck pain, chronic Code(s): M54.2 - Cervicalgia; G89.29 - Other chronic pain Status: Acute Plan: Ibuprofen 600mg q6hr PRN for neck pain. (5) Nutrition, metabolism, and development symptoms Code(s): R63.8 - Other symptoms and signs concerning food and fluid intake Status: Acute Plan: Fluid: Tolerating PO Electrolytes: Monitor and replete as necessary Nutrition: Regular diet (6) DVT prophylaxis Status: Acute Plan: -Encourage ambulation (non weight bearing on left foot) and mobility as tolerated. -Lovenox 40 mg subcu daily Pt SDW Jean-Claude Ruiz and Priscila <Juan Bhatt III - 03/14/18 15:19> - Assessment and Plan See the residents documentation for details. I saw and evaluated the patient regarding the ly portions of this evaluation and agree with the residents findings and plans as written. Parts of this note were created using [employer] voice recognition software program. While efforts were made to correct any mistakes made by this software, some mistakes, errors, and omissions may remain in the final note that were not caught when the note was originally created. Plan of care was discussed and agreed upon with the patient as specifically documented in the above note. An opportunity to ask questions with explanation was provided. Patient voiced understanding on all information reviewed and discussed. <Miller DIASJuan Carlton - 03/14/18 11:49> - Attending Attestation The exam, history, and the medical decision-making described in the above note were completed with the assistance of the resident physician. I reviewed and agree with the findings presented. I attest that I had a [id number] encounter with the patient on the same day, and personally performed and documented my assessment and findings in the medical record. Saw today and doing well. no diabetes and supposedly had peripheral arterial studies that are clear. checked dp pulse on unwrapped foot today that was 2+, he does have scaly erythematous lower legs. He has a large smoking history and now only uses chewing tobacco. Counseled today on importance of stopping his tobacco use. IV abx per ID and post op and wound care per podiatry. will continue to monitor here until end antibiotics date <Lucas Ruiz - 03/14/18 19:07>
[2018-03-14] MEDS: Enoxaparin Inj 40 MG/0.4 ML Syringe SQ SCH (12:17)
--- NOTE | 2018-03-14 15:07 | P.PNPOD ---
Subjective Interval history: Patient seen bedside. Denies any nausea vomiting fevers or chills. Does state he sometimes feels phantom toe pains. Physical Exam Vital signs: Vital Signs 03/13/18 20:00 03/13/18 22:44 03/14/18 08:00 Temperature 97.9 F 98.3 F Pulse Rate 70 62 Respiratory Rate 18 20 Blood Pressure 127/60 121/61 Pulse Oximetry 97 98 100 Intake & Output 03/13/18 03/14/18 03/14/18 18:59 06:59 18:59 Intake Total 1300 / 1300 200 / 200 700 / 700 Output Total 800 / 800 800 / 800 Balance 1300 / 1300 -600 / -600 -100 / -100 Weight 125.6 kg Intake: IV 100 / 100 200 / 200 100 / 100 Merrem Inj 1,000 MG In NS Inj 100 / 100 200 / 200 100 / 100 100 ML @ 200 mls/hr IV.SIG Q8H [facility] Rx#:[id number] Oral 1200 / 1200 600 / 600 Output: Urine 800 / 800 800 / 800 Other: # Voids 3 Date of Last Bowel Movement 03/13/18 03/13/18 # Bowel Movements 1 Narrative: Incision well coapted superficial abrasion noted to amputation site. Sub-met 4 ulceration superficial in nature with granular base. Hyperkeratotic skin noted to plantar heel globally to left foot, improvement noted. Vascular status intact. Decreased pinpoint sensation. Medications and Allergies Active Medications: Active Medications Acetaminophen (Tylenol) 650 mg PO Q4H PRN PRN Reason: Pain 1-5 And/Or Fever >101f Last Admin: 02/07/18 12:08 Dose: 650 mg Hydrocodone Bitart/Acetaminophen ([place] 5/325) 1 tab PO HS PRN PRN Reason: Pain 3-10 Last Admin: 03/13/18 21:02 Dose: 1 tab Al Hydroxide/Mg Hydroxide (Milk Of Magnesia Liq) 30 ml PO Q12H PRN PRN Reason: Mild Constipation Albuterol (Duoneb Neb (Prn)) 1 ampul NEB Q4HR NEB PRN PRN Reason: SHORTNESS OF BREATH/WHEEZING Bisacodyl (Dulcolax Supp) 10 mg RECTAL DAILY PRN PRN Reason: SEVERE CONSITIPATION Clonidine HCl (Catapres) 0.1 mg PO Q6H PRN PRN Reason: SEE LABEL COMMENTS Enoxaparin Sodium (Lovenox Inj) 40 mg SQ DAILY [facility] Last Admin: 03/14/18 12:17 Dose: Not Given Sodium Chloride (Ns Inj) 500 mls @ 30 mls/hr IV.SIG .Q10H [facility] Last Admin: 02/04/18 05:32 Dose: Not Given Meropenem 1,000 mg/ Sodium (Chloride) 100 mls @ 200 mls/hr IV.SIG Q8H [facility] Last Infusion: 03/14/18 12:16 Dose: Infused Ibuprofen (Motrin) 600 mg PO Q6H PRN PRN Reason: HEADACHE, NECK PAIN Last Admin: 03/14/18 09:06 Dose: 600 mg Lactic Acid (Lac-Hydrin 12% Lotion) 1 applicatio TOPICAL DAILY [facility] Last Admin: 03/14/18 09:07 Dose: 1 applicatio Lactulose (Lactulose Liq) 30 ml PO DAILY PRN PRN Reason: SEVERE CONSITIPATION Levofloxacin (Levaquin) 750 mg PO DAILY [facility] Last Admin: 03/14/18 09:07 Dose: 750 mg Naphazoline HCl (Clear Eyes Redness Relief 0.012% Opth Drops) 1 drop EACH EYE Q4H PRN PRN Reason: DRY EYE(S) Last Admin: 02/16/18 15:31 Dose: 1 drop Neomycin/Polymyxin/Bacitracin (Neosporin Oint) 1 applicatio TOPICAL DAILY [facility] Last Admin: 03/14/18 09:07 Dose: 1 applicatio Ondansetron HCl (Zofran Inj) 4 mg IV.PUSH Q6H PRN PRN Reason: NAUSEA OR VOMITING Senna/Docusate Sodium (Celi-Colace) 1 tab PO BID [facility] Last Admin: 03/14/18 09:07 Dose: 1 tab Sodium Chloride (Ns Flush) 2 ml IV.FLUSH BID [facility] Last Admin: 03/14/18 11:26 Dose: 2 ml Sodium Chloride (Ns Flush) 2 ml IV.FLUSH PRN PRN PRN Reason: FLUSH AFTER USING IV ACCESS Last Admin: 03/09/18 20:19 Dose: 2 ml Allergies Allergy/AdvReac Type Severity Reaction Status Date / Time No Known Allergies Allergy Verified 02/02/18 17:27 Home Medications Medication Instructions Recorded Confirmed Type No Known Home Medications 02/02/18 02/02/18 History Results - Labs CBC & Chem 7: 03/14/18 06:00 03/14/18 06:00 Laboratory Results - last 24 hr 03/14/18 03/14/18 06:00 06:00 WBC 5.3 RBC 4.67 Hgb 13.7 Hct 40.1 MCV 85.8 MCH 29.4 MCHC 34.2 RDW 14.1 Plt Count 125 L MPV 8.9 Prelim Diff (Auto) Slide review pending Neut % (Auto) 60.3 Lymph % (Auto) 27.6 [place] % (Auto) 9.3 H Eos % (Auto) 2.4 Baso % (Auto) 0.4 Neut # (Auto) 3.2 Lymph # (Auto) 1.5 [place] # (Auto) 0.5 Eos # (Auto) 0.1 Baso # (Auto) 0.0 WBC Differential . Diff Scan Auto diff confirmed Differential Comment . Sodium 141 Potassium 4.2 Chloride 105 Carbon Dioxide 29.4 Anion Gap 7 BUN 16 Creatinine 0.78 Estimated GFR Greater than 89 Random Glucose 86 Calcium 8.5 Total Bilirubin 0.4 AST 21 ALT 34 Alkaline Phosphatase 65 C-Reactive Protein 0.31 H Total Protein 6.9 Albumin 3.0 L Assessment and Plan - Assessment (1) Open wnd foot-complicated Code(s): S91.309A - Unspecified open wound, unspecified foot, initial encounter Status: Acute (2) Foot ulcer, left Code(s): L97.529 - Non-pressure chronic ulcer of other part of left foot with unspecified severity Status: Resolved - Plan 52 year old male with left foot proximal phalanx of hallux and first metatarsal osteomyelitis We will perform bedside debridement tomorrow for sub-met for callus with underlying discoloration, probable ulceration IV abx per ID, discussed with ID Non weight bearing to left LE Left foot dressing changes to perform daily, please see daily dressing change orders Left foot apply triple antibiotic to submetatarsal 4 ulceration as well as to incision line. Apply ammonium lactate to plantar aspect of foot daily. Patient to stay in house or receiving IV antibiotics for further improvement of left foot (1) Open wnd foot-complicated Qualifiers: Encounter type: initial encounter Laterality: left Qualified Code(s): S91.302A - Unspecified open wound, left foot, initial encounter
[2018-03-15] MEDS: Senna/Docusate Sodium 8.6/50 MG Tablet PO SCH ×2 (08:31→20:45)
[2018-03-15] MEDS: levoFLOXacin 750 MG Tablet PO SCH (08:31)
[2018-03-15] MEDS: Sodium Chloride 0.9% 2 ML Flush BID IV.FLUSH SCH ×2 (08:32→20:47)
[2018-03-15] MEDS: Enoxaparin Inj 40 MG/0.4 ML Syringe SQ SCH (08:32)
[2018-03-15] MEDS: Lactic Acid (Ammonium Lactate) 12% Lotion 225 GM Bottle TOPICAL SCH (08:33)
--- NOTE | 2018-03-15 12:31 | P.PNFP ---
Subjective Interval history: No acute events overnight. Patient seen and examined this AM. Remains afebrile, vitals stable. Patient states he has no specific complaints or concerns this morning. Specifically denies new pain, fevers, CP, dyspnea, n/v. <RomuolaliciafatoumatatatianaEric - 03/15/18 12:31> Results - Labs Result diagrams: 03/14/18 06:00 03/14/18 06:00 <Lucas Ruiz - 03/15/18 17:29> Physical Exam Vital signs: Vital Signs 03/14/18 20:00 03/14/18 22:30 03/15/18 06:58 Temperature 97.7 F Pulse Rate 68 Respiratory Rate 20 12 Blood Pressure 126/66 Pulse Oximetry 98 97 03/15/18 08:00 Temperature 96.8 F L Pulse Rate 60 Respiratory Rate 16 Blood Pressure 110/71 Pulse Oximetry 97 Intake & Output 03/14/18 03/15/18 03/15/18 18:59 06:59 18:59 Intake Total 2200 / 2200 200 / 200 100 / 100 Output Total 1750 / 1750 1000 / 1000 1950 / 1950 Balance 450 / 450 -800 / -800 -1850 / -1850 Weight 125.6 kg Intake: IV 100 / 100 200 / 200 100 / 100 Merrem Inj 1,000 MG In NS Inj 100 / 100 200 / 200 100 / 100 100 ML @ 200 mls/hr IV.SIG Q8H [facility] Rx#:[id number] Oral 2100 / 2100 Output: Urine 1750 / 1750 1000 / 1000 1949 / 1950 Other: Date of Last Bowel Movement 03/14/18 03/14/18 03/15/18 # Bowel Movements 1 <Lucas Ruiz - 03/15/18 17:29> Vital Signs 03/14/18 20:00 03/14/18 22:30 03/15/18 06:58 Temperature 97.7 F Pulse Rate 68 Respiratory Rate 20 12 Blood Pressure 126/66 Pulse Oximetry 98 97 03/15/18 08:00 Temperature 96.8 F L Pulse Rate 60 Respiratory Rate 16 Blood Pressure 110/71 Pulse Oximetry 97 Intake & Output 03/14/18 03/15/18 03/15/18 18:59 06:59 18:59 Intake Total 2200 / 2200 200 / 200 100 / 100 Output Total 1750 / 1750 1000 / 1000 1250 / 1250 Balance 450 / 450 -800 / -800 -1150 / -1150 Weight 125.6 kg Intake: IV 100 / 100 200 / 200 100 / 100 Merrem Inj 1,000 MG In NS Inj 100 / 100 200 / 200 100 / 100 100 ML @ 200 mls/hr IV.SIG Q8H [facility] Rx#:[id number] Oral 2100 / 2100 Output: Urine 1750 / 1750 1000 / 1000 1250 / 1250 Other: Date of Last Bowel Movement 03/14/18 03/14/18 03/15/18 # Bowel Movements 1 <Eric Hernandez - 03/15/18 12:31> Narrative: GENERAL: 52 year old obese male in no acute distress, sitting in chair by bedside. HEENT: Normocephalic atraumatic. MMM. CARDIOVASCULAR: RRR with no murmur, rub or gallop. RESPIRATORY: No accessory muscle use or tachypnea. CTAB. GASTROINTESTINAL: Abdomen non-distended. Normal BS. MUSCULOSKELETAL: Left foot wrapped in MARYA bandage. No drainage or bleeding. Bandage is dry. Able to move toes bilaterally. Pedal pulses normal. NEURO: AOx3. health and safety technician grossly intact. Normal speech. 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 Code(s): Z89.412 - Acquired absence of left great toe Status: Acute (2) Osteomyelitis of foot Code(s): M86.9 - Osteomyelitis, unspecified Status: Acute (3) Asthma Code(s): J45.909 - Unspecified asthma, uncomplicated Status: Chronic (4) Neck pain, chronic Code(s): M54.2 - Cervicalgia; G89.29 - Other chronic pain Status: Acute (5) Nutrition, metabolism, and development symptoms Code(s): R63.8 - Other symptoms and signs concerning food and fluid intake Status: Acute (6) DVT prophylaxis Status: Acute <Lucas Ruiz - 03/15/18 17:29> (1) 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 F/u w/Dr. Chavarria planned for 5-7 days after d/c * Recommended daily dressing changes with application of triple antibiotic and ammonium lactate. * Continue IV antibiotics per ID * Non-weightbearing to LLE until ulceration is epithelialized * Dr Chavarria may perform debridement today ID consulted, appreciate recs, including planned stop date of antibiotic treatment. * continue IV meropenem and Levaquin. End date is Mar 19. * needed for total of 6 weeks therapy, which started on 02/06 Vital signs qshift CBC with diff, CMP and CRP weekly--> labs on 03/14 with plts 125 and CRP 0.31, reduced from 0.38 Tylenol and Ibuprofen for pain Seen by rehabilitation therapy who are following patient and recommend continued supervision for fall prevention. PT/OT have signed off on patient, but can be reconsulted as needed Reordered PT for activity (2) Osteomyelitis of foot Code(s): M86.9 - Osteomyelitis, unspecified Status: Acute Plan: -S/p amputation of L great toe -See plan above for antibiotic coverage. (3) Asthma Code(s): J45.909 - Unspecified asthma, uncomplicated Status: Chronic Plan: -Patient with history of asthma. -Stable, no treatment at this time. (4) Neck pain, chronic Code(s): M54.2 - Cervicalgia; G89.29 - Other chronic pain Status: Acute Plan: Ibuprofen 600mg q6hr PRN for neck pain. (5) Nutrition, metabolism, and development symptoms Code(s): R63.8 - Other symptoms and signs concerning food and fluid intake Status: Acute Plan: Fluid: Tolerating PO Electrolytes: Monitor and replete as necessary Nutrition: Regular diet (6) DVT prophylaxis Status: Acute Plan: -Encourage ambulation (non weight bearing on left foot) and mobility as tolerated. -Lovenox 40 mg subcu daily Pt SDW Jean-Claude Ruiz and Priscila <Eric Hernandez - 03/15/18 12:25> - Attending Attestation The exam, history, and the medical decision-making described in the above note were completed with the assistance of the resident physician. I reviewed and agree with the findings presented. I attest that I had a [id number] encounter with the patient on the same day, and personally performed and documented my assessment and findings in the medical record. doing well, more debridement today. ambulating. reviewed therapy and PM&R notes and is still reapplying for medicaid. tentative plan is to discharge home with his cousin after completing abx here on 03/19 <Lucas Ruiz - 03/15/18 17:29>
--- NOTE | 2018-03-15 15:57 | P.PCN ---
Date of procedure: 03/15/18 Pre-op diagnosis: Left sub-met four ulceration Post-op diagnosis: same Procedure: Left sub-met four debridement Anesthesia: none Surgeon: Vicki Chavarria Estimated blood loss (mL): 0 Pathology: none sent Condition: stable Disposition: no change (Full-thickness excisional debridement performed to left sub-met four ulceration with 15 blade no complications)
[2018-03-16] MEDS: Ibuprofen 600 MG Tablet PO PRN ×2 (07:58→13:25)
[2018-03-16] MEDS: Lactic Acid (Ammonium Lactate) 12% Lotion 225 GM Bottle TOPICAL SCH (08:00)
[2018-03-16] MEDS: levoFLOXacin 750 MG Tablet PO SCH (08:00)
[2018-03-16] MEDS: Sodium Chloride 0.9% 2 ML Flush BID IV.FLUSH SCH ×2 (08:00→20:04)
[2018-03-16] MEDS: Senna/Docusate Sodium 8.6/50 MG Tablet PO SCH ×2 (08:00→20:03)
[2018-03-16] MEDS: Enoxaparin Inj 40 MG/0.4 ML Syringe SQ SCH (08:00)
--- NOTE | 2018-03-16 09:16 | P.PNFP ---
Subjective Interval history: No acute events overnight. Remains afebrile, vitals are stable. Patient seen and examined this AM. He denies worsening pain of his left foot following his bedside debridement yesterday. Denies fevers or chills, CP, dyspnea, abdominal pain. <Kevin Hernandezsh - 03/16/18 10:37> Results - Labs Result diagrams: 03/14/18 06:00 03/14/18 06:00 <Lucas Ruiz - 03/16/18 11:26> Physical Exam Vital signs: Vital Signs 03/15/18 20:00 03/15/18 22:45 03/16/18 03:56 Temperature 97.2 F L Pulse Rate 77 Respiratory Rate 20 Blood Pressure 125/60 Pulse Oximetry 98 98 98 03/16/18 07:00 03/16/18 08:00 Temperature 97.9 F Pulse Rate 65 Respiratory Rate 12 18 Blood Pressure 118/58 L Pulse Oximetry 98 Intake & Output 03/15/18 03/16/18 03/16/18 18:59 06:59 18:59 Intake Total 1800 / 1800 200 / 200 Output Total 3250 / 3250 1500 / 1500 Balance -1450 / -1450 -1300 / -1300 Weight 125.6 kg Intake: IV 100 / 100 200 / 200 Merrem Inj 1,000 MG In NS Inj 100 / 100 200 / 200 100 ML @ 200 mls/hr IV.SIG Q8H [facility] Rx#:[id number] Oral 1700 / 1700 Output: Urine 3250 / 3250 1500 / 1500 Other: Date of Last Bowel Movement 03/15/18 03/15/18 03/16/18 # Bowel Movements 2 <Lucas Ruiz - 03/16/18 11:26> Vital Signs 03/15/18 20:00 03/15/18 22:45 03/16/18 03:56 Temperature 97.2 F L Pulse Rate 77 Respiratory Rate 20 Blood Pressure 125/60 Pulse Oximetry 98 98 98 03/16/18 07:00 03/16/18 08:00 Temperature 97.9 F Pulse Rate 65 Respiratory Rate 12 18 Blood Pressure 118/58 L Pulse Oximetry 98 Intake & Output 03/15/18 03/16/18 03/16/18 18:59 06:59 18:59 Intake Total 1800 / 1800 200 / 200 Output Total 3250 / 3250 1500 / 1500 Balance -1450 / -1450 -1300 / -1300 Weight 125.6 kg Intake: IV 100 / 100 200 / 200 Merrem Inj 1,000 MG In NS Inj 100 / 100 200 / 200 100 ML @ 200 mls/hr IV.SIG Q8H [facility] Rx#:[id number] Oral 1700 / 1700 Output: Urine 3250 / 3250 1500 / 1500 Other: Date of Last Bowel Movement 03/15/18 03/15/18 03/16/18 # Bowel Movements 2 <Eric Hernandez - 03/16/18 09:16> Narrative: GENERAL: 52 year old obese male in no acute distress, sitting in chair by bedside. HEENT: Normocephalic atraumatic. MMM. CARDIOVASCULAR: RRR with no murmur, rub or gallop. RESPIRATORY: No accessory muscle use or tachypnea. CTAB. GASTROINTESTINAL: Abdomen non-distended. Normal BS. MUSCULOSKELETAL: Left foot wrapped in MARYA bandage. No drainage or bleeding. Bandage is dry. Able to move toes bilaterally. Pedal pulses normal. NEURO: AOx3. solicitor patent grossly intact. Normal speech. 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 Code(s): Z89.412 - Acquired absence of left great toe Status: Acute (2) Osteomyelitis of foot Code(s): M86.9 - Osteomyelitis, unspecified Status: Acute (3) Asthma Code(s): J45.909 - Unspecified asthma, uncomplicated Status: Chronic (4) Neck pain, chronic Code(s): M54.2 - Cervicalgia; G89.29 - Other chronic pain Status: Acute (5) Nutrition, metabolism, and development symptoms Code(s): R63.8 - Other symptoms and signs concerning food and fluid intake Status: Acute (6) DVT prophylaxis Status: Acute <Lucas Ruiz - 03/16/18 11:26> (1) 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 F/u w/Dr. Chavarria planned for 5-7 days after d/c * Recommended daily dressing changes with application of triple antibiotic and ammonium lactate. * Continue IV antibiotics per ID * Non-weightbearing to LLE until ulceration is epithelialized * s/p bedside left sub-met four debridement by Dr Chavarria 03/15 ID consulted, appreciate recs, including planned stop date of antibiotic treatment. * continue IV meropenem and Levaquin. End date is Mar 19 * needed for total of 6 weeks therapy, which started on 02/06 Vital signs qshift Plan to repeat CBC in 1-2 days to follow platelet count Tylenol and Ibuprofen for pain Seen by rehabilitation therapy who are following patient and recommend continued supervision for fall prevention. PT/OT have signed off on patient, but can be reconsulted as needed Reordered PT for activity (2) Osteomyelitis of foot Code(s): M86.9 - Osteomyelitis, unspecified Status: Acute Plan: -S/p amputation of L great toe -See plan above for antibiotic coverage. (3) Asthma Code(s): J45.909 - Unspecified asthma, uncomplicated Status: Chronic Plan: -Patient with history of asthma. -Stable, no treatment at this time. (4) Neck pain, chronic Code(s): M54.2 - Cervicalgia; G89.29 - Other chronic pain Status: Acute Plan: Ibuprofen 600mg q6hr PRN for neck pain. (5) Nutrition, metabolism, and development symptoms Code(s): R63.8 - Other symptoms and signs concerning food and fluid intake Status: Acute Plan: Fluid: Tolerating PO Electrolytes: Monitor and replete as necessary Nutrition: Regular diet (6) DVT prophylaxis Status: Acute Plan: -Encourage ambulation (non weight bearing on left foot) and mobility as tolerated. -Lovenox 40 mg subcu daily <Eric Hernandez - 03/16/18 10:30> - Attending Attestation The exam, history, and the medical decision-making described in the above note were completed with the assistance of the resident physician. I reviewed and agree with the findings presented. I attest that I had a [id number] encounter with the patient on the same day, and personally performed and documented my assessment and findings in the medical record. Feeling the same today, leg still wrapped. He was staying with his cousin but now his cousin doesnt want him to live with him anymore. He is planning to stay with his brother now at least temporarily while working on more permanent housing. Aunt has helped him fill out medicaid paperwork, I think this is a good first step for him to more medical care. He had been going to [facility] ([facility] Hope to d/c after abx end date 03/19 <Lucas Ruiz - 03/16/18 11:26>
[2018-03-17 05:50] LABS: Baso % (Auto) 0.5 % (0.0-2.0); Eos # (Auto) 0.2 th/mm3 (0.0-0.4); Eos % (Auto) 2.6 % (0.0-4.0); Hematocrit 39.4 % (39.0-51.0); Hemoglobin 13.7 gm/dL (13.0-17.0); Lymph # (Auto) 1.6 th/mm3 (1.0-4.8); Lymph % (Auto) 27.5 % (9.0-44.0); Mean Corpuscular HGB Conc 34.8 % (32.0-36.0); Mean Corpuscular Hemoglobin 29.4 pg (27.0-34.0); Mean Corpuscular Volume 84.4 fL (80.0-100.0); Mono # (Auto) 0.6 th/mm3 (0.0-0.9); Mono % (Auto) 9.5 % (0.0-8.0); Neut # (Auto) 3.5 th/mm3 (1.8-7.7); Neut % (Auto) 59.9 % (16.0-70.0); Platelet Count 139 th/mm3 (150-450); Red Blood Count 4.67 mil/mm3 (4.50-5.90); Red Cell Distribution Width 13.7 % (11.6-17.2); White Blood Count 5.9 th/mm3 (4.0-11.0)
[2018-03-17 06:16] LABS: Albumin 3.1 g/dL (3.4-5.0); Anion Gap 8 meq/L (5-15); Aspartate Aminotransferase 29 U/L (15-37); Blood Urea Nitrogen 17 mg/dL (7-18); Calcium 8.5 mg/dL (8.5-10.1); Carbon Dioxide 26.3 meq/L (21.0-32.0); Chloride 105 meq/L (98-107); Glomerular Filtration Rate Greater Than 89 mL/min (>89); Glucose,Random 80 mg/dL (74-106); Potassium 4.3 meq/L (3.5-5.1); Sodium 139 meq/L (136-145)
[2018-03-17 06:17] LABS: Alanine Aminotransferase 42 U/L (12-78); C-Reactive Protein 0.43 mg/dL (0.00-0.30)
[2018-03-17 06:19] LABS: Alkaline Phosphatase 72 U/L (45-117)
[2018-03-17] MEDS: Lactic Acid (Ammonium Lactate) 12% Lotion 225 GM Bottle TOPICAL SCH (08:47)
[2018-03-17] MEDS: Senna/Docusate Sodium 8.6/50 MG Tablet PO SCH ×2 (08:48→21:57)
[2018-03-17] MEDS: levoFLOXacin 750 MG Tablet PO SCH (08:49)
[2018-03-17] MEDS: Enoxaparin Inj 40 MG/0.4 ML Syringe SQ SCH (08:49)
[2018-03-17] MEDS: Sodium Chloride 0.9% 2 ML Flush BID IV.FLUSH SCH ×2 (08:50→21:58)
[2018-03-17] MEDS: Ibuprofen 600 MG Tablet PO PRN ×2 (08:52→18:31)
--- NOTE | 2018-03-17 09:56 | P.PNFP ---
Subjective Interval history: She is seen and examined at bedside today. He reports mild left shoulder pain due to the weather. He reports pain at the site where he had his debridement on 03/14 but reports that is unchanged from the last 2 days. He denies chest pain, shortness of breath, fever, chills, nausea, vomiting. He will be going to live at his brother's house upon discharge. Will be following at the [facility] as an outpatient. I instructed him today that the nurse will be teaching him how to dress his foot since he will have to do this independently when he goes home. He voiced understanding. <Arlene Francois - 03/17/18 10:38> Results - Labs Result diagrams: 03/17/18 04:50 03/17/18 04:50 <Lucas Ruiz - 03/17/18 14:10> Abnormal lab results 03/17/18 03/17/18 Range/Units 04:50 04:50 Plt Count 139 L (150-450) th/mm3 Beckham % (Auto) 9.5 H (0.0-8.0) % C-Reactive Protein 0.43 H (0.00-0.30) mg/dL Albumin 3.1 L (3.4-5.0) g/dL Short CBC 03/17/18 Range/Units 04:50 WBC 5.9 (4.0-11.0) th/mm3 Hgb 13.7 (13.0-17.0) gm/dL Hct 39.4 (39.0-51.0) % Plt Count 139 L (150-450) th/mm3 BMP 03/17/18 04:50 Sodium 139 Potassium 4.3 Chloride 105 Carbon Dioxide 26.3 BUN 17 Creatinine 0.76 Calcium 8.5 Liver Function 03/17/18 Range/Units 04:50 Total Bilirubin 0.5 (0.2-1.0) mg/dL AST 29 (15-37) U/L ALT 42 (12-78) U/L Alkaline Phosphatase 72 (45-117) U/L Albumin 3.1 L (3.4-5.0) g/dL <Lucas Ruiz - 03/17/18 14:10> Abnormal lab results 03/17/18 03/17/18 Range/Units 04:50 04:50 Plt Count 139 L (150-450) th/mm3 Beckham % (Auto) 9.5 H (0.0-8.0) % C-Reactive Protein 0.43 H (0.00-0.30) mg/dL Albumin 3.1 L (3.4-5.0) g/dL Short CBC 03/17/18 Range/Units 04:50 WBC 5.9 (4.0-11.0) th/mm3 Hgb 13.7 (13.0-17.0) gm/dL Hct 39.4 (39.0-51.0) % Plt Count 139 L (150-450) th/mm3 BMP 03/17/18 04:50 Sodium 139 Potassium 4.3 Chloride 105 Carbon Dioxide 26.3 BUN 17 Creatinine 0.76 Calcium 8.5 Liver Function 03/17/18 Range/Units 04:50 Total Bilirubin 0.5 (0.2-1.0) mg/dL AST 29 (15-37) U/L ALT 42 (12-78) U/L Alkaline Phosphatase 72 (45-117) U/L Albumin 3.1 L (3.4-5.0) g/dL <Arlene Francois - 03/17/18 09:56> Physical Exam Vital signs: Vital Signs 03/16/18 20:00 03/16/18 23:38 03/17/18 04:00 Temperature 97.8 F Pulse Rate 68 Respiratory Rate 18 Blood Pressure 129/63 Pulse Oximetry 96 96 97 03/17/18 08:00 Temperature 97.4 F L Pulse Rate 66 Respiratory Rate 18 Blood Pressure 111/77 Pulse Oximetry 95 Intake & Output 03/16/18 03/17/18 03/17/18 18:59 06:59 18:59 Intake Total 1800 / 1800 200 / 200 240 / 240 Output Total 1600 / 1600 1200 / 1200 500 / 500 Balance 200 / 200 -1000 / -1000 -260 / -260 Weight 126.4 kg Intake: IV 100 / 100 200 / 200 Merrem Inj 1,000 MG In NS Inj 100 / 100 200 / 200 100 ML @ 200 mls/hr IV.SIG Q8H [facility] Rx#:[id number] Oral 1700 / 1700 240 / 240 Output: Urine 1600 / 1600 1200 / 1200 500 / 500 Other: Date of Last Bowel Movement 1103/15/18 03/17/18 # Bowel Movements 3 <Lucas Ruiz - 03/17/18 14:10> Vital Signs 03/16/18 20:00 03/16/18 23:38 03/17/18 04:00 Temperature 97.8 F Pulse Rate 68 Respiratory Rate 18 Blood Pressure 129/63 Pulse Oximetry 96 96 97 03/17/18 08:00 Temperature 97.4 F L Pulse Rate 66 Respiratory Rate 18 Blood Pressure 111/77 Pulse Oximetry 95 Intake & Output 03/16/18 03/17/18 03/17/18 18:59 06:59 18:59 Intake Total 1800 / 1800 200 / 200 240 / 240 Output Total 1600 / 1600 1200 / 1200 500 / 500 Balance 200 / 200 -1000 / -1000 -260 / -260 Weight 126.4 kg Intake: IV 100 / 100 200 / 200 Merrem Inj 1,000 MG In NS Inj 100 / 100 200 / 200 100 ML @ 200 mls/hr IV.SIG Q8H [facility] Rx#:[id number] Oral 1700 / 1700 240 / 240 Output: Urine 1600 / 1600 1200 / 1200 500 / 500 Other: Date of Last Bowel Movement 03/16/18 03/15/18 # Bowel Movements 3 <Arlene Francois - 03/17/18 09:56> Narrative: GENERAL: obese male in no acute distress, sitting in chair by bedside. HEENT: Normocephalic atraumatic. MMM. CARDIOVASCULAR: RRR with no murmur, rub or gallop. RESPIRATORY: No accessory muscle use or tachypnea. CTAB. GASTROINTESTINAL: Abdomen non-distended. Normal BS. MUSCULOSKELETAL: Left foot wrapped in MARYA bandage. No drainage or bleeding. Bandage is dry. Able to move toes bilaterally. NEURO: AOx3. natural resource officer grossly intact. Normal speech. 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 Code(s): Z89.412 - Acquired absence of left great toe Status: Acute (2) Osteomyelitis of foot Code(s): M86.9 - Osteomyelitis, unspecified Status: Acute (3) Asthma Code(s): J45.909 - Unspecified asthma, uncomplicated Status: Chronic (4) Neck pain, chronic Code(s): M54.2 - Cervicalgia; G89.29 - Other chronic pain Status: Acute (5) Nutrition, metabolism, and development symptoms Code(s): R63.8 - Other symptoms and signs concerning food and fluid intake Status: Acute (6) DVT prophylaxis Status: Acute <Lucas Ruiz - 03/17/18 14:10> (1) 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 F/u w/Dr. Chavarria planned for 5-7 days after d/c * Recommended daily dressing changes with application of triple antibiotic and ammonium lactate. * Continue IV antibiotics per ID * Non-weightbearing to LLE until ulceration is epithelialized * s/p bedside left sub-met four debridement by Dr Chavarria 03/15 ID consulted, appreciate recs, including planned stop date of antibiotic treatment. * continue IV meropenem and Levaquin. End date is Mar 19 * needed for total of 6 weeks therapy, which started on 02/06 Vital signs qshift Tylenol and Ibuprofen for pain WBC within normal limits Platelet count has continued to improve. It is 139 today up from 125 on March 14 and 114 on March 02. CRP @ 0.43 up from 0.31 on March 14-patient is scheduled to discontinue antibiotic treatment on March 19. Will monitor trend. Seen by rehabilitation therapy who are following patient and recommend continued supervision for fall prevention. PT/OT have signed off on patient, but can be reconsulted as needed Reordered PT for activity, but patient denied to participate. (2) Osteomyelitis of foot Code(s): M86.9 - Osteomyelitis, unspecified Status: Acute Plan: -S/p amputation of L great toe -See plan above for antibiotic coverage. (3) Asthma Code(s): J45.909 - Unspecified asthma, uncomplicated Status: Chronic Plan: -Patient with history of asthma. -Stable, no treatment at this time. (4) Neck pain, chronic Code(s): M54.2 - Cervicalgia; G89.29 - Other chronic pain Status: Acute Plan: Ibuprofen 600mg q6hr PRN for neck pain. (5) Nutrition, metabolism, and development symptoms Code(s): R63.8 - Other symptoms and signs concerning food and fluid intake Status: Acute Plan: Fluid: Tolerating PO Electrolytes: Monitor and replete as necessary Nutrition: Regular diet (6) DVT prophylaxis Status: Acute Plan: -Encourage ambulation (non weight bearing on left foot) and mobility as tolerated. -Lovenox 40 mg subcu daily <Arlene Francois - 03/17/18 10:38> - Attending Attestation The exam, history, and the medical decision-making described in the above note were completed with the assistance of the resident physician. I reviewed and agree with the findings presented. I attest that I had a [id number] encounter with the patient on the same day, and personally performed and documented my assessment and findings in the medical record. Doing well today. medicaid now pending. d/w nursing staff need to educate him on self dressing changes. thrombocytopenia mild and stable. CRP trending up today, will make sure this is ok with current plan before discharge. will check again tomorrow. <Lucas Ruiz - 03/17/18 14:10>
--- NOTE | 2018-03-17 16:34 | P.PNPOD ---
Subjective Interval history: Hx of left foot OM Doing well and NAD. Physical Exam Vital signs: Vital Signs 03/16/18 20:00 03/16/18 23:38 03/17/18 04:00 Temperature 97.8 F Pulse Rate 68 Respiratory Rate 18 Blood Pressure 129/63 Pulse Oximetry 96 96 97 03/17/18 08:00 Temperature 97.4 F L Pulse Rate 66 Respiratory Rate 18 Blood Pressure 111/77 Pulse Oximetry 95 Intake & Output 03/16/18 03/17/18 03/17/18 18:59 06:59 18:59 Intake Total 1800 / 1800 200 / 200 340 / 340 Output Total 1600 / 1600 1200 / 1200 500 / 500 Balance 200 / 200 -1000 / -1000 -160 / -160 Weight 126.4 kg Intake: IV 100 / 100 200 / 200 100 / 100 Merrem Inj 1,000 MG In NS Inj 100 / 100 200 / 200 100 / 100 100 ML @ 200 mls/hr IV.SIG Q8H [facility] Rx#:[id number] Oral 1700 / 1700 240 / 240 Output: Urine 1600 / 1600 1200 / 1200 500 / 500 Other: Date of Last Bowel Movement 03/16/18 03/15/18 03/17/18 # Bowel Movements 3 Narrative: Left foot with amputation of the left hallux. + plantar full thickness ulcers, multiple, no erythema, no edema and no drainage , no acute soi. Plantar heel fissured NVS unchanged Medications and Allergies Active Medications: Active Medications Acetaminophen (Tylenol) 650 mg PO Q4H PRN PRN Reason: Pain 1-5 And/Or Fever >101f Last Admin: 02/07/18 12:08 Dose: 650 mg Hydrocodone Bitart/Acetaminophen (Sadorus 5/325) 1 tab PO HS PRN PRN Reason: Pain 3-10 Last Admin: 03/16/18 20:03 Dose: 1 tab Al Hydroxide/Mg Hydroxide (Milk Of Magnesia Liq) 30 ml PO Q12H PRN PRN Reason: Mild Constipation Albuterol (Duoneb Neb (Prn)) 1 ampul NEB Q4HR NEB PRN PRN Reason: SHORTNESS OF BREATH/WHEEZING Bisacodyl (Dulcolax Supp) 10 mg RECTAL DAILY PRN PRN Reason: SEVERE CONSITIPATION Clonidine HCl (Catapres) 0.1 mg PO Q6H PRN PRN Reason: SEE LABEL COMMENTS Enoxaparin Sodium (Lovenox Inj) 40 mg SQ DAILY [facility] Last Admin: 03/17/18 08:49 Dose: Not Given Sodium Chloride (Ns Inj) 500 mls @ 30 mls/hr IV.SIG .Q10H [facility] Last Admin: 02/04/18 05:32 Dose: Not Given Meropenem 1,000 mg/ Sodium (Chloride) 100 mls @ 200 mls/hr IV.SIG Q8H [facility] Last Infusion: 03/17/18 14:10 Dose: Infused Ibuprofen (Motrin) 600 mg PO Q6H PRN PRN Reason: HEADACHE, NECK PAIN Last Admin: 03/17/18 08:52 Dose: 600 mg Lactic Acid (Lac-Hydrin 12% Lotion) 1 applicatio TOPICAL DAILY [facility] Last Admin: 03/17/18 08:47 Dose: 1 applicatio Lactulose (Lactulose Liq) 30 ml PO DAILY PRN PRN Reason: SEVERE CONSITIPATION Levofloxacin (Levaquin) 750 mg PO DAILY [facility] Last Admin: 03/17/18 08:49 Dose: 750 mg Naphazoline HCl (Clear Eyes Redness Relief 0.012% Opth Drops) 1 drop EACH EYE Q4H PRN PRN Reason: DRY EYE(S) Last Admin: 02/16/18 15:31 Dose: 1 drop Neomycin/Polymyxin/Bacitracin (Neosporin Oint) 1 applicatio TOPICAL DAILY [facility] Last Admin: 03/17/18 08:50 Dose: 1 applicatio Ondansetron HCl (Zofran Inj) 4 mg IV.PUSH Q6H PRN PRN Reason: NAUSEA OR VOMITING Senna/Docusate Sodium (Celi-Colace) 1 tab PO BID [facility] Last Admin: 03/17/18 08:48 Dose: Not Given Sodium Chloride (Ns Flush) 2 ml IV.FLUSH BID [facility] Last Admin: 03/17/18 08:50 Dose: 2 ml Sodium Chloride (Ns Flush) 2 ml IV.FLUSH PRN PRN PRN Reason: FLUSH AFTER USING IV ACCESS Last Admin: 03/09/18 20:19 Dose: 2 ml Allergies Allergy/AdvReac Type Severity Reaction Status Date / Time No Known Allergies Allergy Verified 02/02/18 17:27 Home Medications Medication Instructions Recorded Confirmed Type No Known Home Medications 02/02/18 02/02/18 History Results - Labs CBC & Chem 7: 03/17/18 04:50 03/17/18 04:50 Laboratory Results - last 24 hr 03/17/18 03/17/18 04:50 04:50 WBC 5.9 RBC 4.67 Hgb 13.7 Hct 39.4 MCV 84.4 MCH 29.4 MCHC 34.8 RDW 13.7 Plt Count 139 L MPV 9.0 Neut % (Auto) 59.9 Lymph % (Auto) 27.5 Ralls % (Auto) 9.5 H Eos % (Auto) 2.6 Baso % (Auto) 0.5 Neut # (Auto) 3.5 Lymph # (Auto) 1.6 [place] # (Auto) 0.6 Eos # (Auto) 0.2 Baso # (Auto) 0.0 WBC Differential . Differential Comment Auto diff final Sodium 139 Potassium 4.3 Chloride 105 Carbon Dioxide 26.3 Anion Gap 8 BUN 17 Creatinine 0.76 Estimated GFR Greater than 89 Random Glucose 80 Calcium 8.5 Total Bilirubin 0.5 AST 29 ALT 42 Alkaline Phosphatase 72 C-Reactive Protein 0.43 H Total Protein 7.0 Albumin 3.1 L Assessment and Plan - Assessment (1) Open wnd foot-complicated Code(s): S91.309A - Unspecified open wound, unspecified foot, initial encounter Status: Acute (2) Foot ulcer, left Code(s): L97.529 - Non-pressure chronic ulcer of other part of left foot with unspecified severity Status: Resolved - Plan OK to d/c per Podiatry F/U with Dr Chaavrria. (1) Open wnd foot-complicated Qualifiers: Encounter type: initial encounter Laterality: left Qualified Code(s): S91.302A - Unspecified open wound, left foot, initial encounter
[2018-03-18 07:02] LABS: Baso % (Auto) 0.5 % (0.0-2.0); Eos # (Auto) 0.1 th/mm3 (0.0-0.4); Eos % (Auto) 2.3 % (0.0-4.0); Hematocrit 39.6 % (39.0-51.0); Hemoglobin 13.5 gm/dL (13.0-17.0); Lymph # (Auto) 1.4 th/mm3 (1.0-4.8); Lymph % (Auto) 24.2 % (9.0-44.0); Mean Corpuscular HGB Conc 34.1 % (32.0-36.0); Mean Corpuscular Hemoglobin 29.4 pg (27.0-34.0); Mean Platelet Volume 9.3 fL (7.0-11.0); Mono # (Auto) 0.5 th/mm3 (0.0-0.9); Mono % (Auto) 9.2 % (0.0-8.0); Neut # (Auto) 3.7 th/mm3 (1.8-7.7); Neut % (Auto) 63.8 % (16.0-70.0); Platelet Count 134 th/mm3 (150-450); Red Cell Distribution Width 13.9 % (11.6-17.2); White Blood Count 5.7 th/mm3 (4.0-11.0)
[2018-03-18] MEDS: Sodium Chloride 0.9% 2 ML Flush BID IV.FLUSH SCH ×2 (09:00→21:12)
--- NOTE | 2018-03-18 09:05 | P.PNFP ---
Subjective Interval history: Mr. Du had no acute events overnight. Today he is feeling well and does say that his 2 left foot wounds did give him a little bit of discomfort. He feels like he is ready to discharge tomorrow and has no other complaints. He spoke with Dr. Chavarria's colleague yesterday who told him he would be cleared to discharge tomorrow. He was able to change his own dressing yesterday and feels comfortable doing that on his own when he discharges. No chest pain, shortness of breath, nausea, vomiting, diarrhea, abdominal or leg pains. <Juan Bhatt III - 03/18/18 09:05> Results - Labs Result diagrams: 03/18/18 06:15 03/17/18 04:50 <Lucas Ruiz - 03/18/18 11:12> Abnormal lab results 03/18/18 03/18/18 Range/Units 06:15 06:15 Plt Count 134 L (150-450) th/mm3 [place] % (Auto) 9.2 H (0.0-8.0) % C-Reactive Protein 0.40 H (0.00-0.30) mg/dL Short CBC 03/18/18 Range/Units 06:15 WBC 5.7 (4.0-11.0) th/mm3 Hgb 13.5 (13.0-17.0) gm/dL Hct 39.6 (39.0-51.0) % Plt Count 134 L (150-450) th/mm3 <Lucas Ruiz - 03/18/18 11:12> Abnormal lab results 03/18/18 03/18/18 Range/Units 06:15 06:15 Plt Count 134 L (150-450) th/mm3 [place] % (Auto) 9.2 H (0.0-8.0) % C-Reactive Protein 0.40 H (0.00-0.30) mg/dL Short CBC 03/18/18 Range/Units 06:15 WBC 5.7 (4.0-11.0) th/mm3 Hgb 13.5 (13.0-17.0) gm/dL Hct 39.6 (39.0-51.0) % Plt Count 134 L (150-450) th/mm3 <Juan Bhatt III - 03/18/18 09:05> Physical Exam Vital signs: Vital Signs 03/17/18 20:00 03/18/18 00:46 03/18/18 05:08 Temperature 98.6 F Pulse Rate 88 Respiratory Rate 18 Blood Pressure 124/68 Pulse Oximetry 95 96 96 03/18/18 08:00 Temperature 97.4 F L Pulse Rate 64 Respiratory Rate 20 Blood Pressure 138/65 Pulse Oximetry 98 Intake & Output 03/17/18 03/18/18 03/18/18 18:59 06:59 18:59 Intake Total 1040 / 1040 200 / 200 Output Total 1300 / 1300 200 / 200 Balance -260 / -260 0 / 0 Weight 126.7 kg Intake: IV 100 / 100 200 / 200 Merrem Inj 1,000 MG In NS Inj 100 / 100 200 / 200 100 ML @ 200 mls/hr IV.SIG Q8H [facility] Rx#:[id number] Oral 940 / 940 Output: Urine 1300 / 1300 200 / 200 Other: Date of Last Bowel Movement 03/17/18 03/17/18 # Bowel Movements 3 <Lucas Ruiz - 03/18/18 11:12> Vital Signs 03/17/18 20:00 03/18/18 00:46 03/18/18 05:08 Temperature 98.6 F Pulse Rate 88 Respiratory Rate 18 Blood Pressure 124/68 Pulse Oximetry 95 96 96 03/18/18 08:00 Temperature 97.4 F L Pulse Rate 64 Respiratory Rate 20 Blood Pressure 138/65 Pulse Oximetry 98 Intake & Output 03/17/18 03/18/18 03/18/18 18:59 06:59 18:59 Intake Total 1040 / 1040 200 / 200 Output Total 1300 / 1300 200 / 200 Balance -260 / -260 0 / 0 Weight 126.7 kg Intake: IV 100 / 100 200 / 200 Merrem Inj 1,000 MG In NS Inj 100 / 100 200 / 200 100 ML @ 200 mls/hr IV.SIG Q8H [facility] Rx#:[id number] Oral 940 / 940 Output: Urine 1300 / 1300 200 / 200 Other: Date of Last Bowel Movement 03/17/18 03/17/18 # Bowel Movements 3 <Juan Bhatt III H - 03/18/18 09:05> Narrative: GENERAL: Obese male in no acute distress, sitting in chair by bedside. HEENT: Normocephalic atraumatic. MMM. CARDIOVASCULAR: RRR with no murmur, rub or gallop. RESPIRATORY: No accessory muscle use or tachypnea. CTAB. GASTROINTESTINAL: Abdomen non-distended. Normal BS. MUSCULOSKELETAL: Left foot wrapped in MARYA bandage. No drainage or bleeding. Bandage is dry. Able to move toes bilaterally. NEURO: AOx3. client success director grossly intact. Normal speech. 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 Code(s): Z89.412 - Acquired absence of left great toe Status: Acute (2) Osteomyelitis of foot Code(s): M86.9 - Osteomyelitis, unspecified Status: Acute (3) Asthma Code(s): J45.909 - Unspecified asthma, uncomplicated Status: Chronic (4) Neck pain, chronic Code(s): M54.2 - Cervicalgia; G89.29 - Other chronic pain Status: Acute (5) Nutrition, metabolism, and development symptoms Code(s): R63.8 - Other symptoms and signs concerning food and fluid intake Status: Acute (6) DVT prophylaxis Status: Acute <Lucas Ruiz Fermin - 03/18/18 11:12> (1) 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 F/u w/Dr. Chavarria planned for 5-7 days after d/c * Recommended daily dressing changes with application of triple antibiotic and ammonium lactate. * Continue IV antibiotics per ID * Non-weightbearing to LLE until ulceration is epithelialized * s/p bedside left sub-met four debridement by Dr Chavarria 03/15 ID consulted, appreciate recs, including planned stop date of antibiotic treatment. * continue IV meropenem and Levaquin. End date is Mar 19 * needed for total of 6 weeks therapy, which started on 02/06 Vital signs qshift Tylenol and Ibuprofen for pain WBC within normal limits Platelet count is stable at 135 today, up from 125 on March 14 and 114 on March 02. CRP @ 0.43, up from 0.31 on March 14-patient is scheduled to discontinue antibiotic treatment on March 19. Due likely to debridement. Will monitor trend. Seen by rehabilitation therapy who are following patient and recommend continued supervision for fall prevention. PT/OT have signed off on patient, but can be reconsulted as needed Reordered PT for activity, but patient denied to participate. (2) Osteomyelitis of foot Code(s): M86.9 - Osteomyelitis, unspecified Status: Acute Plan: -S/p amputation of L great toe -See plan above for antibiotic coverage. (3) Asthma Code(s): J45.909 - Unspecified asthma, uncomplicated Status: Chronic Plan: -Patient with history of asthma. -Stable, no treatment at this time. (4) Neck pain, chronic Code(s): M54.2 - Cervicalgia; G89.29 - Other chronic pain Status: Acute Plan: Ibuprofen 600mg q6hr PRN for neck pain. (5) Nutrition, metabolism, and development symptoms Code(s): R63.8 - Other symptoms and signs concerning food and fluid intake Status: Acute Plan: Fluid: Tolerating PO Electrolytes: Monitor and replete as necessary Nutrition: Regular diet (6) DVT prophylaxis Status: Acute Plan: -Encourage ambulation (non weight bearing on left foot) and mobility as tolerated. -Lovenox 40 mg subcu daily Dispo: Likely 03/[address] Francois <Juan Bhatt III - 03/18/18 08:59> - Assessment and Plan See the residents documentation for details. I saw and evaluated the patient regarding the ly portions of this evaluation and agree with the residents findings and plans as written. Parts of this note were created using [employer] voice recognition software program. While efforts were made to correct any mistakes made by this software, some mistakes, errors, and omissions may remain in the final note that were not caught when the note was originally created. Plan of care was discussed and agreed upon with the patient as specifically documented in the above note. An opportunity to ask questions with explanation was provided. Patient voiced understanding on all information reviewed and discussed. <Juan Bhatt III - 03/18/18 09:05> - Attending Attestation The exam, history, and the medical decision-making described in the above note were completed with the assistance of the resident physician. I reviewed and agree with the findings presented. I attest that I had a [id number] encounter with the patient on the same day, and personally performed and documented my assessment and findings in the medical record. Patient doing well this AM. doing his own dressing changes. He has minimal bleeding from ulcer debridement site. His CRP is trending back down today further removed from debridement. His plan is still to be discharged tomorrow afternoon to his brother's house. <Lucas Ruiz - 03/18/18 11:12>
[2018-03-18] MEDS: Ibuprofen 600 MG Tablet PO PRN (09:21)
[2018-03-18] MEDS: levoFLOXacin 750 MG Tablet PO SCH (09:22)
[2018-03-18] MEDS: Senna/Docusate Sodium 8.6/50 MG Tablet PO SCH ×2 (09:22→21:10)
[2018-03-18] MEDS: Enoxaparin Inj 40 MG/0.4 ML Syringe SQ SCH (09:25)
[2018-03-18] MEDS: Lactic Acid (Ammonium Lactate) 12% Lotion 225 GM Bottle TOPICAL SCH (09:25)
[2018-03-19 08:51] VITALS: RESP 18
[2018-03-19] MEDS: Sodium Chloride 0.9% 2 ML Flush BID IV.FLUSH SCH (09:00)
[2018-03-19] MEDS: Enoxaparin Inj 40 MG/0.4 ML Syringe SQ SCH (09:00)
[2018-03-19] MEDS: Lactic Acid (Ammonium Lactate) 12% Lotion 225 GM Bottle TOPICAL SCH (09:00)
[2018-03-19] MEDS: levoFLOXacin 750 MG Tablet PO SCH (09:59)
[2018-03-19] MEDS: Ibuprofen 600 MG Tablet PO PRN (09:59)
[2018-03-19] MEDS: Senna/Docusate Sodium 8.6/50 MG Tablet PO SCH (09:59)
--- NOTE | 2018-03-19 11:43 | P.PNFP ---
Subjective Interval history: Patient seen and examined at bedside today. Patient will receive his last dose of IV antibiotics today and will be discharged. He denies any chest pain, fevers, chills. He reports mild left foot pain, but this is the same as previous days. He is ready to go home but says he will miss the nurses and the care that he received here. He is confident that he can independently change his dressing. He will follow-up with Dr. Chavarria next week. He will follow-up with his primary care provider at [facility]. <Arlene Francois - 03/19/18 12:11> Results - Labs Result diagrams: 03/18/18 06:15 03/17/18 04:50 <Lucas Ruiz - 03/19/18 13:08> Physical Exam Vital signs: Vital Signs 03/18/18 20:00 03/19/18 00:00 03/19/18 08:00 Temperature 97.9 F 97.9 F 97.9 F Pulse Rate 70 70 64 Respiratory Rate 20 20 18 Blood Pressure 128/60 128/60 118/58 L Pulse Oximetry 96 96 99 Intake & Output 03/18/18 03/19/18 03/19/18 18:59 06:59 18:59 Intake Total 1140 / 1140 740 / 740 Output Total 900 / 900 1500 / 1500 Balance 240 / 240 -760 / -760 Weight 126.7 kg Intake: IV 100 / 100 200 / 200 Merrem Inj 1,000 MG In NS Inj 100 / 100 200 / 200 100 ML @ 200 mls/hr IV.SIG Q8H [facility] Rx#:[id number] Oral 1040 / 1040 540 / 540 Output: Urine 900 / 900 1500 / 1500 Other: Date of Last Bowel Movement 03/17/18 03/18/18 <Lucas Ruiz - 03/19/18 13:08> Vital Signs 03/18/18 20:00 03/19/18 00:00 03/19/18 08:00 Temperature 97.9 F 97.9 F 97.9 F Pulse Rate 70 70 64 Respiratory Rate 20 20 18 Blood Pressure 128/60 128/60 118/58 L Pulse Oximetry 96 96 99 Intake & Output 03/18/18 03/19/18 03/19/18 18:59 06:59 18:59 Intake Total 1140 / 1140 740 / 740 Output Total 900 / 900 1500 / 1500 Balance 240 / 240 -760 / -760 Weight 126.7 kg Intake: IV 100 / 100 200 / 200 Merrem Inj 1,000 MG In NS Inj 100 / 100 200 / 200 100 ML @ 200 mls/hr IV.SIG Q8H [facility] Rx#:[id number] Oral 1040 / 1040 540 / 540 Output: Urine 900 / 900 1500 / 1500 Other: Date of Last Bowel Movement 03/17/18 03/18/18 <Arlene Francois - 03/19/18 11:43> Narrative: GENERAL: Obese male in no acute distress, sitting in chair by bedside. HEENT: Normocephalic atraumatic. MMM. CARDIOVASCULAR: RRR with no murmur, rub or gallop. RESPIRATORY: No accessory muscle use or tachypnea. CTAB. GASTROINTESTINAL: Abdomen non-distended. Normal BS. MUSCULOSKELETAL: Left foot wrapped in MARYA bandage. No drainage or bleeding. Bandage is dry. Able to move toes bilaterally. NEURO: AOx3. running specialist grossly intact. Normal speech. 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 Code(s): Z89.412 - Acquired absence of left great toe Status: Acute (2) Osteomyelitis of foot Code(s): M86.9 - Osteomyelitis, unspecified Status: Acute (3) Asthma Code(s): J45.909 - Unspecified asthma, uncomplicated Status: Chronic (4) Neck pain, chronic Code(s): M54.2 - Cervicalgia; G89.29 - Other chronic pain Status: Acute (5) Nutrition, metabolism, and development symptoms Code(s): R63.8 - Other symptoms and signs concerning food and fluid intake Status: Acute (6) DVT prophylaxis Status: Acute <Lucas Ruiz - 03/19/18 13:08> (1) 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 F/u w/Dr. Chavarria planned for 5-7 days after d/c * Recommended daily dressing changes with application of triple antibiotic and ammonium lactate. * Continue IV antibiotics per ID * Non-weightbearing to LLE until ulceration is epithelialized * s/p bedside left sub-met four debridement by Dr Chavarria 03/15 ID consulted, appreciate recs, including planned stop date of antibiotic treatment. * continue IV meropenem and Levaquin. End date is Mar 19 * needed for total of 6 weeks therapy, which started on 02/06 Vital signs qshift Tylenol and Ibuprofen for pain WBC within normal limits Platelet count is stable. 135 March 18, up from 125 on March 14 and 114 on March 02. CRP @ 0.43 on March 18, up from 0.31 on March 14-patient is scheduled to discontinue antibiotic treatment on March 19. Due likely to debridement. Seen by rehabilitation therapy who are following patient and recommend continued supervision for fall prevention. PT/OT have signed off on patient, but can be reconsulted as needed Reordered PT for activity, but patient denied to participate. (2) Osteomyelitis of foot Code(s): M86.9 - Osteomyelitis, unspecified Status: Acute Plan: -S/p amputation of L great toe -See plan above for antibiotic coverage. (3) Asthma Code(s): J45.909 - Unspecified asthma, uncomplicated Status: Chronic Plan: -Patient with history of asthma. -Stable, no treatment at this time. (4) Neck pain, chronic Code(s): M54.2 - Cervicalgia; G89.29 - Other chronic pain Status: Acute Plan: Ibuprofen 600mg q6hr PRN for neck pain. (5) Nutrition, metabolism, and development symptoms Code(s): R63.8 - Other symptoms and signs concerning food and fluid intake Status: Acute Plan: Fluid: Tolerating PO Electrolytes: Monitor and replete as necessary Nutrition: Regular diet (6) DVT prophylaxis Status: Acute Plan: -Encourage ambulation (non weight bearing on left foot) and mobility as tolerated. -Lovenox 40 mg subcu daily Dispo: discharge today. He will be living with his brother. Pt SDW Dr. Ruiz, Dr. Hernandez <Arlene Francois - 03/19/18 12:04> - Attending Attestation The exam, history, and the medical decision-making described in the above note were completed with the assistance of the resident physician. I reviewed and agree with the findings presented. I attest that I had a [id number] encounter with the patient on the same day, and personally performed and documented my assessment and findings in the medical record. Ready to go home today, doing dressing changes on his own. no complaints. <Lucas Ruiz - 03/19/18 13:08>
--- NOTE | 2018-03-19 12:15 | P.DS ---
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 Chavarria due to a chronic wound on the plantar aspect of his left foot. Patient reports he has two wounds on the left foot and he first noticed these wounds in August of this year. Reports prior to this he had been having soreness in this area since the beginning of the year. He states he is unsure as to what may have caused this chronic wound. Denies any trauma. He states to me he is healthy apart from having mild asthma, although he does not follow with a PCP. The patient is somewhat of a difficult historian. He does report he has seen a few providers most recently in the [facility]. He was recently hospitalized at [facility] per report from 01/10-01/20 for this same wound on his left foot; the patient was reportedly discharged home with a PICC line and instructed to continue IV antibiotics. He states he has been driving himself to the hospital to receive an antibiotic daily at 09:00. He is unsure which antibiotic this is. Per report, he was also to be set up to have a wound vac placed although this was not done at his house. The patient is currently living in a mobile home with his cousin. The patient endorses pain that is mild, and further improved with IV morphine earlier here in the ED. Denies recent fevers or chills. Denies chest pains, palpitations, dyspnea, wheezing. Denies headaches, changes in vision, abdominal pain, n/v/d. 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 Status: Acute (2) Osteomyelitis of foot Status: Acute (3) Asthma Status: Chronic (4) Neck pain, chronic Status: Acute (5) Nutrition, metabolism, and development symptoms Status: Acute (6) DVT prophylaxis Status: Acute DS: Medications - Discharge Medications Prescriptions: ammonium lactate [AmLactin] 1 applicatio TOPICAL DAILY #1 bottle ivmgevpu-dimujchrjOv-axlgnzitA [Triple Antibiotic] 1 applicatio TOPICAL DAILY # 1 tube DS: Summary Hospital Course: Patient is a 52 year old male, sent to the ED by his sales manager [place] due to a non- healing ulcer on the plantar surface of his left foot. Patient was recently hospitalized at [facility] for evaluation and treatment of the same non-healing ulcer. He underwent I&D with wound vac placement during that hospitalization in early December; he was however discharged without wound vac. Patient was placed on ertapenem; IV antibiotic was continued as outpatient. Patient then reported to [place] due to disease progression despite IV antibiotic treatment. Left first ray resection on 02/04 by podiatry. Left foot wound complicated by osteomyelitis: Unclear etiology. HgbA1c 5.7 and bedside glucose wnl. TSH and B12 wnl. Also no known history of peripheral vascular disease or venous insufficiency. Wound cultures grew Stenotrophomonas maltophilia and Pseudomonas aeruginosa. Tissue cultures grew Stenotrophomonas maltophilia. Pathology with evidence of acute and chronic osteomyelitis and negative margins. Blood cultures with no growth. Foot MRI with evidence of osteomyelitis. Left first ray resection performed 02/04. Consult placed to ID; patient on meropenem and Levaquin for 6 weeks. Patient completed this course. He was to follow up with podiatry, Dr. Chavarria upon discharge. He will also follow with his PCP at [facility]. - Time Spent with Patient Total time spent providing and/or coordinating discharge services: Greater than 30 minutes - Quality: VTE Deep Vein Thrombosis/Pulmonary Embolism Present on Admission: No Exam Vital signs: Vital Signs 03/18/18 20:00 03/19/18 00:00 03/19/18 08:00 Temperature 97.9 F 97.9 F 97.9 F Pulse Rate 70 70 64 Respiratory Rate 20 20 18 Blood Pressure 128/60 128/60 118/58 L Pulse Oximetry 96 96 99 Intake & Output 03/18/18 03/19/18 03/19/18 18:59 06:59 18:59 Intake Total 1140 / 1140 740 / 740 Output Total 900 / 900 1500 / 1500 Balance 240 / 240 -760 / -760 Weight 126.7 kg Intake: IV 100 / 100 200 / 200 Merrem Inj 1,000 MG In NS Inj 100 / 100 200 / 200 100 ML @ 200 mls/hr IV.SIG Q8H [facility] Rx#:[id number] Oral 1040 / 1040 540 / 540 Output: Urine 900 / 900 1500 / 1500 Other: Date of Last Bowel Movement 03/17/18 03/18/18 Results Procedures completed during hospitalization: Left first ray resection on 02/04 by podiatry, Dr. Chavarria Completed studies during hospitalization: Pending at discharge 02/04/18 11:34 Surgical [PTH] Routine - Impressions ITS Impressions Foot MRI 02/02/18 18:25 CONCLUSION: Deep plantar ulcer of the medial forefoot as described with associated osteomyelitis of the neck and head of the first metatarsal and osteomyelitis throughout most of the great toe proximal phalanx. The first metatarsophalangeal joint is dorsally dislocated due to plantar and flexor mechanism rupture. I don't clearly see either sesamoid. Foot X-Ray 02/04/18 00:00 CONCLUSION: Postoperative first digit amputation. Shoulder X-Ray 02/26/18 00:00 CONCLUSION: No acute left shoulder abnormality is identified. 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 Venous Doppler Study 02/26/18 00:00 CONCLUSION: No venous thrombosis is identified in the left upper extremity. Discharge Plan - Discharge Disposition Patient Disposition: 01 Discharge Home - Discharge Condition Condition: Stable - Discharge Order Discharge Orders: Discharge Order (Routine); Ordered 03/19/18 Ordered By: Arlene Francois - Discharge Details Anticipated Discharge Date: 03/19/18 - Physicians Team Primary Care Provider: Bharat Tejada Attending Provider: Lucas Ruiz Other Providers: Vicki Chavarria DPM ; Teena Garcia MD ; Neel Arora MD
[2018-03-19 13:42] VITALS: BP 144/72; PULSE 96; TEMP 97.8; O2SAT 98
== END 2018-03-19 16:16 | disposition home or self-care (01) | DRG 464 ==
LOC: NEPC 17:13 → NEDA 20:04 → N05 23:51
PROVIDERS: ADMIT Family Medicine; ATTEND Family Medicine
CPT/HCPCS: 73030; 73630; 73720; 80048; 80053; 80202; 82607; 82948; 82962; 83036; 83605; 84443; 85025; 85027; 85610; 85651; 85652; 85730; 86038; 86039; 86140; 86225; 87015; 87040; 87070; 87077; 87102; 87116; 87176; 87186; 87205; 87206; 88304; 88305; 88307; 88311; 90774; 90775; 90784; 93005; 93971; 94002; 94003; 94150; 94656; 94657; 96374; 96375; 97110; 97116; 97162; 97530; 99285; A9585; C8952; J0131; J1644; J1956; J2185; J2250; J2270; J2405; J2543; J2704; J2997; J3010; J3370; J7030; J7040; L3250